=== PATIENT | male | born 1950 | race Asian ===

== ENCOUNTER 2018-02-28 02:19 | Inpatient (IN) | payer MEDICARE, MEDICAID ==
[2018-02-28] MEDS ORDERED: Haloperidol Lactate 5 mg/mL 1mL Vial IM STA (02:34)
[2018-02-28] MEDS ORDERED: Haloperidol Lactate 5 mg/mL 1mL Vial ONE (02:39)
[2018-02-28] MEDS ORDERED: Pantoprazole 80 MG in Sodium Chloride 0.9% 100 ML IV ONE (03:36)
[2018-02-28 03:50] LABS: % BASOPHILS 0.9 % (0.0-2.0); % EOSINOPHILS 0.4 % (0.0-5.0); % LYMPHOCYTES 11.9 % (20.0-50.0); % MONOCYTES 8.5 % (2.0-10.0); % NEUTROPHILS 78.3 % (40.0-80.0); BASOPHILE ABSOLUTE 0.1 Th/cumm (0-0.2); HEMATOCRIT 44.8 % (41.0-60); HEMOGLOBIN 15.2 gm/dL (12-16); LYMPHOCYTE ABSOLUTE 1.3 Th/cmm (1.5-3.0); MEAN CELL VOLUME 92.7 fl (80-99); MEAN CORPUSCULAR HEMOGLOBIN 31.3 pg (27.0-31.0); MEAN CORPUSCULAR HGB CONC 33.8 pg (28.0-36.0); MONOCYTE ABSOLUTE 0.9 Th/cmm (0.3-1.0); NEUTROPHILE ABSOLUTE 8.7 Th/cmm (1.8-8.0); PLATELET COUNT 315 Th/cmm (150-400); RED BLOOD COUNT 4.84 Mil/cmm (3.80-5.80); RED CELL DISTRIBUTION WIDTH 14.9 % (11.5-20.0)
[2018-02-28] MEDS ORDERED: Pantoprazole 80 MG in Sodium Chloride 0.9% 100 ML IV SCH ×2 (04:00→13:00)
[2018-02-28 04:01] LABS: ALB/GLOB RATIO 1.3 (1.0-1.8); ALKALINE PHOSPHATASE 109 U/L (34-104); AMYLASE SERUM 63 U/L (29-103); ANION GAP 15.3 (7.0-16.0); BILIRUBIN,TOTAL 0.5 mg/dL (0.3-1.0); BUN - UREA NITROGEN 19 mg/dL (7-25); CALCIUM SERUM 10.8 mg/dL (8.6-10.3); CARBON DIOXIDE 31.2 mEq/L (21.0-31.0); CHLORIDE 92 mEq/L (98-107); CREATININE - SERUM 0.9 mg/dL (0.7-1.3); GFR AFRICAN-AMERICAN > 60.0 ml/min (>90); GFR NON AFRICAN-AMERICAN > 60.0 ml/min; GLUCOSE 119 mg/dL (70-105); LIPASE 42 U/L (11-82); MAGNESIUM 2.4 mg/dL (1.9-2.7); PHOSPHOROUS 3.8 mg/dL (2.5-5.0); POTASSIUM SERUM 3.5 mEq/L (3.5-5.1); SGOT 27 U/L (13-39); SGPT/ALT 20 U/L (7-52); SODIUM SERUM 135 mEq/L (136-145); TOTAL PROTEIN,SERUM 8.8 gm/dL (6.0-8.3)
--- NOTE | 2018-02-28 04:55 | ED Physician Chart ---
ED Chief Complaint/HPI - Patient Information Date Seen:: 02/28/18 Time Seen:: 02:20 Chief Complaint:: coffee ground emesis History of Present Illness:: coffee ground emesis Allergies:: Allergies Allergy/AdvReac Type Severity Reaction Status Date / Time No Known Allergies Allergy Verified 02/28/18 02:32 Vitals:: Vital Signs - 8 hr 02/28/18 02:20 Temp 98.4 F HR 88 RR 20 BP 140/76 O2 Sat % 95 Family Medical History - Family Member Mother History Unknown: Yes ED Physical Exam - Physical Examination General/Constitutional: Awake Other Gen/Cons comments:: agitated, fighting and swearing. Head: Atraumatic Eyes: Lids, conjuctiva normal, PERRL, EOMI Skin: Nl inspection, No rash, No skin lesions, No ecchymosis, Well hydrated, No lymphadenopathy ENMT: External ears, nose nl, Nasal exam nl, Lips, teeth, gums nl Neck: Nontender, Full ROM w/o pain, No JVD, No nuchal rigidity, No bruit, No mass, No stridor Respiratory: Nl effort/Exclusion, Clear to Auscultation, No Wheeze/Rhonchi/Rales Cardio Vascular: No murmur, gallop, rubs, NL S1 S2 Other Cardio Vascular comments:: tachycardic GI: No tenderness/rebounding/guarding, No organomegaly, No hernia, Normal BS's, Nondistended, No mass/bruits, No McBurney tenderness Other GI comments:: midline laparotomy scar. : No CVA tenderness Extremities: No tenderness or effusion, Full ROM, normal strength in all extremities, No edema, Normal digits & nails Other Extremities comments:: right hip scar Neuro/Psych: Normal motor strength Other Neuro/Psych comments:: agitated, swearing and fighting. Misc: Normal back, No paraspinal tenderness ED Labs/Radiology/EKG Results - Lab Results Results: Laboratory Tests 02/28/18 02/28/18 02/28/18 03:30 03:30 03:30 WBC 11.0 H RBC 4.84 Hgb 15.2 Hct 44.8 MCV 92.7 MCH 31.3 H MCHC Differential 33.8 RDW 14.9 Plt Count 315 MPV 7.0 Neutrophils % 78.3 Lymphocytes % 11.9 L Monocytes % 8.5 Eosinophils % 0.4 Basophils % 0.9 Sodium 135 L Potassium 3.5 Chloride 92 L Carbon Dioxide 31.2 H Anion Gap 15.3 BUN 19 Creatinine 0.9 Est GFR ( Amer) > 60.0 Est GFR (Non-Af Amer) > 60.0 BUN/Creatinine Ratio 21.1 Glucose 119 H Calcium 10.8 H Phosphorus 3.8 Magnesium 2.4 Total Bilirubin 0.5 AST 27 ALT 20 Alkaline Phosphatase 109 H Troponin I Total Protein 8.8 H Albumin 5.0 Globulin 3.8 Albumin/Globulin Ratio 1.3 Amylase 63 Lipase 42 Blood Type O POSITIVE Antibody Screen NEGATIVE 02/28/18 03:30 WBC RBC Hgb Hct MCV MCH MCHC Differential RDW Plt Count MPV Neutrophils % Lymphocytes % Monocytes % Eosinophils % Basophils % Sodium Potassium Chloride Carbon Dioxide Anion Gap BUN Creatinine Est GFR ( Amer) Est GFR (Non-Af Amer) BUN/Creatinine Ratio Glucose Calcium Phosphorus Magnesium Total Bilirubin AST ALT Alkaline Phosphatase Troponin I < 0.01 L Total Protein Albumin Globulin Albumin/Globulin Ratio Amylase Lipase Blood Type Antibody Screen ED Assessment - Assessment General Assessment: patient had to be given a shot of benadryl, haldol and ativan just to calm him down enough so that he would not hit personnel. He also was placed in soft restraints which he broke off of his right wrist and then a leather restraint had to be placed on that side instead. Assessment/Comments:: spoke to Dr. Willis about her patient at 11:45 p.m. who ordered the following for admit: telemetry bed, hematocrit check every 6 hours, NPO, Protonix bolus and drip and GI consult. EKG from 4:03:12 a.m. reveals normal sinus rhythm with a rate of 89, flipped t wave in III and nonspecific ST T wave changes. ED Septic Shock - . Is Septic Shock (SBP<90, OR Lactate>4 mmol\L) present?: No - <6hrs of presentation: Vital Signs: Vital Signs - 8 hr 02/28/18 02:20 Temp 98.4 F HR 88 RR 20 BP 140/76 O2 Sat % 95 ED Reassessment (Disposition) - Reassessment Reassessment Condition:: Improved - Diagnosis Diagnosis:: Upper GI bleed Schizophrenia H/o atrial fibrillation
[2018-02-28] MEDS ORDERED: Sodium Chloride 0.45% 1,000 ML IV SCH (07:00)
[2018-02-28] MEDS ORDERED: Non-Formulary Item 1 EA (Docusate Sodium [Docusate Sodium] 100 MG) PO PRN (08:07)
[2018-02-28] MEDS ORDERED: Potassium Chloride 10 MEQ in D5-0.9%NS 1,000 ML IV SCH (08:15)
[2018-02-28] MEDS ORDERED: DILTIAZEM HCL 60 MG PO SCH (09:00)
--- NOTE | 2018-02-28 09:15 | Diagnostic Imaging Report ---
Exam: Portable chest x-ray HISTORY: Pneumonia. Findings: Portable upright examination of the chest at 0815 hours reviewed, no prior studies available comparison. The study demonstrates mild bilateral interstitial infiltrates. The costophrenic angles are clear bony thorax is intact. Mediastinal structures midline the aortic arch calcified. IMPRESSION: Mild bilateral interstitial infiltrates. Follow-up examination recommended.
[2018-02-28] MEDS: Potassium Chloride 10 MEQ in D5-0.9%NS 1,000 ML IV SCH ×2 (09:50→23:33)
[2018-02-28] MEDS: Diltiazem 30 mg Tab PO SCH ×2 (09:51→10:55)
[2018-02-28] MEDS: Multivitamin Tab PO SCH ×2 (09:52→10:56)
[2018-02-28] MEDS: Ferrous Sulfate 325 MG TAB PO SCH ×2 (09:52→10:56)
--- NOTE | 2018-02-28 10:11 | Consultation ---
DATE OF CONSULTATION: 02/28/2018 INPATIENT GASTROINTESTINAL CONSULTATION CONSULTING PHYSICIAN: Dr. Willis. REASON FOR CONSULTATION: Reported coffee-ground emesis. HISTORY OF PRESENT ILLNESS: The patient is a 68-year-old male with past medical history significant for schizophrenia, atrial fibrillation, who was brought into the hospital from his nursing facility after he was seen to have coffee-ground emesis. Of note, the patient is a poor historian and is unwilling to participate in the interview other than saying that he feels fine and he denies any vomiting. Most of the history is obtained from the chart and the nursing staff. Apparently, the patient was seen to have coffee-ground emesis at his other facility, although nothing has been observed here. He was admitted to the ER, given this history and was started on a Protonix drip and q.6 CBCs. The patient has been stable after admission and has not had any further emesis. He denies feeling sick and suddenly reports that he does not want to have any procedures done on him. PAST MEDICAL HISTORY: Schizophrenia, atrial fibrillation. PAST SURGICAL HISTORY: Unknown. FAMILY HISTORY: Noncontributory. SOCIAL HISTORY: Unknown. ALLERGIES: No known drug allergies. REVIEW OF SYSTEMS: Not possible given the patient does not participate in the interview process. CURRENT MEDICATIONS: Include amiodarone, cyanocobalamin, Cardizem, Depakote, Colace, iron, gabapentin, Remeron, multivitamin, olanzapine, oxybutynin, Protonix, tamsulosin. PHYSICAL EXAMINATION: VITAL SIGNS: Blood pressure is 131/71, pulse 74 beats per minute, temperature 97.8, oxygenation 97%. GENERAL: The patient is lying on his side in bed, alert and oriented x 2. He is grumpy. HEAD, EARS, EYES, NOSE AND THROAT: Normocephalic, atraumatic appearing head. Pupils are equal and reactive. Moist mucous membranes. NECK: Supple. No obvious JVD or thyromegaly. CHEST: Clear to auscultation bilaterally. CARDIOVASCULAR: S1, S2 present. Regular rate and rhythm. ABDOMEN: Soft, nontender to palpation. No obvious guarding, rebound or fluid distention. EXTREMITIES: No pitting edema. Pulses are not present. SKIN: There is no obvious jaundice. LABORATORIES: White blood cell count is 11.0, hemoglobin 15.2, platelet count is 315. Sodium 135, BUN is 19, creatinine 0.9, AST 27, ALT 20, total bilirubin 0.5. Troponin is negative. Lipase 42. No abdominal imaging has been performed. IMPRESSION: This is a 68-year-old male with schizophrenia, who resides at the nursing facility with atrial fibrillation, who comes into the hospital after reported coffee-ground emesis. 1. Coffee-ground emesis. 2. Schizophrenia. 3. Atrial fibrillation. DISCUSSION: Unclear if the patient actually had coffee-ground emesis, however, this is reported. He has not had any further episodes here. His hemoglobin is stable. I doubt he is having an active GI bleed. Nevertheless, we can investigate the coffee ground emesis episode with upper endoscopy, although we would have to obtain consent from this patient's conservator or family member that is making decisions for him. This would be on Friday if we consent. This is not an emergency procedure. Thus, we do not need to proceed urgently. RECOMMENDATIONS: 1. Start clear liquid diet and this can be advanced as tolerated. 2. If we are able to obtain consent for EGD, we can plan for this Friday morning, although this is not urgent. 3. We will reduce the CBCs to every 12 hours. 4. Change the Protonix drip to twice daily dosing Protonix as this is unlikely to be a significant GI bleed. We will continue to follow the patient. Thank you for allowing us to participate in his care. Please call if any further questions. [facility]# [phone] [id number]
[2018-02-28] MEDS ORDERED: Albuterol/Ipratropium Neb 3 ML AERS HHN PRN (14:10)
--- NOTE | 2018-02-28 22:11 | History & Physical ---
ADMIT DATE: 02/28/2018 CHIEF COMPLAINT: Coffee-ground emesis by nursing staff. HISTORY OF PRESENT ILLNESS: The patient is a confused, noncompliant 68-year-old male admitted from Emergency Room to telemetry floor of [facility] due to acute upper GI bleeding with ____ by nursing staff during [facility] with coffee-ground emesis. The patient was also noted to have atrial fibrillation, rate is controlled. The patient is more confused than his baseline status, he is kind of noncompliant but education provided. Vital signs are basically stable. Labs revealed WBC 11,000. Sodium 135, BUN 19, creatinine 0.9. Troponin less than 0.01. BNP was not done. Chest x-ray ordered earlier revealed bilateral interstitial infiltrates. PAST MEDICAL HISTORY: COPD, pneumonia, atrial fibrillation, coronary heart disease, status post TX, urinary tract infection, BPH, difficulty walking due to chronic pain syndrome. PAST SURGICAL HISTORY: Denies significant past surgical history. MEDICATIONS: See medication reconciliation list. ALLERGIES: No known drug allergies. FAMILY HISTORY: Noncontributory. SOCIAL HISTORY: The patient smoked before, quit years ago. No history of alcohol or IV drug use. REVIEW OF SYSTEMS: As per HPI. PHYSICAL EXAMINATION: GENERAL: Well-developed, thin/cachectic male in no acute distress. SKIN: Warm and dry. VITAL SIGNS: Basically stable. HEENT: Normocephalic, atraumatic. Pupils equal, round, react to light and accommodation. CHEST: Symmetrical. LUNGS: Few rhonchi appreciated, bilaterally mild wheezing. CARDIAC: Atrial fibrillation, on off. ABDOMEN: Benign, soft, nontender. EXTREMITIES: No clubbing, cyanosis, edema bilaterally, 2+. CRANIOLOGICAL: Unremarkable. LABORATORY TESTING: Reviewed as seen from the computer as mentioned above. ASSESSMENT AND PLAN: 1. Acute upper gastrointestinal bleeding: N.p.o. GI consultation grossly appreciated. We will follow recommendation. 2. Altered level of consciousness due to metabolic encephalopathy and dementia. We will observe closely. The patient is on telemetry floor. 3. Atrial fibrillation on and off, ____ rate controlled. 4. Psychosis: Continue medication, adjust accordingly. 5. Mild early bilateral pneumonia: Blood culture, sputum culture ordered, empiric antibiotics started, which will be adjusted accordingly. 6. Noncompliance: Education provided. 7. ____ urinary tract infection and BPH: Urine culture ordered. Blood culture also ordered. I will order PSA as well. 8. Difficulty walking: Multifactorial probably partially due to prior cerebrovascular accident. 9. DVT prophylaxis. JOB# [id number]
[2018-03-01 04:04] LABS: URINE MICROSCOPIC INDICATED? YES; URINE SOURCE CLEAN C
[2018-03-01 04:06] LABS: URINE BILIRUBIN NEGATIVE (NEGATIVE); URINE BLOOD NEGATIVE (NEGATIVE); URINE GLUCOSE (UA) NEGATIVE (NEGATIVE); URINE KETONE TRACE mg/dL (NEGATIVE); URINE LEUKOCYTE ESTERASE NEGATIVE (NEGATIVE); URINE NITRATE NEGATIVE (NEGATIVE); URINE PH 5.5 (4.6 - 8.0); URINE PROTEIN TRACE mg/dL (NEGATIVE); URINE UROBILINOGEN 0.2 E.U./dL (0.2 - 1.0)
[2018-03-01 04:07] LABS: URINE CLARITY CLEAR (CLEAR); URINE COLOR BROWN
[2018-03-01 04:08] LABS: URINE BACTERIA NONE SEEN /hpf (NONE SEEN); URINE EPITHELIAL CELLS NONE SEEN /lpf (FEW); URINE RBC NONE SEEN /hpf (0-5); URINE WBC NONE SEEN /hpf (0-5)
[2018-03-01] MEDS ORDERED: Pantoprazole 40 mg EC Tab PO SCH (07:30)
--- NOTE | 2018-03-01 08:53 | GI Progress Note ---
Subjective - Review of Systems Service Date: 03/01/18 Subjective: RN reports one episode of dark green emesis today Objective - Results Result Diagrams: 02/28/18 03:30 02/28/18 03:30 Recent Labs: Laboratory Last Values WBC 11.0 Th/cmm (4.8-10.8) H 02/28/18 03:30 RBC 4.84 Mil/cmm (3.80-5.80) 02/28/18 03:30 Hgb 15.2 gm/dL (12-16) 02/28/18 03:30 Hct 44.8 % (41.0-60) 02/28/18 03:30 MCV 92.7 fl (80-99) 02/28/18 03:30 MCH 31.3 pg (27.0-31.0) H 02/28/18 03:30 MCHC Differential 33.8 pg (28.0-36.0) 02/28/18 03:30 RDW 14.9 % (11.5-20.0) 02/28/18 03:30 Plt Count 315 Th/cmm (150-400) 02/28/18 03:30 MPV 7.0 fl 02/28/18 03:30 Neutrophils % 78.3 % (40.0-80.0) 02/28/18 03:30 Lymphocytes % 11.9 % (20.0-50.0) L 02/28/18 03:30 Monocytes % 8.5 % (2.0-10.0) 02/28/18 03:30 Eosinophils % 0.4 % (0.0-5.0) 02/28/18 03:30 Basophils % 0.9 % (0.0-2.0) 02/28/18 03:30 Sodium 135 mEq/L (136-145) L 02/28/18 03:30 Potassium 3.5 mEq/L (3.5-5.1) 02/28/18 03:30 Chloride 92 mEq/L (98-107) L 02/28/18 03:30 Carbon Dioxide 31.2 mEq/L (21.0-31.0) H 02/28/18 03:30 Anion Gap 15.3 (7.0-16.0) 02/28/18 03:30 BUN 19 mg/dL (7-25) 02/28/18 03:30 Creatinine 0.9 mg/dL (0.7-1.3) 02/28/18 03:30 Est GFR ( Amer) > 60.0 ml/min (>90) 02/28/18 03:30 Est GFR (Non-Af Amer) > 60.0 ml/min 02/28/18 03:30 BUN/Creatinine Ratio 21.1 02/28/18 03:30 Glucose 119 mg/dL (70-105) H 02/28/18 03:30 Calcium 10.8 mg/dL (8.6-10.3) H 02/28/18 03:30 Phosphorus 3.8 mg/dL (2.5-5.0) 02/28/18 03:30 Magnesium 2.4 mg/dL (1.9-2.7) 02/28/18 03:30 Total Bilirubin 0.5 mg/dL (0.3-1.0) 02/28/18 03:30 AST 27 U/L (13-39) 02/28/18 03:30 ALT 20 U/L (7-52) 02/28/18 03:30 Alkaline Phosphatase 109 U/L (34-104) H 02/28/18 03:30 Ammonia 53 umol/L (16-53) 03/01/18 05:06 Troponin I < 0.01 ng/mL (0.01-0.05) L 02/28/18 03:30 B-Natriuretic Peptide 87.0 pg/mL (5.0-100.0) 03/01/18 05:06 Total Protein 8.8 gm/dL (6.0-8.3) H 02/28/18 03:30 Albumin 5.0 gm/dL (4.2-5.5) 02/28/18 03:30 Globulin 3.8 gm/dL 02/28/18 03:30 Albumin/Globulin Ratio 1.3 (1.0-1.8) 02/28/18 03:30 Amylase 63 U/L (29-103) 02/28/18 03:30 Lipase 42 U/L (11-82) 02/28/18 03:30 Urine Source CLEAN C 03/01/18 03:44 Urine Color BROWN 03/01/18 03:44 Urine Clarity CLEAR (CLEAR) 03/01/18 03:44 Urine pH 5.5 (4.6 - 8.0) 03/01/18 03:44 Ur Specific [place] 1.025 (1.005-1.030) 03/01/18 03:44 Urine Protein TRACE mg/dL (NEGATIVE) 03/01/18 03:44 Urine Glucose (UA) NEGATIVE mg/dL (NEGATIVE) 03/01/18 03:44 Urine Ketones TRACE mg/dL (NEGATIVE) 03/01/18 03:44 Urine Blood NEGATIVE (NEGATIVE) 03/01/18 03:44 Urine Nitrate NEGATIVE (NEGATIVE) 03/01/18 03:44 Urine Bilirubin NEGATIVE (NEGATIVE) 03/01/18 03:44 Urine Urobilinogen 0.2 E.U./dL (0.2 - 1.0) 03/01/18 03:44 Ur Leukocyte Esterase NEGATIVE (NEGATIVE) 03/01/18 03:44 Urine RBC NONE SEEN /hpf (0-5) 03/01/18 03:44 Urine WBC NONE SEEN /hpf (0-5) 03/01/18 03:44 Ur Epithelial Cells NONE SEEN /lpf (FEW) 03/01/18 03:44 Urine Bacteria NONE SEEN /hpf (NONE SEEN) 03/01/18 03:44 Blood Type O POSITIVE 02/28/18 03:30 Antibody Screen NEGATIVE 02/28/18 03:30 - Physical Exam Vitals and I&O: Vital Signs Temp 97.7 F 02/28/18 16:00 Pulse 85 03/01/18 07:51 Resp 14 03/01/18 07:51 BP 115/67 02/28/18 16:00 Pulse Ox 93 03/01/18 07:51 Intake & Output 02/28/18 03/01/18 03/01/18 18:59 06:59 18:59 Intake Total 252.368 9524 Balance 412.576 1756 Weight (lbs) 67.585 kg Intake: Intake, IV Amount 558.386 8312 Pantoprazole 80 mg In 69.333 Sodium Chloride 0.9% 100 ml @ 10 mls/hr IV Q10H [facility] Rx#:[id number] Piperacillin Sodium/ 50 50 Tazobact 3.375 gm In Sodium Chloride 0.9% 50 ml @ 100 mls/hr IV Q8H [facility] Rx#:[id number] Potassium Chloride 10 meq 1005 In D5-0.9%Ns 1,000 ml @ 75 mls/hr IV .[id number] PENDING SALE TO [facility] Rx#:[id number] Oral 200 Other: # Voids 1 Weight Source Bedscale Active Medications: Current Medications Albuterol/Ipratropium (Duoneb Neb) 3 ml HHN Q2H PRN PRN Reason: Wheezing Stop: 04/29/18 14:09 Amiodarone HCl (Cordarone) 200 mg PO DAILY PENDING SALE TO [facility] Stop: 04/29/18 08:59 Last Admin: 02/28/18 10:55 Dose: Not Given Cyanocobalamin (Vitamin B12) 1,000 mcg PO DAILY PENDING SALE TO [facility] Stop: 04/29/18 08:59 Last Admin: 02/28/18 10:55 Dose: Not Given Diltiazem HCl (Cardizem) 60 mg PO DAILY PENDING SALE TO [facility] Stop: 04/29/18 08:59 Last Admin: 02/28/18 10:55 Dose: Not Given Divalproex Sodium (Depakote Dr) 500 mg PO BID PENDING SALE TO [facility]; Protocol Stop: 04/29/18 08:59 Last Admin: 02/28/18 17:21 Dose: Not Given Docusate Sodium (Colace) 100 mg PO BID PRN PRN Reason: CONSTIPATION Stop: 04/29/18 08:47 Ferrous Sulfate (Iron) 325 mg PO DAILY PENDING SALE TO [facility] Stop: 04/29/18 08:59 Last Admin: 02/28/18 10:56 Dose: Not Given Gabapentin (Neurontin) 300 mg PO TID PENDING SALE TO [facility] Stop: 04/29/18 08:59 Last Admin: 02/28/18 21:34 Dose: Not Given Potassium Chloride 10 meq/ (Dextrose/Sodium Chloride) 1,005 mls @ 75 mls/hr IV .[id number] PENDING SALE TO [facility] Stop: 04/29/18 08:44 Last Admin: 02/28/18 23:33 Dose: 75 mls/hr Piperacillin Sod/Tazobactam (Sod 3.375 gm/ Sodium Chloride) 50 mls @ 100 mls/ hr IV Q8H PENDING SALE TO [facility] Stop: 04/29/18 13:14 Last Admin: 03/01/18 05:01 Dose: 100 mls/hr Lorazepam (Ativan) 1 mg IVP Q6HR PRN; Protocol PRN Reason: Agitation Stop: 09/19/18 12:32 Mirtazapine (Remeron) 15 mg PO HS PENDING SALE TO [facility]; Protocol Stop: 04/29/18 20:59 Last Admin: 02/28/18 21:34 Dose: Not Given Multivitamins/Vitamin C (Theragran) 1 tab PO DAILY [facility] Stop: 04/29/18 08:59 Last Admin: 02/28/18 10:56 Dose: Not Given Olanzapine (Zyprexa) 10 mg PO HS [facility] Stop: 04/29/18 20:59 Last Admin: 02/28/18 21:34 Dose: Not Given Oxybutynin Chloride (Ditropan) 5 mg PO HS [facility] Stop: 04/29/18 20:59 Last Admin: 02/28/18 21:35 Dose: Not Given Pantoprazole Sodium (Protonix) 40 mg IVP BID PENDING SALE TO [facility] Stop: 04/29/18 16:59 Last Admin: 02/28/18 17:14 Dose: 40 mg Sodium Chloride (Nacl Tab) 1 gm PO BID PENDING SALE TO [facility] Stop: 04/29/18 08:59 Last Admin: 02/28/18 17:22 Dose: Not Given Tamsulosin HCl (Flomax) 0.4 mg PO DAILY PENDING SALE TO [facility] Stop: 04/29/18 08:59 Last Admin: 02/28/18 10:56 Dose: Not Given General: Alert HEENT: Atraumatic Neck: Supple Cardiovascular: Regular rate Abdomen: Bowel sounds, Soft, no Tender, no Hepatomegaly, no Splenomegaly, no Distended, no Rebound, no Mass, no Guarding Assessment/Plan - Problem List Patient Problems: All Active Problems Coffee ground emesis (Acute) K92.0 - Assessment Assessment: # Coffee ground emesis # Schizophrenia Pt have have gastroenteritis, gastroparesis, esophagitis, or peptic ulcer disease as the cause of his vomiting. EGD indicated given the coffee ground color, but we will need to obtain consent from conservator. Plan: - EGD tomorrow if consent can be obtained\ - PPI q12 - diet as tolerated - anti emetics
[2018-03-01] MEDS: Multivitamin Tab PO SCH (08:57)
[2018-03-01] MEDS: Diltiazem 30 mg Tab PO SCH (08:57)
[2018-03-01] MEDS: Ferrous Sulfate 325 MG TAB PO SCH (08:58)
--- NOTE | 2018-03-01 09:16 | Diagnostic Imaging Report ---
Exam: KUB the abdomen. HISTORY: Constipation. Findings: Portable supine examination of the abdomen 0906 hours reviewed. The study demonstrates significant distention of the right colon with air. There is evidence for distention of small bowel loops left lower quadrant. There is no evidence of significant fecal impaction. Total right hip prosthesis is noted. No abnormal masses calcifications noted. IMPRESSION significant distention of right colon with air consistent with ileus. No evidence for fecal impaction.
[2018-03-01] MEDS: Potassium Chloride 10 MEQ in D5-0.9%NS 1,000 ML IV SCH (13:05)
--- NOTE | 2018-03-01 23:50 | Internal Medicine Prog Note ---
Internal Medicine Subjective - Subjective Service Date: 03/01/18 Patient seen and examined:: without staff Patient is:: awake, verbal, interactive, in bed, confused Patient Complaints of:: congestion Per staff patient has:: no adverse event Internal Medicine Objective - Results Result Diagrams: 02/28/18 03:30 02/28/18 03:30 Recent Labs: Laboratory Last Values WBC 11.0 Th/cmm (4.8-10.8) H 02/28/18 03:30 RBC 4.84 Mil/cmm (3.80-5.80) 02/28/18 03:30 Hgb 15.2 gm/dL (12-16) 02/28/18 03:30 Hct 44.8 % (41.0-60) 02/28/18 03:30 MCV 92.7 fl (80-99) 02/28/18 03:30 MCH 31.3 pg (27.0-31.0) H 02/28/18 03:30 MCHC Differential 33.8 pg (28.0-36.0) 02/28/18 03:30 RDW 14.9 % (11.5-20.0) 02/28/18 03:30 Plt Count 315 Th/cmm (150-400) 02/28/18 03:30 MPV 7.0 fl 02/28/18 03:30 Neutrophils % 78.3 % (40.0-80.0) 02/28/18 03:30 Lymphocytes % 11.9 % (20.0-50.0) L 02/28/18 03:30 Monocytes % 8.5 % (2.0-10.0) 02/28/18 03:30 Eosinophils % 0.4 % (0.0-5.0) 02/28/18 03:30 Basophils % 0.9 % (0.0-2.0) 02/28/18 03:30 Sodium 135 mEq/L (136-145) L 02/28/18 03:30 Potassium 3.5 mEq/L (3.5-5.1) 02/28/18 03:30 Chloride 92 mEq/L (98-107) L 02/28/18 03:30 Carbon Dioxide 31.2 mEq/L (21.0-31.0) H 02/28/18 03:30 Anion Gap 15.3 (7.0-16.0) 02/28/18 03:30 BUN 19 mg/dL (7-25) 02/28/18 03:30 Creatinine 0.9 mg/dL (0.7-1.3) 02/28/18 03:30 Est GFR ( Amer) > 60.0 ml/min (>90) 02/28/18 03:30 Est GFR (Non-Af Amer) > 60.0 ml/min 02/28/18 03:30 BUN/Creatinine Ratio 21.1 02/28/18 03:30 Glucose 119 mg/dL (70-105) H 02/28/18 03:30 Calcium 10.8 mg/dL (8.6-10.3) H 02/28/18 03:30 Phosphorus 3.8 mg/dL (2.5-5.0) 02/28/18 03:30 Magnesium 2.4 mg/dL (1.9-2.7) 02/28/18 03:30 Total Bilirubin 0.5 mg/dL (0.3-1.0) 02/28/18 03:30 AST 27 U/L (13-39) 02/28/18 03:30 ALT 20 U/L (7-52) 02/28/18 03:30 Alkaline Phosphatase 109 U/L (34-104) H 02/28/18 03:30 Ammonia 53 umol/L (16-53) 03/01/18 05:06 Troponin I < 0.01 ng/mL (0.01-0.05) L 02/28/18 03:30 B-Natriuretic Peptide 87.0 pg/mL (5.0-100.0) 03/01/18 05:06 Total Protein 8.8 gm/dL (6.0-8.3) H 02/28/18 03:30 Albumin 5.0 gm/dL (4.2-5.5) 02/28/18 03:30 Globulin 3.8 gm/dL 02/28/18 03:30 Albumin/Globulin Ratio 1.3 (1.0-1.8) 02/28/18 03:30 Amylase 63 U/L (29-103) 02/28/18 03:30 Lipase 42 U/L (11-82) 02/28/18 03:30 Urine Source CLEAN C 03/01/18 03:44 Urine Color BROWN 03/01/18 03:44 Urine Clarity CLEAR (CLEAR) 03/01/18 03:44 Urine pH 5.5 (4.6 - 8.0) 03/01/18 03:44 Ur Specific [place] 1.025 (1.005-1.030) 03/01/18 03:44 Urine Protein TRACE mg/dL (NEGATIVE) 03/01/18 03:44 Urine Glucose (UA) NEGATIVE mg/dL (NEGATIVE) 03/01/18 03:44 Urine Ketones TRACE mg/dL (NEGATIVE) 03/01/18 03:44 Urine Blood NEGATIVE (NEGATIVE) 03/01/18 03:44 Urine Nitrate NEGATIVE (NEGATIVE) 03/01/18 03:44 Urine Bilirubin NEGATIVE (NEGATIVE) 03/01/18 03:44 Urine Urobilinogen 0.2 E.U./dL (0.2 - 1.0) 03/01/18 03:44 Ur Leukocyte Esterase NEGATIVE (NEGATIVE) 03/01/18 03:44 Urine RBC NONE SEEN /hpf (0-5) 03/01/18 03:44 Urine WBC NONE SEEN /hpf (0-5) 03/01/18 03:44 Ur Epithelial Cells NONE SEEN /lpf (FEW) 03/01/18 03:44 Urine Bacteria NONE SEEN /hpf (NONE SEEN) 03/01/18 03:44 Blood Type O POSITIVE 02/28/18 03:30 Antibody Screen NEGATIVE 02/28/18 03:30 - Physical Exam Vitals and I&O: Vital Signs Temp 96.4 F 03/01/18 16:00 Pulse 67 03/01/18 16:00 Resp 21 03/01/18 19:00 BP 103/57 03/01/18 16:00 Pulse Ox 98 03/01/18 16:00 Intake & Output 03/01/18 03/01/18 03/02/18 06:59 18:59 06:59 Intake Total 1055 1805 50 Output Total 1 Balance 1055 1804 50 Weight (lbs) 67.585 kg Intake: Intake, IV Amount 1055 1105 50 Piperacillin Sodium/ 50 100 50 Tazobact 3.375 gm In Sodium Chloride 0.9% 50 ml @ 100 mls/hr IV Q8H [facility] Rx#:[id number] Potassium Chloride 10 meq 1005 1005 In D5-0.9%Ns 1,000 ml @ 75 mls/hr IV .[id number] [facility] Rx#:[id number] Oral 700 Output: Emesis 1 Other: # Voids 3 Weight Source Bedscale Active Medications: Current Medications Albuterol/Ipratropium (Duoneb Neb) 3 ml HHN Q2H PRN PRN Reason: Wheezing Stop: 04/29/18 14:09 Amiodarone HCl (Cordarone) 200 mg PO DAILY [facility] Stop: 04/29/18 08:59 Last Admin: 03/01/18 08:57 Dose: 200 mg Cyanocobalamin (Vitamin B12) 1,000 mcg PO DAILY [facility] Stop: 04/29/18 08:59 Last Admin: 03/01/18 08:57 Dose: 1,000 mcg Diltiazem HCl (Cardizem) 60 mg PO DAILY [facility] Stop: 04/29/18 08:59 Last Admin: 03/01/18 08:57 Dose: 60 mg Divalproex Sodium (Depakote Dr) 500 mg PO BID [facility]; Protocol Stop: 04/29/18 08:59 Last Admin: 03/01/18 16:56 Dose: 500 mg Docusate Sodium (Colace) 100 mg PO BID PRN PRN Reason: CONSTIPATION Stop: 04/29/18 08:47 Ferrous Sulfate (Iron) 325 mg PO DAILY [facility] Stop: 04/29/18 08:59 Last Admin: 03/01/18 08:58 Dose: 325 mg Gabapentin (Neurontin) 300 mg PO TID [facility] Stop: 04/29/18 08:59 Last Admin: 03/01/18 20:35 Dose: 300 mg Potassium Chloride 10 meq/ (Dextrose/Sodium Chloride) 1,005 mls @ 75 mls/hr IV .[id number] [facility] Stop: 04/29/18 08:44 Last Admin: 03/01/18 13:05 Dose: 75 mls/hr Piperacillin Sod/Tazobactam (Sod 3.375 gm/ Sodium Chloride) 50 mls @ 100 mls/ hr IV Q8H [facility] Stop: 04/29/18 13:14 Last Infusion: 03/01/18 21:10 Dose: Infused Lorazepam (Ativan) 1 mg IVP Q6HR PRN; Protocol PRN Reason: Agitation Stop: 04/29/18 12:32 Mirtazapine (Remeron) 15 mg PO HS [facility]; Protocol Stop: 04/29/18 20:59 Last Admin: 03/01/18 20:35 Dose: 15 mg Multivitamins/Vitamin C (Theragran) 1 tab PO DAILY [facility] Stop: 04/29/18 08:59 Last Admin: 03/01/18 08:57 Dose: 1 tab Olanzapine (Zyprexa) 10 mg PO HS [facility] Stop: 04/29/18 20:59 Last Admin: 03/01/18 20:35 Dose: 10 mg Ondansetron HCl (Zofran) 4 mg IV Q6H PRN PRN Reason: Nausea / Vomiting Stop: 04/30/18 19:24 Oxybutynin Chloride (Ditropan) 5 mg PO HS [facility] Stop: 04/29/18 20:59 Last Admin: 03/01/18 20:35 Dose: 5 mg Pantoprazole Sodium (Protonix) 40 mg IVP BID [facility] Stop: 04/29/18 16:59 Last Admin: 03/01/18 16:56 Dose: 40 mg Sodium Chloride (Nacl Tab) 1 gm PO BID [facility] Stop: 04/29/18 08:59 Last Admin: 03/01/18 16:56 Dose: 1 gm Tamsulosin HCl (Flomax) 0.4 mg PO DAILY [facility] Stop: 04/29/18 08:59 Last Admin: 03/01/18 08:57 Dose: 0.4 mg General: weak, lethargic, congested HEENT: NC/AT, PERRLA, EOMI, anicteric sclerae, throat clear Neck: Supple, No JVD, No thyromegaly Lungs: wheezing, ronchi Cardiovascular: RRR, Normal S1 Abdomen: soft, non-tender, non-distended, positive bowel sound Extremities: clear Neurological: no change Internal Medicine Assmt/Plan - Assessment Assessment: Acute UGIB in SNF: observe; GI consultation. ALOC: multifactorial. BL early PNA: IVPB ABX. h/o A. Fib: rate controlled. Noncompliance: education provided. Psychosis: continue meds. DVT prophylaxis.
[2018-03-02] MEDS: Potassium Chloride 10 MEQ in D5-0.9%NS 1,000 ML IV SCH ×2 (03:34→16:58)
--- NOTE | 2018-03-02 07:46 | GI Progress Note ---
Subjective - Review of Systems Service Date: 03/02/18 Subjective: No further vomiting, pt remains combative Objective - Results Result Diagrams: 02/28/18 03:30 02/28/18 03:30 Recent Labs: Laboratory Last Values WBC 11.0 Th/cmm (4.8-10.8) H 02/28/18 03:30 RBC 4.84 Mil/cmm (3.80-5.80) 02/28/18 03:30 Hgb 15.2 gm/dL (12-16) 02/28/18 03:30 Hct 44.8 % (41.0-60) 02/28/18 03:30 MCV 92.7 fl (80-99) 02/28/18 03:30 MCH 31.3 pg (27.0-31.0) H 02/28/18 03:30 MCHC Differential 33.8 pg (28.0-36.0) 02/28/18 03:30 RDW 14.9 % (11.5-20.0) 02/28/18 03:30 Plt Count 315 Th/cmm (150-400) 02/28/18 03:30 MPV 7.0 fl 02/28/18 03:30 Neutrophils % 78.3 % (40.0-80.0) 02/28/18 03:30 Lymphocytes % 11.9 % (20.0-50.0) L 02/28/18 03:30 Monocytes % 8.5 % (2.0-10.0) 02/28/18 03:30 Eosinophils % 0.4 % (0.0-5.0) 02/28/18 03:30 Basophils % 0.9 % (0.0-2.0) 02/28/18 03:30 Sodium 135 mEq/L (136-145) L 02/28/18 03:30 Potassium 3.5 mEq/L (3.5-5.1) 02/28/18 03:30 Chloride 92 mEq/L (98-107) L 02/28/18 03:30 Carbon Dioxide 31.2 mEq/L (21.0-31.0) H 02/28/18 03:30 Anion Gap 15.3 (7.0-16.0) 02/28/18 03:30 BUN 19 mg/dL (7-25) 02/28/18 03:30 Creatinine 0.9 mg/dL (0.7-1.3) 02/28/18 03:30 Est GFR ( Amer) > 60.0 ml/min (>90) 02/28/18 03:30 Est GFR (Non-Af Amer) > 60.0 ml/min 02/28/18 03:30 BUN/Creatinine Ratio 21.1 02/28/18 03:30 Glucose 119 mg/dL (70-105) H 02/28/18 03:30 Calcium 10.8 mg/dL (8.6-10.3) H 02/28/18 03:30 Phosphorus 3.8 mg/dL (2.5-5.0) 02/28/18 03:30 Magnesium 2.4 mg/dL (1.9-2.7) 02/28/18 03:30 Total Bilirubin 0.5 mg/dL (0.3-1.0) 02/28/18 03:30 AST 27 U/L (13-39) 02/28/18 03:30 ALT 20 U/L (7-52) 02/28/18 03:30 Alkaline Phosphatase 109 U/L (34-104) H 02/28/18 03:30 Ammonia 53 umol/L (16-53) 03/01/18 05:06 Troponin I < 0.01 ng/mL (0.01-0.05) L 02/28/18 03:30 B-Natriuretic Peptide 87.0 pg/mL (5.0-100.0) 03/01/18 05:06 Total Protein 8.8 gm/dL (6.0-8.3) H 02/28/18 03:30 Albumin 5.0 gm/dL (4.2-5.5) 02/28/18 03:30 Globulin 3.8 gm/dL 02/28/18 03:30 Albumin/Globulin Ratio 1.3 (1.0-1.8) 02/28/18 03:30 Amylase 63 U/L (29-103) 02/28/18 03:30 Lipase 42 U/L (11-82) 02/28/18 03:30 Urine Source CLEAN C 03/01/18 03:44 Urine Color BROWN 03/01/18 03:44 Urine Clarity CLEAR (CLEAR) 03/01/18 03:44 Urine pH 5.5 (4.6 - 8.0) 03/01/18 03:44 Ur Specific [place] 1.025 (1.005-1.030) 03/01/18 03:44 Urine Protein TRACE mg/dL (NEGATIVE) 03/01/18 03:44 Urine Glucose (UA) NEGATIVE mg/dL (NEGATIVE) 03/01/18 03:44 Urine Ketones TRACE mg/dL (NEGATIVE) 03/01/18 03:44 Urine Blood NEGATIVE (NEGATIVE) 03/01/18 03:44 Urine Nitrate NEGATIVE (NEGATIVE) 03/01/18 03:44 Urine Bilirubin NEGATIVE (NEGATIVE) 03/01/18 03:44 Urine Urobilinogen 0.2 E.U./dL (0.2 - 1.0) 03/01/18 03:44 Ur Leukocyte Esterase NEGATIVE (NEGATIVE) 03/01/18 03:44 Urine RBC NONE SEEN /hpf (0-5) 03/01/18 03:44 Urine WBC NONE SEEN /hpf (0-5) 03/01/18 03:44 Ur Epithelial Cells NONE SEEN /lpf (FEW) 03/01/18 03:44 Urine Bacteria NONE SEEN /hpf (NONE SEEN) 03/01/18 03:44 Blood Type O POSITIVE 02/28/18 03:30 Antibody Screen NEGATIVE 02/28/18 03:30 - Physical Exam Vitals and I&O: Vital Signs Temp 98.6 F 03/02/18 04:00 Pulse 67 03/02/18 04:00 Resp 21 03/02/18 06:43 BP 115/52 03/02/18 04:00 Pulse Ox 98 03/02/18 04:00 Intake & Output 03/01/18 03/02/18 03/02/18 18:59 06:59 18:59 Intake Total 1805 1205 Output Total 1 Balance 1804 1205 Weight (lbs) 67.585 kg 67.585 kg Intake: Intake, IV Amount 1105 1055 Piperacillin Sodium/ 100 50 Tazobact 3.375 gm In Sodium Chloride 0.9% 50 ml @ 100 mls/hr IV Q8H [facility] Rx#:[id number] Potassium Chloride 10 meq 1005 1005 In D5-0.9%Ns 1,000 ml @ 75 mls/hr IV .[id number] [facility] Rx#:[id number] Oral 700 150 Output: Emesis 1 Other: # Voids 3 3 # Bowel Movements 1 Stool Characteristics Soft Weight Source Bedscale Bedscale Active Medications: Current Medications Albuterol/Ipratropium (Duoneb Neb) 3 ml HHN Q2H PRN PRN Reason: Wheezing Stop: 04/29/18 14:09 Amiodarone HCl (Cordarone) 200 mg PO DAILY [facility] Stop: 04/29/18 08:59 Last Admin: 03/01/18 08:57 Dose: 200 mg Cyanocobalamin (Vitamin B12) 1,000 mcg PO DAILY [facility] Stop: 04/29/18 08:59 Last Admin: 03/01/18 08:57 Dose: 1,000 mcg Diltiazem HCl (Cardizem) 60 mg PO DAILY [facility] Stop: 04/29/18 08:59 Last Admin: 03/01/18 08:57 Dose: 60 mg Divalproex Sodium (Depakote Dr) 500 mg PO BID [facility]; Protocol Stop: 04/29/18 08:59 Last Admin: 03/01/18 16:56 Dose: 500 mg Docusate Sodium (Colace) 100 mg PO BID PRN PRN Reason: CONSTIPATION Stop: 04/29/18 08:47 Ferrous Sulfate (Iron) 325 mg PO DAILY [facility] Stop: 04/29/18 08:59 Last Admin: 03/01/18 08:58 Dose: 325 mg Gabapentin (Neurontin) 300 mg PO TID [facility] Stop: 04/29/18 08:59 Last Admin: 03/01/18 20:35 Dose: 300 mg Potassium Chloride 10 meq/ (Dextrose/Sodium Chloride) 1,005 mls @ 75 mls/hr IV .[id number] [facility] Stop: 04/29/18 08:44 Last Admin: 03/02/18 03:34 Dose: 75 mls/hr Piperacillin Sod/Tazobactam (Sod 3.375 gm/ Sodium Chloride) 50 mls @ 100 mls/ hr IV Q8H [facility] Stop: 04/29/18 13:14 Last Admin: 03/02/18 04:27 Dose: 100 mls/hr Lorazepam (Ativan) 1 mg IVP Q6HR PRN; Protocol PRN Reason: Agitation Stop: 04/29/18 12:32 Last Admin: 03/02/18 02:23 Dose: 1 mg Mirtazapine (Remeron) 15 mg PO HS [facility]; Protocol Stop: 04/29/18 20:59 Last Admin: 03/01/18 20:35 Dose: 15 mg Multivitamins/Vitamin C (Theragran) 1 tab PO DAILY [facility] Stop: 04/29/18 08:59 Last Admin: 03/01/18 08:57 Dose: 1 tab Olanzapine (Zyprexa) 10 mg PO HS [facility] Stop: 04/29/18 20:59 Last Admin: 03/01/18 20:35 Dose: 10 mg Ondansetron HCl (Zofran) 4 mg IV Q6H PRN PRN Reason: Nausea / Vomiting Stop: 04/30/18 19:24 Oxybutynin Chloride (Ditropan) 5 mg PO HS [facility] Stop: 04/29/18 20:59 Last Admin: 03/01/18 20:35 Dose: 5 mg Pantoprazole Sodium (Protonix) 40 mg IVP BID [facility] Stop: 04/29/18 16:59 Last Admin: 03/01/18 16:56 Dose: 40 mg Sodium Chloride (Nacl Tab) 1 gm PO BID [facility] Stop: 04/29/18 08:59 Last Admin: 03/01/18 16:56 Dose: 1 gm Tamsulosin HCl (Flomax) 0.4 mg PO DAILY [facility] Stop: 04/29/18 08:59 Last Admin: 03/01/18 08:57 Dose: 0.4 mg General: Alert HEENT: Atraumatic Neck: Supple Cardiovascular: Regular rate Abdomen: Bowel sounds, Soft, no Tender, no Hepatomegaly, no Splenomegaly, no Distended, no Rebound, no Mass, no Guarding Assessment/Plan - Problem List Patient Problems: All Active Problems Coffee ground emesis (Acute) K92.0 - Assessment Assessment: # Coffee ground emesis # Schizophrenia Pt have have gastroenteritis, gastroparesis, esophagitis, or peptic ulcer disease as the cause of his vomiting. EGD indicated given the coffee ground color, but we will need to obtain consent from conservator. Pt no longer having any evidence of GI bleed, and he is not vomiting. There is no urgency to EGD, although should likely still be performed non urgently to investigate the coffee grounds that the pt was reported to have at his facility. Still would need consent from conservator for this. Plan: - non urgent EGD if consent can be obtained - psychiatric optimization - PPI q12 - diet as tolerated - anti emetics
[2018-03-02] MEDS: Diltiazem 30 mg Tab PO SCH (09:19)
[2018-03-02] MEDS: Multivitamin Tab PO SCH (09:20)
[2018-03-02] MEDS: Ferrous Sulfate 325 MG TAB PO SCH (09:20)
--- NOTE | 2018-03-02 21:37 | Internal Medicine Prog Note ---
Internal Medicine Subjective - Subjective Service Date: 03/02/18 Patient seen and examined:: without staff Patient is:: awake, verbal, interactive, in bed, confused Patient Complaints of:: congestion Per staff patient has:: no adverse event Internal Medicine Objective - Results Result Diagrams: 02/28/18 03:30 02/28/18 03:30 Recent Labs: Laboratory Last Values WBC 11.0 Th/cmm (4.8-10.8) H 02/28/18 03:30 RBC 4.84 Mil/cmm (3.80-5.80) 02/28/18 03:30 Hgb 15.2 gm/dL (12-16) 02/28/18 03:30 Hct 44.8 % (41.0-60) 02/28/18 03:30 MCV 92.7 fl (80-99) 02/28/18 03:30 MCH 31.3 pg (27.0-31.0) H 02/28/18 03:30 MCHC Differential 33.8 pg (28.0-36.0) 02/28/18 03:30 RDW 14.9 % (11.5-20.0) 02/28/18 03:30 Plt Count 315 Th/cmm (150-400) 02/28/18 03:30 MPV 7.0 fl 02/28/18 03:30 Neutrophils % 78.3 % (40.0-80.0) 02/28/18 03:30 Lymphocytes % 11.9 % (20.0-50.0) L 02/28/18 03:30 Monocytes % 8.5 % (2.0-10.0) 02/28/18 03:30 Eosinophils % 0.4 % (0.0-5.0) 02/28/18 03:30 Basophils % 0.9 % (0.0-2.0) 02/28/18 03:30 Sodium 135 mEq/L (136-145) L 02/28/18 03:30 Potassium 3.5 mEq/L (3.5-5.1) 02/28/18 03:30 Chloride 92 mEq/L (98-107) L 02/28/18 03:30 Carbon Dioxide 31.2 mEq/L (21.0-31.0) H 02/28/18 03:30 Anion Gap 15.3 (7.0-16.0) 02/28/18 03:30 BUN 19 mg/dL (7-25) 02/28/18 03:30 Creatinine 0.9 mg/dL (0.7-1.3) 02/28/18 03:30 Est GFR ( Amer) > 60.0 ml/min (>90) 02/28/18 03:30 Est GFR (Non-Af Amer) > 60.0 ml/min 02/28/18 03:30 BUN/Creatinine Ratio 21.1 02/28/18 03:30 Glucose 119 mg/dL (70-105) H 02/28/18 03:30 Calcium 10.8 mg/dL (8.6-10.3) H 02/28/18 03:30 Phosphorus 3.8 mg/dL (2.5-5.0) 02/28/18 03:30 Magnesium 2.4 mg/dL (1.9-2.7) 02/28/18 03:30 Total Bilirubin 0.5 mg/dL (0.3-1.0) 02/28/18 03:30 AST 27 U/L (13-39) 02/28/18 03:30 ALT 20 U/L (7-52) 02/28/18 03:30 Alkaline Phosphatase 109 U/L (34-104) H 02/28/18 03:30 Ammonia 53 umol/L (16-53) 03/01/18 05:06 Troponin I < 0.01 ng/mL (0.01-0.05) L 02/28/18 03:30 B-Natriuretic Peptide 87.0 pg/mL (5.0-100.0) 03/01/18 05:06 Total Protein 8.8 gm/dL (6.0-8.3) H 02/28/18 03:30 Albumin 5.0 gm/dL (4.2-5.5) 02/28/18 03:30 Globulin 3.8 gm/dL 02/28/18 03:30 Albumin/Globulin Ratio 1.3 (1.0-1.8) 02/28/18 03:30 Amylase 63 U/L (29-103) 02/28/18 03:30 Lipase 42 U/L (11-82) 02/28/18 03:30 Urine Source CLEAN C 03/01/18 03:44 Urine Color BROWN 03/01/18 03:44 Urine Clarity CLEAR (CLEAR) 03/01/18 03:44 Urine pH 5.5 (4.6 - 8.0) 03/01/18 03:44 Ur Specific [place] 1.025 (1.005-1.030) 03/01/18 03:44 Urine Protein TRACE mg/dL (NEGATIVE) 03/01/18 03:44 Urine Glucose (UA) NEGATIVE mg/dL (NEGATIVE) 03/01/18 03:44 Urine Ketones TRACE mg/dL (NEGATIVE) 03/01/18 03:44 Urine Blood NEGATIVE (NEGATIVE) 03/01/18 03:44 Urine Nitrate NEGATIVE (NEGATIVE) 03/01/18 03:44 Urine Bilirubin NEGATIVE (NEGATIVE) 03/01/18 03:44 Urine Urobilinogen 0.2 E.U./dL (0.2 - 1.0) 03/01/18 03:44 Ur Leukocyte Esterase NEGATIVE (NEGATIVE) 03/01/18 03:44 Urine RBC NONE SEEN /hpf (0-5) 03/01/18 03:44 Urine WBC NONE SEEN /hpf (0-5) 03/01/18 03:44 Ur Epithelial Cells NONE SEEN /lpf (FEW) 03/01/18 03:44 Urine Bacteria NONE SEEN /hpf (NONE SEEN) 03/01/18 03:44 Blood Type O POSITIVE 02/28/18 03:30 Antibody Screen NEGATIVE 02/28/18 03:30 - Physical Exam Vitals and I&O: Vital Signs Temp 97.4 F 03/02/18 20:00 Pulse 57 03/02/18 20:00 Resp 18 03/02/18 20:00 BP 107/63 03/02/18 20:00 Pulse Ox 97 03/02/18 20:00 Intake & Output 03/02/18 03/02/18 03/03/18 06:59 18:59 06:59 Intake Total 1255 3355 Balance 1255 3355 Weight (lbs) 67.585 kg 66.678 kg Intake: Intake, IV Amount 1105 1055 Piperacillin Sodium/ 100 50 Tazobact 3.375 gm In Sodium Chloride 0.9% 50 ml @ 100 mls/hr IV Q8H [facility] Rx#:[id number] Potassium Chloride 10 meq 1005 1005 In D5-0.9%Ns 1,000 ml @ 75 mls/hr IV .[id number] [facility] Rx#:[id number] Oral 150 2300 Other: # Voids 3 5 # Bowel Movements 1 2 Stool Characteristics Soft Liquid Weight Source Bedscale Bedscale Active Medications: Current Medications Albuterol/Ipratropium (Duoneb Neb) 3 ml HHN Q2H PRN PRN Reason: Wheezing Stop: 04/29/18 14:09 Amiodarone HCl (Cordarone) 200 mg PO DAILY [facility] Stop: 04/29/18 08:59 Last Admin: 03/02/18 09:20 Dose: 200 mg Cyanocobalamin (Vitamin B12) 1,000 mcg PO DAILY [facility] Stop: 04/29/18 08:59 Last Admin: 03/02/18 09:19 Dose: 1,000 mcg Diltiazem HCl (Cardizem) 60 mg PO DAILY [facility] Stop: 04/29/18 08:59 Last Admin: 03/02/18 09:19 Dose: 60 mg Divalproex Sodium (Depakote Dr) 500 mg PO BID [facility]; Protocol Stop: 04/29/18 08:59 Last Admin: 03/02/18 17:07 Dose: 500 mg Docusate Sodium (Colace) 100 mg PO BID PRN PRN Reason: CONSTIPATION Stop: 04/29/18 08:47 Ferrous Sulfate (Iron) 325 mg PO DAILY [facility] Stop: 04/29/18 08:59 Last Admin: 03/02/18 09:20 Dose: 325 mg Gabapentin (Neurontin) 300 mg PO TID [facility] Stop: 04/29/18 08:59 Last Admin: 03/02/18 21:27 Dose: 300 mg Potassium Chloride 10 meq/ (Dextrose/Sodium Chloride) 1,005 mls @ 75 mls/hr IV .[id number] [facility] Stop: 04/29/18 08:44 Last Admin: 03/02/18 16:58 Dose: 75 mls/hr Piperacillin Sod/Tazobactam (Sod 3.375 gm/ Sodium Chloride) 50 mls @ 100 mls/ hr IV Q8H [facility] Stop: 04/29/18 13:14 Last Admin: 03/02/18 21:27 Dose: 100 mls/hr Lorazepam (Ativan) 1 mg IVP Q6HR PRN; Protocol PRN Reason: Agitation Stop: 04/29/18 12:32 Last Admin: 03/02/18 09:31 Dose: 1 mg Mirtazapine (Remeron) 15 mg PO HS [facility]; Protocol Stop: 04/29/18 20:59 Last Admin: 03/02/18 21:27 Dose: 15 mg Multivitamins/Vitamin C (Theragran) 1 tab PO DAILY [facility] Stop: 04/29/18 08:59 Last Admin: 03/02/18 09:20 Dose: 1 tab Olanzapine (Zyprexa) 10 mg PO HS [facility] Stop: 04/29/18 20:59 Last Admin: 03/02/18 21:27 Dose: 10 mg Ondansetron HCl (Zofran) 4 mg IV Q6H PRN PRN Reason: Nausea / Vomiting Stop: 04/30/18 19:24 Oxybutynin Chloride (Ditropan) 5 mg PO HS [facility] Stop: 04/29/18 20:59 Last Admin: 03/02/18 21:27 Dose: 5 mg Pantoprazole Sodium (Protonix) 40 mg IVP BID [facility] Stop: 04/29/18 16:59 Last Admin: 03/02/18 17:17 Dose: 40 mg Sodium Chloride (Nacl Tab) 1 gm PO BID [facility] Stop: 04/29/18 08:59 Last Admin: 03/02/18 17:07 Dose: 1 gm Tamsulosin HCl (Flomax) 0.4 mg PO DAILY [facility] Stop: 04/29/18 08:59 Last Admin: 03/02/18 09:20 Dose: 0.4 mg General: weak, lethargic, congested HEENT: NC/AT, PERRLA, EOMI, anicteric sclerae, throat clear Neck: Supple, No JVD, No thyromegaly Lungs: wheezing, ronchi Cardiovascular: RRR, Normal S1 Abdomen: soft, non-tender, non-distended, positive bowel sound Extremities: clear Neurological: no change Internal Medicine Assmt/Plan - Assessment Assessment: BL early PNA: IVPB ABX. Acute UGIB in SNF: observe; GI consultation. ALOC: multifactorial. h/o A. Fib: rate controlled. Noncompliance: education provided. Psychosis: continue meds. DVT prophylaxis.
[2018-03-03 06:44] LABS: % BASOPHILS 0.5 % (0.0-2.0); % EOSINOPHILS 2.7 % (0.0-5.0); % LYMPHOCYTES 21.5 % (20.0-50.0); % MONOCYTES 12.5 % (2.0-10.0); % NEUTROPHILS 62.8 % (40.0-80.0); EOSINOPHILE ABSOLUTE 0.2 Th/cmm (0.1-0.4); HEMATOCRIT 33.6 % (41.0-60); HEMOGLOBIN 11.5 gm/dL (12-16); LYMPHOCYTE ABSOLUTE 1.3 Th/cmm (1.5-3.0); MEAN CELL VOLUME 93.6 fl (80-99); MEAN CORPUSCULAR HEMOGLOBIN 32.2 pg (27.0-31.0); MEAN CORPUSCULAR HGB CONC 34.4 pg (28.0-36.0); MEAN PLATELET VOLUME 7.3 fl; MONOCYTE ABSOLUTE 0.8 Th/cmm (0.3-1.0); NEUTROPHILE ABSOLUTE 3.8 Th/cmm (1.8-8.0); PLATELET COUNT 219 Th/cmm (150-400); RED BLOOD COUNT 3.59 Mil/cmm (3.80-5.80); RED CELL DISTRIBUTION WIDTH 14.8 % (11.5-20.0); WHITE BLOOD COUNT 6.1 Th/cmm (4.8-10.8)
[2018-03-03 06:52] LABS: ALB/GLOB RATIO 1.5 (1.0-1.8); ALBUMIN 3.9 gm/dL (4.2-5.5); ALKALINE PHOSPHATASE 90 U/L (34-104); ANION GAP 9.7 (7.0-16.0); BILIRUBIN,TOTAL 0.2 mg/dL (0.3-1.0); BUN - UREA NITROGEN 9 mg/dL (7-25); CALCIUM SERUM 9.1 mg/dL (8.6-10.3); CARBON DIOXIDE 27.1 mEq/L (21.0-31.0); CHLORIDE 103 mEq/L (98-107); CREATININE - SERUM 0.7 mg/dL (0.7-1.3); GFR AFRICAN-AMERICAN > 60.0 ml/min (>90); GFR NON AFRICAN-AMERICAN > 60.0 ml/min; GLUCOSE 77 mg/dL (70-105); POTASSIUM SERUM 3.8 mEq/L (3.5-5.1); SGOT 21 U/L (13-39); SGPT/ALT 18 U/L (7-52); SODIUM SERUM 136 mEq/L (136-145); TOTAL PROTEIN,SERUM 6.5 gm/dL (6.0-8.3)
--- NOTE | 2018-03-03 08:28 | GI Progress Note ---
Subjective - Review of Systems Service Date: 03/03/18 Subjective: No events Objective - Results Result Diagrams: 03/03/18 06:00 03/03/18 06:00 Recent Labs: Laboratory Last Values WBC 6.1 Th/cmm (4.8-10.8) 03/03/18 06:00 RBC 3.59 Mil/cmm (3.80-5.80) L 03/03/18 06:00 Hgb 11.5 gm/dL (12-16) L 03/03/18 06:00 Hct 33.6 % (41.0-60) L 03/03/18 06:00 MCV 93.6 fl (80-99) 03/03/18 06:00 MCH 32.2 pg (27.0-31.0) H 03/03/18 06:00 MCHC Differential 34.4 pg (28.0-36.0) 03/03/18 06:00 RDW 14.8 % (11.5-20.0) 03/03/18 06:00 Plt Count 219 Th/cmm (150-400) 03/03/18 06:00 MPV 7.3 fl 03/03/18 06:00 Neutrophils % 62.8 % (40.0-80.0) 03/03/18 06:00 Lymphocytes % 21.5 % (20.0-50.0) 03/03/18 06:00 Monocytes % 12.5 % (2.0-10.0) H 03/03/18 06:00 Eosinophils % 2.7 % (0.0-5.0) 03/03/18 06:00 Basophils % 0.5 % (0.0-2.0) 03/03/18 06:00 Sodium 136 mEq/L (136-145) 03/03/18 06:00 Potassium 3.8 mEq/L (3.5-5.1) 03/03/18 06:00 Chloride 103 mEq/L (98-107) 03/03/18 06:00 Carbon Dioxide 27.1 mEq/L (21.0-31.0) 03/03/18 06:00 Anion Gap 9.7 (7.0-16.0) 03/03/18 06:00 BUN 9 mg/dL (7-25) 03/03/18 06:00 Creatinine 0.7 mg/dL (0.7-1.3) 03/03/18 06:00 Est GFR ( Amer) > 60.0 ml/min (>90) 03/03/18 06:00 Est GFR (Non-Af Amer) > 60.0 ml/min 03/03/18 06:00 BUN/Creatinine Ratio 12.9 03/03/18 06:00 Glucose 77 mg/dL (70-105) 03/03/18 06:00 Calcium 9.1 mg/dL (8.6-10.3) 03/03/18 06:00 Phosphorus 3.8 mg/dL (2.5-5.0) 02/28/18 03:30 Magnesium 2.4 mg/dL (1.9-2.7) 02/28/18 03:30 Total Bilirubin 0.2 mg/dL (0.3-1.0) L 03/03/18 06:00 AST 21 U/L (13-39) 03/03/18 06:00 ALT 18 U/L (7-52) 03/03/18 06:00 Alkaline Phosphatase 90 U/L (34-104) 03/03/18 06:00 Ammonia 53 umol/L (16-53) 03/01/18 05:06 Troponin I < 0.01 ng/mL (0.01-0.05) L 02/28/18 03:30 B-Natriuretic Peptide 87.0 pg/mL (5.0-100.0) 03/01/18 05:06 Total Protein 6.5 gm/dL (6.0-8.3) 03/03/18 06:00 Albumin 3.9 gm/dL (4.2-5.5) L 03/03/18 06:00 Globulin 2.6 gm/dL 03/03/18 06:00 Albumin/Globulin Ratio 1.5 (1.0-1.8) 03/03/18 06:00 Amylase 63 U/L (29-103) 02/28/18 03:30 Lipase 42 U/L (11-82) 02/28/18 03:30 Urine Source CLEAN C 03/01/18 03:44 Urine Color BROWN 03/01/18 03:44 Urine Clarity CLEAR (CLEAR) 03/01/18 03:44 Urine pH 5.5 (4.6 - 8.0) 03/01/18 03:44 Ur Specific [employer] 1.025 (1.005-1.030) 03/01/18 03:44 Urine Protein TRACE mg/dL (NEGATIVE) 03/01/18 03:44 Urine Glucose (UA) NEGATIVE mg/dL (NEGATIVE) 03/01/18 03:44 Urine Ketones TRACE mg/dL (NEGATIVE) 03/01/18 03:44 Urine Blood NEGATIVE (NEGATIVE) 03/01/18 03:44 Urine Nitrate NEGATIVE (NEGATIVE) 03/01/18 03:44 Urine Bilirubin NEGATIVE (NEGATIVE) 03/01/18 03:44 Urine Urobilinogen 0.2 E.U./dL (0.2 - 1.0) 03/01/18 03:44 Ur Leukocyte Esterase NEGATIVE (NEGATIVE) 03/01/18 03:44 Urine RBC NONE SEEN /hpf (0-5) 03/01/18 03:44 Urine WBC NONE SEEN /hpf (0-5) 03/01/18 03:44 Ur Epithelial Cells NONE SEEN /lpf (FEW) 03/01/18 03:44 Urine Bacteria NONE SEEN /hpf (NONE SEEN) 03/01/18 03:44 Blood Type O POSITIVE 02/28/18 03:30 Antibody Screen NEGATIVE 02/28/18 03:30 - Physical Exam Vitals and I&O: Vital Signs Temp 98.0 F 03/03/18 04:00 Pulse 64 03/03/18 04:00 Resp 20 03/03/18 04:00 BP 98/73 03/03/18 04:00 Pulse Ox 98 03/03/18 04:00 Intake & Output 03/02/18 03/03/18 03/03/18 18:59 06:59 18:59 Intake Total 3355 907.5 Balance 3355 907.5 Weight (lbs) 66.678 kg Intake: Intake, IV Amount 1055 907.5 Piperacillin Sodium/ 50 50 Tazobact 3.375 gm In Sodium Chloride 0.9% 50 ml @ 100 mls/hr IV Q8H [facility] Rx#:[id number] Potassium Chloride 10 meq 1005 857.5 In D5-0.9%Ns 1,000 ml @ 75 mls/hr IV .[id number] [facility] Rx#:[id number] Oral 2300 Other: # Voids 5 # Bowel Movements 2 Stool Characteristics Liquid Weight Source Bedscale Active Medications: Current Medications Albuterol/Ipratropium (Duoneb Neb) 3 ml HHN Q2H PRN PRN Reason: Wheezing Stop: 04/29/18 14:09 Amiodarone HCl (Cordarone) 200 mg PO DAILY [facility] Stop: 04/29/18 08:59 Last Admin: 03/02/18 09:20 Dose: 200 mg Cyanocobalamin (Vitamin B12) 1,000 mcg PO DAILY [facility] Stop: 04/29/18 08:59 Last Admin: 03/02/18 09:19 Dose: 1,000 mcg Diltiazem HCl (Cardizem) 60 mg PO DAILY [facility] Stop: 04/29/18 08:59 Last Admin: 03/02/18 09:19 Dose: 60 mg Divalproex Sodium (Depakote Dr) 500 mg PO BID [facility]; Protocol Stop: 04/29/18 08:59 Last Admin: 03/02/18 17:07 Dose: 500 mg Docusate Sodium (Colace) 100 mg PO BID PRN PRN Reason: CONSTIPATION Stop: 04/29/18 08:47 Ferrous Sulfate (Iron) 325 mg PO DAILY [facility] Stop: 04/29/18 08:59 Last Admin: 03/02/18 09:20 Dose: 325 mg Gabapentin (Neurontin) 300 mg PO TID [facility] Stop: 04/29/18 08:59 Last Admin: 03/02/18 21:27 Dose: 300 mg Potassium Chloride 10 meq/ (Dextrose/Sodium Chloride) 1,005 mls @ 75 mls/hr IV .[id number] [facility] Stop: 04/29/18 08:44 Last Infusion: 03/03/18 04:24 Dose: 0 mls/hr Piperacillin Sod/Tazobactam (Sod 3.375 gm/ Sodium Chloride) 50 mls @ 100 mls/ hr IV Q8H [facility] Stop: 04/29/18 13:14 Last Admin: 03/03/18 06:39 Dose: Not Given Lorazepam (Ativan) 1 mg IVP Q6HR PRN; Protocol PRN Reason: Agitation Stop: 04/29/18 12:32 Last Admin: 03/02/18 09:31 Dose: 1 mg Mirtazapine (Remeron) 15 mg PO HS [facility]; Protocol Stop: 04/29/18 20:59 Last Admin: 03/02/18 21:27 Dose: 15 mg Multivitamins/Vitamin C (Theragran) 1 tab PO DAILY [facility] Stop: 04/29/18 08:59 Last Admin: 03/02/18 09:20 Dose: 1 tab Olanzapine (Zyprexa) 10 mg PO HS [facility] Stop: 04/29/18 20:59 Last Admin: 03/02/18 21:27 Dose: 10 mg Ondansetron HCl (Zofran) 4 mg IV Q6H PRN PRN Reason: Nausea / Vomiting Stop: 04/30/18 19:24 Oxybutynin Chloride (Ditropan) 5 mg PO HS [facility] Stop: 04/29/18 20:59 Last Admin: 03/02/18 21:27 Dose: 5 mg Pantoprazole Sodium (Protonix) 40 mg IVP BID [facility] Stop: 04/29/18 16:59 Last Admin: 03/02/18 17:17 Dose: 40 mg Sodium Chloride (Nacl Tab) 1 gm PO BID [facility] Stop: 04/29/18 08:59 Last Admin: 03/02/18 17:07 Dose: 1 gm Tamsulosin HCl (Flomax) 0.4 mg PO DAILY [facility] Stop: 04/29/18 08:59 Last Admin: 03/02/18 09:20 Dose: 0.4 mg General: Alert HEENT: Atraumatic Neck: Supple Cardiovascular: Regular rate Abdomen: Bowel sounds, Soft, no Tender, no Hepatomegaly, no Splenomegaly, no Distended, no Rebound, no Mass, no Guarding Assessment/Plan - Problem List Patient Problems: All Active Problems Coffee ground emesis (Acute) K92.0 - Assessment Assessment: # Coffee ground emesis # Schizophrenia Pt have have gastroenteritis, gastroparesis, esophagitis, or peptic ulcer disease as the cause of his vomiting. EGD indicated given the coffee ground color, but we will need to obtain consent from conservator. Pt no longer having any evidence of GI bleed, and he is not vomiting. There is no urgency to EGD, although should likely still be performed non urgently to investigate the coffee grounds that the pt was reported to have at his facility. Still would need consent from conservator for this. Plan: - non urgent EGD if consent can be obtained - psychiatric optimization - PPI q12 - diet as tolerated - anti emetics
[2018-03-03] MEDS: Diltiazem 30 mg Tab PO SCH (09:09)
[2018-03-03] MEDS: Multivitamin Tab PO SCH (09:09)
[2018-03-03] MEDS: Ferrous Sulfate 325 MG TAB PO SCH (09:10)
--- NOTE | 2018-03-03 22:56 | Internal Medicine Prog Note ---
Internal Medicine Subjective - Subjective Service Date: 03/03/18 Patient seen and examined:: with staff Patient is:: awake, verbal, interactive, in bed, confused Patient Complaints of:: congestion Per staff patient has:: no adverse event Internal Medicine Objective - Results Result Diagrams: 03/03/18 06:00 03/03/18 06:00 Recent Labs: Laboratory Last Values WBC 6.1 Th/cmm (4.8-10.8) 03/03/18 06:00 RBC 3.59 Mil/cmm (3.80-5.80) L 03/03/18 06:00 Hgb 11.5 gm/dL (12-16) L 03/03/18 06:00 Hct 33.6 % (41.0-60) L 03/03/18 06:00 MCV 93.6 fl (80-99) 03/03/18 06:00 MCH 32.2 pg (27.0-31.0) H 03/03/18 06:00 MCHC Differential 34.4 pg (28.0-36.0) 03/03/18 06:00 RDW 14.8 % (11.5-20.0) 03/03/18 06:00 Plt Count 219 Th/cmm (150-400) 03/03/18 06:00 MPV 7.3 fl 03/03/18 06:00 Neutrophils % 62.8 % (40.0-80.0) 03/03/18 06:00 Lymphocytes % 21.5 % (20.0-50.0) 03/03/18 06:00 Monocytes % 12.5 % (2.0-10.0) H 03/03/18 06:00 Eosinophils % 2.7 % (0.0-5.0) 03/03/18 06:00 Basophils % 0.5 % (0.0-2.0) 03/03/18 06:00 Sodium 136 mEq/L (136-145) 03/03/18 06:00 Potassium 3.8 mEq/L (3.5-5.1) 03/03/18 06:00 Chloride 103 mEq/L (98-107) 03/03/18 06:00 Carbon Dioxide 27.1 mEq/L (21.0-31.0) 03/03/18 06:00 Anion Gap 9.7 (7.0-16.0) 03/03/18 06:00 BUN 9 mg/dL (7-25) 03/03/18 06:00 Creatinine 0.7 mg/dL (0.7-1.3) 03/03/18 06:00 Est GFR ( Amer) > 60.0 ml/min (>90) 03/03/18 06:00 Est GFR (Non-Af Amer) > 60.0 ml/min 03/03/18 06:00 BUN/Creatinine Ratio 12.9 03/03/18 06:00 Glucose 77 mg/dL (70-105) 03/03/18 06:00 Calcium 9.1 mg/dL (8.6-10.3) 03/03/18 06:00 Phosphorus 3.8 mg/dL (2.5-5.0) 02/28/18 03:30 Magnesium 2.4 mg/dL (1.9-2.7) 02/28/18 03:30 Total Bilirubin 0.2 mg/dL (0.3-1.0) L 03/03/18 06:00 AST 21 U/L (13-39) 03/03/18 06:00 ALT 18 U/L (7-52) 03/03/18 06:00 Alkaline Phosphatase 90 U/L (34-104) 03/03/18 06:00 Ammonia 53 umol/L (16-53) 03/01/18 05:06 Troponin I < 0.01 ng/mL (0.01-0.05) L 02/28/18 03:30 B-Natriuretic Peptide 87.0 pg/mL (5.0-100.0) 03/01/18 05:06 Total Protein 6.5 gm/dL (6.0-8.3) 03/03/18 06:00 Albumin 3.9 gm/dL (4.2-5.5) L 03/03/18 06:00 Globulin 2.6 gm/dL 03/03/18 06:00 Albumin/Globulin Ratio 1.5 (1.0-1.8) 03/03/18 06:00 Amylase 63 U/L (29-103) 02/28/18 03:30 Lipase 42 U/L (11-82) 02/28/18 03:30 Carcinoembryonic Ag 3.2 ng/mL (0.0-4.7) 03/01/18 05:06 Urine Source CLEAN C 03/01/18 03:44 Urine Color BROWN 03/01/18 03:44 Urine Clarity CLEAR (CLEAR) 03/01/18 03:44 Urine pH 5.5 (4.6 - 8.0) 03/01/18 03:44 Ur Specific [place] 1.025 (1.005-1.030) 03/01/18 03:44 Urine Protein TRACE mg/dL (NEGATIVE) 03/01/18 03:44 Urine Glucose (UA) NEGATIVE mg/dL (NEGATIVE) 03/01/18 03:44 Urine Ketones TRACE mg/dL (NEGATIVE) 03/01/18 03:44 Urine Blood NEGATIVE (NEGATIVE) 03/01/18 03:44 Urine Nitrate NEGATIVE (NEGATIVE) 03/01/18 03:44 Urine Bilirubin NEGATIVE (NEGATIVE) 03/01/18 03:44 Urine Urobilinogen 0.2 E.U./dL (0.2 - 1.0) 03/01/18 03:44 Ur Leukocyte Esterase NEGATIVE (NEGATIVE) 03/01/18 03:44 Urine RBC NONE SEEN /hpf (0-5) 03/01/18 03:44 Urine WBC NONE SEEN /hpf (0-5) 03/01/18 03:44 Ur Epithelial Cells NONE SEEN /lpf (FEW) 03/01/18 03:44 Urine Bacteria NONE SEEN /hpf (NONE SEEN) 03/01/18 03:44 Blood Type O POSITIVE 02/28/18 03:30 Antibody Screen NEGATIVE 02/28/18 03:30 - Physical Exam Vitals and I&O: Vital Signs Temp 98.8 F 03/03/18 20:00 Pulse 72 03/03/18 20:00 Resp 18 03/03/18 20:00 BP 133/68 03/03/18 20:00 Pulse Ox 98 03/03/18 20:00 Intake & Output 03/03/18 03/03/18 03/04/18 06:59 18:59 06:59 Intake Total 907.5 852 Balance 907.5 852 Weight (lbs) 66.678 kg Intake: Intake, IV Amount 907.5 Piperacillin Sodium/ 50 Tazobact 3.375 gm In Sodium Chloride 0.9% 50 ml @ 100 mls/hr IV Q8H [facility] Rx#:[id number] Potassium Chloride 10 meq 857.5 In D5-0.9%Ns 1,000 ml @ 75 mls/hr IV .[id number] [facility] Rx#:[id number] Oral 852 Other: Stool Characteristics Soft Formed Liquid Weight Source Bedscale Active Medications: Current Medications Albuterol/Ipratropium (Duoneb Neb) 3 ml HHN Q2H PRN PRN Reason: Wheezing Stop: 04/29/18 14:09 Amiodarone HCl (Cordarone) 200 mg PO DAILY [facility] Stop: 04/29/18 08:59 Last Admin: 03/03/18 09:09 Dose: 200 mg Cyanocobalamin (Vitamin B12) 1,000 mcg PO DAILY [facility] Stop: 04/29/18 08:59 Last Admin: 03/03/18 09:09 Dose: 1,000 mcg Diltiazem HCl (Cardizem) 60 mg PO DAILY [facility] Stop: 04/29/18 08:59 Last Admin: 03/03/18 09:09 Dose: 60 mg Divalproex Sodium (Depakote Dr) 500 mg PO BID [facility]; Protocol Stop: 04/29/18 08:59 Last Admin: 03/03/18 16:26 Dose: 500 mg Docusate Sodium (Colace) 100 mg PO BID PRN PRN Reason: CONSTIPATION Stop: 04/29/18 08:47 Ferrous Sulfate (Iron) 325 mg PO DAILY [facility] Stop: 04/29/18 08:59 Last Admin: 03/03/18 09:10 Dose: 325 mg Gabapentin (Neurontin) 300 mg PO TID [facility] Stop: 04/29/18 08:59 Last Admin: 03/03/18 21:23 Dose: 300 mg Potassium Chloride 10 meq/ (Dextrose/Sodium Chloride) 1,005 mls @ 75 mls/hr IV .[id number] [facility] Stop: 04/29/18 08:44 Last Infusion: 03/03/18 04:24 Dose: 0 mls/hr Piperacillin Sod/Tazobactam (Sod 3.375 gm/ Sodium Chloride) 50 mls @ 100 mls/ hr IV Q8H [facility] Stop: 04/29/18 13:14 Last Admin: 03/03/18 22:12 Dose: Not Given Lorazepam (Ativan) 1 mg IVP Q6HR PRN; Protocol PRN Reason: Agitation Stop: 04/29/18 12:32 Last Admin: 03/02/18 09:31 Dose: 1 mg Mirtazapine (Remeron) 15 mg PO HS [facility]; Protocol Stop: 04/29/18 20:59 Last Admin: 03/03/18 21:22 Dose: 15 mg Multivitamins/Vitamin C (Theragran) 1 tab PO DAILY [facility] Stop: 04/29/18 08:59 Last Admin: 03/03/18 09:09 Dose: 1 tab Olanzapine (Zyprexa) 10 mg PO HS [facility] Stop: 04/29/18 20:59 Last Admin: 03/03/18 21:22 Dose: 10 mg Ondansetron HCl (Zofran) 4 mg IV Q6H PRN PRN Reason: Nausea / Vomiting Stop: 04/30/18 19:24 Oxybutynin Chloride (Ditropan) 5 mg PO HS [facility] Stop: 04/29/18 20:59 Last Admin: 03/03/18 21:23 Dose: 5 mg Pantoprazole Sodium (Protonix) 40 mg IVP BID [facility] Stop: 04/29/18 16:59 Last Admin: 03/03/18 16:52 Dose: Not Given Sodium Chloride (Nacl Tab) 1 gm PO BID [facility] Stop: 04/29/18 08:59 Last Admin: 03/03/18 16:26 Dose: 1 gm Tamsulosin HCl (Flomax) 0.4 mg PO DAILY [facility] Stop: 04/29/18 08:59 Last Admin: 03/03/18 09:13 Dose: 0.4 mg General: weak, lethargic, congested HEENT: NC/AT, PERRLA, EOMI, anicteric sclerae, throat clear Neck: Supple, No JVD, No thyromegaly Lungs: wheezing, ronchi Cardiovascular: RRR, Normal S1 Abdomen: soft, non-tender, non-distended, positive bowel sound Extremities: clear Neurological: no change Internal Medicine Assmt/Plan - Assessment Assessment: ALOC: multifactorial. h/o A. Fib: rate controlled. BL early PNA: IVPB ABX. Acute UGIB in SNF: observe; GI consultation. Noncompliance: education provided. Psychosis: continue meds. DVT prophylaxis.
--- NOTE | 2018-03-04 08:44 | GI Progress Note ---
Subjective - Review of Systems Service Date: 03/04/18 Subjective: No events, walking the halls. No vomiting Objective - Results Result Diagrams: 03/03/18 06:00 03/03/18 06:00 Recent Labs: Laboratory Last Values WBC 6.1 Th/cmm (4.8-10.8) 03/03/18 06:00 RBC 3.59 Mil/cmm (3.80-5.80) L 03/03/18 06:00 Hgb 11.5 gm/dL (12-16) L 03/03/18 06:00 Hct 33.6 % (41.0-60) L 03/03/18 06:00 MCV 93.6 fl (80-99) 03/03/18 06:00 MCH 32.2 pg (27.0-31.0) H 03/03/18 06:00 MCHC Differential 34.4 pg (28.0-36.0) 03/03/18 06:00 RDW 14.8 % (11.5-20.0) 03/03/18 06:00 Plt Count 219 Th/cmm (150-400) 03/03/18 06:00 MPV 7.3 fl 03/03/18 06:00 Neutrophils % 62.8 % (40.0-80.0) 03/03/18 06:00 Lymphocytes % 21.5 % (20.0-50.0) 03/03/18 06:00 Monocytes % 12.5 % (2.0-10.0) H 03/03/18 06:00 Eosinophils % 2.7 % (0.0-5.0) 03/03/18 06:00 Basophils % 0.5 % (0.0-2.0) 03/03/18 06:00 Sodium 136 mEq/L (136-145) 03/03/18 06:00 Potassium 3.8 mEq/L (3.5-5.1) 03/03/18 06:00 Chloride 103 mEq/L (98-107) 03/03/18 06:00 Carbon Dioxide 27.1 mEq/L (21.0-31.0) 03/03/18 06:00 Anion Gap 9.7 (7.0-16.0) 03/03/18 06:00 BUN 9 mg/dL (7-25) 03/03/18 06:00 Creatinine 0.7 mg/dL (0.7-1.3) 03/03/18 06:00 Est GFR ( Amer) > 60.0 ml/min (>90) 03/03/18 06:00 Est GFR (Non-Af Amer) > 60.0 ml/min 03/03/18 06:00 BUN/Creatinine Ratio 12.9 03/03/18 06:00 Glucose 77 mg/dL (70-105) 03/03/18 06:00 Calcium 9.1 mg/dL (8.6-10.3) 03/03/18 06:00 Phosphorus 3.8 mg/dL (2.5-5.0) 02/28/18 03:30 Magnesium 2.4 mg/dL (1.9-2.7) 02/28/18 03:30 Total Bilirubin 0.2 mg/dL (0.3-1.0) L 03/03/18 06:00 AST 21 U/L (13-39) 03/03/18 06:00 ALT 18 U/L (7-52) 03/03/18 06:00 Alkaline Phosphatase 90 U/L (34-104) 03/03/18 06:00 Ammonia 53 umol/L (16-53) 03/01/18 05:06 Troponin I < 0.01 ng/mL (0.01-0.05) L 02/28/18 03:30 B-Natriuretic Peptide 87.0 pg/mL (5.0-100.0) 03/01/18 05:06 Total Protein 6.5 gm/dL (6.0-8.3) 03/03/18 06:00 Albumin 3.9 gm/dL (4.2-5.5) L 03/03/18 06:00 Globulin 2.6 gm/dL 03/03/18 06:00 Albumin/Globulin Ratio 1.5 (1.0-1.8) 03/03/18 06:00 Amylase 63 U/L (29-103) 02/28/18 03:30 Lipase 42 U/L (11-82) 02/28/18 03:30 Carcinoembryonic Ag 3.2 ng/mL (0.0-4.7) 03/01/18 05:06 Urine Source CLEAN C 03/01/18 03:44 Urine Color BROWN 03/01/18 03:44 Urine Clarity CLEAR (CLEAR) 03/01/18 03:44 Urine pH 5.5 (4.6 - 8.0) 03/01/18 03:44 Ur Specific [place] 1.025 (1.005-1.030) 03/01/18 03:44 Urine Protein TRACE mg/dL (NEGATIVE) 03/01/18 03:44 Urine Glucose (UA) NEGATIVE mg/dL (NEGATIVE) 03/01/18 03:44 Urine Ketones TRACE mg/dL (NEGATIVE) 03/01/18 03:44 Urine Blood NEGATIVE (NEGATIVE) 03/01/18 03:44 Urine Nitrate NEGATIVE (NEGATIVE) 03/01/18 03:44 Urine Bilirubin NEGATIVE (NEGATIVE) 03/01/18 03:44 Urine Urobilinogen 0.2 E.U./dL (0.2 - 1.0) 03/01/18 03:44 Ur Leukocyte Esterase NEGATIVE (NEGATIVE) 03/01/18 03:44 Urine RBC NONE SEEN /hpf (0-5) 03/01/18 03:44 Urine WBC NONE SEEN /hpf (0-5) 03/01/18 03:44 Ur Epithelial Cells NONE SEEN /lpf (FEW) 03/01/18 03:44 Urine Bacteria NONE SEEN /hpf (NONE SEEN) 03/01/18 03:44 Blood Type O POSITIVE 02/28/18 03:30 Antibody Screen NEGATIVE 02/28/18 03:30 - Physical Exam Vitals and I&O: Vital Signs Temp 97.4 F 03/04/18 07:44 Pulse 80 03/04/18 07:44 Resp 18 03/04/18 07:44 BP 117/70 03/04/18 07:44 Pulse Ox 96 03/04/18 07:44 Intake & Output 03/03/18 03/04/18 03/04/18 18:59 06:59 18:59 Intake Total 852 500 Balance 852 500 Weight (lbs) 66.678 kg 65.317 kg Intake: Oral 852 500 Other: # Voids 4 # Bowel Movements 0 Stool Characteristics Soft Formed Liquid Weight Source Bedscale Bedscale Active Medications: Current Medications Albuterol/Ipratropium (Duoneb Neb) 3 ml HHN Q2H PRN PRN Reason: Wheezing Stop: 04/29/18 14:09 Amiodarone HCl (Cordarone) 200 mg PO DAILY [facility] Stop: 04/29/18 08:59 Last Admin: 03/03/18 09:09 Dose: 200 mg Cyanocobalamin (Vitamin B12) 1,000 mcg PO DAILY [facility] Stop: 04/29/18 08:59 Last Admin: 03/03/18 09:09 Dose: 1,000 mcg Diltiazem HCl (Cardizem) 60 mg PO DAILY [facility] Stop: 04/29/18 08:59 Last Admin: 03/03/18 09:09 Dose: 60 mg Divalproex Sodium (Depakote Dr) 500 mg PO BID [facility]; Protocol Stop: 04/29/18 08:59 Last Admin: 03/03/18 16:26 Dose: 500 mg Docusate Sodium (Colace) 100 mg PO BID PRN PRN Reason: CONSTIPATION Stop: 04/29/18 08:47 Ferrous Sulfate (Iron) 325 mg PO DAILY [facility] Stop: 04/29/18 08:59 Last Admin: 03/03/18 09:10 Dose: 325 mg Gabapentin (Neurontin) 300 mg PO TID [facility] Stop: 04/29/18 08:59 Last Admin: 03/03/18 21:23 Dose: 300 mg Potassium Chloride 10 meq/ (Dextrose/Sodium Chloride) 1,005 mls @ 75 mls/hr IV .[id number] [facility] Stop: 04/29/18 08:44 Last Infusion: 03/03/18 04:24 Dose: 0 mls/hr Piperacillin Sod/Tazobactam (Sod 3.375 gm/ Sodium Chloride) 50 mls @ 100 mls/ hr IV Q8H [facility] Stop: 04/29/18 13:14 Last Admin: 03/04/18 05:49 Dose: Not Given Lorazepam (Ativan) 1 mg IVP Q6HR PRN; Protocol PRN Reason: Agitation Stop: 04/29/18 12:32 Last Admin: 03/02/18 09:31 Dose: 1 mg Mirtazapine (Remeron) 15 mg PO HS [facility]; Protocol Stop: 04/29/18 20:59 Last Admin: 03/03/18 21:22 Dose: 15 mg Multivitamins/Vitamin C (Theragran) 1 tab PO DAILY [facility] Stop: 04/29/18 08:59 Last Admin: 03/03/18 09:09 Dose: 1 tab Olanzapine (Zyprexa) 10 mg PO HS [facility] Stop: 04/29/18 20:59 Last Admin: 03/03/18 21:22 Dose: 10 mg Ondansetron HCl (Zofran) 4 mg IV Q6H PRN PRN Reason: Nausea / Vomiting Stop: 04/30/18 19:24 Oxybutynin Chloride (Ditropan) 5 mg PO HS [facility] Stop: 04/29/18 20:59 Last Admin: 03/03/18 21:23 Dose: 5 mg Pantoprazole Sodium (Protonix) 40 mg IVP BID [facility] Stop: 04/29/18 16:59 Last Admin: 03/03/18 16:52 Dose: Not Given Sodium Chloride (Nacl Tab) 1 gm PO BID [facility] Stop: 04/29/18 08:59 Last Admin: 03/03/18 16:26 Dose: 1 gm Tamsulosin HCl (Flomax) 0.4 mg PO DAILY [facility] Stop: 04/29/18 08:59 Last Admin: 03/03/18 09:13 Dose: 0.4 mg General: Alert HEENT: Atraumatic Neck: Supple Cardiovascular: Regular rate Abdomen: Bowel sounds, Soft, no Tender, no Hepatomegaly, no Splenomegaly, no Distended, no Rebound, no Mass, no Guarding Assessment/Plan - Problem List Patient Problems: All Active Problems Coffee ground emesis (Acute) K92.0 - Assessment Assessment: # Coffee ground emesis # Schizophrenia Pt have have gastroenteritis, gastroparesis, esophagitis, or peptic ulcer disease as the cause of his vomiting. EGD indicated given the coffee ground color, but we will need to obtain consent from conservator. Pt no longer having any evidence of GI bleed, and he is not vomiting. There is no urgency to EGD, although should likely still be performed non urgently to investigate the coffee grounds that the pt was reported to have at his facility. Still would need consent from conservator for this. Plan: - non urgent EGD if consent can be obtained - psychiatric optimization - PPI q12 - diet as tolerated - anti emetics GI is available to see this patient as needed, or if consent is obtained for EGD. Please call with any questions
[2018-03-04] MEDS: Ferrous Sulfate 325 MG TAB PO SCH (10:08)
[2018-03-04] MEDS: Multivitamin Tab PO SCH (10:09)
[2018-03-04] MEDS: Diltiazem 30 mg Tab PO SCH (10:10)
[2018-03-05] MEDS: Ferrous Sulfate 325 MG TAB PO SCH (09:55)
[2018-03-05] MEDS: Diltiazem 30 mg Tab PO SCH (09:55)
[2018-03-05] MEDS: Multivitamin Tab PO SCH (09:56)
[2018-03-05] MEDS ORDERED: Haloperidol Lactate 5 mg/mL 1mL Vial IM ONE (20:59)
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
[2018-03-06] MEDS: Ferrous Sulfate 325 MG TAB PO SCH (08:46)
[2018-03-06] MEDS: Multivitamin Tab PO SCH (08:46)
--- NOTE | 2018-03-06 09:19 | Internal Medicine Prog Note ---
Internal Medicine Subjective - Subjective Service Date: 03/05/18 Patient seen and examined:: without staff Patient is:: awake, verbal, interactive, in bed, confused Patient Complaints of:: congestion Per staff patient has:: no adverse event Internal Medicine Objective - Results Result Diagrams: 03/03/18 06:00 03/03/18 06:00 Recent Labs: Laboratory Last Values WBC 6.1 Th/cmm (4.8-10.8) 03/03/18 06:00 RBC 3.59 Mil/cmm (3.80-5.80) L 03/03/18 06:00 Hgb 11.5 gm/dL (12-16) L 03/03/18 06:00 Hct 33.6 % (41.0-60) L 03/03/18 06:00 MCV 93.6 fl (80-99) 03/03/18 06:00 MCH 32.2 pg (27.0-31.0) H 03/03/18 06:00 MCHC Differential 34.4 pg (28.0-36.0) 03/03/18 06:00 RDW 14.8 % (11.5-20.0) 03/03/18 06:00 Plt Count 219 Th/cmm (150-400) 03/03/18 06:00 MPV 7.3 fl 03/03/18 06:00 Neutrophils % 62.8 % (40.0-80.0) 03/03/18 06:00 Lymphocytes % 21.5 % (20.0-50.0) 03/03/18 06:00 Monocytes % 12.5 % (2.0-10.0) H 03/03/18 06:00 Eosinophils % 2.7 % (0.0-5.0) 03/03/18 06:00 Basophils % 0.5 % (0.0-2.0) 03/03/18 06:00 Sodium 136 mEq/L (136-145) 03/03/18 06:00 Potassium 3.8 mEq/L (3.5-5.1) 03/03/18 06:00 Chloride 103 mEq/L (98-107) 03/03/18 06:00 Carbon Dioxide 27.1 mEq/L (21.0-31.0) 03/03/18 06:00 Anion Gap 9.7 (7.0-16.0) 03/03/18 06:00 BUN 9 mg/dL (7-25) 03/03/18 06:00 Creatinine 0.7 mg/dL (0.7-1.3) 03/03/18 06:00 Est GFR ( Amer) > 60.0 ml/min (>90) 03/03/18 06:00 Est GFR (Non-Af Amer) > 60.0 ml/min 03/03/18 06:00 BUN/Creatinine Ratio 12.9 03/03/18 06:00 Glucose 77 mg/dL (70-105) 03/03/18 06:00 Calcium 9.1 mg/dL (8.6-10.3) 03/03/18 06:00 Phosphorus 3.8 mg/dL (2.5-5.0) 02/28/18 03:30 Magnesium 2.4 mg/dL (1.9-2.7) 02/28/18 03:30 Total Bilirubin 0.2 mg/dL (0.3-1.0) L 03/03/18 06:00 AST 21 U/L (13-39) 03/03/18 06:00 ALT 18 U/L (7-52) 03/03/18 06:00 Alkaline Phosphatase 90 U/L (34-104) 03/03/18 06:00 Ammonia 53 umol/L (16-53) 03/01/18 05:06 Troponin I < 0.01 ng/mL (0.01-0.05) L 02/28/18 03:30 B-Natriuretic Peptide 87.0 pg/mL (5.0-100.0) 03/01/18 05:06 Total Protein 6.5 gm/dL (6.0-8.3) 03/03/18 06:00 Albumin 3.9 gm/dL (4.2-5.5) L 03/03/18 06:00 Globulin 2.6 gm/dL 03/03/18 06:00 Albumin/Globulin Ratio 1.5 (1.0-1.8) 03/03/18 06:00 Amylase 63 U/L (29-103) 02/28/18 03:30 Lipase 42 U/L (11-82) 02/28/18 03:30 Carcinoembryonic Ag 3.2 ng/mL (0.0-4.7) 03/01/18 05:06 Urine Source CLEAN C 03/01/18 03:44 Urine Color BROWN 03/01/18 03:44 Urine Clarity CLEAR (CLEAR) 03/01/18 03:44 Urine pH 5.5 (4.6 - 8.0) 03/01/18 03:44 Ur Specific [place] 1.025 (1.005-1.030) 03/01/18 03:44 Urine Protein TRACE mg/dL (NEGATIVE) 03/01/18 03:44 Urine Glucose (UA) NEGATIVE mg/dL (NEGATIVE) 03/01/18 03:44 Urine Ketones TRACE mg/dL (NEGATIVE) 03/01/18 03:44 Urine Blood NEGATIVE (NEGATIVE) 03/01/18 03:44 Urine Nitrate NEGATIVE (NEGATIVE) 03/01/18 03:44 Urine Bilirubin NEGATIVE (NEGATIVE) 03/01/18 03:44 Urine Urobilinogen 0.2 E.U./dL (0.2 - 1.0) 03/01/18 03:44 Ur Leukocyte Esterase NEGATIVE (NEGATIVE) 03/01/18 03:44 Urine RBC NONE SEEN /hpf (0-5) 03/01/18 03:44 Urine WBC NONE SEEN /hpf (0-5) 03/01/18 03:44 Ur Epithelial Cells NONE SEEN /lpf (FEW) 03/01/18 03:44 Urine Bacteria NONE SEEN /hpf (NONE SEEN) 03/01/18 03:44 Blood Type O POSITIVE 02/28/18 03:30 Antibody Screen NEGATIVE 02/28/18 03:30 - Physical Exam Vitals and I&O: Vital Signs Temp 98.3 F 03/06/18 03:00 Pulse 78 03/06/18 08:46 Resp 18 03/06/18 03:00 BP 118/76 03/06/18 03:00 Pulse Ox 96 03/06/18 03:00 Intake & Output 03/05/18 03/06/18 03/06/18 18:59 06:59 18:59 Intake Total 1500 400 Output Total 2 Balance 1500 398 Weight (lbs) 61.235 kg 61.235 kg Intake: Oral 1500 400 Output: Urine 2 Other: # Voids 4 3 # Bowel Movements 1 Weight Source Estimated Bedscale Active Medications: Current Medications Albuterol/Ipratropium (Duoneb Neb) 3 ml HHN Q2H PRN PRN Reason: Wheezing Stop: 04/29/18 14:09 Amiodarone HCl (Cordarone) 200 mg PO DAILY [facility] Stop: 04/29/18 08:59 Last Admin: 03/06/18 08:46 Dose: 200 mg Cyanocobalamin (Vitamin B12) 1,000 mcg PO DAILY [facility] Stop: 04/29/18 08:59 Last Admin: 03/06/18 08:45 Dose: 1,000 mcg Diltiazem HCl (Cardizem) 60 mg PO DAILY [facility] Stop: 04/29/18 08:59 Last Admin: 03/05/18 09:55 Dose: 60 mg Divalproex Sodium (Depakote Dr) 500 mg PO BID [facility]; Protocol Stop: 04/29/18 08:59 Last Admin: 03/06/18 08:46 Dose: 500 mg Docusate Sodium (Colace) 100 mg PO BID PRN PRN Reason: CONSTIPATION Stop: 04/29/18 08:47 Ferrous Sulfate (Iron) 325 mg PO DAILY [facility] Stop: 04/29/18 08:59 Last Admin: 03/06/18 08:46 Dose: 325 mg Gabapentin (Neurontin) 300 mg PO TID [facility] Stop: 04/29/18 08:59 Last Admin: 03/06/18 08:46 Dose: 300 mg Lorazepam (Ativan) 1 mg PO Q4HR PRN; Protocol PRN Reason: Agitation Stop: 05/04/18 18:34 Last Admin: 03/06/18 08:55 Dose: 1 mg Lorazepam (Ativan) 2 mg IVP Q6HR PRN; Protocol PRN Reason: Agitation Stop: 04/29/18 12:32 Mirtazapine (Remeron) 15 mg PO HS [facility]; Protocol Stop: 04/29/18 20:59 Last Admin: 03/05/18 22:53 Dose: Not Given Multivitamins/Vitamin C (Theragran) 1 tab PO DAILY [facility] Stop: 04/29/18 08:59 Last Admin: 03/06/18 08:46 Dose: 1 tab Olanzapine (Zyprexa) 10 mg PO HS [facility] Stop: 04/29/18 20:59 Last Admin: 03/05/18 22:53 Dose: Not Given Olanzapine (Zyprexa) 5 mg PO DAILY [facility]; Protocol Stop: 05/05/18 08:59 Last Admin: 03/06/18 08:46 Dose: 5 mg Ondansetron HCl (Zofran) 4 mg IV Q6H PRN PRN Reason: Nausea / Vomiting Stop: 04/30/18 19:24 Oxybutynin Chloride (Ditropan) 5 mg PO HS [facility] Stop: 04/29/18 20:59 Last Admin: 03/05/18 22:53 Dose: Not Given Pantoprazole Sodium (Protonix) 40 mg PO BID [facility] Stop: 05/05/18 08:59 Sodium Chloride (Nacl Tab) 1 gm PO BID [facility] Stop: 04/29/18 08:59 Last Admin: 03/06/18 08:47 Dose: 1 gm Tamsulosin HCl (Flomax) 0.4 mg PO DAILY [facility] Stop: 04/29/18 08:59 Last Admin: 03/06/18 08:46 Dose: 0.4 mg General: weak, lethargic, congested HEENT: NC/AT, PERRLA, EOMI, anicteric sclerae, throat clear Neck: Supple, No JVD, No thyromegaly Lungs: wheezing, ronchi Cardiovascular: RRR, Normal S1 Abdomen: soft, non-tender, non-distended, positive bowel sound Extremities: clear Neurological: no change Internal Medicine Assmt/Plan - Assessment Assessment: BL early PNA: IVPB ABX. ALOC: multifactorial. h/o A. Fib: rate controlled. Acute UGIB in SNF: observe; GI consultation. Noncompliance: education provided. Psychosis: continue meds. DVT prophylaxis.
[2018-03-06] MEDS: Diltiazem 30 mg Tab PO SCH (09:37)
[2018-03-06] MEDS: Pantoprazole 40 mg EC Tab PO SCH ×2 (09:37→17:53)
[2018-03-06] MEDS ORDERED: Haloperidol Lactate 5 mg/mL 1mL Vial IM ONE (14:57)
--- NOTE | 2018-03-06 23:41 | Internal Medicine Prog Note ---
Internal Medicine Subjective - Subjective Service Date: 03/06/18 Patient seen and examined:: with staff Patient is:: awake, verbal, interactive, in bed, confused Patient Complaints of:: congestion Per staff patient has:: no adverse event Internal Medicine Objective - Results Result Diagrams: 03/03/18 06:00 03/03/18 06:00 Recent Labs: Laboratory Last Values WBC 6.1 Th/cmm (4.8-10.8) 03/03/18 06:00 RBC 3.59 Mil/cmm (3.80-5.80) L 03/03/18 06:00 Hgb 11.5 gm/dL (12-16) L 03/03/18 06:00 Hct 33.6 % (41.0-60) L 03/03/18 06:00 MCV 93.6 fl (80-99) 03/03/18 06:00 MCH 32.2 pg (27.0-31.0) H 03/03/18 06:00 MCHC Differential 34.4 pg (28.0-36.0) 03/03/18 06:00 RDW 14.8 % (11.5-20.0) 03/03/18 06:00 Plt Count 219 Th/cmm (150-400) 03/03/18 06:00 MPV 7.3 fl 03/03/18 06:00 Neutrophils % 62.8 % (40.0-80.0) 03/03/18 06:00 Lymphocytes % 21.5 % (20.0-50.0) 03/03/18 06:00 Monocytes % 12.5 % (2.0-10.0) H 03/03/18 06:00 Eosinophils % 2.7 % (0.0-5.0) 03/03/18 06:00 Basophils % 0.5 % (0.0-2.0) 03/03/18 06:00 Sodium 136 mEq/L (136-145) 03/03/18 06:00 Potassium 3.8 mEq/L (3.5-5.1) 03/03/18 06:00 Chloride 103 mEq/L (98-107) 03/03/18 06:00 Carbon Dioxide 27.1 mEq/L (21.0-31.0) 03/03/18 06:00 Anion Gap 9.7 (7.0-16.0) 03/03/18 06:00 BUN 9 mg/dL (7-25) 03/03/18 06:00 Creatinine 0.7 mg/dL (0.7-1.3) 03/03/18 06:00 Est GFR ( Amer) > 60.0 ml/min (>90) 03/03/18 06:00 Est GFR (Non-Af Amer) > 60.0 ml/min 03/03/18 06:00 BUN/Creatinine Ratio 12.9 03/03/18 06:00 Glucose 77 mg/dL (70-105) 03/03/18 06:00 Calcium 9.1 mg/dL (8.6-10.3) 03/03/18 06:00 Phosphorus 3.8 mg/dL (2.5-5.0) 02/28/18 03:30 Magnesium 2.4 mg/dL (1.9-2.7) 02/28/18 03:30 Total Bilirubin 0.2 mg/dL (0.3-1.0) L 03/03/18 06:00 AST 21 U/L (13-39) 03/03/18 06:00 ALT 18 U/L (7-52) 03/03/18 06:00 Alkaline Phosphatase 90 U/L (34-104) 03/03/18 06:00 Ammonia 53 umol/L (16-53) 03/01/18 05:06 Troponin I < 0.01 ng/mL (0.01-0.05) L 02/28/18 03:30 B-Natriuretic Peptide 87.0 pg/mL (5.0-100.0) 03/01/18 05:06 Total Protein 6.5 gm/dL (6.0-8.3) 03/03/18 06:00 Albumin 3.9 gm/dL (4.2-5.5) L 03/03/18 06:00 Globulin 2.6 gm/dL 03/03/18 06:00 Albumin/Globulin Ratio 1.5 (1.0-1.8) 03/03/18 06:00 Amylase 63 U/L (29-103) 02/28/18 03:30 Lipase 42 U/L (11-82) 02/28/18 03:30 Carcinoembryonic Ag 3.2 ng/mL (0.0-4.7) 03/01/18 05:06 Urine Source CLEAN C 03/01/18 03:44 Urine Color BROWN 03/01/18 03:44 Urine Clarity CLEAR (CLEAR) 03/01/18 03:44 Urine pH 5.5 (4.6 - 8.0) 03/01/18 03:44 Ur Specific [place] 1.025 (1.005-1.030) 03/01/18 03:44 Urine Protein TRACE mg/dL (NEGATIVE) 03/01/18 03:44 Urine Glucose (UA) NEGATIVE mg/dL (NEGATIVE) 03/01/18 03:44 Urine Ketones TRACE mg/dL (NEGATIVE) 03/01/18 03:44 Urine Blood NEGATIVE (NEGATIVE) 03/01/18 03:44 Urine Nitrate NEGATIVE (NEGATIVE) 03/01/18 03:44 Urine Bilirubin NEGATIVE (NEGATIVE) 03/01/18 03:44 Urine Urobilinogen 0.2 E.U./dL (0.2 - 1.0) 03/01/18 03:44 Ur Leukocyte Esterase NEGATIVE (NEGATIVE) 03/01/18 03:44 Urine RBC NONE SEEN /hpf (0-5) 03/01/18 03:44 Urine WBC NONE SEEN /hpf (0-5) 03/01/18 03:44 Ur Epithelial Cells NONE SEEN /lpf (FEW) 03/01/18 03:44 Urine Bacteria NONE SEEN /hpf (NONE SEEN) 03/01/18 03:44 Valproic Acid 25.5 ug/mL (50.0-100.0) L 03/06/18 05:42 Blood Type O POSITIVE 02/28/18 03:30 Antibody Screen NEGATIVE 02/28/18 03:30 - Physical Exam Vitals and I&O: Vital Signs Temp 98.9 F 03/06/18 20:00 Pulse 102 03/06/18 20:00 Resp 18 03/06/18 20:00 BP 115/57 03/06/18 20:00 Pulse Ox 93 03/06/18 20:00 Intake & Output 03/06/18 03/06/18 03/07/18 06:59 18:59 06:59 Intake Total 400 1000 Output Total 2 Balance 398 1000 Weight (lbs) 61.235 kg 61.235 kg Intake: Oral 400 1000 Output: Urine 2 Other: # Voids 3 2 # Bowel Movements 1 Weight Source Bedscale Bedscale Active Medications: Current Medications Albuterol/Ipratropium (Duoneb Neb) 3 ml HHN Q2H PRN PRN Reason: Wheezing Stop: 04/29/18 14:09 Amiodarone HCl (Cordarone) 200 mg PO DAILY [facility] Stop: 04/29/18 08:59 Last Admin: 03/06/18 08:46 Dose: 200 mg Cyanocobalamin (Vitamin B12) 1,000 mcg PO DAILY [facility] Stop: 04/29/18 08:59 Last Admin: 03/06/18 08:45 Dose: 1,000 mcg Diltiazem HCl (Cardizem) 60 mg PO DAILY [facility] Stop: 04/29/18 08:59 Last Admin: 03/06/18 09:37 Dose: 60 mg Divalproex Sodium (Depakote Dr) 500 mg PO BID [facility]; Protocol Stop: 04/29/18 08:59 Last Admin: 03/06/18 17:53 Dose: 500 mg Docusate Sodium (Colace) 100 mg PO BID PRN PRN Reason: CONSTIPATION Stop: 04/29/18 08:47 Ferrous Sulfate (Iron) 325 mg PO DAILY [facility] Stop: 04/29/18 08:59 Last Admin: 03/06/18 08:46 Dose: 325 mg Gabapentin (Neurontin) 300 mg PO TID [facility] Stop: 04/29/18 08:59 Last Admin: 03/06/18 22:15 Dose: Not Given Lorazepam (Ativan) 1 mg PO Q4HR PRN; Protocol PRN Reason: Agitation Stop: 05/04/18 18:34 Last Admin: 03/06/18 13:40 Dose: 1 mg Lorazepam (Ativan) 2 mg IVP Q6HR PRN; Protocol PRN Reason: Agitation Stop: 04/29/18 12:32 Mirtazapine (Remeron) 15 mg PO HS [facility]; Protocol Stop: 04/29/18 20:59 Last Admin: 03/06/18 22:15 Dose: Not Given Multivitamins/Vitamin C (Theragran) 1 tab PO DAILY [facility] Stop: 04/29/18 08:59 Last Admin: 03/06/18 08:46 Dose: 1 tab Olanzapine (Zyprexa) 10 mg PO HS [facility] Stop: 04/29/18 20:59 Last Admin: 03/06/18 22:15 Dose: Not Given Olanzapine (Zyprexa) 5 mg PO DAILY [facility]; Protocol Stop: 05/05/18 08:59 Last Admin: 03/06/18 08:46 Dose: 5 mg Ondansetron HCl (Zofran) 4 mg IV Q6H PRN PRN Reason: Nausea / Vomiting Stop: 04/30/18 19:24 Oxybutynin Chloride (Ditropan) 5 mg PO HS [facility] Stop: 04/29/18 20:59 Last Admin: 03/06/18 22:15 Dose: Not Given Pantoprazole Sodium (Protonix) 40 mg PO BID [facility] Stop: 05/05/18 08:59 Last Admin: 03/06/18 17:53 Dose: 40 mg Sodium Chloride (Nacl Tab) 1 gm PO BID [facility] Stop: 04/29/18 08:59 Last Admin: 03/06/18 17:53 Dose: 1 gm Tamsulosin HCl (Flomax) 0.4 mg PO DAILY [facility] Stop: 04/29/18 08:59 Last Admin: 03/06/18 08:46 Dose: 0.4 mg General: weak, lethargic, congested HEENT: NC/AT, PERRLA, EOMI, anicteric sclerae, throat clear Neck: Supple, No JVD, No thyromegaly Lungs: wheezing, ronchi Cardiovascular: RRR, Normal S1 Abdomen: soft, non-tender, non-distended, positive bowel sound Extremities: clear Neurological: no change Internal Medicine Assmt/Plan - Assessment Assessment: ALOC: multifactorial. Agitation: sitter 1x1 BL early PNA: IVPB ABX. h/o A. Fib: rate controlled. Acute UGIB in SNF: observe; GI consultation. Noncompliance: education provided. Psychosis: continue meds. DVT prophylaxis.
[2018-03-07 08:00] LABS: HEMATOCRIT 38.3 % (41.0-60); HEMOGLOBIN 12.9 gm/dL (12-16); MEAN CELL VOLUME 93.1 fl (80-99); MEAN CORPUSCULAR HEMOGLOBIN 31.3 pg (27.0-31.0); MEAN CORPUSCULAR HGB CONC 33.6 pg (28.0-36.0); MEAN PLATELET VOLUME 7.3 fl; PLATELET COUNT 309 Th/cmm (150-400); RED BLOOD COUNT 4.11 Mil/cmm (3.80-5.80)
[2018-03-07 08:12] LABS: WHITE BLOOD COUNT 18.7 Th/cmm (4.8-10.8)
[2018-03-07 08:18] LABS: ANION GAP 14.6 (7.0-16.0); BUN - UREA NITROGEN 11 mg/dL (7-25); CALCIUM SERUM 9.2 mg/dL (8.6-10.3); CARBON DIOXIDE 19.5 mEq/L (21.0-31.0); CHLORIDE 102 mEq/L (98-107); CREATININE - SERUM 0.7 mg/dL (0.7-1.3); GFR AFRICAN-AMERICAN > 60.0 ml/min (>90); GFR NON AFRICAN-AMERICAN > 60.0 ml/min; GLUCOSE 112 mg/dL (70-105); POTASSIUM SERUM 4.1 mEq/L (3.5-5.1); SODIUM SERUM 132 mEq/L (136-145)
[2018-03-07 08:31] LABS: BAND NEUTROPHILE 2 % (0-10); BASOPHIL 0 % (0-3); EOSINOPHIL 0 % (0-5); LYMPHOCYTE 15 % (20-50); MONOCYTE 8 % (2-10); NEUTROPHILS 75 % (40-80)
[2018-03-07] MEDS: Ferrous Sulfate 325 MG TAB PO SCH (08:49)
[2018-03-07] MEDS: Multivitamin Tab PO SCH (08:49)
[2018-03-07] MEDS: Diltiazem 30 mg Tab PO SCH (08:50)
[2018-03-07] MEDS: Pantoprazole 40 mg EC Tab PO SCH ×2 (08:50→17:08)
--- NOTE | 2018-03-07 09:28 | Diagnostic Imaging Report ---
Portable chest x-ray HISTORY: Shortness of breath, leukocytosis There is a poor inspiration. The heart appears enlarged with left ventricular prominence. Atherosclerotic calcination seen in the aorta. There is generalized accentuation of the interstitial lung markings. However, no focal processes are seen. IMPRESSION: 1. Poor inspiration with accentuation of the interstitial lung markings. However, no definite focal processes are seen. 2. Cardiomegaly
[2018-03-07 10:22] LABS: URINE SOURCE MIDSTREAM
[2018-03-07 10:28] LABS: URINE BILIRUBIN NEGATIVE (NEGATIVE); URINE BLOOD NEGATIVE (NEGATIVE); URINE GLUCOSE (UA) NEGATIVE (NEGATIVE); URINE KETONE NEGATIVE (NEGATIVE); URINE LEUKOCYTE ESTERASE NEGATIVE (NEGATIVE); URINE NITRATE NEGATIVE (NEGATIVE); URINE PROTEIN NEGATIVE (NEGATIVE); URINE UROBILINOGEN 0.2 E.U./dL (0.2 - 1.0)
[2018-03-07 10:58] LABS: URINE CLARITY CLEAR (CLEAR); URINE COLOR YELLOW; URINE MICROSCOPIC INDICATED? NO
[2018-03-07 11:02] LABS: AMPHETAMINE URINE NEGATIVE (NEGATIVE); BARBITURATES URINE NEGATIVE (NEGATIVE); BENZODIAZEPINES QUAL URINE POSITIVE (NEGATIVE); CANNABINOID THC NEGATIVE (NEGATIVE); COCAINE METABOLITE QUAL URINE NEGATIVE (NEGATIVE); METHADONE URINE NEGATIVE (NEGATIVE); METHAMPHETAMINES QUAL URINE NEGATIVE (NEGATIVE); OPIATES (MORPHINE) QUAL. URINE NEGATIVE (NEGATIVE); PHENCYCLIDINE (PCP) URINE NEGATIVE (NEGATIVE); TRICYCLICS (TCA) QUAL. URINE NEGATIVE (NEGATIVE)
[2018-03-07] MEDS ORDERED: Amoxicillin/Clavulanat 875/125 Tab PO SCH (18:00)
--- NOTE | 2018-03-07 23:33 | Internal Medicine Prog Note ---
Internal Medicine Subjective - Subjective Service Date: 03/07/18 Patient seen and examined:: with staff Patient is:: awake, verbal, interactive, in bed, confused Patient Complaints of:: congestion Per staff patient has:: no adverse event Internal Medicine Objective - Results Result Diagrams: 03/07/18 07:15 03/07/18 07:15 Recent Labs: Laboratory Last Values WBC 18.7 Th/cmm (4.8-10.8) H 03/07/18 07:15 RBC 4.11 Mil/cmm (3.80-5.80) 03/07/18 07:15 Hgb 12.9 gm/dL (12-16) 03/07/18 07:15 Hct 38.3 % (41.0-60) L 03/07/18 07:15 MCV 93.1 fl (80-99) 03/07/18 07:15 MCH 31.3 pg (27.0-31.0) H 03/07/18 07:15 MCHC Differential 33.6 pg (28.0-36.0) 03/07/18 07:15 RDW 15.0 % (11.5-20.0) 03/07/18 07:15 Plt Count 309 Th/cmm (150-400) 03/07/18 07:15 MPV 7.3 fl 03/07/18 07:15 Add Manual Diff YES 03/07/18 07:15 Neutrophils % 62.8 % (40.0-80.0) 03/03/18 06:00 Band Neutrophils % 2 % (0-10) 03/07/18 07:15 Lymphocytes % 21.5 % (20.0-50.0) 03/03/18 06:00 Monocytes % 12.5 % (2.0-10.0) H 03/03/18 06:00 Eosinophils % 2.7 % (0.0-5.0) 03/03/18 06:00 Basophils % 0.5 % (0.0-2.0) 03/03/18 06:00 Neutrophils (Manual) 75 % (40-80) 03/07/18 07:15 Lymphocytes 15 % (20-50) L 03/07/18 07:15 Monocytes 8 % (2-10) 03/07/18 07:15 Eosinophils 0 % (0-5) 03/07/18 07:15 Basophils 0 % (0-3) 03/07/18 07:15 Sodium 132 mEq/L (136-145) L 03/07/18 07:15 Potassium 4.1 mEq/L (3.5-5.1) 03/07/18 07:15 Chloride 102 mEq/L (98-107) 03/07/18 07:15 Carbon Dioxide 19.5 mEq/L (21.0-31.0) L 03/07/18 07:15 Anion Gap 14.6 (7.0-16.0) 03/07/18 07:15 BUN 11 mg/dL (7-25) 03/07/18 07:15 Creatinine 0.7 mg/dL (0.7-1.3) 03/07/18 07:15 Est GFR ( Amer) > 60.0 ml/min (>90) 03/07/18 07:15 Est GFR (Non-Af Amer) > 60.0 ml/min 03/07/18 07:15 BUN/Creatinine Ratio 15.7 03/07/18 07:15 Glucose 112 mg/dL (70-105) H 03/07/18 07:15 Calcium 9.2 mg/dL (8.6-10.3) 03/07/18 07:15 Phosphorus 3.8 mg/dL (2.5-5.0) 02/28/18 03:30 Magnesium 2.4 mg/dL (1.9-2.7) 02/28/18 03:30 Total Bilirubin 0.2 mg/dL (0.3-1.0) L 03/03/18 06:00 AST 21 U/L (13-39) 03/03/18 06:00 ALT 18 U/L (7-52) 03/03/18 06:00 Alkaline Phosphatase 90 U/L (34-104) 03/03/18 06:00 Ammonia 53 umol/L (16-53) 03/01/18 05:06 Troponin I < 0.01 ng/mL (0.01-0.05) L 02/28/18 03:30 B-Natriuretic Peptide 87.0 pg/mL (5.0-100.0) 03/01/18 05:06 Total Protein 6.5 gm/dL (6.0-8.3) 03/03/18 06:00 Albumin 3.9 gm/dL (4.2-5.5) L 03/03/18 06:00 Globulin 2.6 gm/dL 03/03/18 06:00 Albumin/Globulin Ratio 1.5 (1.0-1.8) 03/03/18 06:00 Amylase 63 U/L (29-103) 02/28/18 03:30 Lipase 42 U/L (11-82) 02/28/18 03:30 Carcinoembryonic Ag 3.2 ng/mL (0.0-4.7) 03/01/18 05:06 Urine Source MIDSTREAM 03/07/18 10:00 Urine Color YELLOW 03/07/18 10:00 Urine Clarity CLEAR (CLEAR) 03/07/18 10:00 Urine pH 7.0 (4.6 - 8.0) 03/07/18 10:00 Ur Specific [place] 1.015 (1.005-1.030) 03/07/18 10:00 Urine Protein NEGATIVE mg/dL (NEGATIVE) 03/07/18 10:00 Urine Glucose (UA) NEGATIVE mg/dL (NEGATIVE) 03/07/18 10:00 Urine Ketones NEGATIVE mg/dL (NEGATIVE) 03/07/18 10:00 Urine Blood NEGATIVE (NEGATIVE) 03/07/18 10:00 Urine Nitrate NEGATIVE (NEGATIVE) 03/07/18 10:00 Urine Bilirubin NEGATIVE (NEGATIVE) 03/07/18 10:00 Urine Urobilinogen 0.2 E.U./dL (0.2 - 1.0) 03/07/18 10:00 Ur Leukocyte Esterase NEGATIVE (NEGATIVE) 03/07/18 10:00 Urine RBC NONE SEEN /hpf (0-5) 03/01/18 03:44 Urine WBC NONE SEEN /hpf (0-5) 03/01/18 03:44 Ur Epithelial Cells NONE SEEN /lpf (FEW) 03/01/18 03:44 Urine Bacteria NONE SEEN /hpf (NONE SEEN) 03/01/18 03:44 Urine Opiates Screen NEGATIVE (NEGATIVE) 03/07/18 10:00 Urine Methadone Screen NEGATIVE (NEGATIVE) 03/07/18 10:00 Ur Barbiturates Screen NEGATIVE (NEGATIVE) 03/07/18 10:00 Valproic Acid 25.5 ug/mL (50.0-100.0) L 03/06/18 05:42 Ur Tricyclics Screen NEGATIVE (NEGATIVE) 03/07/18 10:00 Ur Phencyclidine Scrn NEGATIVE (NEGATIVE) 03/07/18 10:00 Amphetamines Screen NEGATIVE (NEGATIVE) 03/07/18 10:00 U Methamphetamines Scrn NEGATIVE (NEGATIVE) 03/07/18 10:00 U Benzodiazepines Scrn POSITIVE (NEGATIVE) H 03/07/18 10:00 U Cocaine Metab Screen NEGATIVE (NEGATIVE) 03/07/18 10:00 U Cannabinoids Screen NEGATIVE (NEGATIVE) 03/07/18 10:00 Blood Type O POSITIVE 02/28/18 03:30 Antibody Screen NEGATIVE 02/28/18 03:30 - Physical Exam Vitals and I&O: Vital Signs Temp 98.0 F 03/07/18 20:00 Pulse 77 03/07/18 20:00 Resp 20 03/07/18 20:00 BP 103/57 03/07/18 20:00 Pulse Ox 97 03/07/18 20:00 Intake & Output 03/07/18 03/07/18 03/08/18 06:59 18:59 06:59 Intake Total 300 800 Balance 300 800 Weight (lbs) 61.235 kg 61.235 kg Intake: Oral 300 800 Other: # Voids 3 4 # Bowel Movements 1 1 Weight Source Bedscale Bedscale Active Medications: Current Medications Albuterol/Ipratropium (Duoneb Neb) 3 ml HHN Q2H PRN PRN Reason: Wheezing Stop: 04/29/18 14:09 Amiodarone HCl (Cordarone) 200 mg PO DAILY [facility] Stop: 04/29/18 08:59 Last Admin: 03/07/18 08:50 Dose: 200 mg Amoxicillin/Clavulanate Potassium (Augmentin 875-125mg) 1 tab PO BIDBRS [facility] Stop: 05/06/18 17:59 Last Admin: 03/07/18 17:08 Dose: 1 tab Cyanocobalamin (Vitamin B12) 1,000 mcg PO DAILY [facility] Stop: 04/29/18 08:59 Last Admin: 03/07/18 08:50 Dose: 1,000 mcg Diltiazem HCl (Cardizem) 60 mg PO DAILY [facility] Stop: 04/29/18 08:59 Last Admin: 03/07/18 08:50 Dose: 60 mg Divalproex Sodium (Depakote Dr) 500 mg PO BID [facility]; Protocol Stop: 04/29/18 08:59 Last Admin: 03/07/18 17:08 Dose: 500 mg Docusate Sodium (Colace) 100 mg PO BID PRN PRN Reason: CONSTIPATION Stop: 04/29/18 08:47 Ferrous Sulfate (Iron) 325 mg PO DAILY [facility] Stop: 04/29/18 08:59 Last Admin: 03/07/18 08:49 Dose: 325 mg Gabapentin (Neurontin) 300 mg PO TID [facility] Stop: 04/29/18 08:59 Last Admin: 03/07/18 20:39 Dose: 300 mg Lorazepam (Ativan) 1 mg PO Q4HR PRN; Protocol PRN Reason: Agitation Stop: 05/04/18 18:34 Last Admin: 03/07/18 20:39 Dose: 1 mg Lorazepam (Ativan) 2 mg IVP Q6HR PRN; Protocol PRN Reason: Agitation Stop: 04/29/18 12:32 Mirtazapine (Remeron) 15 mg PO HS [facility]; Protocol Stop: 04/29/18 20:59 Last Admin: 03/07/18 20:39 Dose: 15 mg Multivitamins/Vitamin C (Theragran) 1 tab PO DAILY [facility] Stop: 04/29/18 08:59 Last Admin: 03/07/18 08:49 Dose: 1 tab Olanzapine (Zyprexa) 10 mg PO HS [facility] Stop: 04/29/18 20:59 Last Admin: 03/07/18 20:39 Dose: 10 mg Olanzapine (Zyprexa) 5 mg PO DAILY [facility]; Protocol Stop: 05/05/18 08:59 Last Admin: 03/07/18 08:50 Dose: 5 mg Ondansetron HCl (Zofran) 4 mg IV Q6H PRN PRN Reason: Nausea / Vomiting Stop: 04/30/18 19:24 Oxybutynin Chloride (Ditropan) 5 mg PO HS [facility] Stop: 04/29/18 20:59 Last Admin: 03/07/18 20:39 Dose: 5 mg Pantoprazole Sodium (Protonix) 40 mg PO BID [facility] Stop: 05/05/18 08:59 Last Admin: 03/07/18 17:08 Dose: 40 mg Sodium Chloride (Nacl Tab) 1 gm PO BID [facility] Stop: 04/29/18 08:59 Last Admin: 03/07/18 17:08 Dose: 1 gm Tamsulosin HCl (Flomax) 0.4 mg PO DAILY [facility] Stop: 04/29/18 08:59 Last Admin: 03/07/18 08:49 Dose: 0.4 mg General: weak, lethargic, congested HEENT: NC/AT, PERRLA, EOMI, anicteric sclerae, throat clear Neck: Supple, No JVD, No thyromegaly Lungs: wheezing, ronchi Cardiovascular: RRR, Normal S1 Abdomen: soft, non-tender, non-distended, positive bowel sound Extremities: clear Neurological: no change Internal Medicine Assmt/Plan - Assessment Assessment: Acute leukocytosis: work up in progress. ALOC: multifactorial. Agitation: sitter 1x1 BL early PNA: IVPB ABX. h/o A. Fib: rate controlled. Acute UGIB in SNF: observe; GI consultation. Noncompliance: education provided. Psychosis: continue meds. DVT prophylaxis. Nutritional Asmnt/Malnutr-PDOC - Dietary Evaluation Malnutrition Findings (Please click <Entered> for more info): Nutritional Asmnt/Malnutrition Start: 03/07/18 11: 51 Text: Status: Complete Freq: Protocol: Document 03/07/18 11:51 MIRIAM (Rec: 03/07/18 11:56 MIRIAM MASON- [email or web address]) Nutritional Asmnt/Malnutrition Patient General Information Diagnosis Upper GI bleed Pertinent Medical Hx/Surgical Hx COPD, PNA, A-Fib, CAD, [place], UTI , BPH, difficulty walking 2/2 chronic pain syndrome Subjective Information Pt asleep at time of visit Current Diet Order/ Nutrition Support soft/bland diet Pertinent Medications vit B12, colace, Fe, theragran , zofran, NaCl tab Pertinent Labs 03/07: Na 132, K 4.1, Cl 102, CO2 19.5, BUN 11, Cr 0.7, Ca 9 .2, glucose 112 Nutritional Hx/Data Height 1.75 m Height (Calculated Centimeters) 175.3 Current Weight (lbs) 61.235 kg Weight (Calculated Kilograms) 61.2 Weight (Calculated Grams) 60566.0 Body Mass Index (BMI) 19.9 Weight Status Approriate GI Symptoms Last BM 03/07 Cultural/Ethnic/Restorationist Belief unknown Usual diet at home regular Skin Integrity/Comment: julianna score 18 Estimated Nutritional Goals BEE in Kcals: Using Current wt Calories/Kcals/Kg 28-33kcals/kg Kcals Calculated 1708-2013kcals/day Protein: Using Current wt Protein g/k-1.3g/day Protein Calculated 61-79g/day Fluid: ml 1708-2013ml/day (1ml/kcal) Nutritional Problem 1. Problem Problem No nutrition diagnosis at this time Intervention/Recommendation Comments Recommend continuing soft/ bland diet Expected Outcomes/Goals Expected Outcomes/Goals PO intake>75%
--- NOTE | 2018-03-08 | Progress Notes ---
DATE: 03/07/[address] Mares. SUBJECTIVE: Case was discussed with staff of the patient, reviewed records. This is a 68-year-old male, who was Dr. Mares's consult because of agitation, paranoia with long history of what seems to be schizoaffective disorder. The patient has been confused, has GI bleed. The patient has been extremely agitated and irritable. He has been aggressive. Dr. Mares had to give Haldol, Ativan, and Benadryl because of his agitation, it did calm him down, sometimes aggressive with the staff. He is on Zyprexa in the morning. He continues to be unpredictable and impulsive. He has a history of schizoaffective disorder and Dr. Mares has increased Zyprexa to 5 mg in the morning and 10 mg at bedtime, which seems to have helped the patient a little bit. He has no side effects with the medication, no sedation, no nausea, and no extrapyramidal symptoms. Thank you very much for allowing me to participate in the care of this most interesting gentleman. JOB# [id number]
--- NOTE | 2018-03-08 23:21 | Discharge Summary ---
DATE OF DISCHARGE: 03/07/2018 FINAL DIAGNOSES: 1. Acute gastrointestinal bleeding stopped and stabilized. 2. Altered level of consciousness on and off. 3. Acute psychosis. 4. Acute leukocytosis, multifactorial. 5. Noncompliance. HOSPITAL COURSE: The patient is a 68-year-old male admitted due to acute upper GI bleeding and probable pneumonia and altered level of consciousness, etc. The patient received proper management with significant improvement. He was scheduled to be discharged once he developed acute psychosis and ambulance refused to take him. Psychiatrist consultation requested subsequently as a result. The patient's white count elevated significantly and he refused IVPB antibiotics. I think the antibiotic p.o. Augmentin 875 mg b.i.d. The patient is accepted to Geropsych Unit. DISCHARGE CONDITION: Stable. DISPOSITION: Geropsych Unit. DISCHARGE MEDICATIONS: Continue medication from here. DIET: Cardiac, soft diet. ACTIVITY: Bed rest with physical therapy. Follow up: Same day in Geropsych Unit. [facility]# [id number]
== END 2018-03-08 00:40 | DRG 377 ==
LOC: ER 02:19 → TELE 04:30 → MSI 03-05 08:56
PROVIDERS: ADMIT Internal Medicine; ATTEND Internal Medicine
DX: K92.2 Gastrointestinal hemorrhage, unspecified (principal); G93.41 Metabolic encephalopathy; J18.9 Pneumonia, unspecified organism; F23 Brief psychotic disorder; N39.0 Urinary tract infection, site not specified; J44.0 Chronic obstructive pulmonary disease with (acute) lower respiratory infection; I48.91 Unspecified atrial fibrillation; N40.0 Benign prostatic hyperplasia without lower urinary tract symptoms; I25.10 Atherosclerotic heart disease of native coronary artery without angina pectoris; I25.2 Old myocardial infarction; G89.4 Chronic pain syndrome; F03.90 Unspecified dementia, unspecified severity, without behavioral disturbance, psychotic disturbance, mood disturbance, and anxiety; Z91.14 Patient's other noncompliance with medication regimen; F25.0 Schizoaffective disorder, bipolar type; Z87.891 Personal history of nicotine dependence; Z86.73 Personal history of transient ischemic attack (TIA), and cerebral infarction without residual deficits
CPT/HCPCS: 36415-UA; 71045-TC; 74000-TC; 80048-TC; 80053-TC; 80164-TC; 80307; 81001-TC; 81003-TC; 82140-TC; 82150-TC; 82378-90; 83690-TC; 83735-TC; 83880-TC; 84100-TC; 84484-TC; 85007-TC; 85025-TC; 86850-TC; 86900-TC; 86901-TC; 87086-90; 93005; 94760; 96375; C9113; J1200; J1630; J2060; J2543; J3480; J7030; J7042; J7051; Q0162; Z7610

== ENCOUNTER 2018-03-08 00:40 | Inpatient (IN) | payer MEDICARE, MEDICAID ==
[2018-03-08 01:47] VITALS: BP 124/67
[2018-03-08] MEDS ORDERED: Magnesium Hydroxide (MOM) 30 mL UDC PO PRN (01:47)
[2018-03-08] MEDS ORDERED: Albuterol/Ipratropium Neb 3 ML AERS HHN PRN (08:01)
[2018-03-08] MEDS ORDERED: Non-Formulary Item 1 EA (Docusate Sodium [Docusate Sodium] 100 MG) PO PRN (08:10)
[2018-03-08] MEDS: Multivitamin Tab PO SCH (09:08)
[2018-03-08] MEDS: Diltiazem 30 mg Tab PO SCH (09:09)
[2018-03-08] MEDS: Pantoprazole 40 mg EC Tab PO SCH ×2 (09:09→16:33)
[2018-03-08] MEDS: Ferrous Sulfate 325 MG TAB PO SCH (09:09)
--- NOTE | 2018-03-08 12:33 | History & Physical ---
ADMIT DATE: 03/08/2018 IDENTIFYING INFORMATION: The patient is 68-year-old male with a chief complaint that the patient is agitated. HISTORY OF PRESENT ILLNESS: He is transferred from the medical floor. He was seen by Dr. Mares on 03/06/2018. He has been confused. He was admitted because of GI bleed. He has been extremely agitated, irritable, was very aggressive. Had to be ordered medication. The patient is a poor historian with a history of ____ schizoaffective disorder. He tried to steal some stuff from housekeeping, almost was aggressive and attacking them. PAST PSYCHIATRIC HISTORY: Schizoaffective disorder. The patient is unable to give information. ALLERGIES: He has no known drug allergies. Please refer to the medical doctor. The patient has a GI bleed. MEDICATIONS: He is on antibiotic and vitamin B12, so may have low vitamin B12. He is on have high blood pressure. He is on Depakote 500 mg twice a day and Neurontin 300 mg 3 times a day and Remeron 50 mg at bedtime and olanzapine 5 mg daily that was initiated by Dr. Mares on 03/06/2018. The patient is also on Flomax 0.4 mg daily for benign prostatic hypertrophy. FAMILY AND SOCIAL HISTORY: The patient came from a detention. Denies substance abuse; however, he is not a reliable historian, unable to give further information. MENTAL STATUS EXAMINATION: The patient is appropriately dressed, not well groomed. He believes that he was 58 of age though he is 68. He was alert, unable to tell me the date. Answers no to most questions. Unable to try. He seems to be confused. He denies any current intent to harm himself or anybody. No auditory or visual hallucination. 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 Recent memory is poor. Cannot remember the events that led to him coming here. His insight and judgment is impaired. IMPRESSION: AXIS I: Schizoaffective disorder, bipolar type with psychosis. MEDICAL DIAGNOSES: As per medical doctor. INITIAL TREATMENT PLAN: The patient will be continued with his medication. We will do group therapy, milieu therapy, and individual therapy. ESTIMATED LENGTH OF STAY: 3-7 days. The patient is conserved. DISCHARGE CRITERIA: Decreasing psychosis, agitation. After discharge, outpatient treatment. [facility]# [id number]
[2018-03-08] MEDS: Amoxicillin/Clavulanat 875/125 Tab PO SCH (17:02)
--- NOTE | 2018-03-09 00:10 | History & Physical ---
ADMIT DATE: 03/08/2018 CHIEF COMPLAINT: Dizziness and confusion. HISTORY OF PRESENT ILLNESS: The patient is a 68-year-old male admitted to Geropsych Unit of [facility] due to acute psychosis which developed just few days ago prior to a planned discharge back to longterm. The patient was recently admitted to telemetry floor of [facility] due to upper GI bleeding, also loss of consciousness, atrial fibrillation, and/or pneumonia, etc. The patient's symptoms improved and he was planned to be discharged back to longterm once he developed acute psychosis. Psychiatrist consultation requested at request of the patient, and the patient was accepted to Geropsych unit. The patient is more confused than his baseline status and has apparent psychosis. She required sitter. PAST MEDICAL HISTORY: Coronary artery disease status post [place], atrial fibrillation, anemia, BPH, COPD, pneumonia, ____, psychosis, anxiety, depression. PAST SURGICAL HISTORY: Denies significant past surgical history. MEDICATIONS: See medication reconciliation sheet. ALLERGIES: No known drug allergy. FAMILY HISTORY: Noncontributory. SOCIAL HISTORY: The patient smoked fever. No history of alcohol or IV drug abuse. REVIEW OF SYSTEMS: As per HPI. PHYSICAL EXAMINATION: GENERAL: A well-developed, thin male in no acute distress. SKIN: Warm and dry. VITAL SIGNS: Basically stable. HEENT: Normocephalic and atraumatic. Pupils equal, round, react to light and accommodation. CHEST: Symmetrical. LUNGS: Few rhonchi appreciated. CARDIAC: Normal sinus rhythm. S1, S2. ABDOMEN: Benign, soft, and nontender. EXTREMITIES: No clubbing, cyanosis, or edema. ____ bilaterally appreciated 2+. NEUROLOGICAL: Unremarkable. LABORATORY DATA: ordered. ASSESSMENT AND PLAN: 1. Acute altered level of consciousness, multifactorial, we will observe closely. 2. Acute psychosis on chronic psychotic disorder. Psychiatry consultation appreciated. 3. Leukocytosis. The patient refused IVPB antibiotics and I had changed to Augmentin 875 mg p.o. b.i.d. 4. Pneumonia, improving. 5. Status post recent upper gastrointestinal bleeding, stabilized. 6. Atrial fibrillation with rate control. 7. History of coronary artery disease, status post myocardial infarction. 8. Difficulty walking: Fall precaution and physical therapy. 4. Deep venous thrombosis prophylaxis. JOB# [id number]
[2018-03-09 08:07] LABS: % BASOPHILS 0.8 % (0.0-2.0); % EOSINOPHILS 1.7 % (0.0-5.0); % LYMPHOCYTES 31.6 % (20.0-50.0); % MONOCYTES 10.9 % (2.0-10.0); BASOPHILE ABSOLUTE 0.1 Th/cumm (0-0.2); EOSINOPHILE ABSOLUTE 0.1 Th/cmm (0.1-0.4); HEMATOCRIT 38.5 % (41.0-60); LYMPHOCYTE ABSOLUTE 2.7 Th/cmm (1.5-3.0); MEAN CELL VOLUME 94.5 fl (80-99); MEAN CORPUSCULAR HEMOGLOBIN 31.8 pg (27.0-31.0); MEAN CORPUSCULAR HGB CONC 33.6 pg (28.0-36.0); MEAN PLATELET VOLUME 7.1 fl; MONOCYTE ABSOLUTE 0.9 Th/cmm (0.3-1.0); NEUTROPHILE ABSOLUTE 4.6 Th/cmm (1.8-8.0); PLATELET COUNT 303 Th/cmm (150-400); RED BLOOD COUNT 4.08 Mil/cmm (3.80-5.80); RED CELL DISTRIBUTION WIDTH 14.9 % (11.5-20.0); WHITE BLOOD COUNT 8.4 Th/cmm (4.8-10.8)
[2018-03-09] MEDS: Ferrous Sulfate 325 MG TAB PO SCH (08:23)
[2018-03-09] MEDS: Multivitamin Tab PO SCH (08:23)
[2018-03-09] MEDS: Amoxicillin/Clavulanat 875/125 Tab PO SCH ×2 (08:23→17:26)
[2018-03-09] MEDS: Pantoprazole 40 mg EC Tab PO SCH ×2 (08:24→17:26)
[2018-03-09 08:25] LABS: ANION GAP 10.8 (7.0-16.0); BUN - UREA NITROGEN 14 mg/dL (7-25); CALCIUM SERUM 9.4 mg/dL (8.6-10.3); CARBON DIOXIDE 26.4 mEq/L (21.0-31.0); CHLORIDE 105 mEq/L (98-107); CREATININE - SERUM 0.8 mg/dL (0.7-1.3); GFR AFRICAN-AMERICAN > 60.0 ml/min (>90); GFR NON AFRICAN-AMERICAN > 60.0 ml/min; GLUCOSE 87 mg/dL (70-105); POTASSIUM SERUM 4.2 mEq/L (3.5-5.1); SODIUM SERUM 138 mEq/L (136-145)
[2018-03-09] MEDS: Diltiazem 30 mg Tab PO SCH (08:25)
--- NOTE | 2018-03-09 20:20 | Internal Medicine Prog Note ---
Internal Medicine Subjective - Subjective Service Date: 03/09/18 Patient seen and examined:: without staff Patient is:: awake, non-interactive, in bed, agitated Patient Complaints of:: unable to sleep Per staff patient has:: no adverse event Internal Medicine Objective - Results Result Diagrams: 03/09/18 07:55 03/09/18 07:55 Recent Labs: Laboratory Last Values WBC 8.4 Th/cmm (4.8-10.8) 03/09/18 07:55 RBC 4.08 Mil/cmm (3.80-5.80) 03/09/18 07:55 Hgb 13.0 gm/dL (12-16) 03/09/18 07:55 Hct 38.5 % (41.0-60) L 03/09/18 07:55 MCV 94.5 fl (80-99) 03/09/18 07:55 MCH 31.8 pg (27.0-31.0) H 03/09/18 07:55 MCHC Differential 33.6 pg (28.0-36.0) 03/09/18 07:55 RDW 14.9 % (11.5-20.0) 03/09/18 07:55 Plt Count 303 Th/cmm (150-400) 03/09/18 07:55 MPV 7.1 fl 03/09/18 07:55 Neutrophils % 55.0 % (40.0-80.0) 03/09/18 07:55 Lymphocytes % 31.6 % (20.0-50.0) 03/09/18 07:55 Monocytes % 10.9 % (2.0-10.0) H 03/09/18 07:55 Eosinophils % 1.7 % (0.0-5.0) 03/09/18 07:55 Basophils % 0.8 % (0.0-2.0) 03/09/18 07:55 Sodium 138 mEq/L (136-145) 03/09/18 07:55 Potassium 4.2 mEq/L (3.5-5.1) 03/09/18 07:55 Chloride 105 mEq/L (98-107) 03/09/18 07:55 Carbon Dioxide 26.4 mEq/L (21.0-31.0) 03/09/18 07:55 Anion Gap 10.8 (7.0-16.0) 03/09/18 07:55 BUN 14 mg/dL (7-25) 03/09/18 07:55 Creatinine 0.8 mg/dL (0.7-1.3) 03/09/18 07:55 Est GFR ( Amer) > 60.0 ml/min (>90) 03/09/18 07:55 Est GFR (Non-Af Amer) > 60.0 ml/min 03/09/18 07:55 BUN/Creatinine Ratio 17.5 03/09/18 07:55 Glucose 87 mg/dL (70-105) 03/09/18 07:55 Calcium 9.4 mg/dL (8.6-10.3) 03/09/18 07:55 - Physical Exam Vitals and I&O: Vital Signs Temp 97.4 F 03/09/18 16:21 Pulse 72 03/09/18 19:30 Resp 16 03/09/18 19:30 BP 105/66 03/09/18 16:21 Pulse Ox 96 03/09/18 19:30 Intake & Output 03/09/18 03/09/18 03/10/18 06:59 18:59 06:59 Intake Total 120 1200 Balance 120 1200 Intake: Oral 120 1200 Other: # Voids 3 4 # Bowel Movements 0 2 Active Medications: Current Medications Acetaminophen (Tylenol) 650 mg PO Q4HR PRN PRN Reason: Mild Pain / Temp above 100 Stop: 05/07/18 01:46 Al Hydrox/Mg Hydrox/Simethicone (Maalox) 30 ml PO Q4HR PRN PRN Reason: GI DISTRESS Stop: 05/07/18 01:46 Albuterol/Ipratropium (Duoneb Neb) 3 ml HHN Q2HRT PRN PRN Reason: Wheezing Stop: 05/07/18 08:00 Amiodarone HCl (Cordarone) 200 mg PO DAILY [facility] Stop: 05/07/18 08:59 Last Admin: 03/09/18 08:26 Dose: 200 mg Amoxicillin/Clavulanate Potassium (Augmentin 875-125mg) 1 tab PO BIDBRS [facility] Stop: 05/07/18 17:59 Last Admin: 03/09/18 17:26 Dose: 1 tab Cyanocobalamin (Vitamin B12) 1,000 mcg PO DAILY [facility] Stop: 05/07/18 08:59 Last Admin: 03/09/18 08:25 Dose: 1,000 mcg Diltiazem HCl (Cardizem) 60 mg PO DAILY [facility] Stop: 05/07/18 08:59 Last Admin: 03/09/18 08:25 Dose: 60 mg Divalproex Sodium (Depakote Dr) 500 mg PO BID [facility]; Protocol Stop: 05/07/18 08:59 Last Admin: 03/09/18 17:26 Dose: 500 mg Docusate Sodium (Colace) 100 mg PO BID PRN PRN Reason: CONSTIPATION Stop: 05/07/18 08:00 Ferrous Sulfate (Iron) 325 mg PO DAILY [facility] Stop: 05/07/18 08:59 Last Admin: 03/09/18 08:23 Dose: 325 mg Gabapentin (Neurontin) 300 mg PO TID [facility] Stop: 05/07/18 08:59 Last Admin: 03/09/18 14:14 Dose: 300 mg Lorazepam (Ativan) 0.5 mg PO Q4HR PRN; Protocol PRN Reason: Agitation Stop: 04/07/18 01:59 Last Admin: 03/09/18 14:14 Dose: 0.5 mg Magnesium Hydroxide (Milk Of Magnesia) 30 ml PO HS PRN PRN Reason: Constipation Mirtazapine (Remeron) 15 mg PO HS [facility]; Protocol Stop: 05/07/18 20:59 Last Admin: 03/08/18 20:40 Dose: 15 mg Multivitamins/Vitamin C (Theragran) 1 tab PO DAILY [facility] Stop: 05/07/18 08:59 Last Admin: 03/09/18 08:23 Dose: 1 tab Olanzapine (Zyprexa) 5 mg PO HS [facility]; Protocol Stop: 05/08/18 20:59 Oxybutynin Chloride (Ditropan) 5 mg PO HS [facility] Stop: 05/07/18 20:59 Last Admin: 03/08/18 20:40 Dose: 5 mg Pantoprazole Sodium (Protonix) 40 mg PO BID [facility] Stop: 05/07/18 08:59 Last Admin: 03/09/18 17:26 Dose: 40 mg Quetiapine Fumarate (Seroquel) 100 mg PO BID [facility]; Protocol Stop: 05/08/18 08:59 Last Admin: 03/09/18 17:26 Dose: 100 mg Sodium Chloride (Nacl Tab) 1 gm PO BID [facility] Stop: 05/07/18 08:59 Last Admin: 03/09/18 17:27 Dose: 1 gm Tamsulosin HCl (Flomax) 0.4 mg PO DAILY [facility] Stop: 05/07/18 08:59 Last Admin: 03/09/18 08:23 Dose: 0.4 mg Zolpidem Tartrate (Ambien) 5 mg PO HS PRN PRN Reason: Insomnia Stop: 05/07/18 01:46 Last Admin: 03/08/18 20:40 Dose: 5 mg General: weak, lethargic, congested, demented HEENT: NC/AT, PERRLA, EOMI, anicteric sclerae, throat clear, thinning hair Neck: Supple, No JVD, No LAD Lungs: wheezing, ronchi Cardiovascular: RRR, Normal S1 Abdomen: soft, non-tender, non-distended Extremities: clear Neurological: no change Internal Medicine Assmt/Plan - Assessment Assessment: ALOC: on and off; observe closely. PNA: improving? Acute Psychosis: follow recommendation by Psychiatrist. Insomnia: on and off. Agitation: sitter PRN H/O A. Fib: rate controlled. Leukocytosis: resolving? s/p recent UGIB.
[2018-03-10] MEDS: Ferrous Sulfate 325 MG TAB PO SCH (08:34)
[2018-03-10] MEDS: Pantoprazole 40 mg EC Tab PO SCH ×2 (08:34→16:37)
[2018-03-10] MEDS: Amoxicillin/Clavulanat 875/125 Tab PO SCH ×2 (08:34→17:31)
[2018-03-10] MEDS: Diltiazem 30 mg Tab PO SCH (08:35)
[2018-03-10] MEDS: Multivitamin Tab PO SCH (08:35)
--- NOTE | 2018-03-10 12:51 | Internal Medicine Prog Note ---
Internal Medicine Subjective - Subjective Service Date: 03/10/18 Patient seen and examined:: without staff Patient is:: awake, non-interactive, in bed, agitated Patient Complaints of:: unable to sleep Per staff patient has:: no adverse event Internal Medicine Objective - Results Result Diagrams: 03/09/18 07:55 03/09/18 07:55 Recent Labs: Laboratory Last Values WBC 8.4 Th/cmm (4.8-10.8) 03/09/18 07:55 RBC 4.08 Mil/cmm (3.80-5.80) 03/09/18 07:55 Hgb 13.0 gm/dL (12-16) 03/09/18 07:55 Hct 38.5 % (41.0-60) L 03/09/18 07:55 MCV 94.5 fl (80-99) 03/09/18 07:55 MCH 31.8 pg (27.0-31.0) H 03/09/18 07:55 MCHC Differential 33.6 pg (28.0-36.0) 03/09/18 07:55 RDW 14.9 % (11.5-20.0) 03/09/18 07:55 Plt Count 303 Th/cmm (150-400) 03/09/18 07:55 MPV 7.1 fl 03/09/18 07:55 Neutrophils % 55.0 % (40.0-80.0) 03/09/18 07:55 Lymphocytes % 31.6 % (20.0-50.0) 03/09/18 07:55 Monocytes % 10.9 % (2.0-10.0) H 03/09/18 07:55 Eosinophils % 1.7 % (0.0-5.0) 03/09/18 07:55 Basophils % 0.8 % (0.0-2.0) 03/09/18 07:55 Sodium 138 mEq/L (136-145) 03/09/18 07:55 Potassium 4.2 mEq/L (3.5-5.1) 03/09/18 07:55 Chloride 105 mEq/L (98-107) 03/09/18 07:55 Carbon Dioxide 26.4 mEq/L (21.0-31.0) 03/09/18 07:55 Anion Gap 10.8 (7.0-16.0) 03/09/18 07:55 BUN 14 mg/dL (7-25) 03/09/18 07:55 Creatinine 0.8 mg/dL (0.7-1.3) 03/09/18 07:55 Est GFR ( Amer) > 60.0 ml/min (>90) 03/09/18 07:55 Est GFR (Non-Af Amer) > 60.0 ml/min 03/09/18 07:55 BUN/Creatinine Ratio 17.5 03/09/18 07:55 Glucose 87 mg/dL (70-105) 03/09/18 07:55 Calcium 9.4 mg/dL (8.6-10.3) 03/09/18 07:55 - Physical Exam Vitals and I&O: Vital Signs Temp 98.2 F 03/10/18 06:38 Pulse 74 03/10/18 08:35 Resp 19 03/10/18 11:30 BP 138/71 03/10/18 06:38 Pulse Ox 96 03/10/18 07:37 Intake & Output 03/09/18 03/10/18 03/10/18 18:59 06:59 18:59 Intake Total 1200 360 Balance 1200 360 Intake: Oral 1200 360 Other: # Voids 4 2 # Bowel Movements 2 0 Active Medications: Current Medications Acetaminophen (Tylenol) 650 mg PO Q4HR PRN PRN Reason: Mild Pain / Temp above 100 Stop: 05/07/18 01:46 Al Hydrox/Mg Hydrox/Simethicone (Maalox) 30 ml PO Q4HR PRN PRN Reason: GI DISTRESS Stop: 05/07/18 01:46 Albuterol/Ipratropium (Duoneb Neb) 3 ml HHN Q2HRT PRN PRN Reason: Wheezing Stop: 05/07/18 08:00 Amiodarone HCl (Cordarone) 200 mg PO DAILY [facility] Stop: 05/07/18 08:59 Last Admin: 03/10/18 08:35 Dose: 200 mg Amoxicillin/Clavulanate Potassium (Augmentin 875-125mg) 1 tab PO BIDBRS [facility] Stop: 05/07/18 17:59 Last Admin: 03/10/18 08:34 Dose: 1 tab Cyanocobalamin (Vitamin B12) 1,000 mcg PO DAILY [facility] Stop: 05/07/18 08:59 Last Admin: 03/10/18 08:35 Dose: 1,000 mcg Diltiazem HCl (Cardizem) 60 mg PO DAILY [facility] Stop: 05/07/18 08:59 Last Admin: 03/10/18 08:35 Dose: 60 mg Divalproex Sodium (Depakote Dr) 500 mg PO BID [facility]; Protocol Stop: 05/07/18 08:59 Last Admin: 03/10/18 08:35 Dose: 500 mg Docusate Sodium (Colace) 100 mg PO BID PRN PRN Reason: CONSTIPATION Stop: 05/07/18 08:00 Ferrous Sulfate (Iron) 325 mg PO DAILY [facility] Stop: 05/07/18 08:59 Last Admin: 03/10/18 08:34 Dose: 325 mg Gabapentin (Neurontin) 300 mg PO TID [facility] Stop: 05/07/18 08:59 Last Admin: 03/10/18 08:34 Dose: 300 mg Lorazepam (Ativan) 0.5 mg PO Q4HR PRN; Protocol PRN Reason: Agitation Stop: 04/07/18 01:59 Last Admin: 03/10/18 08:35 Dose: 0.5 mg Magnesium Hydroxide (Milk Of Magnesia) 30 ml PO HS PRN PRN Reason: Constipation Mirtazapine (Remeron) 15 mg PO HS [facility]; Protocol Stop: 05/07/18 20:59 Last Admin: 03/09/18 21:25 Dose: 15 mg Multivitamins/Vitamin C (Theragran) 1 tab PO DAILY [facility] Stop: 05/07/18 08:59 Last Admin: 03/10/18 08:35 Dose: 1 tab Olanzapine (Zyprexa) 5 mg PO HS [facility]; Protocol Stop: 05/08/18 20:59 Last Admin: 03/09/18 21:25 Dose: 5 mg Oxybutynin Chloride (Ditropan) 5 mg PO HS [facility] Stop: 05/07/18 20:59 Last Admin: 03/09/18 21:25 Dose: 5 mg Pantoprazole Sodium (Protonix) 40 mg PO BID [facility] Stop: 05/07/18 08:59 Last Admin: 03/10/18 08:34 Dose: 40 mg Quetiapine Fumarate (Seroquel) 100 mg PO BID [facility]; Protocol Stop: 05/08/18 08:59 Last Admin: 03/10/18 08:34 Dose: 100 mg Sodium Chloride (Nacl Tab) 1 gm PO BID [facility] Stop: 05/07/18 08:59 Last Admin: 03/10/18 08:36 Dose: 1 gm Tamsulosin HCl (Flomax) 0.4 mg PO DAILY [facility] Stop: 05/07/18 08:59 Last Admin: 03/10/18 08:36 Dose: 0.4 mg Zolpidem Tartrate (Ambien) 5 mg PO HS PRN PRN Reason: Insomnia Stop: 05/07/18 01:46 Last Admin: 03/09/18 21:25 Dose: 5 mg General: weak, lethargic, congested, demented HEENT: NC/AT, PERRLA, EOMI, anicteric sclerae, throat clear, thinning hair Neck: Supple, No JVD, No LAD Lungs: wheezing, ronchi Cardiovascular: RRR, Normal S1 Abdomen: soft, non-tender, non-distended Extremities: clear Neurological: no change Internal Medicine Assmt/Plan - Assessment Assessment: H/O A. Fib: rate controlled. ALOC: on and off; observe closely. PNA: improving? Acute Psychosis: follow recommendation by Psychiatrist. Insomnia: on and off. Agitation: sitter PRN Leukocytosis: resolving? s/p recent UGIB.
--- NOTE | 2018-03-10 23:42 | Progress Notes ---
DATE: 03/10/2018 SUBJECTIVE: Chart reviewed and the patient interviewed. Also, discussed the patient's condition with the staff and reviewed records and labs. The patient is confused and he is still forgetful. The patient also is still in a depressed mood. The patient also is ____ and he is impulsive. Also, is still preoccupied with "I want to smoke." Otherwise, the patient is compliant with taking his medications with no side effects of medications. ASSESSMENT: The patient is still anxious and in irritable mood and needs close monitoring. TREATMENT PLAN: We will continue Depakote, Seroquel, Remeron and Zyprexa. Also, we will monitor Depakote blood level and we will continue to follow up closely. JOB# [id number]
[2018-03-11] MEDS: Pantoprazole 40 mg EC Tab PO SCH ×2 (06:36→16:59)
[2018-03-11] MEDS: Amoxicillin/Clavulanat 875/125 Tab PO SCH ×2 (09:00→17:00)
[2018-03-11] MEDS: Ferrous Sulfate 325 MG TAB PO SCH (09:25)
[2018-03-11] MEDS: Multivitamin Tab PO SCH (09:25)
[2018-03-11] MEDS: Diltiazem 30 mg Tab PO SCH (09:26)
--- NOTE | 2018-03-11 22:49 | Internal Medicine Prog Note ---
Internal Medicine Subjective - Subjective Service Date: 03/11/18 Patient seen and examined:: without staff Patient is:: awake, non-interactive, in bed, agitated Patient Complaints of:: unable to sleep Per staff patient has:: no adverse event Internal Medicine Objective - Results Result Diagrams: 03/09/18 07:55 03/09/18 07:55 Recent Labs: Laboratory Last Values WBC 8.4 Th/cmm (4.8-10.8) 03/09/18 07:55 RBC 4.08 Mil/cmm (3.80-5.80) 03/09/18 07:55 Hgb 13.0 gm/dL (12-16) 03/09/18 07:55 Hct 38.5 % (41.0-60) L 03/09/18 07:55 MCV 94.5 fl (80-99) 03/09/18 07:55 MCH 31.8 pg (27.0-31.0) H 03/09/18 07:55 MCHC Differential 33.6 pg (28.0-36.0) 03/09/18 07:55 RDW 14.9 % (11.5-20.0) 03/09/18 07:55 Plt Count 303 Th/cmm (150-400) 03/09/18 07:55 MPV 7.1 fl 03/09/18 07:55 Neutrophils % 55.0 % (40.0-80.0) 03/09/18 07:55 Lymphocytes % 31.6 % (20.0-50.0) 03/09/18 07:55 Monocytes % 10.9 % (2.0-10.0) H 03/09/18 07:55 Eosinophils % 1.7 % (0.0-5.0) 03/09/18 07:55 Basophils % 0.8 % (0.0-2.0) 03/09/18 07:55 Sodium 138 mEq/L (136-145) 03/09/18 07:55 Potassium 4.2 mEq/L (3.5-5.1) 03/09/18 07:55 Chloride 105 mEq/L (98-107) 03/09/18 07:55 Carbon Dioxide 26.4 mEq/L (21.0-31.0) 03/09/18 07:55 Anion Gap 10.8 (7.0-16.0) 03/09/18 07:55 BUN 14 mg/dL (7-25) 03/09/18 07:55 Creatinine 0.8 mg/dL (0.7-1.3) 03/09/18 07:55 Est GFR ( Amer) > 60.0 ml/min (>90) 03/09/18 07:55 Est GFR (Non-Af Amer) > 60.0 ml/min 03/09/18 07:55 BUN/Creatinine Ratio 17.5 03/09/18 07:55 Glucose 87 mg/dL (70-105) 03/09/18 07:55 Calcium 9.4 mg/dL (8.6-10.3) 03/09/18 07:55 - Physical Exam Vitals and I&O: Vital Signs Temp 99.1 F 03/11/18 20:00 Pulse 101 03/11/18 20:00 Resp 18 03/11/18 20:00 BP 119/77 03/11/18 20:00 Pulse Ox 96 03/11/18 20:00 Intake & Output 03/11/18 03/11/18 03/12/18 06:59 18:59 06:59 Intake Total 120 1200 Balance 120 1200 Intake: Oral 120 1200 Other: # Voids 3 # Bowel Movements 1 1 Active Medications: Current Medications Acetaminophen (Tylenol) 650 mg PO Q4HR PRN PRN Reason: Mild Pain / Temp above 100 Stop: 05/07/18 01:46 Al Hydrox/Mg Hydrox/Simethicone (Maalox) 30 ml PO Q4HR PRN PRN Reason: GI DISTRESS Stop: 05/07/18 01:46 Albuterol/Ipratropium (Duoneb Neb) 3 ml HHN Q2HRT PRN PRN Reason: Wheezing Stop: 05/07/18 08:00 Amiodarone HCl (Cordarone) 200 mg PO DAILY [facility] Stop: 05/07/18 08:59 Last Admin: 03/11/18 09:24 Dose: 200 mg Amoxicillin/Clavulanate Potassium (Augmentin 875-125mg) 1 tab PO BIDBRS [facility] Stop: 05/07/18 17:59 Last Admin: 03/11/18 17:00 Dose: 1 tab Cyanocobalamin (Vitamin B12) 1,000 mcg PO DAILY [facility] Stop: 05/07/18 08:59 Last Admin: 03/11/18 09:24 Dose: 1,000 mcg Diltiazem HCl (Cardizem) 60 mg PO DAILY [facility] Stop: 05/07/18 08:59 Last Admin: 03/11/18 09:26 Dose: 60 mg Divalproex Sodium (Depakote Dr) 500 mg PO BID [facility]; Protocol Stop: 05/07/18 08:59 Last Admin: 03/11/18 16:59 Dose: 500 mg Docusate Sodium (Colace) 100 mg PO BID PRN PRN Reason: CONSTIPATION Stop: 05/07/18 08:00 Ferrous Sulfate (Iron) 325 mg PO DAILY [facility] Stop: 05/07/18 08:59 Last Admin: 03/11/18 09:25 Dose: 325 mg Gabapentin (Neurontin) 300 mg PO TID [facility] Stop: 05/07/18 08:59 Last Admin: 03/11/18 20:15 Dose: Not Given Lorazepam (Ativan) 0.5 mg PO Q4HR PRN; Protocol PRN Reason: Agitation Stop: 04/07/18 01:59 Last Admin: 03/11/18 20:11 Dose: 0.5 mg Magnesium Hydroxide (Milk Of Magnesia) 30 ml PO HS PRN PRN Reason: Constipation Mirtazapine (Remeron) 15 mg PO HS [facility]; Protocol Stop: 05/07/18 20:59 Last Admin: 03/11/18 20:12 Dose: 15 mg Multivitamins/Vitamin C (Theragran) 1 tab PO DAILY [facility] Stop: 05/07/18 08:59 Last Admin: 03/11/18 09:25 Dose: 1 tab Olanzapine (Zyprexa) 5 mg PO HS [facility]; Protocol Stop: 05/08/18 20:59 Last Admin: 03/11/18 20:11 Dose: 5 mg Ondansetron HCl (Zofran Odt) 4 mg PO Q6H PRN PRN Reason: Nausea / Vomiting Stop: 05/10/18 05:59 Last Admin: 03/11/18 06:36 Dose: 4 mg Oxybutynin Chloride (Ditropan) 5 mg PO HS [facility] Stop: 05/07/18 20:59 Last Admin: 03/11/18 20:11 Dose: 5 mg Pantoprazole Sodium (Protonix) 40 mg PO BID [facility] Stop: 05/10/18 06:59 Last Admin: 03/11/18 16:59 Dose: 40 mg Quetiapine Fumarate (Seroquel) 100 mg PO BID [facility]; Protocol Stop: 05/08/18 08:59 Last Admin: 03/11/18 16:59 Dose: 100 mg Sodium Chloride (Nacl Tab) 1 gm PO BID [facility] Stop: 05/07/18 08:59 Last Admin: 03/11/18 17:00 Dose: 1 gm Tamsulosin HCl (Flomax) 0.4 mg PO DAILY [facility] Stop: 05/07/18 08:59 Last Admin: 03/11/18 09:24 Dose: 0.4 mg Zolpidem Tartrate (Ambien) 5 mg PO HS PRN PRN Reason: Insomnia Stop: 05/07/18 01:46 Last Admin: 03/11/18 20:11 Dose: 5 mg General: weak, lethargic, congested, demented HEENT: NC/AT, PERRLA, EOMI, anicteric sclerae, throat clear, thinning hair Neck: Supple, No JVD, No LAD Lungs: wheezing, ronchi Cardiovascular: RRR, Normal S1 Abdomen: soft, non-tender, non-distended Extremities: clear Neurological: no change Internal Medicine Assmt/Plan - Assessment Assessment: Noncompliance: education. PNA: improving? pt refuses IVPB ABX. H/O A. Fib: rate controlled. ALOC: on and off; observe closely. Acute Psychosis: follow recommendation by Psychiatrist. Insomnia: on and off. Agitation: sitter PRN Leukocytosis: resolving? s/p recent UGIB. Nutritional Asmnt/Malnutr-PDOC - Dietary Evaluation Malnutrition Findings (Please click <Entered> for more info): Nutritional Asmnt/Malnutrition Start: 03/11/18 13: 17 Text: Status: Complete Freq: Protocol: Document 03/11/18 13:17 [email or web address] (Rec: 03/11/18 13:22 [email or web address]) Nutritional Asmnt/Malnutrition Patient General Information Nutritional Screening Moderate Risk Diagnosis psychosis Pertinent Medical Hx/Surgical Hx CAD, s/p [place], afib, anemia, BPH , COPD, PNA, psychosis, anxiety, depression Subjective Information Pt seen sleeping in bed at time of visit. Per EMR, PO intake 100% of meals. Per nurse note, pt had episode of vomiting x 1 last night. Current Diet Order/ Nutrition Support [facility] soft chopped bland Pertinent Medications vit B12, colace, iron, remeron , theragran, protonix, nacl tab, seroquel Pertinent Labs 03/09 nutritin labs WNL Nutritional Hx/Data Height 1.75 m Height (Calculated Centimeters) 175.3 Current Weight (lbs) 61.235 kg Weight (Calculated Kilograms) 61.2 Weight (Calculated Grams) 57988.0 [place] Body Weight 160 Body Mass Index (BMI) 19.9 Weight Status Approriate GI Symptoms GI Symptoms None Last BM 03/11 Difficult in: None Skin Integrity/Comment: intact Current %PO Good (75-100%) Estimated Nutritional Goals BEE in Kcals: Using Current wt Calories/Kcals/Kg 25-30 Kcals Calculated 7107-0172 Protein: Using Current wt Protein g/k Protein Calculated 61 Fluid: ml 1525-1830ml (1ml/kcal) Nutritional Problem No current Nutrition Prob Problem N/A Malnutrition Alert Is there a minimum of two criteria No selected? Query Text:Check all the applicable criteria. A minimum of two criteria are recommended for diagnosis of either severe or non-severe malnutrition. Malnutrition Related to Morbid Obesity Malnutrition related to morbid obesity No Intervention/Recommendation Comments 1. Continue with [facility] soft chopped bland diet as ordered. 2. Monitor PO intake, wt, labs and skin integrity 3. F/U as low risk in 7 days, 03/18 Expected Outcomes/Goals Expected Outcomes/Goals 1. PO intake to meet at least 75% of nutritional needs. 2. Wt stability, skin to remain intact, labs WNL.
[2018-03-12] MEDS: Diltiazem 30 mg Tab PO SCH (08:39)
[2018-03-12] MEDS: Multivitamin Tab PO SCH (08:40)
[2018-03-12] MEDS: Pantoprazole 40 mg EC Tab PO SCH ×2 (08:41→17:13)
[2018-03-12] MEDS: Amoxicillin/Clavulanat 875/125 Tab PO SCH ×2 (08:41→17:13)
[2018-03-12] MEDS: Ferrous Sulfate 325 MG TAB PO SCH (08:41)
--- NOTE | 2018-03-12 23:55 | Internal Medicine Prog Note ---
Internal Medicine Subjective - Subjective Service Date: 03/12/18 Patient seen and examined:: without staff Patient is:: awake, non-interactive, in bed, agitated Patient Complaints of:: unable to sleep Per staff patient has:: no adverse event Internal Medicine Objective - Results Result Diagrams: 03/09/18 07:55 03/09/18 07:55 Recent Labs: Laboratory Last Values WBC 8.4 Th/cmm (4.8-10.8) 03/09/18 07:55 RBC 4.08 Mil/cmm (3.80-5.80) 03/09/18 07:55 Hgb 13.0 gm/dL (12-16) 03/09/18 07:55 Hct 38.5 % (41.0-60) L 03/09/18 07:55 MCV 94.5 fl (80-99) 03/09/18 07:55 MCH 31.8 pg (27.0-31.0) H 03/09/18 07:55 MCHC Differential 33.6 pg (28.0-36.0) 03/09/18 07:55 RDW 14.9 % (11.5-20.0) 03/09/18 07:55 Plt Count 303 Th/cmm (150-400) 03/09/18 07:55 MPV 7.1 fl 03/09/18 07:55 Neutrophils % 55.0 % (40.0-80.0) 03/09/18 07:55 Lymphocytes % 31.6 % (20.0-50.0) 03/09/18 07:55 Monocytes % 10.9 % (2.0-10.0) H 03/09/18 07:55 Eosinophils % 1.7 % (0.0-5.0) 03/09/18 07:55 Basophils % 0.8 % (0.0-2.0) 03/09/18 07:55 Sodium 138 mEq/L (136-145) 03/09/18 07:55 Potassium 4.2 mEq/L (3.5-5.1) 03/09/18 07:55 Chloride 105 mEq/L (98-107) 03/09/18 07:55 Carbon Dioxide 26.4 mEq/L (21.0-31.0) 03/09/18 07:55 Anion Gap 10.8 (7.0-16.0) 03/09/18 07:55 BUN 14 mg/dL (7-25) 03/09/18 07:55 Creatinine 0.8 mg/dL (0.7-1.3) 03/09/18 07:55 Est GFR ( Amer) > 60.0 ml/min (>90) 03/09/18 07:55 Est GFR (Non-Af Amer) > 60.0 ml/min 03/09/18 07:55 BUN/Creatinine Ratio 17.5 03/09/18 07:55 Glucose 87 mg/dL (70-105) 03/09/18 07:55 Calcium 9.4 mg/dL (8.6-10.3) 03/09/18 07:55 - Physical Exam Vitals and I&O: Vital Signs Temp 98.2 F 03/12/18 20:00 Pulse 78 03/12/18 20:32 Resp 20 03/12/18 20:32 BP 127/70 03/12/18 20:00 Pulse Ox 94 03/12/18 20:32 Intake & Output 03/12/18 03/12/18 03/13/18 06:59 18:59 06:59 Intake Total 120 Balance 120 Intake: Oral 120 Other: # Voids 3 Active Medications: Current Medications Acetaminophen (Tylenol) 650 mg PO Q4HR PRN PRN Reason: Mild Pain / Temp above 100 Stop: 05/07/18 01:46 Al Hydrox/Mg Hydrox/Simethicone (Maalox) 30 ml PO Q4HR PRN PRN Reason: GI DISTRESS Stop: 05/07/18 01:46 Albuterol/Ipratropium (Duoneb Neb) 3 ml HHN Q2HRT PRN PRN Reason: Wheezing Stop: 05/07/18 08:00 Amiodarone HCl (Cordarone) 200 mg PO DAILY [facility] Stop: 05/07/18 08:59 Last Admin: 03/12/18 08:42 Dose: 200 mg Amoxicillin/Clavulanate Potassium (Augmentin 875-125mg) 1 tab PO BIDBRS [facility] Stop: 05/07/18 17:59 Last Admin: 03/12/18 17:13 Dose: 1 tab Cyanocobalamin (Vitamin B12) 1,000 mcg PO DAILY [facility] Stop: 05/07/18 08:59 Last Admin: 03/12/18 08:41 Dose: 1,000 mcg Diltiazem HCl (Cardizem) 60 mg PO DAILY [facility] Stop: 05/07/18 08:59 Last Admin: 03/12/18 08:39 Dose: 60 mg Divalproex Sodium (Depakote Dr) 500 mg PO BID [facility]; Protocol Stop: 05/07/18 08:59 Last Admin: 03/12/18 17:12 Dose: 500 mg Docusate Sodium (Colace) 100 mg PO BID PRN PRN Reason: CONSTIPATION Stop: 05/07/18 08:00 Ferrous Sulfate (Iron) 325 mg PO DAILY [facility] Stop: 05/07/18 08:59 Last Admin: 03/12/18 08:41 Dose: 325 mg Gabapentin (Neurontin) 300 mg PO TID [facility] Stop: 05/07/18 08:59 Last Admin: 03/12/18 20:42 Dose: 300 mg Lorazepam (Ativan) 0.5 mg PO Q4HR PRN; Protocol PRN Reason: Agitation Stop: 04/07/18 01:59 Last Admin: 03/11/18 20:11 Dose: 0.5 mg Magnesium Hydroxide (Milk Of Magnesia) 30 ml PO HS PRN PRN Reason: Constipation Mirtazapine (Remeron) 15 mg PO HS [facility]; Protocol Stop: 05/07/18 20:59 Last Admin: 03/12/18 20:42 Dose: 15 mg Multivitamins/Vitamin C (Theragran) 1 tab PO DAILY [facility] Stop: 05/07/18 08:59 Last Admin: 03/12/18 08:40 Dose: 1 tab Ondansetron HCl (Zofran Odt) 4 mg PO Q6H PRN PRN Reason: Nausea / Vomiting Stop: 05/10/18 05:59 Last Admin: 03/11/18 06:36 Dose: 4 mg Oxybutynin Chloride (Ditropan) 5 mg PO HS [facility] Stop: 05/07/18 20:59 Last Admin: 03/12/18 20:42 Dose: 5 mg Pantoprazole Sodium (Protonix) 40 mg PO BID [facility] Stop: 05/10/18 06:59 Last Admin: 03/12/18 17:13 Dose: 40 mg Quetiapine Fumarate (Seroquel) 150 mg PO BID [facility]; Protocol Stop: 05/11/18 08:59 Last Admin: 03/12/18 17:13 Dose: 150 mg Quetiapine Fumarate (Seroquel) 150 mg PO HS [facility]; Protocol Stop: 05/11/18 20:59 Last Admin: 03/12/18 20:42 Dose: 150 mg Sodium Chloride (Nacl Tab) 1 gm PO BID [facility] Stop: 05/07/18 08:59 Last Admin: 03/12/18 17:14 Dose: 1 gm Tamsulosin HCl (Flomax) 0.4 mg PO DAILY [facility] Stop: 05/07/18 08:59 Last Admin: 03/12/18 08:41 Dose: 0.4 mg Zolpidem Tartrate (Ambien) 5 mg PO HS PRN PRN Reason: Insomnia Stop: 05/07/18 01:46 Last Admin: 03/12/18 20:42 Dose: 5 mg General: weak, lethargic, congested, demented HEENT: NC/AT, PERRLA, EOMI, anicteric sclerae, throat clear, thinning hair Neck: Supple, No JVD, No LAD Lungs: wheezing, ronchi Cardiovascular: RRR, Normal S1 Abdomen: soft, non-tender, non-distended Extremities: clear Neurological: no change Internal Medicine Assmt/Plan - Assessment Assessment: ALOC: on and off; observe closely. Noncompliance: education. PNA: improving? pt refuses IVPB ABX. H/O A. Fib: rate controlled. Acute Psychosis: follow recommendation by Psychiatrist. Insomnia: on and off. Agitation: sitter PRN Leukocytosis: resolving? s/p recent UGIB. Nutritional Asmnt/Malnutr-PDOC - Dietary Evaluation Malnutrition Findings (Please click <Entered> for more info): Nutritional Asmnt/Malnutrition Start: 03/11/18 13: 17 Text: Status: Complete Freq: Protocol: Document 03/11/18 13:17 [email or web address] (Rec: 03/11/18 13:22 [email or web address]) Nutritional Asmnt/Malnutrition Patient General Information Nutritional Screening Moderate Risk Diagnosis psychosis Pertinent Medical Hx/Surgical Hx CAD, s/p [place], afib, anemia, BPH , COPD, PNA, psychosis, anxiety, depression Subjective Information Pt seen sleeping in bed at time of visit. Per EMR, PO intake 100% of meals. Per nurse note, pt had episode of vomiting x 1 last night. Current Diet Order/ Nutrition Support [facility] soft chopped bland Pertinent Medications vit B12, colace, iron, remeron , theragran, protonix, nacl tab, seroquel Pertinent Labs 03/09 nutritin labs WNL Nutritional Hx/Data Height 1.75 m Height (Calculated Centimeters) 175.3 Current Weight (lbs) 61.235 kg Weight (Calculated Kilograms) 61.2 Weight (Calculated Grams) 91984.0 [place] Body Weight 160 Body Mass Index (BMI) 19.9 Weight Status Approriate GI Symptoms GI Symptoms None Last BM 03/11 Difficult in: None Skin Integrity/Comment: intact Current %PO Good (75-100%) Estimated Nutritional Goals BEE in Kcals: Using Current wt Calories/Kcals/Kg 25-30 Kcals Calculated 5738-6065 Protein: Using Current wt Protein g/k Protein Calculated 61 Fluid: ml 1525-1830ml (1ml/kcal) Nutritional Problem No current Nutrition Prob Problem N/A Malnutrition Alert Is there a minimum of two criteria No selected? Query Text:Check all the applicable criteria. A minimum of two criteria are recommended for diagnosis of either severe or non-severe malnutrition. Malnutrition Related to Morbid Obesity Malnutrition related to morbid obesity No Intervention/Recommendation Comments 1. Continue with [facility] soft chopped bland diet as ordered. 2. Monitor PO intake, wt, labs and skin integrity 3. F/U as low risk in 7 days, 03/18 Expected Outcomes/Goals Expected Outcomes/Goals 1. PO intake to meet at least 75% of nutritional needs. 2. Wt stability, skin to remain intact, labs WNL.
[2018-03-13] MEDS: Amoxicillin/Clavulanat 875/125 Tab PO SCH ×2 (08:13→17:05)
[2018-03-13] MEDS: Pantoprazole 40 mg EC Tab PO SCH ×2 (08:15→17:06)
[2018-03-13] MEDS: Ferrous Sulfate 325 MG TAB PO SCH (08:16)
[2018-03-13] MEDS: Multivitamin Tab PO SCH (08:16)
[2018-03-13] MEDS: Diltiazem 30 mg Tab PO SCH (08:19)
[2018-03-13] MEDS ORDERED: Haloperidol Lactate 5 mg/mL 1mL Vial ONE (11:32)
[2018-03-13] MEDS ORDERED: Haloperidol Lactate 5 mg/mL 1mL Vial IM ONE (11:34)
--- NOTE | 2018-03-13 23:43 | Internal Medicine Prog Note ---
Internal Medicine Subjective - Subjective Service Date: 03/13/18 Patient seen and examined:: without staff Patient is:: awake, non-interactive, in bed, agitated Patient Complaints of:: unable to sleep Per staff patient has:: no adverse event Internal Medicine Objective - Results Result Diagrams: 03/09/18 07:55 03/09/18 07:55 Recent Labs: Laboratory Last Values WBC 8.4 Th/cmm (4.8-10.8) 03/09/18 07:55 RBC 4.08 Mil/cmm (3.80-5.80) 03/09/18 07:55 Hgb 13.0 gm/dL (12-16) 03/09/18 07:55 Hct 38.5 % (41.0-60) L 03/09/18 07:55 MCV 94.5 fl (80-99) 03/09/18 07:55 MCH 31.8 pg (27.0-31.0) H 03/09/18 07:55 MCHC Differential 33.6 pg (28.0-36.0) 03/09/18 07:55 RDW 14.9 % (11.5-20.0) 03/09/18 07:55 Plt Count 303 Th/cmm (150-400) 03/09/18 07:55 MPV 7.1 fl 03/09/18 07:55 Neutrophils % 55.0 % (40.0-80.0) 03/09/18 07:55 Lymphocytes % 31.6 % (20.0-50.0) 03/09/18 07:55 Monocytes % 10.9 % (2.0-10.0) H 03/09/18 07:55 Eosinophils % 1.7 % (0.0-5.0) 03/09/18 07:55 Basophils % 0.8 % (0.0-2.0) 03/09/18 07:55 Sodium 138 mEq/L (136-145) 03/09/18 07:55 Potassium 4.2 mEq/L (3.5-5.1) 03/09/18 07:55 Chloride 105 mEq/L (98-107) 03/09/18 07:55 Carbon Dioxide 26.4 mEq/L (21.0-31.0) 03/09/18 07:55 Anion Gap 10.8 (7.0-16.0) 03/09/18 07:55 BUN 14 mg/dL (7-25) 03/09/18 07:55 Creatinine 0.8 mg/dL (0.7-1.3) 03/09/18 07:55 Est GFR ( Amer) > 60.0 ml/min (>90) 03/09/18 07:55 Est GFR (Non-Af Amer) > 60.0 ml/min 03/09/18 07:55 BUN/Creatinine Ratio 17.5 03/09/18 07:55 Glucose 87 mg/dL (70-105) 03/09/18 07:55 Calcium 9.4 mg/dL (8.6-10.3) 03/09/18 07:55 Valproic Acid 33.5 ug/mL (50.0-100.0) L 03/13/18 10:05 - Physical Exam Vitals and I&O: Vital Signs Temp 98.2 F 03/13/18 22:23 Pulse 76 03/13/18 22:23 Resp 19 03/13/18 22:23 BP 130/76 03/13/18 22:23 Pulse Ox 97 03/13/18 22:23 Intake & Output 03/13/18 03/13/18 03/14/18 06:59 18:59 06:59 Intake Total 120 1200 120 Balance 120 1200 120 Intake: Oral 120 1200 120 Other: # Voids 2 3 # Bowel Movements 1 1 Active Medications: Current Medications Acetaminophen (Tylenol) 650 mg PO Q4HR PRN PRN Reason: Mild Pain / Temp above 100 Stop: 05/07/18 01:46 Al Hydrox/Mg Hydrox/Simethicone (Maalox) 30 ml PO Q4HR PRN PRN Reason: GI DISTRESS Stop: 05/07/18 01:46 Albuterol/Ipratropium (Duoneb Neb) 3 ml HHN Q2HRT PRN PRN Reason: Wheezing Stop: 05/07/18 08:00 Amiodarone HCl (Cordarone) 200 mg PO DAILY [facility] Stop: 05/07/18 08:59 Last Admin: 03/13/18 08:18 Dose: 200 mg Amoxicillin/Clavulanate Potassium (Augmentin 875-125mg) 1 tab PO BIDBRS [facility] Stop: 05/07/18 17:59 Last Admin: 03/13/18 17:05 Dose: 1 tab Cyanocobalamin (Vitamin B12) 1,000 mcg PO DAILY [facility] Stop: 05/07/18 08:59 Last Admin: 03/13/18 08:15 Dose: 1,000 mcg Diltiazem HCl (Cardizem) 60 mg PO DAILY [facility] Stop: 05/07/18 08:59 Last Admin: 03/13/18 08:19 Dose: 60 mg Divalproex Sodium (Depakote Dr) 500 mg PO BID [facility]; Protocol Stop: 05/07/18 08:59 Last Admin: 03/13/18 17:08 Dose: 500 mg Docusate Sodium (Colace) 100 mg PO BID PRN PRN Reason: CONSTIPATION Stop: 05/07/18 08:00 Ferrous Sulfate (Iron) 325 mg PO DAILY [facility] Stop: 05/07/18 08:59 Last Admin: 03/13/18 08:16 Dose: 325 mg Gabapentin (Neurontin) 300 mg PO TID [facility] Stop: 05/07/18 08:59 Last Admin: 03/13/18 20:54 Dose: 300 mg Lorazepam (Ativan) 0.5 mg PO Q4HR PRN; Protocol PRN Reason: Agitation Stop: 04/07/18 01:59 Last Admin: 03/13/18 08:15 Dose: 0.5 mg Magnesium Hydroxide (Milk Of Magnesia) 30 ml PO HS PRN PRN Reason: Constipation Mirtazapine (Remeron) 15 mg PO HS [facility]; Protocol Stop: 05/07/18 20:59 Last Admin: 03/13/18 20:54 Dose: 15 mg Multivitamins/Vitamin C (Theragran) 1 tab PO DAILY [facility] Stop: 05/07/18 08:59 Last Admin: 03/13/18 08:16 Dose: 1 tab Ondansetron HCl (Zofran Odt) 4 mg PO Q6H PRN PRN Reason: Nausea / Vomiting Stop: 05/10/18 05:59 Last Admin: 03/11/18 06:36 Dose: 4 mg Oxybutynin Chloride (Ditropan) 5 mg PO HS [facility] Stop: 05/07/18 20:59 Last Admin: 03/13/18 20:54 Dose: 5 mg Pantoprazole Sodium (Protonix) 40 mg PO BID [facility] Stop: 05/10/18 06:59 Last Admin: 03/13/18 17:06 Dose: 40 mg Quetiapine Fumarate (Seroquel) 150 mg PO BID [facility]; Protocol Stop: 05/11/18 08:59 Last Admin: 03/13/18 17:06 Dose: 150 mg Quetiapine Fumarate (Seroquel) 150 mg PO HS [facility]; Protocol Stop: 05/11/18 20:59 Last Admin: 03/13/18 20:54 Dose: 150 mg Sodium Chloride (Nacl Tab) 1 gm PO BID [facility] Stop: 05/07/18 08:59 Last Admin: 03/13/18 17:05 Dose: 1 gm Tamsulosin HCl (Flomax) 0.4 mg PO DAILY [facility] Stop: 05/07/18 08:59 Last Admin: 03/13/18 08:15 Dose: 0.4 mg Zolpidem Tartrate (Ambien) 5 mg PO HS PRN PRN Reason: Insomnia Stop: 05/07/18 01:46 Last Admin: 03/13/18 20:54 Dose: 5 mg General: weak, lethargic, congested, demented HEENT: NC/AT, PERRLA, EOMI, anicteric sclerae, throat clear, thinning hair Neck: Supple, No JVD, No LAD Lungs: wheezing, ronchi Cardiovascular: RRR, Normal S1 Abdomen: soft, non-tender, non-distended Extremities: clear Neurological: no change Internal Medicine Assmt/Plan - Assessment Assessment: PNA: improving? pt refuses IVPB ABX. ALOC: on and off; observe closely. Noncompliance: education. H/O A. Fib: rate controlled. Acute Psychosis: follow recommendation by Psychiatrist. Insomnia: on and off. Agitation: sitter PRN Leukocytosis: resolving? s/p recent UGIB. Nutritional Asmnt/Malnutr-PDOC - Dietary Evaluation Malnutrition Findings (Please click <Entered> for more info): Nutritional Asmnt/Malnutrition Start: 03/11/18 13: 17 Text: Status: Complete Freq: Protocol: Document 03/11/18 13:17 ROULAG (Rec: 03/11/18 13:22 EMILIA [email or web address]) Nutritional Asmnt/Malnutrition Patient General Information Nutritional Screening Moderate Risk Diagnosis psychosis Pertinent Medical Hx/Surgical Hx CAD, s/p [place], afib, anemia, BPH , COPD, PNA, psychosis, anxiety, depression Subjective Information Pt seen sleeping in bed at time of visit. Per EMR, PO intake 100% of meals. Per nurse note, pt had episode of vomiting x 1 last night. Current Diet Order/ Nutrition Support [facility] soft chopped bland Pertinent Medications vit B12, colace, iron, remeron , theragran, protonix, nacl tab, seroquel Pertinent Labs 03/09 nutritin labs WNL Nutritional Hx/Data Height 1.75 m Height (Calculated Centimeters) 175.3 Current Weight (lbs) 61.235 kg Weight (Calculated Kilograms) 61.2 Weight (Calculated Grams) 86742.0 [place] Body Weight 160 Body Mass Index (BMI) 19.9 Weight Status Approriate GI Symptoms GI Symptoms None Last BM 03/11 Difficult in: None Skin Integrity/Comment: intact Current %PO Good (75-100%) Estimated Nutritional Goals BEE in Kcals: Using Current wt Calories/Kcals/Kg 25-30 Kcals Calculated 4321-7949 Protein: Using Current wt Protein g/k Protein Calculated 61 Fluid: ml 1525-1830ml (1ml/kcal) Nutritional Problem No current Nutrition Prob Problem N/A Malnutrition Alert Is there a minimum of two criteria No selected? Query Text:Check all the applicable criteria. A minimum of two criteria are recommended for diagnosis of either severe or non-severe malnutrition. Malnutrition Related to Morbid Obesity Malnutrition related to morbid obesity No Intervention/Recommendation Comments 1. Continue with [facility] soft chopped bland diet as ordered. 2. Monitor PO intake, wt, labs and skin integrity 3. F/U as low risk in 7 days, 03/18 Expected Outcomes/Goals Expected Outcomes/Goals 1. PO intake to meet at least 75% of nutritional needs. 2. Wt stability, skin to remain intact, labs WNL.
[2018-03-14] MEDS: Multivitamin Tab PO SCH (08:42)
[2018-03-14] MEDS: Diltiazem 30 mg Tab PO SCH (08:42)
[2018-03-14] MEDS: Pantoprazole 40 mg EC Tab PO SCH ×2 (08:42→16:18)
[2018-03-14] MEDS: Ferrous Sulfate 325 MG TAB PO SCH (08:42)
--- NOTE | 2018-03-14 09:51 | Progress Notes ---
DATE: 03/11/2018 DATE: 03/11/2018 SUBJECTIVE: Chart reviewed and the patient interviewed. Also discussed the patient's condition with the staff and reviewed records and labs. The patient is still confused. Also, is still forgetful and he is still easily agitated and aggressive, also is impulsive and he is having severe mood swings. Also still needs lots of redirections. Otherwise, the patient is compliant with taking his medications with no side effects of Depakote, Seroquel, Remeron or Zyprexa. ASSESSMENT: The patient is still psychotic and easily agitated. TREATMENT PLAN: Continue to monitor his behavior and his condition closely. Also, continue to work on his poor impulse control and his impulsivity and continue to follow up closely. JOB# [id number]
--- NOTE | 2018-03-14 19:41 | Progress Notes ---
DATE: 03/13/2018 DATE: 03/13/2018 SUBJECTIVE: Chart reviewed and the patient interviewed. Also discussed the patient's condition with the staff and reviewed records and labs. The patient is still restless and is still depressed. The patient also is still withdrawn and is still easily agitated. Also, is impulsive and demanding. The patient also is responding to stimuli. Also, during my interview, the patient has been mumbling and talking to himself. Otherwise, no side effects of medications and he is compliant with taking his medications regularly. ASSESSMENT: The patient is still agitated and depressed. TREATMENT PLAN: Continue to monitor behavior and condition closely. Also, we will get Depakote blood level. Also, I increased the Seroquel yesterday and stopped the Zyprexa and continue adjusting psychotropic medications. JOB# [id number]
--- NOTE | 2018-03-14 20:50 | Progress Notes ---
DATE: 03/12/2018 SUBJECTIVE: Chart reviewed and the patient interviewed. Also discussed the patient's condition with the staff and reviewed records and labs. The patient is still agitated. The patient also is suspicious and paranoid and selectively mute. He also is demanding. The patient also has severe mood swings. Otherwise, the patient is compliant with taking his medications with no side effects of medications. ASSESSMENT: The patient is still irritable and is still agitated. TREATMENT PLAN: Continue to monitor his behavior and his condition closely. Also, continue to work on his irritability and his anger. Also, we will increase Seroquel to 150 mg twice a day and 150 mg at bedtime and we will discontinue Zyprexa. Also, continue Depakote and Remeron same dose. JOB# [id number]
--- NOTE | 2018-03-14 22:23 | Internal Medicine Prog Note ---
Internal Medicine Subjective - Subjective Service Date: 03/14/18 Patient seen and examined:: with staff Patient is:: awake, non-interactive, in bed, agitated Patient Complaints of:: unable to sleep Per staff patient has:: no adverse event Internal Medicine Objective - Results Result Diagrams: 03/09/18 07:55 03/09/18 07:55 Recent Labs: Laboratory Last Values WBC 8.4 Th/cmm (4.8-10.8) 03/09/18 07:55 RBC 4.08 Mil/cmm (3.80-5.80) 03/09/18 07:55 Hgb 13.0 gm/dL (12-16) 03/09/18 07:55 Hct 38.5 % (41.0-60) L 03/09/18 07:55 MCV 94.5 fl (80-99) 03/09/18 07:55 MCH 31.8 pg (27.0-31.0) H 03/09/18 07:55 MCHC Differential 33.6 pg (28.0-36.0) 03/09/18 07:55 RDW 14.9 % (11.5-20.0) 03/09/18 07:55 Plt Count 303 Th/cmm (150-400) 03/09/18 07:55 MPV 7.1 fl 03/09/18 07:55 Neutrophils % 55.0 % (40.0-80.0) 03/09/18 07:55 Lymphocytes % 31.6 % (20.0-50.0) 03/09/18 07:55 Monocytes % 10.9 % (2.0-10.0) H 03/09/18 07:55 Eosinophils % 1.7 % (0.0-5.0) 03/09/18 07:55 Basophils % 0.8 % (0.0-2.0) 03/09/18 07:55 Sodium 138 mEq/L (136-145) 03/09/18 07:55 Potassium 4.2 mEq/L (3.5-5.1) 03/09/18 07:55 Chloride 105 mEq/L (98-107) 03/09/18 07:55 Carbon Dioxide 26.4 mEq/L (21.0-31.0) 03/09/18 07:55 Anion Gap 10.8 (7.0-16.0) 03/09/18 07:55 BUN 14 mg/dL (7-25) 03/09/18 07:55 Creatinine 0.8 mg/dL (0.7-1.3) 03/09/18 07:55 Est GFR ( Amer) > 60.0 ml/min (>90) 03/09/18 07:55 Est GFR (Non-Af Amer) > 60.0 ml/min 03/09/18 07:55 BUN/Creatinine Ratio 17.5 03/09/18 07:55 Glucose 87 mg/dL (70-105) 03/09/18 07:55 Calcium 9.4 mg/dL (8.6-10.3) 03/09/18 07:55 Valproic Acid 33.5 ug/mL (50.0-100.0) L 03/13/18 10:05 - Physical Exam Vitals and I&O: Vital Signs Temp 98 F 03/14/18 20:36 Pulse 92 03/14/18 20:36 Resp 18 03/14/18 20:36 BP 126/80 03/14/18 20:36 Pulse Ox 94 03/14/18 20:36 Intake & Output 03/14/18 03/14/18 03/15/18 06:59 18:59 06:59 Intake Total 120 1000 240 Balance 120 1000 240 Intake: Oral 120 1000 240 Other: # Voids 3 4 1 # Bowel Movements 0 1 Active Medications: Current Medications Acetaminophen (Tylenol) 650 mg PO Q4HR PRN PRN Reason: Mild Pain / Temp above 100 Stop: 05/07/18 01:46 Al Hydrox/Mg Hydrox/Simethicone (Maalox) 30 ml PO Q4HR PRN PRN Reason: GI DISTRESS Stop: 05/07/18 01:46 Albuterol/Ipratropium (Duoneb Neb) 3 ml HHN Q2HRT PRN PRN Reason: Wheezing Stop: 05/07/18 08:00 Amiodarone HCl (Cordarone) 200 mg PO DAILY [facility] Stop: 05/07/18 08:59 Last Admin: 03/14/18 08:41 Dose: Not Given Cyanocobalamin (Vitamin B12) 1,000 mcg PO DAILY [facility] Stop: 05/07/18 08:59 Last Admin: 03/14/18 08:41 Dose: 1,000 mcg Diltiazem HCl (Cardizem) 60 mg PO DAILY [facility] Stop: 05/07/18 08:59 Last Admin: 03/14/18 08:42 Dose: Not Given Divalproex Sodium (Depakote Dr) 500 mg PO BID [facility]; Protocol Stop: 05/07/18 08:59 Last Admin: 03/14/18 16:18 Dose: 500 mg Docusate Sodium (Colace) 100 mg PO BID PRN PRN Reason: CONSTIPATION Stop: 05/07/18 08:00 Ferrous Sulfate (Iron) 325 mg PO DAILY [facility] Stop: 05/07/18 08:59 Last Admin: 03/14/18 08:42 Dose: 325 mg Gabapentin (Neurontin) 300 mg PO TID [facility] Stop: 05/07/18 08:59 Last Admin: 03/14/18 21:07 Dose: 300 mg Lorazepam (Ativan) 0.5 mg PO Q4HR PRN; Protocol PRN Reason: Agitation Stop: 04/07/18 01:59 Last Admin: 03/13/18 08:15 Dose: 0.5 mg Magnesium Hydroxide (Milk Of Magnesia) 30 ml PO HS PRN PRN Reason: Constipation Mirtazapine (Remeron) 15 mg PO HS [facility]; Protocol Stop: 05/07/18 20:59 Last Admin: 03/14/18 21:07 Dose: 15 mg Multivitamins/Vitamin C (Theragran) 1 tab PO DAILY [facility] Stop: 05/07/18 08:59 Last Admin: 03/14/18 08:42 Dose: 1 tab Ondansetron HCl (Zofran Odt) 4 mg PO Q6H PRN PRN Reason: Nausea / Vomiting Stop: 05/10/18 05:59 Last Admin: 03/11/18 06:36 Dose: 4 mg Oxybutynin Chloride (Ditropan) 5 mg PO HS [facility] Stop: 05/07/18 20:59 Last Admin: 03/14/18 21:07 Dose: 5 mg Pantoprazole Sodium (Protonix) 40 mg PO BID [facility] Stop: 05/10/18 06:59 Last Admin: 03/14/18 16:18 Dose: 40 mg Quetiapine Fumarate (Seroquel) 200 mg PO BID [facility]; Protocol Stop: 05/13/18 08:59 Last Admin: 03/14/18 16:18 Dose: 200 mg Quetiapine Fumarate (Seroquel) 200 mg PO HS [facility]; Protocol Stop: 05/13/18 20:59 Last Admin: 03/14/18 21:07 Dose: 200 mg Sodium Chloride (Nacl Tab) 1 gm PO BID [facility] Stop: 05/07/18 08:59 Last Admin: 03/14/18 16:18 Dose: 1 gm Tamsulosin HCl (Flomax) 0.4 mg PO DAILY [facility] Stop: 05/07/18 08:59 Last Admin: 03/14/18 08:42 Dose: 0.4 mg Zolpidem Tartrate (Ambien) 5 mg PO HS PRN PRN Reason: Insomnia Stop: 05/07/18 01:46 Last Admin: 03/14/18 21:08 Dose: 5 mg General: weak, lethargic, congested, demented HEENT: NC/AT, PERRLA, EOMI, anicteric sclerae, throat clear, thinning hair Neck: Supple, No JVD, No LAD Lungs: wheezing, ronchi Cardiovascular: RRR, Normal S1 Abdomen: soft, non-tender, non-distended Extremities: clear Neurological: no change Internal Medicine Assmt/Plan - Assessment Assessment: Noncompliance: education provided. PNA: improving? pt refuses IVPB ABX. ALOC: on and off; observe closely. H/O A. Fib: rate controlled. Acute Psychosis: follow recommendation by Psychiatrist. Insomnia: on and off. Agitation: sitter PRN Leukocytosis: resolving? s/p recent UGIB. Nutritional Asmnt/Malnutr-PDOC - Dietary Evaluation Malnutrition Findings (Please click <Entered> for more info): Nutritional Asmnt/Malnutrition Start: 03/11/18 13: 17 Text: Status: Complete Freq: Protocol: Document 03/11/18 13:17 LAUREN (Rec: 03/11/18 13:22 LAUREN [email or web address]) Nutritional Asmnt/Malnutrition Patient General Information Nutritional Screening Moderate Risk Diagnosis psychosis Pertinent Medical Hx/Surgical Hx CAD, s/p PA, afib, anemia, BPH , COPD, PNA, psychosis, anxiety, depression Subjective Information Pt seen sleeping in bed at time of visit. Per EMR, PO intake 100% of meals. Per nurse note, pt had episode of vomiting x 1 last night. Current Diet Order/ Nutrition Support [facility] soft chopped bland Pertinent Medications vit B12, colace, iron, remeron , theragran, protonix, nacl tab, seroquel Pertinent Labs 03/09 nutritin labs WNL Nutritional Hx/Data Height 1.75 m Height (Calculated Centimeters) 175.3 Current Weight (lbs) 61.235 kg Weight (Calculated Kilograms) 61.2 Weight (Calculated Grams) 36962.0 [place] Body Weight 160 Body Mass Index (BMI) 19.9 Weight Status Approriate GI Symptoms GI Symptoms None Last BM 03/11 Difficult in: None Skin Integrity/Comment: intact Current %PO Good (75-100%) Estimated Nutritional Goals BEE in Kcals: Using Current wt Calories/Kcals/Kg 25-30 Kcals Calculated 7722-3037 Protein: Using Current wt Protein g/k Protein Calculated 61 Fluid: ml 1525-1830ml (1ml/kcal) Nutritional Problem No current Nutrition Prob Problem N/A Malnutrition Alert Is there a minimum of two criteria No selected? Query Text:Check all the applicable criteria. A minimum of two criteria are recommended for diagnosis of either severe or non-severe malnutrition. Malnutrition Related to Morbid Obesity Malnutrition related to morbid obesity No Intervention/Recommendation Comments 1. Continue with [facility] soft chopped bland diet as ordered. 2. Monitor PO intake, wt, labs and skin integrity 3. F/U as low risk in 7 days, 03/18 Expected Outcomes/Goals Expected Outcomes/Goals 1. PO intake to meet at least 75% of nutritional needs. 2. Wt stability, skin to remain intact, labs WNL.
[2018-03-15] MEDS: Multivitamin Tab PO SCH (08:36)
[2018-03-15] MEDS: Ferrous Sulfate 325 MG TAB PO SCH (08:36)
[2018-03-15] MEDS: Pantoprazole 40 mg EC Tab PO SCH ×2 (08:36→16:29)
[2018-03-15] MEDS: Diltiazem 30 mg Tab PO SCH (08:39)
[2018-03-15] MEDS ORDERED: Haloperidol Lactate 5 mg/mL 1mL Vial IM STA (13:00)
[2018-03-15] MEDS ORDERED: Haloperidol Lactate 5 mg/mL 1mL Vial ONE (13:01)
[2018-03-16] MEDS: Multivitamin Tab PO SCH (08:32)
[2018-03-16] MEDS: Ferrous Sulfate 325 MG TAB PO SCH (08:33)
[2018-03-16] MEDS: Pantoprazole 40 mg EC Tab PO SCH ×2 (08:33→16:43)
[2018-03-16] MEDS: Diltiazem 30 mg Tab PO SCH (08:34)
--- NOTE | 2018-03-16 11:15 | Internal Medicine Prog Note ---
Internal Medicine Subjective - Subjective Service Date: 03/15/18 (late entry due to internet problem at home) Patient is:: awake, non-interactive, in bed, agitated Patient Complaints of:: unable to sleep Per staff patient has:: no adverse event Internal Medicine Objective - Results Result Diagrams: 03/09/18 07:55 03/09/18 07:55 Recent Labs: Laboratory Last Values WBC 8.4 Th/cmm (4.8-10.8) 03/09/18 07:55 RBC 4.08 Mil/cmm (3.80-5.80) 03/09/18 07:55 Hgb 13.0 gm/dL (12-16) 03/09/18 07:55 Hct 38.5 % (41.0-60) L 03/09/18 07:55 MCV 94.5 fl (80-99) 03/09/18 07:55 MCH 31.8 pg (27.0-31.0) H 03/09/18 07:55 MCHC Differential 33.6 pg (28.0-36.0) 03/09/18 07:55 RDW 14.9 % (11.5-20.0) 03/09/18 07:55 Plt Count 303 Th/cmm (150-400) 03/09/18 07:55 MPV 7.1 fl 03/09/18 07:55 Neutrophils % 55.0 % (40.0-80.0) 03/09/18 07:55 Lymphocytes % 31.6 % (20.0-50.0) 03/09/18 07:55 Monocytes % 10.9 % (2.0-10.0) H 03/09/18 07:55 Eosinophils % 1.7 % (0.0-5.0) 03/09/18 07:55 Basophils % 0.8 % (0.0-2.0) 03/09/18 07:55 Sodium 138 mEq/L (136-145) 03/09/18 07:55 Potassium 4.2 mEq/L (3.5-5.1) 03/09/18 07:55 Chloride 105 mEq/L (98-107) 03/09/18 07:55 Carbon Dioxide 26.4 mEq/L (21.0-31.0) 03/09/18 07:55 Anion Gap 10.8 (7.0-16.0) 03/09/18 07:55 BUN 14 mg/dL (7-25) 03/09/18 07:55 Creatinine 0.8 mg/dL (0.7-1.3) 03/09/18 07:55 Est GFR ( Amer) > 60.0 ml/min (>90) 03/09/18 07:55 Est GFR (Non-Af Amer) > 60.0 ml/min 03/09/18 07:55 BUN/Creatinine Ratio 17.5 03/09/18 07:55 Glucose 87 mg/dL (70-105) 03/09/18 07:55 Calcium 9.4 mg/dL (8.6-10.3) 03/09/18 07:55 Valproic Acid 33.5 ug/mL (50.0-100.0) L 03/13/18 10:05 - Physical Exam Vitals and I&O: Vital Signs Temp 98.2 F 03/16/18 06:30 Pulse 77 03/16/18 08:34 Resp 14 03/16/18 07:31 BP 115/72 03/16/18 06:30 Pulse Ox 91 03/16/18 07:31 Intake & Output 03/15/18 03/16/18 03/16/18 18:59 06:59 18:59 Intake Total 900 600 Balance 900 600 Intake: Oral 900 600 Other: # Voids 4 2 # Bowel Movements 1 0 Active Medications: Current Medications Acetaminophen (Tylenol) 650 mg PO Q4HR PRN PRN Reason: Mild Pain / Temp above 100 Stop: 05/07/18 01:46 Al Hydrox/Mg Hydrox/Simethicone (Maalox) 30 ml PO Q4HR PRN PRN Reason: GI DISTRESS Stop: 05/07/18 01:46 Albuterol/Ipratropium (Duoneb Neb) 3 ml HHN Q2HRT PRN PRN Reason: Wheezing Stop: 05/07/18 08:00 Amiodarone HCl (Cordarone) 200 mg PO DAILY [facility] Stop: 05/07/18 08:59 Last Admin: 03/16/18 08:33 Dose: Not Given Cyanocobalamin (Vitamin B12) 1,000 mcg PO DAILY [facility] Stop: 05/07/18 08:59 Last Admin: 03/16/18 08:32 Dose: 1,000 mcg Diltiazem HCl (Cardizem) 60 mg PO DAILY [facility] Stop: 05/07/18 08:59 Last Admin: 03/16/18 08:34 Dose: Not Given Divalproex Sodium (Depakote Dr) 500 mg PO BID [facility]; Protocol Stop: 05/07/18 08:59 Last Admin: 03/16/18 08:33 Dose: 500 mg Docusate Sodium (Colace) 100 mg PO BID PRN PRN Reason: CONSTIPATION Stop: 05/07/18 08:00 Ferrous Sulfate (Iron) 325 mg PO DAILY [facility] Stop: 05/07/18 08:59 Last Admin: 03/16/18 08:33 Dose: 325 mg Gabapentin (Neurontin) 300 mg PO TID [facility] Stop: 05/07/18 08:59 Last Admin: 03/16/18 08:32 Dose: 300 mg Magnesium Hydroxide (Milk Of Magnesia) 30 ml PO HS PRN PRN Reason: Constipation Mirtazapine (Remeron) 15 mg PO HS [facility]; Protocol Stop: 05/07/18 20:59 Last Admin: 03/15/18 21:25 Dose: 15 mg Multivitamins/Vitamin C (Theragran) 1 tab PO DAILY [facility] Stop: 05/07/18 08:59 Last Admin: 03/16/18 08:32 Dose: 1 tab Ondansetron HCl (Zofran Odt) 4 mg PO Q6H PRN PRN Reason: Nausea / Vomiting Stop: 05/10/18 05:59 Last Admin: 03/11/18 06:36 Dose: 4 mg Oxybutynin Chloride (Ditropan) 5 mg PO [facility] Stop: 05/07/18 20:59 Last Admin: 03/15/18 21:25 Dose: 5 mg Pantoprazole Sodium (Protonix) 40 mg PO BID [facility] Stop: 05/10/18 06:59 Last Admin: 03/16/18 08:33 Dose: 40 mg Quetiapine Fumarate (Seroquel) 200 mg PO BID [facility]; Protocol Stop: 05/13/18 08:59 Last Admin: 03/16/18 08:32 Dose: 200 mg Quetiapine Fumarate (Seroquel) 200 mg PO HS [facility]; Protocol Stop: 05/13/18 20:59 Last Admin: 03/15/18 21:24 Dose: 200 mg Sodium Chloride (Nacl Tab) 1 gm PO BID [facility] Stop: 05/07/18 08:59 Last Admin: 03/16/18 08:32 Dose: 1 gm Tamsulosin HCl (Flomax) 0.4 mg PO DAILY [facility] Stop: 05/07/18 08:59 Last Admin: 03/16/18 08:33 Dose: 0.4 mg General: weak, lethargic, congested, demented HEENT: NC/AT, PERRLA, EOMI, anicteric sclerae, throat clear, thinning hair Neck: Supple, No JVD, No LAD Lungs: wheezing, ronchi Cardiovascular: RRR, Normal S1 Abdomen: soft, non-tender, non-distended Extremities: clear Neurological: no change Internal Medicine Assmt/Plan - Assessment Assessment: Insomnia: on and off. Ambien PRN. Noncompliance: education provided. PNA: improving? pt refuses IVPB ABX. ALOC: on and off; observe closely. H/O A. Fib: rate controlled. Acute Psychosis: follow recommendation by Psychiatrist. Agitation: sitter PRN Leukocytosis: resolving? s/p recent UGIB. Nutritional Asmnt/Malnutr-PDOC - Dietary Evaluation Malnutrition Findings (Please click <Entered> for more info): Nutritional Asmnt/Malnutrition Start: 03/11/18 13: 17 Text: Status: Complete Freq: Protocol: Document 03/11/18 13:17 LCHENG (Rec: 03/11/18 13:22 LCHENG [email or web address]) Nutritional Asmnt/Malnutrition Patient General Information Nutritional Screening Moderate Risk Diagnosis psychosis Pertinent Medical Hx/Surgical Hx CAD, s/p GA, afib, anemia, BPH , COPD, PNA, psychosis, anxiety, depression Subjective Information Pt seen sleeping in bed at time of visit. Per EMR, PO intake 100% of meals. Per nurse note, pt had episode of vomiting x 1 last night. Current Diet Order/ Nutrition Support [facility] soft chopped bland Pertinent Medications vit B12, colace, iron, remeron , theragran, protonix, nacl tab, seroquel Pertinent Labs 03/09 nutritin labs WNL Nutritional Hx/Data Height 1.75 m Height (Calculated Centimeters) 175.3 Current Weight (lbs) 61.235 kg Weight (Calculated Kilograms) 61.2 Weight (Calculated Grams) 13640.0 [place] Body Weight 160 Body Mass Index (BMI) 19.9 Weight Status Approriate GI Symptoms GI Symptoms None Last BM 03/11 Difficult in: None Skin Integrity/Comment: intact Current %PO Good (75-100%) Estimated Nutritional Goals BEE in Kcals: Using Current wt Calories/Kcals/Kg 25-30 Kcals Calculated 6004-6703 Protein: Using Current wt Protein g/k Protein Calculated 61 Fluid: ml 1525-1830ml (1ml/kcal) Nutritional Problem No current Nutrition Prob Problem N/A Malnutrition Alert Is there a minimum of two criteria No selected? Query Text:Check all the applicable criteria. A minimum of two criteria are recommended for diagnosis of either severe or non-severe malnutrition. Malnutrition Related to Morbid Obesity Malnutrition related to morbid obesity No Intervention/Recommendation Comments 1. Continue with [facility] soft chopped bland diet as ordered. 2. Monitor PO intake, wt, labs and skin integrity 3. F/U as low risk in 7 days, 03/18 Expected Outcomes/Goals Expected Outcomes/Goals 1. PO intake to meet at least 75% of nutritional needs. 2. Wt stability, skin to remain intact, labs WNL.
--- NOTE | 2018-03-16 12:33 | Progress Notes ---
DATE: 03/14/2018 DATE: 03/14/2018 PSYCHIATRIC PROGRESS NOTE SUBJECTIVE: Chart reviewed and the patient interviewed. Also discussed the patient's condition with the staff and reviewed records and labs. The patient continued to be extremely agitated and is still verbally abusive to staff and other patients. He also is still demanding and anxious. The patient also continued slamming doors and difficulty following any of staff directions. The patient had to be given Haldol and Ativan on an emergency basis to calm him down. On the other hand, the patient continued to comply with taking his medications with no side effect of medications. ASSESSMENT: The patient is still agitated and psychotic and he can be dangerous to others. TREATMENT PLAN: We will increase Seroquel to 200 mg twice a day and 200 mg at bedtime. Also, Depakote blood level that was done on 03/13/2018, to come back to be 33.7, which is below therapeutic level. We will repeat Depakote blood level and we will continue to follow his condition and medications closely. [facility]# [id number]
--- NOTE | 2018-03-16 23:43 | Internal Medicine Prog Note ---
Internal Medicine Subjective - Subjective Service Date: 03/16/18 Patient seen and examined:: without staff Patient is:: awake, non-interactive, in bed, agitated Patient Complaints of:: unable to sleep Per staff patient has:: no adverse event Internal Medicine Objective - Results Result Diagrams: 03/09/18 07:55 03/09/18 07:55 Recent Labs: Laboratory Last Values WBC 8.4 Th/cmm (4.8-10.8) 03/09/18 07:55 RBC 4.08 Mil/cmm (3.80-5.80) 03/09/18 07:55 Hgb 13.0 gm/dL (12-16) 03/09/18 07:55 Hct 38.5 % (41.0-60) L 03/09/18 07:55 MCV 94.5 fl (80-99) 03/09/18 07:55 MCH 31.8 pg (27.0-31.0) H 03/09/18 07:55 MCHC Differential 33.6 pg (28.0-36.0) 03/09/18 07:55 RDW 14.9 % (11.5-20.0) 03/09/18 07:55 Plt Count 303 Th/cmm (150-400) 03/09/18 07:55 MPV 7.1 fl 03/09/18 07:55 Neutrophils % 55.0 % (40.0-80.0) 03/09/18 07:55 Lymphocytes % 31.6 % (20.0-50.0) 03/09/18 07:55 Monocytes % 10.9 % (2.0-10.0) H 03/09/18 07:55 Eosinophils % 1.7 % (0.0-5.0) 03/09/18 07:55 Basophils % 0.8 % (0.0-2.0) 03/09/18 07:55 Sodium 138 mEq/L (136-145) 03/09/18 07:55 Potassium 4.2 mEq/L (3.5-5.1) 03/09/18 07:55 Chloride 105 mEq/L (98-107) 03/09/18 07:55 Carbon Dioxide 26.4 mEq/L (21.0-31.0) 03/09/18 07:55 Anion Gap 10.8 (7.0-16.0) 03/09/18 07:55 BUN 14 mg/dL (7-25) 03/09/18 07:55 Creatinine 0.8 mg/dL (0.7-1.3) 03/09/18 07:55 Est GFR ( Amer) > 60.0 ml/min (>90) 03/09/18 07:55 Est GFR (Non-Af Amer) > 60.0 ml/min 03/09/18 07:55 BUN/Creatinine Ratio 17.5 03/09/18 07:55 Glucose 87 mg/dL (70-105) 03/09/18 07:55 Calcium 9.4 mg/dL (8.6-10.3) 03/09/18 07:55 Valproic Acid 33.5 ug/mL (50.0-100.0) L 03/13/18 10:05 - Physical Exam Vitals and I&O: Vital Signs Temp 97.8 F 03/16/18 20:15 Pulse 99 03/16/18 20:15 Resp 20 03/16/18 20:15 BP 98/70 03/16/18 20:15 Pulse Ox 97 03/16/18 20:15 Intake & Output 03/16/18 03/16/18 03/17/18 06:59 18:59 06:59 Intake Total 600 240 Balance 600 240 Intake: Oral 600 240 Other: # Voids 2 3 1 # Bowel Movements 0 1 Active Medications: Current Medications Acetaminophen (Tylenol) 650 mg PO Q4HR PRN PRN Reason: Mild Pain / Temp above 100 Stop: 05/07/18 01:46 Al Hydrox/Mg Hydrox/Simethicone (Maalox) 30 ml PO Q4HR PRN PRN Reason: GI DISTRESS Stop: 05/07/18 01:46 Albuterol/Ipratropium (Duoneb Neb) 3 ml HHN Q2HRT PRN PRN Reason: Wheezing Stop: 05/07/18 08:00 Amiodarone HCl (Cordarone) 200 mg PO DAILY [facility] Stop: 05/07/18 08:59 Last Admin: 03/16/18 08:33 Dose: Not Given Cyanocobalamin (Vitamin B12) 1,000 mcg PO DAILY [facility] Stop: 05/07/18 08:59 Last Admin: 03/16/18 08:32 Dose: 1,000 mcg Diltiazem HCl (Cardizem) 60 mg PO DAILY [facility] Stop: 05/07/18 08:59 Last Admin: 03/16/18 08:34 Dose: Not Given Divalproex Sodium (Depakote Dr) 500 mg PO BID [facility]; Protocol Stop: 05/07/18 08:59 Last Admin: 03/16/18 16:43 Dose: 500 mg Docusate Sodium (Colace) 100 mg PO BID PRN PRN Reason: CONSTIPATION Stop: 05/07/18 08:00 Ferrous Sulfate (Iron) 325 mg PO DAILY [facility] Stop: 05/07/18 08:59 Last Admin: 03/16/18 08:33 Dose: 325 mg Gabapentin (Neurontin) 300 mg PO TID [facility] Stop: 05/07/18 08:59 Last Admin: 03/16/18 22:00 Dose: Not Given Magnesium Hydroxide (Milk Of Magnesia) 30 ml PO HS PRN PRN Reason: Constipation Mirtazapine (Remeron) 15 mg PO [facility]; Protocol Stop: 05/07/18 20:59 Last Admin: 03/16/18 22:00 Dose: Not Given Multivitamins/Vitamin C (Theragran) 1 tab PO DAILY [facility] Stop: 05/07/18 08:59 Last Admin: 03/16/18 08:32 Dose: 1 tab Ondansetron HCl (Zofran Odt) 4 mg PO Q6H PRN PRN Reason: Nausea / Vomiting Stop: 05/10/18 05:59 Last Admin: 03/11/18 06:36 Dose: 4 mg Oxybutynin Chloride (Ditropan) 5 mg PO [facility] Stop: 05/07/18 20:59 Last Admin: 03/16/18 22:00 Dose: Not Given Pantoprazole Sodium (Protonix) 40 mg PO BID [facility] Stop: 05/10/18 06:59 Last Admin: 03/16/18 16:43 Dose: 40 mg Quetiapine Fumarate (Seroquel) 200 mg PO HS [facility]; Protocol Stop: 05/13/18 20:59 Last Admin: 03/16/18 22:00 Dose: Not Given Quetiapine Fumarate (Seroquel) 200 mg PO BID [facility]; Protocol Stop: 05/13/18 16:59 Last Admin: 03/16/18 16:43 Dose: 200 mg Sodium Chloride (Nacl Tab) 1 gm PO BID [facility] Stop: 05/07/18 08:59 Last Admin: 03/16/18 16:43 Dose: 1 gm Tamsulosin HCl (Flomax) 0.4 mg PO DAILY [facility] Stop: 05/07/18 08:59 Last Admin: 03/16/18 08:33 Dose: 0.4 mg General: weak, lethargic, congested, demented HEENT: NC/AT, PERRLA, EOMI, anicteric sclerae, throat clear, thinning hair Neck: Supple, No JVD, No LAD Lungs: wheezing, ronchi Cardiovascular: RRR, Normal S1 Abdomen: soft, non-tender, non-distended Extremities: clear Neurological: no change Internal Medicine Assmt/Plan - Assessment Assessment: ALOC: on and off; observe closely. Insomnia: on and off. Ambien PRN. Noncompliance: education provided. PNA: improving? pt refuses IVPB ABX. H/O A. Fib: rate controlled. Acute Psychosis: follow recommendation by Psychiatrist. Agitation: sitter PRN Leukocytosis: resolving? s/p recent UGIB. Nutritional Asmnt/Malnutr-PDOC - Dietary Evaluation Malnutrition Findings (Please click <Entered> for more info): Nutritional Asmnt/Malnutrition Start: 03/11/18 13: 17 Text: Status: Complete Freq: Protocol: Document 03/11/18 13:17 LCHENG (Rec: 03/11/18 13:22 LCHENG [email or web address]) Nutritional Asmnt/Malnutrition Patient General Information Nutritional Screening Moderate Risk Diagnosis psychosis Pertinent Medical Hx/Surgical Hx CAD, s/p [place], afib, anemia, BPH , COPD, PNA, psychosis, anxiety, depression Subjective Information Pt seen sleeping in bed at time of visit. Per EMR, PO intake 100% of meals. Per nurse note, pt had episode of vomiting x 1 last night. Current Diet Order/ Nutrition Support [facility] soft chopped bland Pertinent Medications vit B12, colace, iron, remeron , theragran, protonix, nacl tab, seroquel Pertinent Labs 03/09 nutritin labs WNL Nutritional Hx/Data Height 1.75 m Height (Calculated Centimeters) 175.3 Current Weight (lbs) 61.235 kg Weight (Calculated Kilograms) 61.2 Weight (Calculated Grams) 89892.0 [place] Body Weight 160 Body Mass Index (BMI) 19.9 Weight Status Approriate GI Symptoms GI Symptoms None Last BM 03/11 Difficult in: None Skin Integrity/Comment: intact Current %PO Good (75-100%) Estimated Nutritional Goals BEE in Kcals: Using Current wt Calories/Kcals/Kg 25-30 Kcals Calculated 8883-4206 Protein: Using Current wt Protein g/k Protein Calculated 61 Fluid: ml 1525-1830ml (1ml/kcal) Nutritional Problem No current Nutrition Prob Problem N/A Malnutrition Alert Is there a minimum of two criteria No selected? Query Text:Check all the applicable criteria. A minimum of two criteria are recommended for diagnosis of either severe or non-severe malnutrition. Malnutrition Related to Morbid Obesity Malnutrition related to morbid obesity No Intervention/Recommendation Comments 1. Continue with [facility] soft chopped bland diet as ordered. 2. Monitor PO intake, wt, labs and skin integrity 3. F/U as low risk in 7 days, 03/18 Expected Outcomes/Goals Expected Outcomes/Goals 1. PO intake to meet at least 75% of nutritional needs. 2. Wt stability, skin to remain intact, labs WNL.
[2018-03-17 06:37] LABS: % BASOPHILS 0.3 % (0.0-2.0); % EOSINOPHILS 0.4 % (0.0-5.0); % LYMPHOCYTES 14.5 % (20.0-50.0); % MONOCYTES 12.3 % (2.0-10.0); % NEUTROPHILS 72.5 % (40.0-80.0); HEMATOCRIT 36.1 % (41.0-60); HEMOGLOBIN 12.3 gm/dL (12-16); LYMPHOCYTE ABSOLUTE 1.1 Th/cmm (1.5-3.0); MEAN CELL VOLUME 93.7 fl (80-99); MEAN CORPUSCULAR HEMOGLOBIN 31.8 pg (27.0-31.0); MEAN PLATELET VOLUME 7.7 fl; MONOCYTE ABSOLUTE 0.9 Th/cmm (0.3-1.0); NEUTROPHILE ABSOLUTE 5.5 Th/cmm (1.8-8.0); PLATELET COUNT 235 Th/cmm (150-400); RED BLOOD COUNT 3.86 Mil/cmm (3.80-5.80); RED CELL DISTRIBUTION WIDTH 14.9 % (11.5-20.0); WHITE BLOOD COUNT 7.5 Th/cmm (4.8-10.8)
[2018-03-17 06:48] LABS: ANION GAP 15.5 (7.0-16.0); BUN - UREA NITROGEN 23 mg/dL (7-25); CALCIUM SERUM 9.2 mg/dL (8.6-10.3); CARBON DIOXIDE 23.4 mEq/L (21.0-31.0); CHLORIDE 104 mEq/L (98-107); GFR AFRICAN-AMERICAN > 60.0 ml/min (>90); GFR NON AFRICAN-AMERICAN > 60.0 ml/min; GLUCOSE 78 mg/dL (70-105); POTASSIUM SERUM 3.9 mEq/L (3.5-5.1); SODIUM SERUM 139 mEq/L (136-145)
[2018-03-17] MEDS: Pantoprazole 40 mg EC Tab PO SCH ×2 (10:36→16:15)
[2018-03-17] MEDS: Multivitamin Tab PO SCH (10:36)
[2018-03-17] MEDS: Ferrous Sulfate 325 MG TAB PO SCH (10:36)
[2018-03-17] MEDS: Diltiazem 30 mg Tab PO SCH (11:29)
--- NOTE | 2018-03-17 23:50 | Internal Medicine Prog Note ---
Internal Medicine Subjective - Subjective Service Date: 03/17/18 Patient seen and examined:: with staff Patient is:: awake, non-interactive, in bed, agitated Patient Complaints of:: unable to sleep Per staff patient has:: no adverse event Internal Medicine Objective - Results Result Diagrams: 03/17/18 05:45 03/17/18 05:45 Recent Labs: Laboratory Last Values WBC 7.5 Th/cmm (4.8-10.8) 03/17/18 05:45 RBC 3.86 Mil/cmm (3.80-5.80) 03/17/18 05:45 Hgb 12.3 gm/dL (12-16) 03/17/18 05:45 Hct 36.1 % (41.0-60) L 03/17/18 05:45 MCV 93.7 fl (80-99) 03/17/18 05:45 MCH 31.8 pg (27.0-31.0) H 03/17/18 05:45 MCHC Differential 34.0 pg (28.0-36.0) 03/17/18 05:45 RDW 14.9 % (11.5-20.0) 03/17/18 05:45 Plt Count 235 Th/cmm (150-400) 03/17/18 05:45 MPV 7.7 fl 03/17/18 05:45 Neutrophils % 72.5 % (40.0-80.0) 03/17/18 05:45 Lymphocytes % 14.5 % (20.0-50.0) L 03/17/18 05:45 Monocytes % 12.3 % (2.0-10.0) H 03/17/18 05:45 Eosinophils % 0.4 % (0.0-5.0) 03/17/18 05:45 Basophils % 0.3 % (0.0-2.0) 03/17/18 05:45 Sodium 139 mEq/L (136-145) 03/17/18 05:45 Potassium 3.9 mEq/L (3.5-5.1) 03/17/18 05:45 Chloride 104 mEq/L (98-107) 03/17/18 05:45 Carbon Dioxide 23.4 mEq/L (21.0-31.0) 03/17/18 05:45 Anion Gap 15.5 (7.0-16.0) 03/17/18 05:45 BUN 23 mg/dL (7-25) 03/17/18 05:45 Creatinine 1.0 mg/dL (0.7-1.3) 03/17/18 05:45 Est GFR ( Amer) > 60.0 ml/min (>90) 03/17/18 05:45 Est GFR (Non-Af Amer) > 60.0 ml/min 03/17/18 05:45 BUN/Creatinine Ratio 23.0 03/17/18 05:45 Glucose 78 mg/dL (70-105) 03/17/18 05:45 Calcium 9.2 mg/dL (8.6-10.3) 03/17/18 05:45 Valproic Acid 33.5 ug/mL (50.0-100.0) L 03/13/18 10:05 - Physical Exam Vitals and I&O: Vital Signs Temp 98.5 F 03/17/18 20:42 Pulse 75 03/17/18 20:42 Resp 19 03/17/18 20:42 BP 124/77 03/17/18 20:42 Pulse Ox 96 03/17/18 20:42 Intake & Output 03/17/18 03/17/18 03/18/18 06:59 18:59 06:59 Intake Total 240 120 Balance 240 120 Intake: Oral 240 120 Other: # Voids 3 3 3 # Bowel Movements 0 1 0 Active Medications: Current Medications Acetaminophen (Tylenol) 650 mg PO Q4HR PRN PRN Reason: Mild Pain / Temp above 100 Stop: 05/07/18 01:46 Al Hydrox/Mg Hydrox/Simethicone (Maalox) 30 ml PO Q4HR PRN PRN Reason: GI DISTRESS Stop: 05/07/18 01:46 Albuterol/Ipratropium (Duoneb Neb) 3 ml HHN Q2HRT PRN PRN Reason: Wheezing Stop: 05/07/18 08:00 Amiodarone HCl (Cordarone) 200 mg PO DAILY [facility] Stop: 05/07/18 08:59 Last Admin: 03/17/18 11:29 Dose: 200 mg Cyanocobalamin (Vitamin B12) 1,000 mcg PO DAILY [facility] Stop: 05/07/18 08:59 Last Admin: 03/17/18 10:36 Dose: Not Given Diltiazem HCl (Cardizem) 60 mg PO DAILY [facility] Stop: 05/07/18 08:59 Last Admin: 03/17/18 11:29 Dose: 60 mg Divalproex Sodium (Depakote Dr) 500 mg PO BID [facility]; Protocol Stop: 05/07/18 08:59 Last Admin: 03/17/18 16:16 Dose: 500 mg Docusate Sodium (Colace) 100 mg PO BID PRN PRN Reason: CONSTIPATION Stop: 05/07/18 08:00 Ferrous Sulfate (Iron) 325 mg PO DAILY [facility] Stop: 05/07/18 08:59 Last Admin: 03/17/18 10:36 Dose: Not Given Gabapentin (Neurontin) 300 mg PO TID [facility] Stop: 05/07/18 08:59 Last Admin: 03/17/18 20:22 Dose: 300 mg Magnesium Hydroxide (Milk Of Magnesia) 30 ml PO HS PRN PRN Reason: Constipation Mirtazapine (Remeron) 15 mg PO HS [facility]; Protocol Stop: 05/07/18 20:59 Last Admin: 03/17/18 20:22 Dose: 15 mg Multivitamins/Vitamin C (Theragran) 1 tab PO DAILY [facility] Stop: 05/07/18 08:59 Last Admin: 03/17/18 10:36 Dose: Not Given Ondansetron HCl (Zofran Odt) 4 mg PO Q6H PRN PRN Reason: Nausea / Vomiting Stop: 05/10/18 05:59 Last Admin: 03/17/18 23:44 Dose: 4 mg Oxybutynin Chloride (Ditropan) 5 mg PO HS [facility] Stop: 05/07/18 20:59 Last Admin: 03/17/18 20:22 Dose: 5 mg Pantoprazole Sodium (Protonix) 40 mg PO BID [facility] Stop: 05/10/18 06:59 Last Admin: 03/17/18 16:15 Dose: 40 mg Quetiapine Fumarate (Seroquel) 200 mg PO HS [facility]; Protocol Stop: 05/13/18 20:59 Last Admin: 03/17/18 20:22 Dose: 200 mg Quetiapine Fumarate (Seroquel) 200 mg PO BID [facility]; Protocol Stop: 05/13/18 16:59 Last Admin: 03/17/18 16:16 Dose: 200 mg Sodium Chloride (Nacl Tab) 1 gm PO BID [facility] Stop: 05/07/18 08:59 Last Admin: 03/17/18 16:15 Dose: 1 gm Tamsulosin HCl (Flomax) 0.4 mg PO DAILY [facility] Stop: 05/07/18 08:59 Last Admin: 03/17/18 10:37 Dose: Not Given General: weak, lethargic, congested, demented HEENT: NC/AT, PERRLA, EOMI, anicteric sclerae, throat clear, thinning hair Neck: Supple, No JVD, No LAD Lungs: wheezing, ronchi Cardiovascular: RRR, Normal S1 Abdomen: soft, non-tender, non-distended Extremities: clear Neurological: no change Internal Medicine Assmt/Plan - Assessment Assessment: Noncompliance: education provided. ALOC: on and off; observe closely. Insomnia: on and off. Ambien PRN. PNA: improving? pt refuses IVPB ABX. H/O A. Fib: rate controlled. Acute Psychosis: follow recommendation by Psychiatrist. Agitation: sitter PRN Leukocytosis: resolving? s/p recent UGIB. Nutritional Asmnt/Malnutr-PDOC - Dietary Evaluation Malnutrition Findings (Please click <Entered> for more info): Nutritional Asmnt/Malnutrition Start: 03/11/18 13: 17 Text: Status: Complete Freq: Protocol: Document 03/11/18 13:17 LCHENG (Rec: 03/11/18 13:22 LCHENG [email or web address]) Nutritional Asmnt/Malnutrition Patient General Information Nutritional Screening Moderate Risk Diagnosis psychosis Pertinent Medical Hx/Surgical Hx CAD, s/p [place], afib, anemia, BPH , COPD, PNA, psychosis, anxiety, depression Subjective Information Pt seen sleeping in bed at time of visit. Per EMR, PO intake 100% of meals. Per nurse note, pt had episode of vomiting x 1 last night. Current Diet Order/ Nutrition Support [facility] soft chopped bland Pertinent Medications vit B12, colace, iron, remeron , theragran, protonix, nacl tab, seroquel Pertinent Labs 03/09 nutritin labs WNL Nutritional Hx/Data Height 1.75 m Height (Calculated Centimeters) 175.3 Current Weight (lbs) 61.235 kg Weight (Calculated Kilograms) 61.2 Weight (Calculated Grams) 52645.0 [place] Body Weight 160 Body Mass Index (BMI) 19.9 Weight Status Approriate GI Symptoms GI Symptoms None Last BM 03/11 Difficult in: None Skin Integrity/Comment: intact Current %PO Good (75-100%) Estimated Nutritional Goals BEE in Kcals: Using Current wt Calories/Kcals/Kg 25-30 Kcals Calculated 5990-6532 Protein: Using Current wt Protein g/k Protein Calculated 61 Fluid: ml 1525-1830ml (1ml/kcal) Nutritional Problem No current Nutrition Prob Problem N/A Malnutrition Alert Is there a minimum of two criteria No selected? Query Text:Check all the applicable criteria. A minimum of two criteria are recommended for diagnosis of either severe or non-severe malnutrition. Malnutrition Related to Morbid Obesity Malnutrition related to morbid obesity No Intervention/Recommendation Comments 1. Continue with [facility] soft chopped bland diet as ordered. 2. Monitor PO intake, wt, labs and skin integrity 3. F/U as low risk in 7 days, 03/18 Expected Outcomes/Goals Expected Outcomes/Goals 1. PO intake to meet at least 75% of nutritional needs. 2. Wt stability, skin to remain intact, labs WNL.
[2018-03-18] MEDS: Multivitamin Tab PO SCH (08:39)
[2018-03-18] MEDS: Ferrous Sulfate 325 MG TAB PO SCH (08:39)
[2018-03-18] MEDS: Pantoprazole 40 mg EC Tab PO SCH ×2 (08:40→16:51)
[2018-03-18] MEDS: Diltiazem 30 mg Tab PO SCH (08:44)
--- NOTE | 2018-03-18 23:14 | Internal Medicine Prog Note ---
Internal Medicine Subjective - Subjective Service Date: 03/18/18 Patient seen and examined:: without staff Patient is:: awake, non-interactive, in bed, agitated Patient Complaints of:: unable to sleep Per staff patient has:: no adverse event Internal Medicine Objective - Results Result Diagrams: 03/17/18 05:45 03/17/18 05:45 Recent Labs: Laboratory Last Values WBC 7.5 Th/cmm (4.8-10.8) 03/17/18 05:45 RBC 3.86 Mil/cmm (3.80-5.80) 03/17/18 05:45 Hgb 12.3 gm/dL (12-16) 03/17/18 05:45 Hct 36.1 % (41.0-60) L 03/17/18 05:45 MCV 93.7 fl (80-99) 03/17/18 05:45 MCH 31.8 pg (27.0-31.0) H 03/17/18 05:45 MCHC Differential 34.0 pg (28.0-36.0) 03/17/18 05:45 RDW 14.9 % (11.5-20.0) 03/17/18 05:45 Plt Count 235 Th/cmm (150-400) 03/17/18 05:45 MPV 7.7 fl 03/17/18 05:45 Neutrophils % 72.5 % (40.0-80.0) 03/17/18 05:45 Lymphocytes % 14.5 % (20.0-50.0) L 03/17/18 05:45 Monocytes % 12.3 % (2.0-10.0) H 03/17/18 05:45 Eosinophils % 0.4 % (0.0-5.0) 03/17/18 05:45 Basophils % 0.3 % (0.0-2.0) 03/17/18 05:45 Sodium 139 mEq/L (136-145) 03/17/18 05:45 Potassium 3.9 mEq/L (3.5-5.1) 03/17/18 05:45 Chloride 104 mEq/L (98-107) 03/17/18 05:45 Carbon Dioxide 23.4 mEq/L (21.0-31.0) 03/17/18 05:45 Anion Gap 15.5 (7.0-16.0) 03/17/18 05:45 BUN 23 mg/dL (7-25) 03/17/18 05:45 Creatinine 1.0 mg/dL (0.7-1.3) 03/17/18 05:45 Est GFR ( Amer) > 60.0 ml/min (>90) 03/17/18 05:45 Est GFR (Non-Af Amer) > 60.0 ml/min 03/17/18 05:45 BUN/Creatinine Ratio 23.0 03/17/18 05:45 Glucose 78 mg/dL (70-105) 03/17/18 05:45 Calcium 9.2 mg/dL (8.6-10.3) 03/17/18 05:45 Valproic Acid 60.7 ug/mL (50.0-100.0) 03/18/18 20:52 - Physical Exam Vitals and I&O: Vital Signs Temp 97.9 F 03/18/18 20:04 Pulse 80 03/18/18 20:04 Resp 20 03/18/18 20:04 BP 130/70 03/18/18 20:04 Pulse Ox 96 03/18/18 20:04 Intake & Output 03/18/18 03/18/18 03/19/18 06:59 18:59 06:59 Intake Total 240 1200 Balance 240 1200 Intake: Oral 240 1200 Other: # Voids 2 # Bowel Movements 0 1 Active Medications: Current Medications Acetaminophen (Tylenol) 650 mg PO Q4HR PRN PRN Reason: Mild Pain / Temp above 100 Stop: 05/07/18 01:46 Al Hydrox/Mg Hydrox/Simethicone (Maalox) 30 ml PO Q4HR PRN PRN Reason: GI DISTRESS Stop: 05/07/18 01:46 Albuterol/Ipratropium (Duoneb Neb) 3 ml HHN Q2HRT PRN PRN Reason: Wheezing Stop: 05/07/18 08:00 Amiodarone HCl (Cordarone) 200 mg PO DAILY [facility] Stop: 05/07/18 08:59 Last Admin: 03/18/18 08:40 Dose: 200 mg Cyanocobalamin (Vitamin B12) 1,000 mcg PO DAILY [facility] Stop: 05/07/18 08:59 Last Admin: 03/18/18 08:39 Dose: 1,000 mcg Diltiazem HCl (Cardizem) 60 mg PO DAILY [facility] Stop: 05/07/18 08:59 Last Admin: 03/18/18 08:44 Dose: 60 mg Divalproex Sodium (Depakote Dr) 500 mg PO BID [facility]; Protocol Stop: 05/07/18 08:59 Last Admin: 03/18/18 16:51 Dose: 500 mg Docusate Sodium (Colace) 100 mg PO BID PRN PRN Reason: CONSTIPATION Stop: 05/07/18 08:00 Last Admin: 03/18/18 21:10 Dose: 100 mg Ferrous Sulfate (Iron) 325 mg PO DAILY [facility] Stop: 05/07/18 08:59 Last Admin: 03/18/18 08:39 Dose: 325 mg Gabapentin (Neurontin) 300 mg PO TID [facility] Stop: 05/07/18 08:59 Last Admin: 03/18/18 21:10 Dose: 300 mg Magnesium Hydroxide (Milk Of Magnesia) 30 ml PO HS PRN PRN Reason: Constipation Mirtazapine (Remeron) 15 mg PO HS [facility]; Protocol Stop: 05/07/18 20:59 Last Admin: 03/18/18 21:10 Dose: 15 mg Multivitamins/Vitamin C (Theragran) 1 tab PO DAILY [facility] Stop: 05/07/18 08:59 Last Admin: 03/18/18 08:39 Dose: 1 tab Ondansetron HCl (Zofran Odt) 4 mg PO Q6H PRN PRN Reason: Nausea / Vomiting Stop: 05/10/18 05:59 Last Admin: 03/18/18 14:47 Dose: 4 mg Oxybutynin Chloride (Ditropan) 5 mg PO HS [facility] Stop: 05/07/18 20:59 Last Admin: 03/18/18 21:10 Dose: 5 mg Pantoprazole Sodium (Protonix) 40 mg PO BID [facility] Stop: 05/10/18 06:59 Last Admin: 03/18/18 16:51 Dose: 40 mg Quetiapine Fumarate (Seroquel) 200 mg PO HS [facility]; Protocol Stop: 05/13/18 20:59 Last Admin: 03/18/18 21:10 Dose: 200 mg Quetiapine Fumarate (Seroquel) 200 mg PO BID [facility]; Protocol Stop: 05/13/18 16:59 Last Admin: 03/18/18 16:51 Dose: 200 mg Sodium Chloride (Nacl Tab) 1 gm PO BID [facility] Stop: 05/07/18 08:59 Last Admin: 03/18/18 16:51 Dose: 1 gm Tamsulosin HCl (Flomax) 0.4 mg PO DAILY [facility] Stop: 05/07/18 08:59 Last Admin: 03/18/18 08:37 Dose: 0.4 mg General: weak, lethargic, congested, demented HEENT: NC/AT, PERRLA, EOMI, anicteric sclerae, throat clear, thinning hair Neck: Supple, No JVD, No LAD Lungs: wheezing, ronchi Cardiovascular: RRR, Normal S1 Abdomen: soft, non-tender, non-distended Extremities: clear Neurological: no change Internal Medicine Assmt/Plan - Assessment Assessment: ALOC: on and off; observe closely. Insomnia: on and off. Ambien PRN. Noncompliance: education provided. PNA: improving? pt refuses IVPB ABX. H/O A. Fib: rate controlled. Acute Psychosis: follow recommendation by Psychiatrist. Agitation: sitter PRN Leukocytosis: resolving? s/p recent UGIB. Nutritional Asmnt/Malnutr-PDOC - Dietary Evaluation Malnutrition Findings (Please click <Entered> for more info): Nutritional Asmnt/Malnutrition Start: 03/11/18 13: 17 Text: Status: Complete Freq: Protocol: Document 03/11/18 13:17 LCHENG (Rec: 03/11/18 13:22 LCHENG [email or web address]) Nutritional Asmnt/Malnutrition Patient General Information Nutritional Screening Moderate Risk Diagnosis psychosis Pertinent Medical Hx/Surgical Hx CAD, s/p [place], afib, anemia, BPH , COPD, PNA, psychosis, anxiety, depression Subjective Information Pt seen sleeping in bed at time of visit. Per EMR, PO intake 100% of meals. Per nurse note, pt had episode of vomiting x 1 last night. Current Diet Order/ Nutrition Support [facility] soft chopped bland Pertinent Medications vit B12, colace, iron, remeron , theragran, protonix, nacl tab, seroquel Pertinent Labs 03/09 nutritin labs WNL Nutritional Hx/Data Height 1.75 m Height (Calculated Centimeters) 175.3 Current Weight (lbs) 61.235 kg Weight (Calculated Kilograms) 61.2 Weight (Calculated Grams) 46038.0 [place] Body Weight 160 Body Mass Index (BMI) 19.9 Weight Status Approriate GI Symptoms GI Symptoms None Last BM 03/11 Difficult in: None Skin Integrity/Comment: intact Current %PO Good (75-100%) Estimated Nutritional Goals BEE in Kcals: Using Current wt Calories/Kcals/Kg 25-30 Kcals Calculated 1060-4823 Protein: Using Current wt Protein g/k Protein Calculated 61 Fluid: ml 1525-1830ml (1ml/kcal) Nutritional Problem No current Nutrition Prob Problem N/A Malnutrition Alert Is there a minimum of two criteria No selected? Query Text:Check all the applicable criteria. A minimum of two criteria are recommended for diagnosis of either severe or non-severe malnutrition. Malnutrition Related to Morbid Obesity Malnutrition related to morbid obesity No Intervention/Recommendation Comments 1. Continue with [facility] soft chopped bland diet as ordered. 2. Monitor PO intake, wt, labs and skin integrity 3. F/U as low risk in 7 days, 03/18 Expected Outcomes/Goals Expected Outcomes/Goals 1. PO intake to meet at least 75% of nutritional needs. 2. Wt stability, skin to remain intact, labs WNL.
[2018-03-19] MEDS: Pantoprazole 40 mg EC Tab PO SCH ×2 (08:57→16:59)
[2018-03-19] MEDS: Ferrous Sulfate 325 MG TAB PO SCH (08:58)
[2018-03-19] MEDS: Multivitamin Tab PO SCH (08:58)
[2018-03-19] MEDS: Diltiazem 30 mg Tab PO SCH (08:59)
--- NOTE | 2018-03-19 21:53 | Internal Medicine Prog Note ---
Internal Medicine Subjective - Subjective Service Date: 03/19/18 Patient seen and examined:: without staff Patient is:: awake, non-interactive, in bed, agitated Patient Complaints of:: unable to sleep Per staff patient has:: no adverse event Internal Medicine Objective - Results Result Diagrams: 03/17/18 05:45 03/17/18 05:45 Recent Labs: Laboratory Last Values WBC 7.5 Th/cmm (4.8-10.8) 03/17/18 05:45 RBC 3.86 Mil/cmm (3.80-5.80) 03/17/18 05:45 Hgb 12.3 gm/dL (12-16) 03/17/18 05:45 Hct 36.1 % (41.0-60) L 03/17/18 05:45 MCV 93.7 fl (80-99) 03/17/18 05:45 MCH 31.8 pg (27.0-31.0) H 03/17/18 05:45 MCHC Differential 34.0 pg (28.0-36.0) 03/17/18 05:45 RDW 14.9 % (11.5-20.0) 03/17/18 05:45 Plt Count 235 Th/cmm (150-400) 03/17/18 05:45 MPV 7.7 fl 03/17/18 05:45 Neutrophils % 72.5 % (40.0-80.0) 03/17/18 05:45 Lymphocytes % 14.5 % (20.0-50.0) L 03/17/18 05:45 Monocytes % 12.3 % (2.0-10.0) H 03/17/18 05:45 Eosinophils % 0.4 % (0.0-5.0) 03/17/18 05:45 Basophils % 0.3 % (0.0-2.0) 03/17/18 05:45 Sodium 139 mEq/L (136-145) 03/17/18 05:45 Potassium 3.9 mEq/L (3.5-5.1) 03/17/18 05:45 Chloride 104 mEq/L (98-107) 03/17/18 05:45 Carbon Dioxide 23.4 mEq/L (21.0-31.0) 03/17/18 05:45 Anion Gap 15.5 (7.0-16.0) 03/17/18 05:45 BUN 23 mg/dL (7-25) 03/17/18 05:45 Creatinine 1.0 mg/dL (0.7-1.3) 03/17/18 05:45 Est GFR ( Amer) > 60.0 ml/min (>90) 03/17/18 05:45 Est GFR (Non-Af Amer) > 60.0 ml/min 03/17/18 05:45 BUN/Creatinine Ratio 23.0 03/17/18 05:45 Glucose 78 mg/dL (70-105) 03/17/18 05:45 Calcium 9.2 mg/dL (8.6-10.3) 03/17/18 05:45 Valproic Acid 60.7 ug/mL (50.0-100.0) 03/18/18 20:52 - Physical Exam Vitals and I&O: Vital Signs Temp 97.6 F 03/19/18 14:00 Pulse 86 03/19/18 14:00 Resp 20 03/19/18 14:00 BP 96/56 03/19/18 14:00 Pulse Ox 96 03/19/18 14:00 Intake & Output 03/19/18 03/19/18 03/20/18 06:59 18:59 06:59 Intake Total 240 960 Balance 240 960 Intake: Oral 240 960 Other: # Voids 3 3 # Bowel Movements 0 1 Active Medications: Current Medications Acetaminophen (Tylenol) 650 mg PO Q4HR PRN PRN Reason: Mild Pain / Temp above 100 Stop: 05/07/18 01:46 Last Admin: 03/19/18 16:59 Dose: 650 mg Al Hydrox/Mg Hydrox/Simethicone (Maalox) 30 ml PO Q4HR PRN PRN Reason: GI DISTRESS Stop: 05/07/18 01:46 Albuterol/Ipratropium (Duoneb Neb) 3 ml HHN Q2HRT PRN PRN Reason: Wheezing Stop: 05/07/18 08:00 Amiodarone HCl (Cordarone) 200 mg PO DAILY [facility] Stop: 05/07/18 08:59 Last Admin: 03/19/18 08:59 Dose: 200 mg Cyanocobalamin (Vitamin B12) 1,000 mcg PO DAILY [facility] Stop: 05/07/18 08:59 Last Admin: 03/19/18 08:58 Dose: 1,000 mcg Diltiazem HCl (Cardizem) 60 mg PO DAILY [facility] Stop: 05/07/18 08:59 Last Admin: 03/19/18 08:59 Dose: 60 mg Divalproex Sodium (Depakote Dr) 500 mg PO BID [facility]; Protocol Stop: 05/07/18 08:59 Last Admin: 03/19/18 17:00 Dose: 500 mg Docusate Sodium (Colace) 100 mg PO BID PRN PRN Reason: CONSTIPATION Stop: 05/07/18 08:00 Last Admin: 03/18/18 21:10 Dose: 100 mg Ferrous Sulfate (Iron) 325 mg PO DAILY [facility] Stop: 05/07/18 08:59 Last Admin: 03/19/18 08:58 Dose: 325 mg Gabapentin (Neurontin) 300 mg PO TID [facility] Stop: 05/07/18 08:59 Last Admin: 03/19/18 21:28 Dose: 300 mg Magnesium Hydroxide (Milk Of Magnesia) 30 ml PO HS PRN PRN Reason: Constipation Mirtazapine (Remeron) 15 mg PO HS [facility]; Protocol Stop: 05/07/18 20:59 Last Admin: 03/19/18 21:28 Dose: 15 mg Multivitamins/Vitamin C (Theragran) 1 tab PO DAILY [facility] Stop: 05/07/18 08:59 Last Admin: 03/19/18 08:58 Dose: 1 tab Ondansetron HCl (Zofran Odt) 4 mg PO Q6H PRN PRN Reason: Nausea / Vomiting Stop: 05/10/18 05:59 Last Admin: 03/19/18 14:44 Dose: 4 mg Oxybutynin Chloride (Ditropan) 5 mg PO HS [facility] Stop: 05/07/18 20:59 Last Admin: 03/19/18 21:28 Dose: 5 mg Pantoprazole Sodium (Protonix) 40 mg PO BID [facility] Stop: 05/10/18 06:59 Last Admin: 03/19/18 16:59 Dose: 40 mg Quetiapine Fumarate (Seroquel) 200 mg PO HS [facility]; Protocol Stop: 05/13/18 20:59 Last Admin: 03/19/18 21:28 Dose: 200 mg Quetiapine Fumarate (Seroquel) 200 mg PO BID [facility]; Protocol Stop: 05/13/18 16:59 Last Admin: 03/19/18 16:58 Dose: 200 mg Sodium Chloride (Nacl Tab) 1 gm PO BID [facility] Stop: 05/07/18 08:59 Last Admin: 03/19/18 16:59 Dose: 1 gm Tamsulosin HCl (Flomax) 0.4 mg PO DAILY [facility] Stop: 05/07/18 08:59 Last Admin: 03/19/18 08:58 Dose: 0.4 mg General: weak, lethargic, congested, demented HEENT: NC/AT, PERRLA, EOMI, anicteric sclerae, throat clear, thinning hair Neck: Supple, No JVD, No LAD Lungs: wheezing, ronchi Cardiovascular: RRR, Normal S1 Abdomen: soft, non-tender, non-distended Extremities: clear Neurological: no change Internal Medicine Assmt/Plan - Assessment Assessment: Self induced vomitting: close monitoring. ALOC: on and off; observe closely. Insomnia: on and off. Ambien PRN. Noncompliance: education provided. PNA: improving? pt refuses IVPB ABX. H/O A. Fib: rate controlled. Acute Psychosis: follow recommendation by Psychiatrist. Agitation: sitter PRN Leukocytosis: resolving? s/p recent UGIB. Nutritional Asmnt/Malnutr-PDOC - Dietary Evaluation Malnutrition Findings (Please click <Entered> for more info): Nutritional Asmnt/Malnutrition Start: 03/11/18 13: 17 Text: Status: Complete Freq: Protocol: Document 03/11/18 13:17 HEN (Rec: 03/11/18 13:22 [email or web address]) Nutritional Asmnt/Malnutrition Patient General Information Nutritional Screening Moderate Risk Diagnosis psychosis Pertinent Medical Hx/Surgical Hx CAD, s/p [place], afib, anemia, BPH , COPD, PNA, psychosis, anxiety, depression Subjective Information Pt seen sleeping in bed at time of visit. Per EMR, PO intake 100% of meals. Per nurse note, pt had episode of vomiting x 1 last night. Current Diet Order/ Nutrition Support [facility] soft chopped bland Pertinent Medications vit B12, colace, iron, remeron , theragran, protonix, nacl tab, seroquel Pertinent Labs 03/09 nutritin labs WNL Nutritional Hx/Data Height 1.75 m Height (Calculated Centimeters) 175.3 Current Weight (lbs) 61.235 kg Weight (Calculated Kilograms) 61.2 Weight (Calculated Grams) 50687.0 [place] Body Weight 160 Body Mass Index (BMI) 19.9 Weight Status Approriate GI Symptoms GI Symptoms None Last BM 03/11 Difficult in: None Skin Integrity/Comment: intact Current %PO Good (75-100%) Estimated Nutritional Goals BEE in Kcals: Using Current wt Calories/Kcals/Kg 25-30 Kcals Calculated 2957-5537 Protein: Using Current wt Protein g/k Protein Calculated 61 Fluid: ml 1525-1830ml (1ml/kcal) Nutritional Problem No current Nutrition Prob Problem N/A Malnutrition Alert Is there a minimum of two criteria No selected? Query Text:Check all the applicable criteria. A minimum of two criteria are recommended for diagnosis of either severe or non-severe malnutrition. Malnutrition Related to Morbid Obesity Malnutrition related to morbid obesity No Intervention/Recommendation Comments 1. Continue with [facility] soft chopped bland diet as ordered. 2. Monitor PO intake, wt, labs and skin integrity 3. F/U as low risk in 7 days, 03/18 Expected Outcomes/Goals Expected Outcomes/Goals 1. PO intake to meet at least 75% of nutritional needs. 2. Wt stability, skin to remain intact, labs WNL.
--- NOTE | 2018-03-19 22:00 | Internal Medicine Prog Note ---
Internal Medicine Subjective - Subjective Patient is:: awake, non-interactive, in bed, agitated Patient Complaints of:: unable to sleep Per staff patient has:: no adverse event Internal Medicine Objective - Results Result Diagrams: 03/17/18 05:45 03/17/18 05:45 Recent Labs: Laboratory Last Values WBC 7.5 Th/cmm (4.8-10.8) 03/17/18 05:45 RBC 3.86 Mil/cmm (3.80-5.80) 03/17/18 05:45 Hgb 12.3 gm/dL (12-16) 03/17/18 05:45 Hct 36.1 % (41.0-60) L 03/17/18 05:45 MCV 93.7 fl (80-99) 03/17/18 05:45 MCH 31.8 pg (27.0-31.0) H 03/17/18 05:45 MCHC Differential 34.0 pg (28.0-36.0) 03/17/18 05:45 RDW 14.9 % (11.5-20.0) 03/17/18 05:45 Plt Count 235 Th/cmm (150-400) 03/17/18 05:45 MPV 7.7 fl 03/17/18 05:45 Neutrophils % 72.5 % (40.0-80.0) 03/17/18 05:45 Lymphocytes % 14.5 % (20.0-50.0) L 03/17/18 05:45 Monocytes % 12.3 % (2.0-10.0) H 03/17/18 05:45 Eosinophils % 0.4 % (0.0-5.0) 03/17/18 05:45 Basophils % 0.3 % (0.0-2.0) 03/17/18 05:45 Sodium 139 mEq/L (136-145) 03/17/18 05:45 Potassium 3.9 mEq/L (3.5-5.1) 03/17/18 05:45 Chloride 104 mEq/L (98-107) 03/17/18 05:45 Carbon Dioxide 23.4 mEq/L (21.0-31.0) 03/17/18 05:45 Anion Gap 15.5 (7.0-16.0) 03/17/18 05:45 BUN 23 mg/dL (7-25) 03/17/18 05:45 Creatinine 1.0 mg/dL (0.7-1.3) 03/17/18 05:45 Est GFR ( Amer) > 60.0 ml/min (>90) 03/17/18 05:45 Est GFR (Non-Af Amer) > 60.0 ml/min 03/17/18 05:45 BUN/Creatinine Ratio 23.0 03/17/18 05:45 Glucose 78 mg/dL (70-105) 03/17/18 05:45 Calcium 9.2 mg/dL (8.6-10.3) 03/17/18 05:45 Valproic Acid 60.7 ug/mL (50.0-100.0) 03/18/18 20:52 - Physical Exam Vitals and I&O: Vital Signs Temp 97.6 F 03/19/18 14:00 Pulse 86 03/19/18 14:00 Resp 20 03/19/18 14:00 BP 96/56 03/19/18 14:00 Pulse Ox 96 03/19/18 14:00 Intake & Output 03/19/18 03/19/18 03/20/18 06:59 18:59 06:59 Intake Total 240 960 Balance 240 960 Intake: Oral 240 960 Other: # Voids 3 3 # Bowel Movements 0 1 Active Medications: Current Medications Acetaminophen (Tylenol) 650 mg PO Q4HR PRN PRN Reason: Mild Pain / Temp above 100 Stop: 05/07/18 01:46 Last Admin: 03/19/18 16:59 Dose: 650 mg Al Hydrox/Mg Hydrox/Simethicone (Maalox) 30 ml PO Q4HR PRN PRN Reason: GI DISTRESS Stop: 05/07/18 01:46 Albuterol/Ipratropium (Duoneb Neb) 3 ml HHN Q2HRT PRN PRN Reason: Wheezing Stop: 05/07/18 08:00 Amiodarone HCl (Cordarone) 200 mg PO DAILY [facility] Stop: 05/07/18 08:59 Last Admin: 03/19/18 08:59 Dose: 200 mg Cyanocobalamin (Vitamin B12) 1,000 mcg PO DAILY [facility] Stop: 05/07/18 08:59 Last Admin: 03/19/18 08:58 Dose: 1,000 mcg Diltiazem HCl (Cardizem) 60 mg PO DAILY [facility] Stop: 05/07/18 08:59 Last Admin: 03/19/18 08:59 Dose: 60 mg Divalproex Sodium (Depakote Dr) 500 mg PO BID [facility]; Protocol Stop: 05/07/18 08:59 Last Admin: 03/19/18 17:00 Dose: 500 mg Docusate Sodium (Colace) 100 mg PO BID PRN PRN Reason: CONSTIPATION Stop: 05/07/18 08:00 Last Admin: 03/18/18 21:10 Dose: 100 mg Ferrous Sulfate (Iron) 325 mg PO DAILY [facility] Stop: 05/07/18 08:59 Last Admin: 03/19/18 08:58 Dose: 325 mg Gabapentin (Neurontin) 300 mg PO TID [facility] Stop: 05/07/18 08:59 Last Admin: 03/19/18 21:28 Dose: 300 mg Magnesium Hydroxide (Milk Of Magnesia) 30 ml PO HS PRN PRN Reason: Constipation Mirtazapine (Remeron) 15 mg PO HS [facility]; Protocol Stop: 05/07/18 20:59 Last Admin: 03/19/18 21:28 Dose: 15 mg Multivitamins/Vitamin C (Theragran) 1 tab PO DAILY [facility] Stop: 05/07/18 08:59 Last Admin: 03/19/18 08:58 Dose: 1 tab Ondansetron HCl (Zofran Odt) 4 mg PO Q6H PRN PRN Reason: Nausea / Vomiting Stop: 05/10/18 05:59 Last Admin: 03/19/18 14:44 Dose: 4 mg Oxybutynin Chloride (Ditropan) 5 mg PO HS [facility] Stop: 05/07/18 20:59 Last Admin: 03/19/18 21:28 Dose: 5 mg Pantoprazole Sodium (Protonix) 40 mg PO BID [facility] Stop: 05/10/18 06:59 Last Admin: 03/19/18 16:59 Dose: 40 mg Quetiapine Fumarate (Seroquel) 200 mg PO HS [facility]; Protocol Stop: 05/13/18 20:59 Last Admin: 03/19/18 21:28 Dose: 200 mg Quetiapine Fumarate (Seroquel) 200 mg PO BID [facility]; Protocol Stop: 05/13/18 16:59 Last Admin: 03/19/18 16:58 Dose: 200 mg Sodium Chloride (Nacl Tab) 1 gm PO BID [facility] Stop: 05/07/18 08:59 Last Admin: 03/19/18 16:59 Dose: 1 gm Tamsulosin HCl (Flomax) 0.4 mg PO DAILY [facility] Stop: 05/07/18 08:59 Last Admin: 03/19/18 08:58 Dose: 0.4 mg General: weak, lethargic, congested, demented HEENT: NC/AT, PERRLA, EOMI, anicteric sclerae, throat clear, thinning hair Neck: Supple, No JVD, No LAD Lungs: wheezing, ronchi Cardiovascular: RRR, Normal S1 Abdomen: soft, non-tender, non-distended Extremities: clear Neurological: no change Internal Medicine Assmt/Plan - Assessment Assessment: ALOC: on and off; observe closely. Insomnia: on and off. Ambien PRN. Noncompliance: education provided. PNA: improving? pt refuses IVPB ABX. H/O A. Fib: rate controlled. Acute Psychosis: follow recommendation by Psychiatrist. Agitation: sitter PRN Leukocytosis: resolving? s/p recent UGIB. Nutritional Asmnt/Malnutr-PDOC - Dietary Evaluation Malnutrition Findings (Please click <Entered> for more info): Nutritional Asmnt/Malnutrition Start: 03/11/18 13: 17 Text: Status: Complete Freq: Protocol: Document 03/11/18 13:17 LCHENG (Rec: 03/11/18 13:22 [email or web address]) Nutritional Asmnt/Malnutrition Patient General Information Nutritional Screening Moderate Risk Diagnosis psychosis Pertinent Medical Hx/Surgical Hx CAD, s/p [place], afib, anemia, BPH , COPD, PNA, psychosis, anxiety, depression Subjective Information Pt seen sleeping in bed at time of visit. Per EMR, PO intake 100% of meals. Per nurse note, pt had episode of vomiting x 1 last night. Current Diet Order/ Nutrition Support [facility] soft chopped bland Pertinent Medications vit B12, colace, iron, remeron , theragran, protonix, nacl tab, seroquel Pertinent Labs 03/09 nutritin labs WNL Nutritional Hx/Data Height 1.75 m Height (Calculated Centimeters) 175.3 Current Weight (lbs) 61.235 kg Weight (Calculated Kilograms) 61.2 Weight (Calculated Grams) 05371.0 [place] Body Weight 160 Body Mass Index (BMI) 19.9 Weight Status Approriate GI Symptoms GI Symptoms None Last BM 03/11 Difficult in: None Skin Integrity/Comment: intact Current %PO Good (75-100%) Estimated Nutritional Goals BEE in Kcals: Using Current wt Calories/Kcals/Kg 25-30 Kcals Calculated 0050-6591 Protein: Using Current wt Protein g/k Protein Calculated 61 Fluid: ml 1525-1830ml (1ml/kcal) Nutritional Problem No current Nutrition Prob Problem N/A Malnutrition Alert Is there a minimum of two criteria No selected? Query Text:Check all the applicable criteria. A minimum of two criteria are recommended for diagnosis of either severe or non-severe malnutrition. Malnutrition Related to Morbid Obesity Malnutrition related to morbid obesity No Intervention/Recommendation Comments 1. [facility] soft chopped bland diet as ordered. 2. Monitor PO intake, wt, labs and skin integrity 3. F/U as low risk in 7 days, 03/18 Expected Outcomes/Goals Expected Outcomes/Goals 1. PO intake to meet at least 75% of nutritional needs. 2. Wt stability, skin to remain intact, labs WNL.
[2018-03-20] MEDS: Pantoprazole 40 mg EC Tab PO SCH ×2 (09:08→16:36)
[2018-03-20] MEDS: Multivitamin Tab PO SCH (09:09)
[2018-03-20] MEDS: Ferrous Sulfate 325 MG TAB PO SCH (09:09)
[2018-03-20] MEDS: Diltiazem 30 mg Tab PO SCH (09:12)
--- NOTE | 2018-03-20 18:17 | Progress Notes ---
DATE: 03/20/2018 Case was discussed with staff of the patient, reviewed records. This is a well-known case to me. 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 The patient continues to be irritable, continues to be demanding, anxious, continues to be slamming doors at the time and unable to follow direction. So these symptoms are not as prominent as it was in the past few days, tried to slow down a little bit. He is compliant with the medication, no side effects, no sedation, no nausea and no extrapyramidal symptoms. On Depakote 500 mg twice a day and Remeron 15 mg at bedtime and Seroquel 200 mg at bedtime and 200 mg twice a day. No side effects, no sedation noted. No extrapyramidal symptoms. We will accept the patient in group therapy, milieu therapy, and adjust medications as needed. JOB# [id number]
--- NOTE | 2018-03-20 22:35 | Internal Medicine Prog Note ---
Internal Medicine Subjective - Subjective Service Date: 03/20/18 Patient seen and examined:: without staff Patient is:: awake, non-interactive, in bed, agitated Patient Complaints of:: unable to sleep Per staff patient has:: no adverse event Internal Medicine Objective - Results Result Diagrams: 03/17/18 05:45 03/17/18 05:45 Recent Labs: Laboratory Last Values WBC 7.5 Th/cmm (4.8-10.8) 03/17/18 05:45 RBC 3.86 Mil/cmm (3.80-5.80) 03/17/18 05:45 Hgb 12.3 gm/dL (12-16) 03/17/18 05:45 Hct 36.1 % (41.0-60) L 03/17/18 05:45 MCV 93.7 fl (80-99) 03/17/18 05:45 MCH 31.8 pg (27.0-31.0) H 03/17/18 05:45 MCHC Differential 34.0 pg (28.0-36.0) 03/17/18 05:45 RDW 14.9 % (11.5-20.0) 03/17/18 05:45 Plt Count 235 Th/cmm (150-400) 03/17/18 05:45 MPV 7.7 fl 03/17/18 05:45 Neutrophils % 72.5 % (40.0-80.0) 03/17/18 05:45 Lymphocytes % 14.5 % (20.0-50.0) L 03/17/18 05:45 Monocytes % 12.3 % (2.0-10.0) H 03/17/18 05:45 Eosinophils % 0.4 % (0.0-5.0) 03/17/18 05:45 Basophils % 0.3 % (0.0-2.0) 03/17/18 05:45 Sodium 139 mEq/L (136-145) 03/17/18 05:45 Potassium 3.9 mEq/L (3.5-5.1) 03/17/18 05:45 Chloride 104 mEq/L (98-107) 03/17/18 05:45 Carbon Dioxide 23.4 mEq/L (21.0-31.0) 03/17/18 05:45 Anion Gap 15.5 (7.0-16.0) 03/17/18 05:45 BUN 23 mg/dL (7-25) 03/17/18 05:45 Creatinine 1.0 mg/dL (0.7-1.3) 03/17/18 05:45 Est GFR ( Amer) > 60.0 ml/min (>90) 03/17/18 05:45 Est GFR (Non-Af Amer) > 60.0 ml/min 03/17/18 05:45 BUN/Creatinine Ratio 23.0 03/17/18 05:45 Glucose 78 mg/dL (70-105) 03/17/18 05:45 Calcium 9.2 mg/dL (8.6-10.3) 03/17/18 05:45 Valproic Acid 60.7 ug/mL (50.0-100.0) 03/18/18 20:52 - Physical Exam Vitals and I&O: Vital Signs Temp 98 F 03/20/18 20:45 Pulse 90 03/20/18 20:45 Resp 19 03/20/18 20:45 BP 122/68 03/20/18 20:45 Pulse Ox 97 03/20/18 20:45 Intake & Output 03/20/18 03/20/18 03/21/18 06:59 18:59 06:59 Intake Total 1200 240 Balance 1200 240 Intake: Oral 1200 240 Other: # Voids 1 # Bowel Movements 1 Active Medications: Current Medications Acetaminophen (Tylenol) 650 mg PO Q4HR PRN PRN Reason: Mild Pain / Temp above 100 Stop: 05/07/18 01:46 Last Admin: 03/19/18 16:59 Dose: 650 mg Al Hydrox/Mg Hydrox/Simethicone (Maalox) 30 ml PO Q4HR PRN PRN Reason: GI DISTRESS Stop: 05/07/18 01:46 Albuterol/Ipratropium (Duoneb Neb) 3 ml HHN Q2HRT PRN PRN Reason: Wheezing Stop: 05/07/18 08:00 Amiodarone HCl (Cordarone) 200 mg PO DAILY [facility] Stop: 05/07/18 08:59 Last Admin: 03/20/18 09:09 Dose: 200 mg Cyanocobalamin (Vitamin B12) 1,000 mcg PO DAILY [facility] Stop: 05/07/18 08:59 Last Admin: 03/20/18 09:09 Dose: 1,000 mcg Diltiazem HCl (Cardizem) 60 mg PO DAILY [facility] Stop: 05/07/18 08:59 Last Admin: 03/20/18 09:12 Dose: 60 mg Divalproex Sodium (Depakote Dr) 500 mg PO BID [facility]; Protocol Stop: 05/07/18 08:59 Last Admin: 03/20/18 16:36 Dose: Not Given Docusate Sodium (Colace) 100 mg PO BID PRN PRN Reason: CONSTIPATION Stop: 05/07/18 08:00 Last Admin: 03/18/18 21:10 Dose: 100 mg Ferrous Sulfate (Iron) 325 mg PO DAILY [facility] Stop: 05/07/18 08:59 Last Admin: 03/20/18 09:09 Dose: 325 mg Gabapentin (Neurontin) 300 mg PO TID [facility] Stop: 05/07/18 08:59 Last Admin: 03/20/18 14:43 Dose: 300 mg Magnesium Hydroxide (Milk Of Magnesia) 30 ml PO HS PRN PRN Reason: Constipation Mirtazapine (Remeron) 15 mg PO HS [facility]; Protocol Stop: 05/07/18 20:59 Last Admin: 03/19/18 21:28 Dose: 15 mg Multivitamins/Vitamin C (Theragran) 1 tab PO DAILY [facility] Stop: 05/07/18 08:59 Last Admin: 03/20/18 09:09 Dose: 1 tab Ondansetron HCl (Zofran Odt) 4 mg PO Q6H PRN PRN Reason: Nausea / Vomiting Stop: 05/10/18 05:59 Last Admin: 03/19/18 14:44 Dose: 4 mg Oxybutynin Chloride (Ditropan) 5 mg PO HS [facility] Stop: 05/07/18 20:59 Last Admin: 03/19/18 21:28 Dose: 5 mg Pantoprazole Sodium (Protonix) 40 mg PO BID [facility] Stop: 05/10/18 06:59 Last Admin: 03/20/18 16:36 Dose: Not Given Quetiapine Fumarate (Seroquel) 200 mg PO HS [facility]; Protocol Stop: 05/13/18 20:59 Last Admin: 03/19/18 21:28 Dose: 200 mg Quetiapine Fumarate (Seroquel) 200 mg PO BID [facility]; Protocol Stop: 05/13/18 16:59 Last Admin: 03/20/18 16:36 Dose: Not Given Sodium Chloride (Nacl Tab) 1 gm PO BID [facility] Stop: 05/07/18 08:59 Last Admin: 03/20/18 16:36 Dose: Not Given Tamsulosin HCl (Flomax) 0.4 mg PO DAILY [facility] Stop: 05/07/18 08:59 Last Admin: 03/20/18 09:09 Dose: 0.4 mg General: weak, lethargic, congested, demented HEENT: NC/AT, PERRLA, EOMI, anicteric sclerae, throat clear, thinning hair Neck: Supple, No JVD, No LAD Lungs: wheezing, ronchi Cardiovascular: RRR, Normal S1 Abdomen: soft, non-tender, non-distended Extremities: clear Neurological: no change Internal Medicine Assmt/Plan - Assessment Assessment: Noncompliance: education provided. ALOC: on and off; observe closely. Insomnia: on and off. Ambien PRN. PNA: improving? pt refuses IVPB ABX. H/O A. Fib: rate controlled. Acute Psychosis: follow recommendation by Psychiatrist. Agitation: sitter PRN Leukocytosis: resolving? s/p recent UGIB. Nutritional Asmnt/Malnutr-PDOC - Dietary Evaluation Malnutrition Findings (Please click <Entered> for more info): Nutritional Asmnt/Malnutrition Start: 03/11/18 13: 17 Text: Status: Complete Freq: Protocol: Document 03/11/18 13:17 LCHENG (Rec: 03/11/18 13:22 [email or web address]) Nutritional Asmnt/Malnutrition Patient General Information Nutritional Screening Moderate Risk Diagnosis psychosis Pertinent Medical Hx/Surgical Hx CAD, s/p [place], afib, anemia, BPH , COPD, PNA, psychosis, anxiety, depression Subjective Information Pt seen sleeping in bed at time of visit. Per EMR, PO intake 100% of meals. Per nurse note, pt had episode of vomiting x 1 last night. Current Diet Order/ Nutrition Support [facility] soft chopped bland Pertinent Medications vit B12, colace, iron, remeron , theragran, protonix, nacl tab, seroquel Pertinent Labs 03/09 nutritin labs WNL Nutritional Hx/Data Height 1.75 m Height (Calculated Centimeters) 175.3 Current Weight (lbs) 61.235 kg Weight (Calculated Kilograms) 61.2 Weight (Calculated Grams) 44390.0 [place] Body Weight 160 Body Mass Index (BMI) 19.9 Weight Status Approriate GI Symptoms GI Symptoms None Last BM 03/11 Difficult in: None Skin Integrity/Comment: intact Current %PO Good (75-100%) Estimated Nutritional Goals BEE in Kcals: Using Current wt Calories/Kcals/Kg 25-30 Kcals Calculated 3974-2245 Protein: Using Current wt Protein g/k Protein Calculated 61 Fluid: ml 1525-1830ml (1ml/kcal) Nutritional Problem No current Nutrition Prob Problem N/A Malnutrition Alert Is there a minimum of two criteria No selected? Query Text:Check all the applicable criteria. A minimum of two criteria are recommended for diagnosis of either severe or non-severe malnutrition. Malnutrition Related to Morbid Obesity Malnutrition related to morbid obesity No Intervention/Recommendation Comments 1. Continue with [facility] soft chopped bland diet as ordered. 2. Monitor PO intake, wt, labs and skin integrity 3. F/U as low risk in 7 days, 03/18 Expected Outcomes/Goals Expected Outcomes/Goals 1. PO intake to meet at least 75% of nutritional needs. 2. Wt stability, skin to remain intact, labs WNL.
--- NOTE | 2018-03-20 22:45 | Progress Notes ---
DATE: 03/15/2018 SUBJECTIVE: Chart reviewed and the patient interviewed. Also, discussed the patient's condition with the staff and reviewed records and labs. The patient is still intrusive and impulsive. The patient also is still slamming the doors and he is still easily agitated and in irritable mood. The patient also still has difficulty following staff directions. He also is still in angry moods for no apparent reason. The patient also is still demanding. Otherwise, the patient is compliant with taking his medications and no side effects of medications. ASSESSMENT: The patient is still agitated and still needs close observation because of his aggressive behavior. TREATMENT PLAN: Continue to monitor his behavior and his condition closely. Also, continue Seroquel and Depakote and monitor Depakote blood level. Also, continue to work on his poor impulse control. JOB# [id number]
[2018-03-20] MEDS: Maalox 30 mL Cup PO PRN (23:17)
--- NOTE | 2018-03-21 07:54 | Progress Notes ---
DATE: 03/17/2018 DATE OF SERVICE: 03/17/2018 SUBJECTIVE: Chart reviewed and the patient interviewed. Also discussed the patient's condition with the staff and reviewed records and labs. The patient still has moments of anger and is still easily agitated. The patient also continued to have episodes of slamming the doors at times and he is also easily agitated and easily irritable. The patient also is still focused on smoking and still has poor impulse control. Otherwise, the patient is trying to follow directions somewhat, but is still confused and irritable. ASSESSMENT: The patient is still agitated and irritable. TREATMENT PLAN: We will continue to monitor his behavior and his condition and continue to work on his poor impulse control. Also, continue to work on his mood swings and adjusting psychotropic medications and continue to follow up. Also, monitoring . JOB# [id number]
[2018-03-21] MEDS: Multivitamin Tab PO SCH (09:00)
[2018-03-21] MEDS: Pantoprazole 40 mg EC Tab PO SCH ×2 (09:00→17:57)
[2018-03-21] MEDS: Diltiazem 30 mg Tab PO SCH (09:00)
[2018-03-21] MEDS: Ferrous Sulfate 325 MG TAB PO SCH (09:00)
--- NOTE | 2018-03-21 18:58 | Progress Notes ---
DATE: 03/16/2018 DATE OF SERVICE: 03/16/2018 SUBJECTIVE: Chart reviewed and the patient interviewed. Also discussed the patient's condition with the staff and reviewed records and labs. The patient is complaining of auditory hallucinations and he is still hearing voices, " ". He also is still extremely angry and agitated and slamming doors and demanding. Also, is still having difficulty following directions. The patient also is still acting bizarre sometimes and is trying to throw up. He also gets angry outburst. Otherwise, the patient continued to comply with taking Depakote, Seroquel, and Remeron with no side effect. ASSESSMENT: The patient is still agitated and is still psychotic. TREATMENT PLAN: Continue to monitor his behavior and his condition closely. Also, continue adjusting psychotropic medications and also working on behavioral modification. JOB# [id number]
--- NOTE | 2018-03-21 21:10 | Progress Notes ---
DATE: 03/19/2018 DATE: 03/19/2018 SUBJECTIVE: Chart reviewed and the patient interviewed. Also discussed the patient's condition with the staff and reviewed the records and labs. The patient is still having episodes of irritability and anger, withstanding goals but seems to be slightly less than before. The patient also is still suspicious and is still annoyed. The patient also still needs redirections. Otherwise, the patient is cooperative and compliant with taking his medications. ASSESSMENT: The patient is still agitated. TREATMENT PLAN: Continue monitoring his behavior and his condition and continue to work on his irritability and followup. JOB# [id number]
--- NOTE | 2018-03-21 21:42 | Progress Notes ---
DATE: 03/21/2018 SUBJECTIVE: The patient states he is not doing "too good", again "not doing too good", disoriented, does not know why he is here, does not know the year, does not know the month, noted to be confused, periods of agitation here due to agitation. Per documentation, history of schizoaffective noted by staff to be at times confused, suspicious, agitated, refusing medications at times refusing care at times, making statements that he does not want any medications, but ongoing behaviors, ongoing agitation, isolation, trying to go to bed at times. ASSESSMENT: The patient remains unruly, still symptomatic. Difficult to control behaviors, agitated behaviors, confused. PLAN: We will continue to monitor, encourage med compliance. JOB# [id number]
--- NOTE | 2018-03-21 22:40 | Internal Medicine Prog Note ---
Internal Medicine Subjective - Subjective Service Date: 03/21/18 Patient seen and examined:: without staff Patient is:: awake, non-interactive, in bed, agitated Patient Complaints of:: unable to sleep Per staff patient has:: no adverse event Internal Medicine Objective - Results Result Diagrams: 03/17/18 05:45 03/17/18 05:45 Recent Labs: Laboratory Last Values WBC 7.5 Th/cmm (4.8-10.8) 03/17/18 05:45 RBC 3.86 Mil/cmm (3.80-5.80) 03/17/18 05:45 Hgb 12.3 gm/dL (12-16) 03/17/18 05:45 Hct 36.1 % (41.0-60) L 03/17/18 05:45 MCV 93.7 fl (80-99) 03/17/18 05:45 MCH 31.8 pg (27.0-31.0) H 03/17/18 05:45 MCHC Differential 34.0 pg (28.0-36.0) 03/17/18 05:45 RDW 14.9 % (11.5-20.0) 03/17/18 05:45 Plt Count 235 Th/cmm (150-400) 03/17/18 05:45 MPV 7.7 fl 03/17/18 05:45 Neutrophils % 72.5 % (40.0-80.0) 03/17/18 05:45 Lymphocytes % 14.5 % (20.0-50.0) L 03/17/18 05:45 Monocytes % 12.3 % (2.0-10.0) H 03/17/18 05:45 Eosinophils % 0.4 % (0.0-5.0) 03/17/18 05:45 Basophils % 0.3 % (0.0-2.0) 03/17/18 05:45 Sodium 139 mEq/L (136-145) 03/17/18 05:45 Potassium 3.9 mEq/L (3.5-5.1) 03/17/18 05:45 Chloride 104 mEq/L (98-107) 03/17/18 05:45 Carbon Dioxide 23.4 mEq/L (21.0-31.0) 03/17/18 05:45 Anion Gap 15.5 (7.0-16.0) 03/17/18 05:45 BUN 23 mg/dL (7-25) 03/17/18 05:45 Creatinine 1.0 mg/dL (0.7-1.3) 03/17/18 05:45 Est GFR ( Amer) > 60.0 ml/min (>90) 03/17/18 05:45 Est GFR (Non-Af Amer) > 60.0 ml/min 03/17/18 05:45 BUN/Creatinine Ratio 23.0 03/17/18 05:45 Glucose 78 mg/dL (70-105) 03/17/18 05:45 Calcium 9.2 mg/dL (8.6-10.3) 03/17/18 05:45 Valproic Acid 60.7 ug/mL (50.0-100.0) 03/18/18 20:52 - Physical Exam Vitals and I&O: Vital Signs Temp 98 F 03/21/18 20:00 Pulse 103 03/21/18 20:00 Resp 20 03/21/18 20:00 BP 140/90 03/21/18 20:00 Pulse Ox 95 03/21/18 20:00 Intake & Output 03/21/18 03/21/18 03/22/18 06:59 18:59 06:59 Intake Total 240 800 Balance 240 800 Intake: Oral 240 800 Other: # Voids 1 3 # Bowel Movements 0 Active Medications: Current Medications Acetaminophen (Tylenol) 650 mg PO Q4HR PRN PRN Reason: Mild Pain / Temp above 100 Stop: 05/07/18 01:46 Last Admin: 03/19/18 16:59 Dose: 650 mg Al Hydrox/Mg Hydrox/Simethicone (Maalox) 30 ml PO Q4HR PRN PRN Reason: GI DISTRESS Stop: 05/07/18 01:46 Last Admin: 03/20/18 23:17 Dose: 30 ml Albuterol/Ipratropium (Duoneb Neb) 3 ml HHN Q2HRT PRN PRN Reason: Wheezing Stop: 05/07/18 08:00 Amiodarone HCl (Cordarone) 200 mg PO DAILY [facility] Stop: 05/07/18 08:59 Last Admin: 03/21/18 09:00 Dose: Not Given Cyanocobalamin (Vitamin B12) 1,000 mcg PO DAILY [facility] Stop: 05/07/18 08:59 Last Admin: 03/21/18 09:00 Dose: Not Given Diltiazem HCl (Cardizem) 60 mg PO DAILY [facility] Stop: 05/07/18 08:59 Last Admin: 03/21/18 09:00 Dose: Not Given Divalproex Sodium (Depakote Dr) 500 mg PO BID [facility]; Protocol Stop: 05/07/18 08:59 Last Admin: 03/21/18 17:56 Dose: Not Given Docusate Sodium (Colace) 100 mg PO BID PRN PRN Reason: CONSTIPATION Stop: 05/07/18 08:00 Last Admin: 03/20/18 23:17 Dose: 100 mg Ferrous Sulfate (Iron) 325 mg PO DAILY [facility] Stop: 05/07/18 08:59 Last Admin: 03/21/18 09:00 Dose: Not Given Gabapentin (Neurontin) 300 mg PO TID [facility] Stop: 05/07/18 08:59 Last Admin: 03/21/18 13:51 Dose: Not Given Magnesium Hydroxide (Milk Of Magnesia) 30 ml PO HS PRN PRN Reason: Constipation Mirtazapine (Remeron) 15 mg PO HS [facility]; Protocol Stop: 05/07/18 20:59 Last Admin: 03/20/18 23:17 Dose: 15 mg Multivitamins/Vitamin C (Theragran) 1 tab PO DAILY [facility] Stop: 05/07/18 08:59 Last Admin: 03/21/18 09:00 Dose: Not Given Ondansetron HCl (Zofran Odt) 4 mg PO Q6H PRN PRN Reason: Nausea / Vomiting Stop: 05/10/18 05:59 Last Admin: 03/20/18 23:18 Dose: 4 mg Oxybutynin Chloride (Ditropan) 5 mg PO HS [facility] Stop: 05/07/18 20:59 Last Admin: 03/20/18 23:17 Dose: 5 mg Pantoprazole Sodium (Protonix) 40 mg PO BID [facility] Stop: 05/10/18 06:59 Last Admin: 03/21/18 17:57 Dose: Not Given Quetiapine Fumarate (Seroquel) 200 mg PO HS [facility]; Protocol Stop: 05/13/18 20:59 Last Admin: 03/20/18 23:18 Dose: 200 mg Quetiapine Fumarate (Seroquel) 200 mg PO BID [facility]; Protocol Stop: 05/13/18 16:59 Last Admin: 03/21/18 17:57 Dose: Not Given Sodium Chloride (Nacl Tab) 1 gm PO BID [facility] Stop: 05/07/18 08:59 Last Admin: 03/21/18 17:57 Dose: Not Given Tamsulosin HCl (Flomax) 0.4 mg PO DAILY [facility] Stop: 05/07/18 08:59 Last Admin: 03/21/18 09:00 Dose: Not Given General: weak, lethargic, congested, demented HEENT: NC/AT, PERRLA, EOMI, anicteric sclerae, throat clear, thinning hair Neck: Supple, No JVD, No LAD Lungs: wheezing, ronchi Cardiovascular: RRR, Normal S1 Abdomen: soft, non-tender, non-distended Extremities: clear Neurological: no change Internal Medicine Assmt/Plan - Assessment Assessment: Self induced vomiting: education provided, close monitoring. Noncompliance: education provided. ALOC: on and off; observe closely. Insomnia: on and off. Ambien PRN. PNA: improving? pt refuses IVPB ABX. H/O A. Fib: rate controlled. Acute Psychosis: follow recommendation by Psychiatrist. Agitation: sitter PRN Leukocytosis: resolving? s/p recent UGIB. Nutritional Asmnt/Malnutr-PDOC - Dietary Evaluation Malnutrition Findings (Please click <Entered> for more info): Nutritional Asmnt/Malnutrition Start: 03/11/18 13: 17 Text: Status: Complete Freq: Protocol: Document 03/11/18 13:17 [facility] (Rec: 03/11/18 13:22 [email or web address]) Nutritional Asmnt/Malnutrition Patient General Information Nutritional Screening Moderate Risk Diagnosis psychosis Pertinent Medical Hx/Surgical Hx CAD, s/p AL, afib, anemia, BPH , COPD, PNA, psychosis, anxiety, depression Subjective Information Pt seen sleeping in bed at time of visit. Per EMR, PO intake 100% of meals. Per nurse note, pt had episode of vomiting x 1 last night. Current Diet Order/ Nutrition Support [facility] soft chopped bland Pertinent Medications vit B12, colace, iron, remeron , theragran, protonix, nacl tab, seroquel Pertinent Labs 03/09 nutritin labs WNL Nutritional Hx/Data Height 1.75 m Height (Calculated Centimeters) 175.3 Current Weight (lbs) 61.235 kg Weight (Calculated Kilograms) 61.2 Weight (Calculated Grams) 81830.0 [place] Body Weight 160 Body Mass Index (BMI) 19.9 Weight Status Approriate GI Symptoms GI Symptoms None Last BM 03/11 Difficult in: None Skin Integrity/Comment: intact Current %PO Good (75-100%) Estimated Nutritional Goals BEE in Kcals: Using Current wt Calories/Kcals/Kg 25-30 Kcals Calculated 4342-8930 Protein: Using Current wt Protein g/k Protein Calculated 61 Fluid: ml 1525-1830ml (1ml/kcal) Nutritional Problem No current Nutrition Prob Problem N/A Malnutrition Alert Is there a minimum of two criteria No selected? Query Text:Check all the applicable criteria. A minimum of two criteria are recommended for diagnosis of either severe or non-severe malnutrition. Malnutrition Related to Morbid Obesity Malnutrition related to morbid obesity No Intervention/Recommendation Comments 1. Continue with [facility] soft chopped bland diet as ordered. 2. Monitor PO intake, wt, labs and skin integrity 3. F/U as low risk in 7 days, 03/18 Expected Outcomes/Goals Expected Outcomes/Goals 1. PO intake to meet at least 75% of nutritional needs. 2. Wt stability, skin to remain intact, labs WNL.
--- NOTE | 2018-03-22 03:47 | Progress Notes ---
DATE: 03/18/2018 DATE OF SERVICE: 03/18/2018 SUBJECTIVE: Chart reviewed and the patient interviewed. Also discussed the patient's condition with the staff and reviewed records and labs. The patient still has episodes of agitation and responding to stimuli. Also, still has episodes of banging doors. The patient also still has mood swings and he still needs lots of redirections. He also is still ____ up and down and showing poor impulse control. The patient also is resisting care and resisting treatment. Otherwise, the patient is compliant with taking his medications with no side effects of medications. ASSESSMENT: The patient is still responding and agitated. TREATMENT PLAN: We will continue to monitor behavior and condition closely. Also, we will get Depakote blood level. Also continue to work on his irritability and his agitation and continue to follow up. Also, working with case fitter in regard to his ____. JOB# [id number]
--- NOTE | 2018-03-22 07:41 | Progress Notes ---
DATE: SUBJECTIVE: The patient seen, chart reviewed, discussed with staff. The patient is currently in the hospital, poor orientation, withdrawn, telling people he wants to be left alone, does not want to take medications, states he does not need medications, refusing, currently in the hospital highly impulsive, unpredictable, episodes of irritability, anger, suspicious at times, concerns for underlying psychosis. ASSESSMENT: The patient is agitated, mostly withdrawn, ongoing behaviors, refusing treatment and care, wanted to just be left alone in his room, needing a lot of prompting, redirection. PLAN: We will continue to monitor. Continue medications. I did continue to encourage med compliance. JOB# [id number]
[2018-03-22] MEDS: Diltiazem 30 mg Tab PO SCH (08:45)
[2018-03-22] MEDS: Pantoprazole 40 mg EC Tab PO SCH ×2 (08:45→17:40)
[2018-03-22] MEDS: Multivitamin Tab PO SCH (08:46)
[2018-03-22] MEDS: Ferrous Sulfate 325 MG TAB PO SCH (08:46)
[2018-03-22] MEDS ORDERED: Haloperidol Lactate 5 mg/mL 1mL Vial IM ONE (09:30)
[2018-03-22] MEDS ORDERED: Haloperidol Lactate 5 mg/mL 1mL Vial ONE (09:31)
--- NOTE | 2018-03-22 22:25 | Internal Medicine Prog Note ---
Internal Medicine Subjective - Subjective Service Date: 03/22/18 Patient seen and examined:: without staff Patient is:: awake, non-interactive, in bed, agitated Patient Complaints of:: unable to sleep Per staff patient has:: no adverse event Internal Medicine Objective - Results Result Diagrams: 03/17/18 05:45 03/17/18 05:45 Recent Labs: Laboratory Last Values WBC 7.5 Th/cmm (4.8-10.8) 03/17/18 05:45 RBC 3.86 Mil/cmm (3.80-5.80) 03/17/18 05:45 Hgb 12.3 gm/dL (12-16) 03/17/18 05:45 Hct 36.1 % (41.0-60) L 03/17/18 05:45 MCV 93.7 fl (80-99) 03/17/18 05:45 MCH 31.8 pg (27.0-31.0) H 03/17/18 05:45 MCHC Differential 34.0 pg (28.0-36.0) 03/17/18 05:45 RDW 14.9 % (11.5-20.0) 03/17/18 05:45 Plt Count 235 Th/cmm (150-400) 03/17/18 05:45 MPV 7.7 fl 03/17/18 05:45 Neutrophils % 72.5 % (40.0-80.0) 03/17/18 05:45 Lymphocytes % 14.5 % (20.0-50.0) L 03/17/18 05:45 Monocytes % 12.3 % (2.0-10.0) H 03/17/18 05:45 Eosinophils % 0.4 % (0.0-5.0) 03/17/18 05:45 Basophils % 0.3 % (0.0-2.0) 03/17/18 05:45 Sodium 139 mEq/L (136-145) 03/17/18 05:45 Potassium 3.9 mEq/L (3.5-5.1) 03/17/18 05:45 Chloride 104 mEq/L (98-107) 03/17/18 05:45 Carbon Dioxide 23.4 mEq/L (21.0-31.0) 03/17/18 05:45 Anion Gap 15.5 (7.0-16.0) 03/17/18 05:45 BUN 23 mg/dL (7-25) 03/17/18 05:45 Creatinine 1.0 mg/dL (0.7-1.3) 03/17/18 05:45 Est GFR ( Amer) > 60.0 ml/min (>90) 03/17/18 05:45 Est GFR (Non-Af Amer) > 60.0 ml/min 03/17/18 05:45 BUN/Creatinine Ratio 23.0 03/17/18 05:45 Glucose 78 mg/dL (70-105) 03/17/18 05:45 Calcium 9.2 mg/dL (8.6-10.3) 03/17/18 05:45 Valproic Acid 60.7 ug/mL (50.0-100.0) 03/18/18 20:52 - Physical Exam Vitals and I&O: Vital Signs Temp 98.2 F 03/22/18 20:00 Pulse 83 03/22/18 20:00 Resp 19 03/22/18 20:00 BP 125/69 03/22/18 20:00 Pulse Ox 97 03/22/18 20:00 Intake & Output 03/22/18 03/22/18 03/23/18 06:59 18:59 06:59 Intake Total 120 1600 Balance 120 1600 Intake: Oral 120 1600 Other: # Voids 3 4 # Bowel Movements 1 Active Medications: Current Medications Acetaminophen (Tylenol) 650 mg PO Q4HR PRN PRN Reason: Mild Pain / Temp above 100 Stop: 05/07/18 01:46 Last Admin: 03/19/18 16:59 Dose: 650 mg Al Hydrox/Mg Hydrox/Simethicone (Maalox) 30 ml PO Q4HR PRN PRN Reason: GI DISTRESS Stop: 05/07/18 01:46 Last Admin: 03/20/18 23:17 Dose: 30 ml Albuterol/Ipratropium (Duoneb Neb) 3 ml HHN Q2HRT PRN PRN Reason: Wheezing Stop: 05/07/18 08:00 Amiodarone HCl (Cordarone) 200 mg PO DAILY [facility] Stop: 05/07/18 08:59 Last Admin: 03/22/18 08:46 Dose: 200 mg Cyanocobalamin (Vitamin B12) 1,000 mcg PO DAILY [facility] Stop: 05/07/18 08:59 Last Admin: 03/22/18 08:46 Dose: 1,000 mcg Diltiazem HCl (Cardizem) 60 mg PO DAILY [facility] Stop: 05/07/18 08:59 Last Admin: 03/22/18 08:45 Dose: 60 mg Divalproex Sodium (Depakote Dr) 500 mg PO BID [facility]; Protocol Stop: 05/07/18 08:59 Last Admin: 03/22/18 17:40 Dose: Not Given Docusate Sodium (Colace) 100 mg PO BID PRN PRN Reason: CONSTIPATION Stop: 05/07/18 08:00 Last Admin: 03/20/18 23:17 Dose: 100 mg Ferrous Sulfate (Iron) 325 mg PO DAILY [facility] Stop: 05/07/18 08:59 Last Admin: 03/22/18 08:46 Dose: 325 mg Gabapentin (Neurontin) 300 mg PO TID [facility] Stop: 05/07/18 08:59 Last Admin: 03/22/18 21:03 Dose: Not Given Magnesium Hydroxide (Milk Of Magnesia) 30 ml PO HS PRN PRN Reason: Constipation Mirtazapine (Remeron) 15 mg PO [facility]; Protocol Stop: 05/07/18 20:59 Last Admin: 03/22/18 21:03 Dose: Not Given Multivitamins/Vitamin C (Theragran) 1 tab PO DAILY [facility] Stop: 05/07/18 08:59 Last Admin: 03/22/18 08:46 Dose: 1 tab Ondansetron HCl (Zofran Odt) 4 mg PO Q6H PRN PRN Reason: Nausea / Vomiting Stop: 05/10/18 05:59 Last Admin: 03/20/18 23:18 Dose: 4 mg Oxybutynin Chloride (Ditropan) 5 mg PO HS [facility] Stop: 05/07/18 20:59 Last Admin: 03/22/18 21:03 Dose: Not Given Pantoprazole Sodium (Protonix) 40 mg PO BID [facility] Stop: 05/10/18 06:59 Last Admin: 03/22/18 17:40 Dose: Not Given Quetiapine Fumarate (Seroquel) 200 mg PO HS [facility]; Protocol Stop: 05/13/18 20:59 Last Admin: 03/22/18 21:04 Dose: Not Given Quetiapine Fumarate (Seroquel) 200 mg PO BID [facility]; Protocol Stop: 05/13/18 16:59 Last Admin: 03/22/18 17:41 Dose: Not Given Sodium Chloride (Nacl Tab) 1 gm PO BID [facility] Stop: 05/07/18 08:59 Last Admin: 03/22/18 17:41 Dose: Not Given Tamsulosin HCl (Flomax) 0.4 mg PO DAILY [facility] Stop: 05/07/18 08:59 Last Admin: 03/22/18 08:46 Dose: 0.4 mg General: weak, lethargic, congested, demented HEENT: NC/AT, PERRLA, EOMI, anicteric sclerae, throat clear, thinning hair Neck: Supple, No JVD, No LAD Lungs: wheezing, ronchi Cardiovascular: RRR, Normal S1 Abdomen: soft, non-tender, non-distended Extremities: clear Neurological: no change Internal Medicine Assmt/Plan - Assessment Assessment: ALOC: on and off; observe closely. Insomnia: on and off. Ambien PRN. Self induced vomiting: education provided, close monitoring. Noncompliance: education provided. PNA: improving? pt refuses IVPB ABX. H/O A. Fib: rate controlled. Acute Psychosis: follow recommendation by Psychiatrist. Agitation: sitter PRN Leukocytosis: resolving? s/p recent UGIB. Nutritional Asmnt/Malnutr-PDOC - Dietary Evaluation Malnutrition Findings (Please click <Entered> for more info): Nutritional Asmnt/Malnutrition Start: 03/11/18 13: 17 Text: Status: Complete Freq: Protocol: Document 03/11/18 13:17 LCH[facility] (Rec: 03/11/18 13:22 [email or web address]) Nutritional Asmnt/Malnutrition Patient General Information Nutritional Screening Moderate Risk Diagnosis psychosis Pertinent Medical Hx/Surgical Hx CAD, s/p ID, afib, anemia, BPH , COPD, PNA, psychosis, anxiety, depression Subjective Information Pt seen sleeping in bed at time of visit. Per EMR, PO intake 100% of meals. Per nurse note, pt had episode of vomiting x 1 last night. Current Diet Order/ Nutrition Support [facility] soft chopped bland Pertinent Medications vit B12, colace, iron, remeron , theragran, protonix, nacl tab, seroquel Pertinent Labs 03/09 nutritin labs WNL Nutritional Hx/Data Height 1.75 m Height (Calculated Centimeters) 175.3 Current Weight (lbs) 61.235 kg Weight (Calculated Kilograms) 61.2 Weight (Calculated Grams) 73108.0 [place] Body Weight 160 Body Mass Index (BMI) 19.9 Weight Status Approriate GI Symptoms GI Symptoms None Last BM 03/11 Difficult in: None Skin Integrity/Comment: intact Current %PO Good (75-100%) Estimated Nutritional Goals BEE in Kcals: Using Current wt Calories/Kcals/Kg 25-30 Kcals Calculated 7273-3697 Protein: Using Current wt Protein g/k Protein Calculated 61 Fluid: ml 1525-1830ml (1ml/kcal) Nutritional Problem No current Nutrition Prob Problem N/A Malnutrition Alert Is there a minimum of two criteria No selected? Query Text:Check all the applicable criteria. A minimum of two criteria are recommended for diagnosis of either severe or non-severe malnutrition. Malnutrition Related to Morbid Obesity Malnutrition related to morbid obesity No Intervention/Recommendation Comments 1. Continue with [facility] soft chopped bland diet as ordered. 2. Monitor PO intake, wt, labs and skin integrity 3. F/U as low risk in 7 days, 03/18 Expected Outcomes/Goals Expected Outcomes/Goals 1. PO intake to meet at least 75% of nutritional needs. 2. Wt stability, skin to remain intact, labs WNL.
[2018-03-23] MEDS: Diltiazem 30 mg Tab PO SCH (09:00)
[2018-03-23] MEDS: Pantoprazole 40 mg EC Tab PO SCH ×2 (09:27→17:36)
[2018-03-23] MEDS: Maalox 30 mL Cup PO PRN (09:27)
[2018-03-23] MEDS: Ferrous Sulfate 325 MG TAB PO SCH (09:30)
[2018-03-23] MEDS: Multivitamin Tab PO SCH (09:31)
--- NOTE | 2018-03-24 09:32 | Discharge Summary ---
DATE OF DISCHARGE: 03/23/2018 FINAL DIAGNOSES: 1. Pneumonia, improved clinically. 2. Altered level of consciousness, improved. 3. Psychosis, stabilized. 4. Noncompliance with education provided. 5. Upper GI bleeding. Transfer to telemetry floor. HOSPITAL COURSE: The patient is a 68-year-old male admitted due to multiple complex medical conditions. The patient had acute psychosis with anxiety, agitation. He also had pneumonia, atrial fibrillation with rate control. The patient was noncompliant but education provided with some improvement. Due to acute multiple episodes of upper GI bleeding, the patient was transferred to telemetry floor. DISCHARGE CONDITION: Stable. DISPOSITION: Telemetry floor of [facility]. DISCHARGE MEDICATIONS: Continue medication from here. DIET: To keep n.p.o. ACTIVITY: Bed rest. FOLLOWUP: Same day in telemetry floor of [facility]. JOB# [id number]
== END 2018-03-23 20:43 | disposition short-term general hospital (02) | DRG 885 ==
LOC: GERO 00:40
PROVIDERS: ADMIT Psychiatry & Neurology Psychiatry; ATTEND Psychiatry & Neurology Psychiatry
DX: F25.0 Schizoaffective disorder, bipolar type (principal); J18.9 Pneumonia, unspecified organism; F23 Brief psychotic disorder; I48.91 Unspecified atrial fibrillation; I25.10 Atherosclerotic heart disease of native coronary artery without angina pectoris; N40.0 Benign prostatic hyperplasia without lower urinary tract symptoms; F41.9 Anxiety disorder, unspecified; F32.9 Major depressive disorder, single episode, unspecified; J44.9 Chronic obstructive pulmonary disease, unspecified; D72.829 Elevated white blood cell count, unspecified; R26.2 Difficulty in walking, not elsewhere classified; G47.00 Insomnia, unspecified; R45.1 Restlessness and agitation; I25.2 Old myocardial infarction; Z91.19 Patient's noncompliance with other medical treatment and regimen
CPT/HCPCS: 36415-UA; 80048-TC; 80164-TC; 85025-TC; 94760; J1200; J1630; J2060; J7051; Q0162; Z7610

== ENCOUNTER 2018-03-23 21:32 | Inpatient (IN) | payer MEDICARE, MEDICAID ==
[2018-03-23 21:50] VITALS: BP 95/57
[2018-03-24] MEDS: D5-0.9%NS 1,000 ML IV SCH (00:12)
--- NOTE | 2018-03-24 00:45 | Progress Notes ---
DATE: 03/23/2018 Case discussed with staff of the patient, reviewed records. The staff reported having coffee-ground vomiting and the medical doctor was called ____. The patient has been withdrawn, like to be left alone, and does not want to have medication. He believes he does not need medications, at times refusing medications. Continue irritable and restricted. The medical doctor will be taking care of his medical condition. He is already on iron, Neurontin, Remeron, Seroquel. No side effects, no sedation or nausea, no extrapyramidal symptoms. We will continue the patient in group therapy, milieu therapy, and adjust the medication as needed. JOB# [id number]
[2018-03-24 06:18] LABS: % BASOPHILS 0.3 % (0.0-2.0); % EOSINOPHILS 0.7 % (0.0-5.0); % LYMPHOCYTES 21.3 % (20.0-50.0); % MONOCYTES 14.7 % (2.0-10.0); EOSINOPHILE ABSOLUTE 0.1 Th/cmm (0.1-0.4); HEMATOCRIT 35.2 % (41.0-60); HEMOGLOBIN 12.1 gm/dL (12-16); LYMPHOCYTE ABSOLUTE 2.3 Th/cmm (1.5-3.0); MEAN CELL VOLUME 93.6 fl (80-99); MEAN CORPUSCULAR HEMOGLOBIN 32.1 pg (27.0-31.0); MEAN CORPUSCULAR HGB CONC 34.3 pg (28.0-36.0); MEAN PLATELET VOLUME 7.1 fl; MONOCYTE ABSOLUTE 1.6 Th/cmm (0.3-1.0); NEUTROPHILE ABSOLUTE 6.8 Th/cmm (1.8-8.0); PLATELET COUNT 289 Th/cmm (150-400); RED BLOOD COUNT 3.76 Mil/cmm (3.80-5.80); RED CELL DISTRIBUTION WIDTH 14.6 % (11.5-20.0); WHITE BLOOD COUNT 10.8 Th/cmm (4.8-10.8)
[2018-03-24 06:42] LABS: ALB/GLOB RATIO 1.1 (1.0-1.8); ALBUMIN 3.4 gm/dL (4.2-5.5); ALKALINE PHOSPHATASE 81 U/L (34-104); ANION GAP 8.8 (7.0-16.0); BILIRUBIN,TOTAL 0.3 mg/dL (0.3-1.0); BUN - UREA NITROGEN 18 mg/dL (7-25); CALCIUM SERUM 8.9 mg/dL (8.6-10.3); CARBON DIOXIDE 30.5 mEq/L (21.0-31.0); CHLORIDE 104 mEq/L (98-107); CREATININE - SERUM 0.8 mg/dL (0.7-1.3); GFR AFRICAN-AMERICAN > 60.0 ml/min (>90); GFR NON AFRICAN-AMERICAN > 60.0 ml/min; GLUCOSE 125 mg/dL (70-105); POTASSIUM SERUM 3.3 mEq/L (3.5-5.1); SGOT 21 U/L (13-39); SGPT/ALT 20 U/L (7-52); SODIUM SERUM 140 mEq/L (136-145); TOTAL PROTEIN,SERUM 6.4 gm/dL (6.0-8.3)
--- NOTE | 2018-03-24 08:48 | Diagnostic Imaging Report ---
CHEST X-RAY: AP view INDICATION: Pneumonia COMPARISON: 03/07/2018 FINDINGS: Suboptimal lung volumes are seen with increased interstitial lung markings. There appear to be areas of scarring along the right mid to upper lung zone. There is elevation of the right hemidiaphragm. No focal consolidation or effusions. Borderline prominent heart is noted with left ventricular configuration. Atherosclerosis is noted. Gas-filled loops of bowel and stool are seen along the upper abdomen IMPRESSION: Increased interstitial lung markings which may represent a mild degree of congestion. Note, focal infiltrates of the lung bases cannot be excluded. Borderline prominent heart with left ventricular configuration. Please correlate clinically for possible hypertension. Gaseous distended loops of bowel and stool along the upper abdomen.
[2018-03-24] MEDS ORDERED: Diltiazem 30 mg Tab PO SCH (09:00)
--- NOTE | 2018-03-24 09:27 | History & Physical ---
ADMIT DATE: 03/24/2018 CHIEF COMPLAINT: Coffee-ground emesis by the nursing staff. HISTORY OF PRESENT ILLNESS: The patient is a 68-year-old male admitted to a telemetry floor of [facility] after noticing 2 episodes of coffee-ground emesis. The patient had similar episodes like 3 weeks ago in the long-term. After coming to the hospital this stopped. However, for the past few days while in [facility] Unit the patient had coffee-ground emesis and this was the main reason he was admitted to a telemetry floor of [facility]. Due to vomiting his potassium was low ____ today. His H and H however, was stable. The patient is very confused and agitated from time to time. He also has additional history of pneumonia and I have ordered a chest x-ray to see if this has improved or worsened. If no improvement or worsens, I will start the patient on IVPB antibiotics. PAST MEDICAL HISTORY: Pneumonia, COPD, atrial fibrillation, coronary artery disease status post mild TN, BPH, urinary tract infection, sepsis, anxiety, depression, and mild psychosis. PAST SURGICAL HISTORY: Denies significant past surgical history. MEDICATIONS: See medication reconciliation list. ALLERGIES: No known drug allergy. FAMILY HISTORY: Noncontributory. SOCIAL HISTORY: Smoked before, quit years ago. No history of alcohol or IV drug use. REVIEW OF SYSTEMS: As per HPI. PHYSICAL EXAMINATION: GENERAL: A well-developed male in no acute distress. SKIN: There are some excoriations. VITAL SIGNS: Basically stable. HEENT: Normocephalic, atraumatic. Pupils equal, round, react to light and accommodation. CHEST: Symmetrical. LUNGS: Few wheezing appreciated with rhonchi as well. CARDIAC: Normal sinus rhythm, S1, S2. ABDOMEN: Benign, soft, nontender. EXTREMITIES: No clubbing, cyanosis or edema, bilaterally 2+ ____. NEUROLOGIC: Unremarkable. LABORATORY DATA: Reviewed, significant for hypokalemia. ASSESSMENT AND PLAN: 1. Acute upper gastrointestinal bleeding: The patient is kept n.p.o. and IV fluid ordered and Protonix is also ordered and GI consultation appreciated. The patient is, however, stable hemodynamically. 2. His recent pneumonia: A repeat chest x-ray. We will treat it with antibiotics. 3. Altered level of consciousness due to metabolic encephalopathy and dementia. 4. ____ we will observe closely. 5. History of mild psychosis with bipolar disorder: Adjust medication if necessary. 6. He has severe weakness: Fall precaution. 7. History of atrial fibrillation with rate controlled. 8. DVT prophylaxis. JOB# [id number]
[2018-03-24] MEDS: Multivitamin w/ Minerals Tab PO SCH (09:41)
[2018-03-24] MEDS: Pantoprazole 40 mg EC Tab PO SCH ×2 (09:42→16:01)
[2018-03-24] MEDS: Diltiazem 30 mg Tab PO SCH (09:42)
--- NOTE | 2018-03-24 11:39 | Consultation ---
DATE OF CONSULTATION: 03/24/2018 REQUESTING PHYSICIAN: Dr. Willis. REASON FOR CONSULTATION: Coffee-ground emesis. Thank you for asking me to see this patient in consultation. This is a 68-year-old male that was originally admitted to the Geropsych unit who had 2 episodes of coffee-ground emesis having had similar episodes like this 3 weeks ago at the [facility]. After coming to this side of the hospital the patient states that this had stopped. The patient was also complaining of some vague indigestion that he has been having as well. His hemoglobin has been stable. Nonetheless, the patient states that he feels nauseous and that he is concerned for the fact that he has been vomiting what looked like dark blood. PAST MEDICAL HISTORY: Pneumonia, COPD, atrial fibrillation, coronary artery disease. MEDICATIONS: Have been reviewed. PAST SURGICAL HISTORY: Denies any past surgical history, but he does have a midline laparotomy scar. ALLERGIES: None known. FAMILY HISTORY: Noncontributory for GI disease. SOCIAL HISTORY: He quit smoking years ago. No history of alcohol or IV drugs. REVIEW OF SYSTEMS: As in HPI. All other 12-point systems were negative. PHYSICAL EXAMINATION: VITAL SIGNS: Noted. GENERAL: Well-developed male in no acute distress. SKIN: Some excoriations. HEENT: Normocephalic, atraumatic. PERRL positive. LUNGS: Clear bilaterally. No wheezes, rales or rhonchi. ABDOMEN: Soft, nontender, bowel sounds are positive. There is a single midline incisional scar. EXTREMITIES: Show no lower extremity edema. Psychologically, he is alert. NEUROLOGIC: Grossly intact. LABORATORY DATA: White count of 10.8, hemoglobin 12.1, hematocrit 35.2, platelet count of 289,000. Sodium 140, potassium 3.3, chloride 104, CO2 30, BUN 18, creatinine 0.8. IMAGING: Chest x-ray, increased interstitial lung markings which may represent a mild degree of congestion. Overall, we have a 68-year-old male who presents from Geropsych Unit with complaints of increased coffee-ground emesis, abdominal pain. 1. Coffee-ground emesis. 2. Concern for upper GI bleed. 3. Abdominal discomfort. 4. Concern for possible esophagitis versus peptic ulcer disease. I would like to further assess with an upper endoscopy in this patient, especially with recurrent symptoms over the past month and decide if patient has any evidence that he needs to be on further treatment for and rule out any esophagitis, peptic ulcer disease, or even gastric malignancy. Currently, we are working to discuss this matter with the conservator and get appropriate consent and documentation prior to performing any procedures with anesthesia. Discussed risks and benefits with the patient; however, would like to ensure that we have proper consent prior to proceeding with the procedure. For now, the patient can be on clear liquid diet and PPI therapy. We will keep n.p.o. after midnight for potential EGD tomorrow. Thank you for this consultation. JOB# [id number]
[2018-03-24] MEDS ORDERED: Piperacillin Sodium/Tazobact 3.375 gm Vial IV ONE (21:36)
[2018-03-24] MEDS: Albuterol/Ipratropium Neb 3 ML AERS HHN PRN (22:20)
[2018-03-24 22:51] LABS: pH 7.38 (7.35-7.45)
[2018-03-24 22:52] LABS: ALLEN TEST Positive
[2018-03-25] MEDS ORDERED: Piperacillin Sodium/Tazobact 3.375 gm Vial IV ONE (04:38)
[2018-03-25] MEDS: D5-0.9%NS 1,000 ML IV SCH ×2 (04:44→20:51)
[2018-03-25] MEDS: Pantoprazole 40 mg EC Tab PO SCH ×2 (06:34→16:48)
[2018-03-25] MEDS: Diltiazem 30 mg Tab PO SCH (08:34)
[2018-03-25] MEDS: Multivitamin w/ Minerals Tab PO SCH (08:35)
--- NOTE | 2018-03-25 09:29 | Internal Medicine Prog Note ---
Internal Medicine Subjective - Subjective Service Date: 03/25/18 Patient seen and examined:: without staff Patient is:: awake, verbal, eyes closed, in bed, agitated, confused Per staff patient has:: no adverse event Internal Medicine Objective - Results Result Diagrams: 03/24/18 06:00 03/24/18 06:00 Recent Labs: Laboratory Last Values WBC 10.8 Th/cmm (4.8-10.8) 03/24/18 06:00 RBC 3.76 Mil/cmm (3.80-5.80) L 03/24/18 06:00 Hgb 12.1 gm/dL (12-16) 03/24/18 06:00 Hct 35.2 % (41.0-60) L 03/24/18 06:00 MCV 93.6 fl (80-99) 03/24/18 06:00 MCH 32.1 pg (27.0-31.0) H 03/24/18 06:00 MCHC Differential 34.3 pg (28.0-36.0) 03/24/18 06:00 RDW 14.6 % (11.5-20.0) 03/24/18 06:00 Plt Count 289 Th/cmm (150-400) 03/24/18 06:00 MPV 7.1 fl 03/24/18 06:00 Neutrophils % 63.0 % (40.0-80.0) 03/24/18 06:00 Lymphocytes % 21.3 % (20.0-50.0) 03/24/18 06:00 Monocytes % 14.7 % (2.0-10.0) H 03/24/18 06:00 Eosinophils % 0.7 % (0.0-5.0) 03/24/18 06:00 Basophils % 0.3 % (0.0-2.0) 03/24/18 06:00 Specimen Source ARTERIAL 03/24/18 22:28 Sample Site Right Radial 03/24/18 22:28 pH 7.38 (7.35-7.45) 03/24/18 22:28 pCO2 45.0 mmHg (35.0-45.0) 03/24/18 22:28 pO2 159.0 mmHg (80.0-100.0) H 03/24/18 22:28 HCO3 25.8 mEq/L (20.0-26.0) 03/24/18 22:28 Base Excess 1.1 mEq/L (-3.0-3.0) 03/24/18 22: O2 Saturation 99.0 % (92.0-100.0) 03/24/18 22: Hayder Test Positive 03/24/18 22:28 Vent Rate N/A 03/24/18 22:28 Inspired O2 100 03/24/18 22:28 Tidal Volume N/A 03/24/18: PEEP N/A 03/24/18 22: Pressure (ins/psv/peep) N/A 03/24/18 22: Critical Value MM,ASSURANCE ANALYST 03/24/18 22:28 Sodium 140 mEq/L (136-145) 03/24/18 06:00 Potassium 3.3 mEq/L (3.5-5.1) L 03/24/18 06:00 Chloride 104 mEq/L (98-107) 03/24/18 06:00 Carbon Dioxide 30.5 mEq/L (21.0-31.0) 03/24/18 06:00 Anion Gap 8.8 (7.0-16.0) 03/24/18 06:00 BUN 18 mg/dL (7-25) 03/24/18 06:00 Creatinine 0.8 mg/dL (0.7-1.3) 03/24/18 06:00 Est GFR ( Amer) > 60.0 ml/min (>90) 03/24/18 06:00 Est GFR (Non-Af Amer) > 60.0 ml/min 03/24/18 06:00 BUN/Creatinine Ratio 22.5 03/24/18 06:00 Glucose 125 mg/dL (70-105) H 03/24/18 06:00 POC Glucose 137 MG/DL (70 - 105) H 03/23/18 22:22 Calcium 8.9 mg/dL (8.6-10.3) 03/24/18 06:00 Total Bilirubin 0.3 mg/dL (0.3-1.0) 03/24/18 06:00 AST 21 U/L (13-39) 03/24/18 06:00 ALT 20 U/L (7-52) 03/24/18 06:00 Alkaline Phosphatase 81 U/L (34-104) 03/24/18 06:00 Total Protein 6.4 gm/dL (6.0-8.3) 03/24/18 06:00 Albumin 3.4 gm/dL (4.2-5.5) L 03/24/18 06:00 Globulin 3.0 gm/dL 03/24/18 06:00 Albumin/Globulin Ratio 1.1 (1.0-1.8) 03/24/18 06:00 - Physical Exam Vitals and I&O: Vital Signs Temp 98.4 F 03/25/18 04:00 Pulse 55 03/25/18 08:36 Resp 18 03/25/18 08:04 BP 111/77 03/25/18 04:00 Pulse Ox 94 03/25/18 04:00 Intake & Output 03/24/18 03/25/18 03/25/18 18:59 06:59 18:59 Intake Total 1450 100 Balance 1450 100 Weight (lbs) 60.736 kg Intake: Intake, IV Amount 1000 100 D5-0.9%Ns 1,000 ml @ 80 1000 mls/hr IV .[id number] [facility] Rx #:[id number] Piperacillin Sodium/ 100 Tazobact 3.375 gm In Sodium Chloride 0.9% 50 ml @ 100 mls/hr IV Q8HR [facility] Rx#:[id number] Oral 450 Other: # Voids 3 Weight Source Bedscale Active Medications: Current Medications Albuterol/Ipratropium (Duoneb Neb) 3 ml HHN Q2H PRN PRN Reason: Wheezing Stop: 05/23/18 08:18 Last Admin: 03/24/18 22:20 Dose: 3 ml Amiodarone HCl (Cordarone) 200 mg PO DAILY [facility] Stop: 05/23/18 08:59 Last Admin: 03/25/18 08:36 Dose: Not Given Cyanocobalamin (Vitamin B12) 1,000 mcg PO DAILY [facility] Stop: 05/23/18 08:59 Last Admin: 03/25/18 08:36 Dose: 1,000 mcg Diltiazem HCl (Cardizem) 60 mg PO DAILY [facility] Stop: 05/23/18 08:59 Last Admin: 03/25/18 08:34 Dose: Not Given Divalproex Sodium (Depakote Dr) 500 mg PO BID [facility]; Protocol Stop: 05/23/18 08:59 Last Admin: 03/25/18 08:35 Dose: 500 mg Docusate Sodium (Colace) 100 mg PO BID PRN PRN Reason: CONSTIPATION Stop: 05/23/18 08:18 Last Admin: 03/24/18 21:58 Dose: 100 mg Docusate Sodium (Colace) 100 mg PO BID PRN PRN Reason: Loose Stools Gabapentin (Neurontin) 300 mg PO TID [facility] Stop: 05/23/18 08:59 Last Admin: 03/25/18 08:35 Dose: 300 mg Dextrose/Sodium Chloride (D5-0.9%Ns) 1,000 mls @ 80 mls/hr IV .[id number] [facility] Stop: 05/24/18 00:29 Last Admin: 03/25/18 04:44 Dose: 80 mls/hr Piperacillin Sod/Tazobactam (Sod 3.375 gm/ Sodium Chloride) 50 mls @ 100 mls/ hr IV Q8HR [facility] Stop: 05/23/18 20:59 Last Infusion: 03/25/18 05:14 Dose: Infused Lorazepam (Ativan) 2 mg IVP Q6H PRN; Protocol PRN Reason: Agitation Stop: 05/23/18 08:20 Last Admin: 03/24/18 16:50 Dose: 2 mg Mirtazapine (Remeron) 15 mg PO HS [facility]; Protocol Stop: 05/23/18 20:59 Last Admin: 03/24/18 21:32 Dose: 15 mg Olanzapine (Zyprexa) 5 mg PO DAILY [facility]; Protocol Stop: 05/23/18 08:59 Last Admin: 03/25/18 08:35 Dose: 5 mg Olanzapine (Zyprexa) 10 mg PO HS [facility]; Protocol Stop: 05/23/18 20:59 Last Admin: 03/24/18 21:32 Dose: 10 mg Ondansetron HCl (Zofran) 4 mg IV Q4H PRN PRN Reason: Nausea / Vomiting Stop: 05/22/18 23:06 Last Admin: 03/25/18 00:34 Dose: 4 mg Oxybutynin Chloride (Ditropan) 5 mg PO HS [facility] Stop: 05/23/18 20:59 Last Admin: 03/24/18 21:32 Dose: 5 mg Pantoprazole Sodium (Protonix) 40 mg PO BIDAC [facility] Stop: 05/23/18 08:59 Last Admin: 03/25/18 06:34 Dose: 40 mg Sodium Chloride (Nacl Tab) 1 gm PO BID [facility] Stop: 05/23/18 08:59 Last Admin: 03/25/18 08:36 Dose: 1 gm Tamsulosin HCl (Flomax) 0.4 mg PO DAILY [facility] Stop: 05/23/18 08:59 Last Admin: 03/25/18 08:35 Dose: 0.4 mg General: weak, lethargic, congested, thin HEENT: NC/AT, PERRLA, EOMI, anicteric sclerae, throat clear Neck: Supple, No JVD, No thyromegaly, No LAD Lungs: congested, wheezing, ronchi Cardiovascular: RRR, Normal S1, Normal S2 Abdomen: soft Extremities: clear Neurological: no change Internal Medicine Assmt/Plan - Assessment Assessment: ALOC: multifactorial; observe closely. s/p UGIB? H/H stable. Psychosis: monitoring closely and adjust meds as needed. PNA: due to aspiration? IVPB ABX COPD: RT protocol. H/O A. Fib: rate controlled. Noncompliance: education provided. DVT prophylaxis.
[2018-03-25] MEDS ORDERED: Fleet Enema 135 mL RC PRN (09:35)
--- NOTE | 2018-03-25 09:55 | GI Progress Note ---
Subjective - Review of Systems Service Date: 03/25/18 Subjective: Pt not having any more episodes of vomiting blood. H+H stable Objective - Results Result Diagrams: 03/24/18 06:00 03/24/18 06:00 Recent Labs: Laboratory Last Values WBC 10.8 Th/cmm (4.8-10.8) 03/24/18 06:00 RBC 3.76 Mil/cmm (3.80-5.80) L 03/24/18 06:00 Hgb 12.1 gm/dL (12-16) 03/24/18 06:00 Hct 35.2 % (41.0-60) L 03/24/18 06:00 MCV 93.6 fl (80-99) 03/24/18 06:00 MCH 32.1 pg (27.0-31.0) H 03/24/18 06:00 MCHC Differential 34.3 pg (28.0-36.0) 03/24/18 06:00 RDW 14.6 % (11.5-20.0) 03/24/18 06:00 Plt Count 289 Th/cmm (150-400) 03/24/18 06:00 MPV 7.1 fl 03/24/18 06:00 Neutrophils % 63.0 % (40.0-80.0) 03/24/18 06:00 Lymphocytes % 21.3 % (20.0-50.0) 03/24/18 06:00 Monocytes % 14.7 % (2.0-10.0) H 03/24/18 06:00 Eosinophils % 0.7 % (0.0-5.0) 03/24/18 06:00 Basophils % 0.3 % (0.0-2.0) 03/24/18 06:00 Specimen Source ARTERIAL 03/24/18 22:28 Sample Site Right Radial 03/24/18 22:28 pH 7.38 (7.35-7.45) 03/24/18 22:28 pCO2 45.0 mmHg (35.0-45.0) 03/24/18 22:28 pO2 159.0 mmHg (80.0-100.0) H 03/24/18 22:28 HCO3 25.8 mEq/L (20.0-26.0) 03/24/18 22:28 Base Excess 1.1 mEq/L (-3.0-3.0) 03/24/18 22:28 O2 Saturation 99.0 % (92.0-100.0) 03/24/18 22:28 Hayder Test Positive 03/24/18 22:28 Vent Rate N/A 03/24/18 22:28 Inspired O2 100 03/24/18 22:28 Tidal Volume N/A 03/24/18 22:28 PEEP N/A 03/24/18 22:28 Pressure (ins/psv/peep) N/A 03/24/18 22:28 Critical Value MM,RETURNS PROCESSOR 03/24/18 22:28 Sodium 140 mEq/L (136-145) 03/24/18 06:00 Potassium 3.3 mEq/L (3.5-5.1) L 03/24/18 06:00 Chloride 104 mEq/L (98-107) 03/24/18 06:00 Carbon Dioxide 30.5 mEq/L (21.0-31.0) 03/24/18 06:00 Anion Gap 8.8 (7.0-16.0) 03/24/18 06:00 BUN 18 mg/dL (7-25) 03/24/18 06:00 Creatinine 0.8 mg/dL (0.7-1.3) 03/24/18 06:00 Est GFR ( Amer) > 60.0 ml/min (>90) 03/24/18 06:00 Est GFR (Non-Af Amer) > 60.0 ml/min 03/24/18 06:00 BUN/Creatinine Ratio 22.5 03/24/18 06:00 Glucose 125 mg/dL (70-105) H 03/24/18 06:00 POC Glucose 137 MG/DL (70 - 105) H 03/23/18 22:22 Calcium 8.9 mg/dL (8.6-10.3) 03/24/18 06:00 Total Bilirubin 0.3 mg/dL (0.3-1.0) 03/24/18 06:00 AST 21 U/L (13-39) 03/24/18 06:00 ALT 20 U/L (7-52) 03/24/18 06:00 Alkaline Phosphatase 81 U/L (34-104) 03/24/18 06:00 Total Protein 6.4 gm/dL (6.0-8.3) 03/24/18 06:00 Albumin 3.4 gm/dL (4.2-5.5) L 03/24/18 06:00 Globulin 3.0 gm/dL 03/24/18 06:00 Albumin/Globulin Ratio 1.1 (1.0-1.8) 03/24/18 06:00 - Physical Exam Vitals and I&O: Vital Signs Temp 98.4 F 03/25/18 04:00 Pulse 55 03/25/18 08:36 Resp 18 03/25/18 08:04 BP 111/77 03/25/18 04:00 Pulse Ox 94 03/25/18 04:00 Intake & Output 03/24/18 03/25/18 03/25/18 18:59 06:59 18:59 Intake Total 1450 100 Balance 1450 100 Weight (lbs) 60.736 kg Intake: Intake, IV Amount 1000 100 D5-0.9%Ns 1,000 ml @ 80 1000 mls/hr IV .[id number] [facility] Rx #:[id number] Piperacillin Sodium/ 100 Tazobact 3.375 gm In Sodium Chloride 0.9% 50 ml @ 100 mls/hr IV Q8HR [facility] Rx#:[id number] Oral 450 Other: # Voids 3 Weight Source Bedscale Active Medications: Current Medications Albuterol/Ipratropium (Duoneb Neb) 3 ml HHN Q2H PRN PRN Reason: Wheezing Stop: 05/23/18 08:18 Last Admin: 03/24/18 22:20 Dose: 3 ml Amiodarone HCl (Cordarone) 200 mg PO DAILY [facility] Stop: 05/23/18 08:59 Last Admin: 03/25/18 08:36 Dose: Not Given Cyanocobalamin (Vitamin B12) 1,000 mcg PO DAILY [facility] Stop: 05/23/18 08:59 Last Admin: 03/25/18 08:36 Dose: 1,000 mcg Diltiazem HCl (Cardizem) 60 mg PO DAILY [facility] Stop: 05/23/18 08:59 Last Admin: 03/25/18 08:34 Dose: Not Given Divalproex Sodium (Depakote Dr) 500 mg PO BID [facility]; Protocol Stop: 05/23/18 08:59 Last Admin: 03/25/18 08:35 Dose: 500 mg Docusate Sodium (Colace) 100 mg PO BID PRN PRN Reason: CONSTIPATION Stop: 05/23/18 08:18 Last Admin: 03/24/18 21:58 Dose: 100 mg Docusate Sodium (Colace) 100 mg PO BID PRN PRN Reason: Loose Stools Gabapentin (Neurontin) 300 mg PO TID [facility] Stop: 05/23/18 08:59 Last Admin: 03/25/18 08:35 Dose: 300 mg Dextrose/Sodium Chloride (D5-0.9%Ns) 1,000 mls @ 80 mls/hr IV .[id number] [facility] Stop: 05/24/18 00:29 Last Admin: 03/25/18 04:44 Dose: 80 mls/hr Piperacillin Sod/Tazobactam (Sod 3.375 gm/ Sodium Chloride) 50 mls @ 100 mls/ hr IV Q8HR [facility] Stop: 05/23/18 20:59 Last Infusion: 03/25/18 05:14 Dose: Infused Lorazepam (Ativan) 2 mg IVP Q6H PRN; Protocol PRN Reason: Agitation Stop: 05/23/18 08:20 Last Admin: 03/24/18 16:50 Dose: 2 mg Magnesium Hydroxide (Milk Of Magnesia) 30 ml PO PRN PRN PRN Reason: Constipation Stop: 05/24/18 09:32 Mirtazapine (Remeron) 15 mg PO HS [facility]; Protocol Stop: 05/23/18 20:59 Last Admin: 03/24/18 21:32 Dose: 15 mg Olanzapine (Zyprexa) 5 mg PO DAILY [facility]; Protocol Stop: 05/23/18 08:59 Last Admin: 03/25/18 08:35 Dose: 5 mg Olanzapine (Zyprexa) 10 mg PO HS [facility]; Protocol Stop: 05/23/18 20:59 Last Admin: 03/24/18 21:32 Dose: 10 mg Ondansetron HCl (Zofran) 4 mg IV Q4H PRN PRN Reason: Nausea / Vomiting Stop: 05/22/18 23:06 Last Admin: 03/25/18 00:34 Dose: 4 mg Oxybutynin Chloride (Ditropan) 5 mg PO HS [facility] Stop: 05/23/18 20:59 Last Admin: 08/14/18 21:32 Dose: 5 mg Pantoprazole Sodium (Protonix) 40 mg PO BIDAC [facility] Stop: 05/23/18 08:59 Last Admin: 03/25/18 06:34 Dose: 40 mg Sodium Chloride (Nacl Tab) 1 gm PO BID [facility] Stop: 05/23/18 08:59 Last Admin: 03/25/18 08:36 Dose: 1 gm Sodium Phosphate (Fleet Enema) 135 ml RC PRN PRN PRN Reason: Constipation Stop: 05/24/18 09:34 Tamsulosin HCl (Flomax) 0.4 mg PO DAILY [facility] Stop: 05/23/18 08:59 Last Admin: 03/25/18 08:35 Dose: 0.4 mg General: Alert, No acute distress HEENT: Atraumatic, PERRLA Neck: Supple Cardiovascular: Regular rate, Normal S1, Normal S2 Lungs: Clear to auscultation, Normal air movement Abdomen: Bowel sounds, Soft Assessment/Plan - Assessment Assessment: 1. Concern for coffee ground emesis 2. Dyspepsia 3. Psychosis -Start patient on PPI BID -Can hold off on EGD, not emergent -If recurrence of symptoms, would highly recommend -Gi will follow
[2018-03-25] MEDS: Magnesium Hydroxide (MOM) 30 mL UDC PO PRN (12:23)
[2018-03-25] MEDS: Albuterol/Ipratropium Neb 3 ML AERS HHN PRN (21:21)
[2018-03-26] MEDS: Albuterol/Ipratropium Neb 3 ML AERS HHN PRN (03:00)
[2018-03-26 05:18] LABS: % BASOPHILS 0.7 % (0.0-2.0); % EOSINOPHILS 1.9 % (0.0-5.0); % LYMPHOCYTES 10.5 % (20.0-50.0); % MONOCYTES 7.8 % (2.0-10.0); % NEUTROPHILS 79.1 % (40.0-80.0); BASOPHILE ABSOLUTE 0.1 Th/cumm (0-0.2); EOSINOPHILE ABSOLUTE 0.2 Th/cmm (0.1-0.4); HEMATOCRIT 35.4 % (41.0-60); HEMOGLOBIN 11.8 gm/dL (12-16); LYMPHOCYTE ABSOLUTE 0.9 Th/cmm (1.5-3.0); MEAN CELL VOLUME 93.8 fl (80-99); MEAN CORPUSCULAR HEMOGLOBIN 31.3 pg (27.0-31.0); MEAN CORPUSCULAR HGB CONC 33.4 pg (28.0-36.0); MEAN PLATELET VOLUME 7.2 fl; MONOCYTE ABSOLUTE 0.6 Th/cmm (0.3-1.0); NEUTROPHILE ABSOLUTE 6.4 Th/cmm (1.8-8.0); PLATELET COUNT 256 Th/cmm (150-400); RED BLOOD COUNT 3.78 Mil/cmm (3.80-5.80); RED CELL DISTRIBUTION WIDTH 14.8 % (11.5-20.0); WHITE BLOOD COUNT 8.2 Th/cmm (4.8-10.8)
[2018-03-26 05:41] LABS: ANION GAP 8.9 (7.0-16.0); BUN - UREA NITROGEN 10 mg/dL (7-25); CALCIUM SERUM 8.3 mg/dL (8.6-10.3); CARBON DIOXIDE 25.3 mEq/L (21.0-31.0); CHLORIDE 111 mEq/L (98-107); CREATININE - SERUM 0.7 mg/dL (0.7-1.3); GFR AFRICAN-AMERICAN > 60.0 ml/min (>90); GFR NON AFRICAN-AMERICAN > 60.0 ml/min; GLUCOSE 120 mg/dL (70-105); POTASSIUM SERUM 3.2 mEq/L (3.5-5.1); SODIUM SERUM 142 mEq/L (136-145)
--- NOTE | 2018-03-26 09:19 | GI Progress Note ---
Subjective - Review of Systems Service Date: 03/26/18 Subjective: REFUGIO ORAL DIET. NO N/V OR GI BLEEDING. HAD HARD STOOL - GIVEN ENEMA. Objective - Results Result Diagrams: 03/26/18 04:55 03/26/18 04:55 Recent Labs: Laboratory Last Values WBC 8.2 Th/cmm (4.8-10.8) 03/26/18 04:55 RBC 3.78 Mil/cmm (3.80-5.80) L 03/26/18 04:55 Hgb 11.8 gm/dL (12-16) L 03/26/18 04:55 Hct 35.4 % (41.0-60) L 03/26/18 04:55 MCV 93.8 fl (80-99) 03/26/18 04:55 MCH 31.3 pg (27.0-31.0) H 03/26/18 04:55 MCHC Differential 33.4 pg (28.0-36.0) 03/26/18 04:55 RDW 14.8 % (11.5-20.0) 03/26/18 04:55 Plt Count 256 Th/cmm (150-400) 03/26/18 04:55 MPV 7.2 fl 03/26/18 04:55 Neutrophils % 79.1 % (40.0-80.0) 03/26/18 04:55 Lymphocytes % 10.5 % (20.0-50.0) L 03/26/18 04:55 Monocytes % 7.8 % (2.0-10.0) 03/26/18 04:55 Eosinophils % 1.9 % (0.0-5.0) 03/26/18 04:55 Basophils % 0.7 % (0.0-2.0) 03/26/18 04:55 Specimen Source ARTERIAL 03/24/18 22:28 Sample Site Right Radial 03/24/18 22:28 pH 7.38 (7.35-7.45) 03/24/18 22:28 pCO2 45.0 mmHg (35.0-45.0) 03/24/18 22:28 pO2 159.0 mmHg (80.0-100.0) H 03/24/18 22:28 HCO3 25.8 mEq/L (20.0-26.0) 03/24/18 22:28 Base Excess 1.1 mEq/L (-3.0-3.0) 03/24/18 22:28 O2 Saturation 99.0 % (92.0-100.0) 03/24/18 22:28 Hayder Test Positive 03/24/18 22:28 Vent Rate N/A 03/24/18 22:28 Inspired O2 100 03/24/18 22:28 Tidal Volume N/A 03/24/18 22:28 PEEP N/A 03/24/18 22:28 Pressure (ins/psv/peep) N/A 03/24/18 22:28 Critical Value MM,TOOL LIAISON 03/24/18 22:28 Sodium 142 mEq/L (136-145) 03/26/18 04:55 Potassium 3.2 mEq/L (3.5-5.1) L 03/26/18 04:55 Chloride 111 mEq/L (98-107) H 03/26/18 04:55 Carbon Dioxide 25.3 mEq/L (21.0-31.0) 03/26/18 04:55 Anion Gap 8.9 (7.0-16.0) 03/26/18 04:55 BUN 10 mg/dL (7-25) 03/26/18 04:55 Creatinine 0.7 mg/dL (0.7-1.3) 03/26/18 04:55 Est GFR ( Amer) > 60.0 ml/min (>90) 03/26/18 04:55 Est GFR (Non-Af Amer) > 60.0 ml/min 03/26/18 04:55 BUN/Creatinine Ratio 14.3 03/26/18 04:55 Glucose 120 mg/dL (70-105) H 03/26/18 04:55 POC Glucose 137 MG/DL (70 - 105) H 03/23/18 22:22 Calcium 8.3 mg/dL (8.6-10.3) L 03/26/18 04:55 Total Bilirubin 0.3 mg/dL (0.3-1.0) 03/24/18 06:00 AST 21 U/L (13-39) 03/24/18 06:00 ALT 20 U/L (7-52) 03/24/18 06:00 Alkaline Phosphatase 81 U/L (34-104) 03/24/18 06:00 Total Protein 6.4 gm/dL (6.0-8.3) 03/24/18 06:00 Albumin 3.4 gm/dL (4.2-5.5) L 03/24/18 06:00 Globulin 3.0 gm/dL 03/24/18 06:00 Albumin/Globulin Ratio 1.1 (1.0-1.8) 03/24/18 06:00 - Physical Exam Vitals and I&O: Vital Signs Temp 99.7 F 03/26/18 08:46 Pulse 111 03/26/18 08:46 Resp 18 03/26/18 08:46 BP 131/72 03/26/18 08:46 Pulse Ox 91 03/26/18 08:46 Intake & Output 03/25/18 03/26/18 03/26/18 18:59 06:59 18:59 Intake Total 1400 410 Output Total 0 1 Balance 1400 409 Weight (lbs) 60.328 kg 61.689 kg Intake: Intake, IV Amount 1050 50 D5-0.9%Ns 1,000 ml @ 80 1000 mls/hr IV .[id number] [facility] Rx #:[id number] Piperacillin Sodium/ 50 50 Tazobact 3.375 gm In Sodium Chloride 0.9% 50 ml @ 100 mls/hr IV Q8HR [facility] Rx#:[id number] Oral 350 300 Other 60 Output: Stool 0 1 Other: # Voids 3 3 # Bowel Movements 1 Weight Source Bedscale Bedscale Active Medications: Current Medications Albuterol/Ipratropium (Duoneb Neb) 3 ml HHN Q2H PRN PRN Reason: Wheezing Stop: 05/23/18 08:18 Last Admin: 03/26/18 03:00 Dose: 3 ml Amiodarone HCl (Cordarone) 200 mg PO DAILY [facility] Stop: 05/23/18 08:59 Last Admin: 03/25/18 08:36 Dose: Not Given Cyanocobalamin (Vitamin B12) 1,000 mcg PO DAILY [facility] Stop: 05/23/18 08:59 Last Admin: 03/25/18 08:36 Dose: 1,000 mcg Diltiazem HCl (Cardizem) 60 mg PO DAILY [facility] Stop: 05/23/18 08:59 Last Admin: 03/25/18 08:34 Dose: Not Given Divalproex Sodium (Depakote Dr) 500 mg PO BID [facility]; Protocol Stop: 05/23/18 08:59 Last Admin: 03/25/18 16:48 Dose: 500 mg Docusate Sodium (Colace) 100 mg PO BID PRN PRN Reason: CONSTIPATION Stop: 05/23/18 08:18 Last Admin: 03/25/18 20:50 Dose: 100 mg Gabapentin (Neurontin) 300 mg PO TID [facility] Stop: 05/23/18 08:59 Last Admin: 03/25/18 20:50 Dose: 300 mg Dextrose/Sodium Chloride (D5-0.9%Ns) 1,000 mls @ 80 mls/hr IV .[id number] [facility] Stop: 05/24/18 00:29 Last Admin: 03/25/18 20:51 Dose: 80 mls/hr Piperacillin Sod/Tazobactam (Sod 3.375 gm/ Sodium Chloride) 50 mls @ 100 mls/ hr IV Q8HR [facility] Stop: 05/23/18 20:59 Last Admin: 03/26/18 04:47 Dose: 100 mls/hr Lorazepam (Ativan) 2 mg IVP Q6H PRN; Protocol PRN Reason: Agitation Stop: 05/23/18 08:20 Last Admin: 03/25/18 16:59 Dose: 2 mg Magnesium Hydroxide (Milk Of Magnesia) 30 ml PO DAILY PRN PRN Reason: IF COLACE INEFFECTIVE Stop: 05/24/18 09:32 Last Admin: 03/25/18 12:23 Dose: 30 ml Mirtazapine (Remeron) 15 mg PO HS [facility]; Protocol Stop: 05/23/18 20:59 Last Admin: 03/25/18 20:50 Dose: 15 mg Olanzapine (Zyprexa) 5 mg PO DAILY [facility]; Protocol Stop: 05/23/18 08:59 Last Admin: 03/25/18 08:35 Dose: 5 mg Olanzapine (Zyprexa) 10 mg PO HS [facility]; Protocol Stop: 05/23/18 20:59 Last Admin: 03/25/18 20:50 Dose: 10 mg Ondansetron HCl (Zofran) 4 mg IV Q4H PRN PRN Reason: Nausea / Vomiting Stop: 05/22/18 23:06 Last Admin: 03/25/18 00:34 Dose: 4 mg Oxybutynin Chloride (Ditropan) 5 mg PO HS [facility] Stop: 05/23/18 20:59 Last Admin: 03/25/18 21:00 Dose: 5 mg Pantoprazole Sodium (Protonix) 40 mg PO BIDAC [facility] Stop: 05/23/18 08:59 Last Admin: 03/25/18 16:48 Dose: 40 mg Sodium Chloride (Nacl Tab) 1 gm PO BID [facility] Stop: 05/23/18 08:59 Last Admin: 03/25/18 16:48 Dose: 1 gm Sodium Phosphate (Fleet Enema) 135 ml RC DAILY PRN PRN Reason: IF MOM INEFFECTIVE Stop: 05/24/18 09:34 Last Admin: 03/26/18 03:15 Dose: 135 ml Tamsulosin HCl (Flomax) 0.4 mg PO DAILY [facility] Stop: 05/23/18 08:59 Last Admin: 03/25/18 08:35 Dose: 0.4 mg General: Alert, No acute distress HEENT: Atraumatic Neck: Supple Cardiovascular: Regular rate Lungs: Clear to auscultation Abdomen: Bowel sounds, Soft, no Tender Assessment/Plan - Assessment Assessment: IMPRESSION: 1. Concern for coffee ground emesis - LIKELY UGIB, NOW RESOLVED. 2. Dyspepsia 3. Psychosis 4. CONSTIPATION. RECS: - PPI BID - Can hold off on EGD, not emergent; UNABLE TO GET CONSENT. - ORAL DIET REFUGIO. - MONITOR HGB. - STOOL SOFTENERS.
[2018-03-26] MEDS: Diltiazem 30 mg Tab PO SCH (09:30)
[2018-03-26] MEDS: Pantoprazole 40 mg EC Tab PO SCH ×2 (09:30→16:42)
[2018-03-26] MEDS: Multivitamin w/ Minerals Tab PO SCH (09:31)
[2018-03-26] MEDS: Magnesium Hydroxide (MOM) 30 mL UDC PO PRN (10:26)
[2018-03-26] MEDS ORDERED: Potassium Chloride 20 mEq ER Tab PO ONE (19:24)
--- NOTE | 2018-03-26 19:46 | Internal Medicine Prog Note ---
Internal Medicine Subjective - Subjective Service Date: 03/26/18 Patient seen and examined:: without staff Patient is:: awake, verbal, eyes closed, in bed, agitated, confused Per staff patient has:: no adverse event Internal Medicine Objective - Results Result Diagrams: 03/26/18 04:55 03/26/18 04:55 Recent Labs: Laboratory Last Values WBC 8.2 Th/cmm (4.8-10.8) 03/26/18 04:55 RBC 3.78 Mil/cmm (3.80-5.80) L 03/26/18 04:55 Hgb 11.8 gm/dL (12-16) L 03/26/18 04:55 Hct 35.4 % (41.0-60) L 03/26/18 04:55 MCV 93.8 fl (80-99) 03/26/18 04:55 MCH 31.3 pg (27.0-31.0) H 03/26/18 04:55 MCHC Differential 33.4 pg (28.0-36.0) 03/26/18 04:55 RDW 14.8 % (11.5-20.0) 03/26/18 04:55 Plt Count 256 Th/cmm (150-400) 03/26/18 04:55 MPV 7.2 fl 03/26/18 04:55 Neutrophils % 79.1 % (40.0-80.0) 03/26/18 04:55 Lymphocytes % 10.5 % (20.0-50.0) L 03/26/18 04:55 Monocytes % 7.8 % (2.0-10.0) 03/26/18 04:55 Eosinophils % 1.9 % (0.0-5.0) 03/26/18 04:55 Basophils % 0.7 % (0.0-2.0) 03/26/18 04:55 Specimen Source ARTERIAL 03/24/18 22:28 Sample Site Right Radial 03/24/18 22:28 pH 7.38 (7.35-7.45) 03/24/18 22:28 pCO2 45.0 mmHg (35.0-45.0) 03/24/18 22:28 pO2 159.0 mmHg (80.0-100.0) H 03/24/18 22:28 HCO3 25.8 mEq/L (20.0-26.0) 03/24/18 22:28 Base Excess 1.1 mEq/L (-3.0-3.0) 03/24/18 22:28 O2 Saturation 99.0 % (92.0-100.0) 03/24/18 22:28 Hayder Test Positive 03/24/18 22:28 Vent Rate N/A 03/24/18 22:28 Inspired O2 100 03/24/18 22:28 Tidal Volume N/A 03/24/18 22:28 PEEP N/A 03/24/18 22:28 Pressure (ins/psv/peep) N/A 03/24/18 22:28 Critical Value MM,PROBATION AGENT 03/24/18 22:28 Sodium 142 mEq/L (136-145) 03/26/18 04:55 Potassium 3.2 mEq/L (3.5-5.1) L 03/26/18 04:55 Chloride 111 mEq/L (98-107) H 03/26/18 04:55 Carbon Dioxide 25.3 mEq/L (21.0-31.0) 03/26/18 04:55 Anion Gap 8.9 (7.0-16.0) 03/26/18 04:55 BUN 10 mg/dL (7-25) 03/26/18 04:55 Creatinine 0.7 mg/dL (0.7-1.3) 03/26/18 04:55 Est GFR ( Amer) > 60.0 ml/min (>90) 03/26/18 04:55 Est GFR (Non-Af Amer) > 60.0 ml/min 03/26/18 04:55 BUN/Creatinine Ratio 14.3 03/26/18 04:55 Glucose 120 mg/dL (70-105) H 03/26/18 04:55 POC Glucose 137 MG/DL (70 - 105) H 03/23/18 22:22 Calcium 8.3 mg/dL (8.6-10.3) L 03/26/18 04:55 Total Bilirubin 0.3 mg/dL (0.3-1.0) 03/24/18 06:00 AST 21 U/L (13-39) 03/24/18 06:00 ALT 20 U/L (7-52) 03/24/18 06:00 Alkaline Phosphatase 81 U/L (34-104) 03/24/18 06:00 Total Protein 6.4 gm/dL (6.0-8.3) 03/24/18 06:00 Albumin 3.4 gm/dL (4.2-5.5) L 03/24/18 06:00 Globulin 3.0 gm/dL 03/24/18 06:00 Albumin/Globulin Ratio 1.1 (1.0-1.8) 03/24/18 06:00 - Physical Exam Vitals and I&O: Vital Signs Temp 99.1 F 03/26/18 15:13 Pulse 98 03/26/18 15:13 Resp 18 03/26/18 15:13 BP 114/70 03/26/18 15:13 Pulse Ox 93 03/26/18 15:13 Intake & Output 03/26/18 03/26/18 03/27/18 06:59 18:59 06:59 Intake Total 460 Output Total 1 Balance 459 Weight (lbs) 61.689 kg Intake: Intake, IV Amount 100 Piperacillin Sodium/ 100 Tazobact 3.375 gm In Sodium Chloride 0.9% 50 ml @ 100 mls/hr IV Q8HR [facility] Rx#:[id number] Oral 300 Other 60 Output: Stool 1 Other: # Voids 3 # Bowel Movements 1 Stool Characteristics Hard Weight Source Bedscale Active Medications: Current Medications Albuterol/Ipratropium (Duoneb Neb) 3 ml HHN Q2H PRN PRN Reason: Wheezing Stop: 05/23/18 08:18 Last Admin: 03/26/18 03:00 Dose: 3 ml Amiodarone HCl (Cordarone) 200 mg PO DAILY [facility] Stop: 05/23/18 08:59 Last Admin: 03/26/18 09:30 Dose: 200 mg Cyanocobalamin (Vitamin B12) 1,000 mcg PO DAILY [facility] Stop: 05/23/18 08:59 Last Admin: 03/26/18 09:31 Dose: Not Given Diltiazem HCl (Cardizem) 60 mg PO DAILY [facility] Stop: 05/23/18 08:59 Last Admin: 03/26/18 09:30 Dose: 60 mg Divalproex Sodium (Depakote Dr) 500 mg PO BID [facility]; Protocol Stop: 05/23/18 08:59 Last Admin: 03/26/18 16:43 Dose: 500 mg Docusate Sodium (Colace) 100 mg PO BID PRN PRN Reason: CONSTIPATION Stop: 05/23/18 08:18 Last Admin: 03/25/18 20:50 Dose: 100 mg Gabapentin (Neurontin) 300 mg PO TID [facility] Stop: 05/23/18 08:59 Last Admin: 03/26/18 14:37 Dose: Not Given Dextrose/Sodium Chloride (D5-0.9%Ns) 1,000 mls @ 80 mls/hr IV .[id number] [facility] Stop: 05/24/18 00:29 Last Admin: 03/25/18 20:51 Dose: 80 mls/hr Piperacillin Sod/Tazobactam (Sod 3.375 gm/ Sodium Chloride) 50 mls @ 100 mls/ hr IV Q8HR [facility] Stop: 05/23/18 20:59 Last Admin: 03/26/18 12:13 Dose: 100 mls/hr Lorazepam (Ativan) 2 mg IVP Q6H PRN; Protocol PRN Reason: Agitation Stop: 05/23/18 08:20 Last Admin: 03/25/18 16:59 Dose: 2 mg Magnesium Hydroxide (Milk Of Magnesia) 30 ml PO DAILY PRN PRN Reason: IF COLACE INEFFECTIVE Stop: 05/24/18 09:32 Last Admin: 03/26/18 10:26 Dose: 30 ml Mirtazapine (Remeron) 15 mg PO HS [facility]; Protocol Stop: 05/23/18 20:59 Last Admin: 03/25/18 20:50 Dose: 15 mg Olanzapine (Zyprexa) 5 mg PO DAILY [facility]; Protocol Stop: 05/23/18 08:59 Last Admin: 03/26/18 09:31 Dose: 5 mg Olanzapine (Zyprexa) 10 mg PO HS [facility]; Protocol Stop: 05/23/18 20:59 Last Admin: 03/25/18 20:50 Dose: 10 mg Ondansetron HCl (Zofran) 4 mg IV Q4H PRN PRN Reason: Nausea / Vomiting Stop: 05/22/18 23:06 Last Admin: 03/25/18 00:34 Dose: 4 mg Oxybutynin Chloride (Ditropan) 5 mg PO HS [facility] Stop: 05/23/18 20:59 Last Admin: 03/25/18 21:00 Dose: 5 mg Pantoprazole Sodium (Protonix) 40 mg PO BIDAC [facility] Stop: 05/23/18 08:59 Last Admin: 03/26/18 16:42 Dose: 40 mg Sodium Chloride (Nacl Tab) 1 gm PO BID [facility] Stop: 05/23/18 08:59 Last Admin: 03/26/18 16:43 Dose: 1 gm Sodium Phosphate (Fleet Enema) 135 ml RC DAILY PRN PRN Reason: IF MOM INEFFECTIVE Stop: 05/24/18 09:34 Last Admin: 03/26/18 03:15 Dose: 135 ml Tamsulosin HCl (Flomax) 0.4 mg PO DAILY [facility] Stop: 05/23/18 08:59 Last Admin: 03/26/18 09:31 Dose: 0.4 mg General: weak, lethargic, congested, thin HEENT: NC/AT, PERRLA, EOMI, anicteric sclerae, throat clear Neck: Supple, No JVD, No thyromegaly, No LAD Lungs: congested, wheezing, ronchi Cardiovascular: RRR, Normal S1, Normal S2 Abdomen: soft Extremities: clear Neurological: no change Internal Medicine Assmt/Plan - Assessment Assessment: Hypokalemia: supplemented today. ALOC: multifactorial; observe closely. s/p UGIB? H/H stable. Psychosis: monitoring closely and adjust meds as needed. PNA: due to aspiration? IVPB ABX COPD: RT protocol. H/O A. Fib: rate controlled. Noncompliance: education provided. DVT prophylaxis.
[2018-03-27] MEDS: D5-0.9%NS 1,000 ML IV SCH ×2 (05:05→16:07)
[2018-03-27] MEDS: Pantoprazole 40 mg EC Tab PO SCH ×2 (06:45→16:05)
[2018-03-27] MEDS ORDERED: Probiotic Screen MC PRN (08:30)
[2018-03-27] MEDS: Lactobacillus Rhamnosus GG 15 Billion CFU CAP.SPRINK PO SCH (09:13)
[2018-03-27] MEDS: Diltiazem 30 mg Tab PO SCH (09:13)
[2018-03-27] MEDS: Multivitamin w/ Minerals Tab PO SCH (09:13)
--- NOTE | 2018-03-27 11:30 | GI Progress Note ---
Subjective - Review of Systems Service Date: 03/27/18 Subjective: REFUGIO ORAL DIET. NO N/V OR GI BLEEDING. NO ABD PAIN. Objective - Results Result Diagrams: 03/26/18 04:55 03/26/18 04:55 Recent Labs: Laboratory Last Values WBC 8.2 Th/cmm (4.8-10.8) 03/26/18 04:55 RBC 3.78 Mil/cmm (3.80-5.80) L 03/26/18 04:55 Hgb 11.8 gm/dL (12-16) L 03/26/18 04:55 Hct 35.4 % (41.0-60) L 03/26/18 04:55 MCV 93.8 fl (80-99) 03/26/18 04:55 MCH 31.3 pg (27.0-31.0) H 03/26/18 04:55 MCHC Differential 33.4 pg (28.0-36.0) 03/26/18 04:55 RDW 14.8 % (11.5-20.0) 03/26/18 04:55 Plt Count 256 Th/cmm (150-400) 03/26/18 04:55 MPV 7.2 fl 03/26/18 04:55 Neutrophils % 79.1 % (40.0-80.0) 03/26/18 04:55 Lymphocytes % 10.5 % (20.0-50.0) L 03/26/18 04:55 Monocytes % 7.8 % (2.0-10.0) 03/26/18 04:55 Eosinophils % 1.9 % (0.0-5.0) 03/26/18 04:55 Basophils % 0.7 % (0.0-2.0) 03/26/18 04:55 Specimen Source ARTERIAL 03/24/18 22:28 Sample Site Right Radial 03/24/18 22:28 pH 7.38 (7.35-7.45) 03/24/18 22:28 pCO2 45.0 mmHg (35.0-45.0) 03/24/18 22:28 pO2 159.0 mmHg (80.0-100.0) H 03/24/18 22:28 HCO3 25.8 mEq/L (20.0-26.0) 03/24/18 22:28 Base Excess 1.1 mEq/L (-3.0-3.0) 03/24/18 22:28 O2 Saturation 99.0 % (92.0-100.0) 03/24/18 22:28 Hayder Test Positive 03/24/18 22:28 Vent Rate N/A 03/24/18 22:28 Inspired O2 100 03/24/18 22:28 Tidal Volume N/A 03/24/18 22:28 PEEP N/A 03/24/18 22:28 Pressure (ins/psv/peep) N/A 03/24/18 22:28 Critical Value MM,DIRECTOR OF RESTAURANT 03/24/18 22:28 Sodium 142 mEq/L (136-145) 03/26/18 04:55 Potassium 3.2 mEq/L (3.5-5.1) L 03/26/18 04:55 Chloride 111 mEq/L (98-107) H 03/26/18 04:55 Carbon Dioxide 25.3 mEq/L (21.0-31.0) 03/26/18 04:55 Anion Gap 8.9 (7.0-16.0) 03/26/18 04:55 BUN 10 mg/dL (7-25) 03/26/18 04:55 Creatinine 0.7 mg/dL (0.7-1.3) 03/26/18 04:55 Est GFR ( Amer) > 60.0 ml/min (>90) 03/26/18 04:55 Est GFR (Non-Af Amer) > 60.0 ml/min 03/26/18 04:55 BUN/Creatinine Ratio 14.3 03/26/18 04:55 Glucose 120 mg/dL (70-105) H 03/26/18 04:55 POC Glucose 137 MG/DL (70 - 105) H 03/23/18 22:22 Calcium 8.3 mg/dL (8.6-10.3) L 03/26/18 04:55 Total Bilirubin 0.3 mg/dL (0.3-1.0) 03/24/18 06:00 AST 21 U/L (13-39) 03/24/18 06:00 ALT 20 U/L (7-52) 03/24/18 06:00 Alkaline Phosphatase 81 U/L (34-104) 03/24/18 06:00 Total Protein 6.4 gm/dL (6.0-8.3) 03/24/18 06:00 Albumin 3.4 gm/dL (4.2-5.5) L 03/24/18 06:00 Globulin 3.0 gm/dL 03/24/18 06:00 Albumin/Globulin Ratio 1.1 (1.0-1.8) 03/24/18 06:00 - Physical Exam Vitals and I&O: Vital Signs Temp 97.9 F 03/27/18 08:00 Pulse 90 03/27/18 09:13 Resp 18 03/27/18 08:00 BP 123/69 03/27/18 08:00 Pulse Ox 97 03/27/18 08:00 Intake & Output 03/26/18 03/27/18 03/27/18 18:59 06:59 18:59 Intake Total 1650 1020 Output Total 2 Balance 1650 1018 Weight (lbs) 61.689 kg 61.689 kg Intake: Intake, IV Amount 1050 D5-0.9%Ns 1,000 ml @ 80 1000 mls/hr IV .[id number] [facility] Rx #:[id number] Piperacillin Sodium/ 50 Tazobact 3.375 gm In Sodium Chloride 0.9% 50 ml @ 100 mls/hr IV Q8HR [facility] Rx#:[id number] Oral 600 1000 Other 20 Output: Stool 2 Other: # Voids 4 4 # Bowel Movements 1 2 Stool Characteristics Hard Soft Soft Weight Source Bedscale Bedscale Active Medications: Current Medications Albuterol/Ipratropium (Duoneb Neb) 3 ml HHN Q2H PRN PRN Reason: Wheezing Stop: 05/23/18 08:18 Last Admin: 03/26/18 03:00 Dose: 3 ml Amiodarone HCl (Cordarone) 200 mg PO DAILY [facility] Stop: 05/23/18 08:59 Last Admin: 03/27/18 09:13 Dose: 200 mg Cyanocobalamin (Vitamin B12) 1,000 mcg PO DAILY [facility] Stop: 05/23/18 08:59 Last Admin: 03/27/18 09:13 Dose: 1,000 mcg Diltiazem HCl (Cardizem) 60 mg PO DAILY [facility] Stop: 05/23/18 08:59 Last Admin: 03/27/18 09:13 Dose: 60 mg Divalproex Sodium (Depakote Dr) 500 mg PO BID [facility]; Protocol Stop: 05/23/18 08:59 Last Admin: 03/27/18 09:13 Dose: 500 mg Docusate Sodium (Colace) 100 mg PO BID PRN PRN Reason: CONSTIPATION Stop: 05/23/18 08:18 Last Admin: 03/26/18 21:22 Dose: 100 mg Gabapentin (Neurontin) 300 mg PO TID [facility] Stop: 05/23/18 08:59 Last Admin: 03/27/18 09:13 Dose: 300 mg Dextrose/Sodium Chloride (D5-0.9%Ns) 1,000 mls @ 80 mls/hr IV .[id number] [facility] Stop: 05/24/18 00:29 Last Admin: 03/27/18 05:05 Dose: 80 mls/hr Piperacillin Sod/Tazobactam (Sod 3.375 gm/ Sodium Chloride) 50 mls @ 100 mls/ hr IV Q8HR [facility] Stop: 05/23/18 20:59 Last Admin: 03/27/18 04:56 Dose: 100 mls/hr Lactobacillus Rhamnosus (Culturelle 15b) 1 each PO DAILY [facility] Stop: 05/26/18 08:59 Last Admin: 03/27/18 09:13 Dose: 1 each Lorazepam (Ativan) 2 mg IVP Q6H PRN; Protocol PRN Reason: Agitation Stop: 05/23/18 08:20 Last Admin: 03/25/18 16:59 Dose: 2 mg Magnesium Hydroxide (Milk Of Magnesia) 30 ml PO DAILY PRN PRN Reason: IF COLACE INEFFECTIVE Stop: 05/24/18 09:32 Last Admin: 03/26/18 10:26 Dose: 30 ml Mirtazapine (Remeron) 15 mg PO HS [facility]; Protocol Stop: 05/23/18 20:59 Last Admin: 03/26/18 21:23 Dose: 15 mg Miscellaneous (Probiotic Screen) 1 ea MC PRN PRN PRN Reason: PROTOCOL Stop: 05/26/18 08:29 Olanzapine (Zyprexa) 5 mg PO DAILY [facility]; Protocol Stop: 05/23/18 08:59 Last Admin: 03/27/18 09:13 Dose: 5 mg Olanzapine (Zyprexa) 10 mg PO HS [facility]; Protocol Stop: 05/23/18 20:59 Last Admin: 03/26/18 21:22 Dose: 10 mg Ondansetron HCl (Zofran) 4 mg IV Q4H PRN PRN Reason: Nausea / Vomiting Stop: 05/22/18 23:06 Last Admin: 03/25/18 00:34 Dose: 4 mg Oxybutynin Chloride (Ditropan) 5 mg PO HS [facility] Stop: 05/23/18 20:59 Last Admin: 03/26/18 21:23 Dose: 5 mg Pantoprazole Sodium (Protonix) 40 mg PO BIDAC [facility] Stop: 05/23/18 08:59 Last Admin: 03/27/18 06:45 Dose: 40 mg Sodium Chloride (Nacl Tab) 1 gm PO BID [facility] Stop: 05/23/18 08:59 Last Admin: 03/27/18 09:12 Dose: 1 gm Sodium Phosphate (Fleet Enema) 135 ml RC DAILY PRN PRN Reason: IF MOM INEFFECTIVE Stop: 05/24/18 09:34 Last Admin: 03/26/18 03:15 Dose: 135 ml Tamsulosin HCl (Flomax) 0.4 mg PO DAILY [facility] Stop: 05/23/18 08:59 Last Admin: 03/27/18 09:13 Dose: 0.4 mg General: Alert, No acute distress HEENT: Atraumatic Neck: Supple Cardiovascular: Regular rate Lungs: Clear to auscultation Abdomen: Bowel sounds, Soft, no Tender Assessment/Plan - Assessment Assessment: IMPRESSION: 1. Concern for coffee ground emesis - LIKELY UGIB, NOW RESOLVED. 2. Dyspepsia 3. Psychosis 4. CONSTIPATION. RECS: - PPI BID - Can hold off on EGD, not emergent; UNABLE TO GET CONSENT. - ORAL DIET REFUGIO. - MONITOR HGB. - STOOL SOFTENERS.
--- NOTE | 2018-03-27 13:16 | Diagnostic Imaging Report ---
Chest x-ray single view History: Pneumonia Comparison: 03/24/2018 The heart is enlarged. No focal pulmonary parenchymal processes. No hilar or mediastinal abnormalities. Impression: No acute abnormalities.
[2018-03-28] MEDS: D5-0.9%NS 1,000 ML IV SCH ×2 (05:31→12:02)
[2018-03-28] MEDS: Lactobacillus Rhamnosus GG 15 Billion CFU CAP.SPRINK PO SCH (08:30)
[2018-03-28] MEDS: Pantoprazole 40 mg EC Tab PO SCH ×2 (08:31→16:01)
[2018-03-28] MEDS: Diltiazem 30 mg Tab PO SCH (08:31)
[2018-03-28] MEDS: Multivitamin w/ Minerals Tab PO SCH (08:31)
--- NOTE | 2018-03-28 08:47 | GI Progress Note ---
Subjective - Review of Systems Service Date: 03/28/18 Subjective: REFUGIO ORAL DIET. NO N/V OR GI BLEEDING. NO ABD PAIN. Objective - Results Result Diagrams: 03/26/18 04:55 03/26/18 04:55 Recent Labs: Laboratory Last Values WBC 8.2 Th/cmm (4.8-10.8) 03/26/18 04:55 RBC 3.78 Mil/cmm (3.80-5.80) L 03/26/18 04:55 Hgb 11.8 gm/dL (12-16) L 03/26/18 04:55 Hct 35.4 % (41.0-60) L 03/26/18 04:55 MCV 93.8 fl (80-99) 03/26/18 04:55 MCH 31.3 pg (27.0-31.0) H 03/26/18 04:55 MCHC Differential 33.4 pg (28.0-36.0) 03/26/18 04:55 RDW 14.8 % (11.5-20.0) 03/26/18 04:55 Plt Count 256 Th/cmm (150-400) 03/26/18 04:55 MPV 7.2 fl 03/26/18 04:55 Neutrophils % 79.1 % (40.0-80.0) 03/26/18 04:55 Lymphocytes % 10.5 % (20.0-50.0) L 03/26/18 04:55 Monocytes % 7.8 % (2.0-10.0) 03/26/18 04:55 Eosinophils % 1.9 % (0.0-5.0) 03/26/18 04:55 Basophils % 0.7 % (0.0-2.0) 03/26/18 04:55 Specimen Source ARTERIAL 03/24/18 22:28 Sample Site Right Radial 03/24/18 22:28 pH 7.38 (7.35-7.45) 03/24/18 22:28 pCO2 45.0 mmHg (35.0-45.0) 03/24/18 22:28 pO2 159.0 mmHg (80.0-100.0) H 03/24/18 22:28 HCO3 25.8 mEq/L (20.0-26.0) 03/24/18 22:28 Base Excess 1.1 mEq/L (-3.0-3.0) 03/24/18 22:28 O2 Saturation 99.0 % (92.0-100.0) 03/24/18 22:28 Hayder Test Positive 03/24/18 22:28 Vent Rate N/A 03/24/18 22:28 Inspired O2 100 03/24/18 22:28 Tidal Volume N/A 03/24/18 22:28 PEEP N/A 03/24/18 22:28 Pressure (ins/psv/peep) N/A 03/24/18 22:28 Critical Value MM,SCREENING NURSE 03/24/18 22:28 Sodium 142 mEq/L (136-145) 03/26/18 04:55 Potassium 3.2 mEq/L (3.5-5.1) L 03/26/18 04:55 Chloride 111 mEq/L (98-107) H 03/26/18 04:55 Carbon Dioxide 25.3 mEq/L (21.0-31.0) 03/26/18 04:55 Anion Gap 8.9 (7.0-16.0) 03/26/18 04:55 BUN 10 mg/dL (7-25) 03/26/18 04:55 Creatinine 0.7 mg/dL (0.7-1.3) 03/26/18 04:55 Est GFR ( Amer) > 60.0 ml/min (>90) 03/26/18 04:55 Est GFR (Non-Af Amer) > 60.0 ml/min 03/26/18 04:55 BUN/Creatinine Ratio 14.3 03/26/18 04:55 Glucose 120 mg/dL (70-105) H 03/26/18 04:55 POC Glucose 137 MG/DL (70 - 105) H 03/23/18 22:22 Calcium 8.3 mg/dL (8.6-10.3) L 03/26/18 04:55 Total Bilirubin 0.3 mg/dL (0.3-1.0) 03/24/18 06:00 AST 21 U/L (13-39) 03/24/18 06:00 ALT 20 U/L (7-52) 03/24/18 06:00 Alkaline Phosphatase 81 U/L (34-104) 03/24/18 06:00 Total Protein 6.4 gm/dL (6.0-8.3) 03/24/18 06:00 Albumin 3.4 gm/dL (4.2-5.5) L 03/24/18 06:00 Globulin 3.0 gm/dL 03/24/18 06:00 Albumin/Globulin Ratio 1.1 (1.0-1.8) 03/24/18 06:00 - Physical Exam Vitals and I&O: Vital Signs Temp 97.1 F 03/28/18 07:57 Pulse 88 03/28/18 08:31 Resp 18 03/28/18 07:57 BP 131/78 03/28/18 07:57 Pulse Ox 98 03/28/18 07:57 Intake & Output 03/27/18 03/28/18 03/28/18 18:59 06:59 18:59 Intake Total 1364.040 6069 100 Balance 2313.101 6775 100 Weight (lbs) 62.596 kg 61.779 kg Intake: Intake, IV Amount 228.518 8528 D5-0.9%Ns 1,000 ml @ 80 351.577 1275 mls/hr IV .[id number] [facility] Rx #:[id number] Piperacillin Sodium/ 50 50 Tazobact 3.375 gm In Sodium Chloride 0.9% 50 ml @ 100 mls/hr IV Q8HR [facility] Rx#:[id number] Oral 500 100 Other: # Voids 5 3 # Bowel Movements 2 Stool Characteristics Soft Soft Weight Source Bedscale Bedscale Active Medications: Current Medications Albuterol/Ipratropium (Duoneb Neb) 3 ml HHN Q2H PRN PRN Reason: Wheezing Stop: 05/23/18 08:18 Last Admin: 03/26/18 03:00 Dose: 3 ml Amiodarone HCl (Cordarone) 200 mg PO DAILY [facility] Stop: 05/23/18 08:59 Last Admin: 03/28/18 08:30 Dose: 200 mg Cyanocobalamin (Vitamin B12) 1,000 mcg PO DAILY [facility] Stop: 05/23/18 08:59 Last Admin: 03/28/18 08:31 Dose: 1,000 mcg Diltiazem HCl (Cardizem) 60 mg PO DAILY [facility] Stop: 05/23/18 08:59 Last Admin: 03/28/18 08:31 Dose: 60 mg Divalproex Sodium (Depakote Dr) 500 mg PO BID [facility]; Protocol Stop: 05/23/18 08:59 Last Admin: 03/28/18 08:31 Dose: 500 mg Docusate Sodium (Colace) 100 mg PO BID PRN PRN Reason: CONSTIPATION Stop: 05/23/18 08:18 Last Admin: 03/26/18 21:22 Dose: 100 mg Gabapentin (Neurontin) 300 mg PO TID [facility] Stop: 05/23/18 08:59 Last Admin: 03/28/18 08:31 Dose: 300 mg Dextrose/Sodium Chloride (D5-0.9%Ns) 1,000 mls @ 80 mls/hr IV .[id number] [facility] Stop: 05/24/18 00:29 Last Admin: 03/28/18 05:31 Dose: 80 mls/hr Piperacillin Sod/Tazobactam (Sod 3.375 gm/ Sodium Chloride) 50 mls @ 100 mls/ hr IV Q8HR [facility] Stop: 05/23/18 20:59 Last Admin: 03/28/18 05:28 Dose: 100 mls/hr Lactobacillus Rhamnosus (Culturelle 15b) 1 each PO DAILY [facility] Stop: 05/26/18 08:59 Last Admin: 03/28/18 08:30 Dose: 1 each Lorazepam (Ativan) 2 mg IVP Q6H PRN; Protocol PRN Reason: Agitation Stop: 05/23/18 08:20 Last Admin: 03/25/18 16:59 Dose: 2 mg Magnesium Hydroxide (Milk Of Magnesia) 30 ml PO DAILY PRN PRN Reason: IF COLACE INEFFECTIVE Stop: 05/24/18 09:32 Last Admin: 03/26/18 10:26 Dose: 30 ml Mirtazapine (Remeron) 15 mg PO HS [facility]; Protocol Stop: 05/23/18 20:59 Last Admin: 03/27/18 20:05 Dose: 15 mg Miscellaneous (Probiotic Screen) 1 ea MC PRN PRN PRN Reason: PROTOCOL Stop: 05/26/18 08:29 Olanzapine (Zyprexa) 5 mg PO DAILY [facility]; Protocol Stop: 05/23/18 08:59 Last Admin: 03/28/18 08:30 Dose: 5 mg Olanzapine (Zyprexa) 10 mg PO HS [facility]; Protocol Stop: 05/23/18 20:59 Last Admin: 03/27/18 20:05 Dose: 10 mg Ondansetron HCl (Zofran) 4 mg IV Q4H PRN PRN Reason: Nausea / Vomiting Stop: 05/22/18 23:06 Last Admin: 03/25/18 00:34 Dose: 4 mg Oxybutynin Chloride (Ditropan) 5 mg PO HS [facility] Stop: 05/23/18 20:59 Last Admin: 03/27/18 20:05 Dose: 5 mg Pantoprazole Sodium (Protonix) 40 mg PO BIDAC [facility] Stop: 05/23/18 08:59 Last Admin: 03/28/18 08:31 Dose: 40 mg Sodium Chloride (Nacl Tab) 1 gm PO BID [facility] Stop: 05/23/18 08:59 Last Admin: 03/28/18 08:30 Dose: 1 gm Sodium Phosphate (Fleet Enema) 135 ml RC DAILY PRN PRN Reason: IF MOM INEFFECTIVE Stop: 05/24/18 09:34 Last Admin: 03/26/18 03:15 Dose: 135 ml Tamsulosin HCl (Flomax) 0.4 mg PO DAILY [facility] Stop: 05/23/18 08:59 Last Admin: 03/28/18 08:31 Dose: 0.4 mg General: No acute distress HEENT: Atraumatic Neck: Supple Cardiovascular: Regular rate Lungs: Clear to auscultation Abdomen: Bowel sounds, Soft, no Tender Assessment/Plan - Assessment Assessment: IMPRESSION: 1. Concern for coffee ground emesis - LIKELY UGIB, NOW RESOLVED. 2. Dyspepsia 3. Psychosis 4. CONSTIPATION. RECS: - PPI BID - Can hold off on EGD, not emergent; UNABLE TO GET CONSENT. - ORAL DIET REFUGIO. - MONITOR HGB. - STOOL SOFTENERS. GI TATUM STABLE.
[2018-03-28 08:52] LABS: % EOSINOPHILS 1.5 % (0.0-5.0); % LYMPHOCYTES 13.8 % (20.0-50.0); % MONOCYTES 10.2 % (2.0-10.0); % NEUTROPHILS 74.5 % (40.0-80.0); EOSINOPHILE ABSOLUTE 0.2 Th/cmm (0.1-0.4); HEMATOCRIT 35.9 % (41.0-60); LYMPHOCYTE ABSOLUTE 1.4 Th/cmm (1.5-3.0); MEAN CELL VOLUME 94.2 fl (80-99); MEAN CORPUSCULAR HEMOGLOBIN 31.3 pg (27.0-31.0); MEAN CORPUSCULAR HGB CONC 33.3 pg (28.0-36.0); MEAN PLATELET VOLUME 7.8 fl; MONOCYTE ABSOLUTE 1.1 Th/cmm (0.3-1.0); NEUTROPHILE ABSOLUTE 7.6 Th/cmm (1.8-8.0); PLATELET COUNT 142 Th/cmm (150-400); RED BLOOD COUNT 3.82 Mil/cmm (3.80-5.80); WHITE BLOOD COUNT 10.3 Th/cmm (4.8-10.8)
[2018-03-28 09:17] LABS: ALB/GLOB RATIO 1.2 (1.0-1.8); ALBUMIN 3.3 gm/dL (4.2-5.5); ALKALINE PHOSPHATASE 66 U/L (34-104); ANION GAP 12.2 (7.0-16.0); BILIRUBIN,TOTAL 0.3 mg/dL (0.3-1.0); BUN - UREA NITROGEN 6 mg/dL (7-25); CALCIUM SERUM 8.4 mg/dL (8.6-10.3); CARBON DIOXIDE 21.3 mEq/L (21.0-31.0); CHLORIDE 108 mEq/L (98-107); CREATININE - SERUM 0.6 mg/dL (0.7-1.3); GFR AFRICAN-AMERICAN > 60.0 ml/min (>90); GFR NON AFRICAN-AMERICAN > 60.0 ml/min; GLUCOSE 161 mg/dL (70-105); POTASSIUM SERUM 3.5 mEq/L (3.5-5.1); SGOT 14 U/L (13-39); SGPT/ALT 17 U/L (7-52); SODIUM SERUM 138 mEq/L (136-145); TOTAL PROTEIN,SERUM 6.1 gm/dL (6.0-8.3)
--- NOTE | 2018-03-28 11:19 | Internal Medicine Prog Note ---
Internal Medicine Subjective - Subjective Service Date: 03/28/18 Patient seen and examined:: with staff Patient is:: awake, verbal, eyes closed, in bed, agitated, confused Per staff patient has:: no adverse event Internal Medicine Objective - Results Result Diagrams: 03/28/18 08:44 03/28/18 08:44 Recent Labs: Laboratory Last Values WBC 10.3 Th/cmm (4.8-10.8) 03/28/18 08:44 RBC 3.82 Mil/cmm (3.80-5.80) 03/28/18 08:44 Hgb 12.0 gm/dL (12-16) 03/28/18 08:44 Hct 35.9 % (41.0-60) L 03/28/18 08:44 MCV 94.2 fl (80-99) 03/28/18 08:44 MCH 31.3 pg (27.0-31.0) H 03/28/18 08:44 MCHC Differential 33.3 pg (28.0-36.0) 03/28/18 08:44 RDW 15.0 % (11.5-20.0) 03/28/18 08:44 Plt Count 142 Th/cmm (150-400) L 03/28/18 08:44 MPV 7.8 fl 03/28/18 08:44 Neutrophils % 74.5 % (40.0-80.0) 03/28/18 08:44 Lymphocytes % 13.8 % (20.0-50.0) L 03/28/18 08:44 Monocytes % 10.2 % (2.0-10.0) H 03/28/18 08:44 Eosinophils % 1.5 % (0.0-5.0) 03/28/18 08:44 Basophils % 0.0 % (0.0-2.0) 03/28/18 08:44 Specimen Source ARTERIAL 03/24/18 22:28 Sample Site Right Radial 03/24/18 22:28 pH 7.38 (7.35-7.45) 03/24/18 22:28 pCO2 45.0 mmHg (35.0-45.0) 03/24/18 22:28 pO2 159.0 mmHg (80.0-100.0) H 03/24/18 22:28 HCO3 25.8 mEq/L (20.0-26.0) 03/24/18 22:28 Base Excess 1.1 mEq/L (-3.0-3.0) 03/24/18 22:28 O2 Saturation 99.0 % (92.0-100.0) 03/24/18 22:28 Hayder Test Positive 03/24/18 22:28 Vent Rate N/A 03/24/18 22:28 Inspired O2 100 03/24/18 22:28 Tidal Volume N/A 03/24/18 22:28 PEEP N/A 03/24/18 22:28 Pressure (ins/psv/peep) N/A 03/24/18 22:28 Critical Value MM,TICKETER 03/24/18 22:28 Sodium 138 mEq/L (136-145) 03/28/18 08:44 Potassium 3.5 mEq/L (3.5-5.1) 03/28/18 08:44 Chloride 108 mEq/L (98-107) H 03/28/18 08:44 Carbon Dioxide 21.3 mEq/L (21.0-31.0) 03/28/18 08:44 Anion Gap 12.2 (7.0-16.0) 03/28/18 08:44 BUN 6 mg/dL (7-25) L 03/28/18 08:44 Creatinine 0.6 mg/dL (0.7-1.3) L 03/28/18 08:44 Est GFR ( Amer) > 60.0 ml/min (>90) 03/28/18 08:44 Est GFR (Non-Af Amer) > 60.0 ml/min 03/28/18 08:44 BUN/Creatinine Ratio 10.0 03/28/18 08:44 Glucose 161 mg/dL (70-105) H 03/28/18 08:44 POC Glucose 137 MG/DL (70 - 105) H 03/23/18 22:22 Calcium 8.4 mg/dL (8.6-10.3) L 03/28/18 08:44 Total Bilirubin 0.3 mg/dL (0.3-1.0) 03/28/18 08:44 AST 14 U/L (13-39) 03/28/18 08:44 ALT 17 U/L (7-52) 03/28/18 08:44 Alkaline Phosphatase 66 U/L (34-104) 03/28/18 08:44 Total Protein 6.1 gm/dL (6.0-8.3) 03/28/18 08:44 Albumin 3.3 gm/dL (4.2-5.5) L 03/28/18 08:44 Globulin 2.8 gm/dL 03/28/18 08:44 Albumin/Globulin Ratio 1.2 (1.0-1.8) 03/28/18 08:44 - Physical Exam Vitals and I&O: Vital Signs Temp 97.1 F 03/28/18 07:57 Pulse 88 03/28/18 08:31 Resp 18 03/28/18 08:00 BP 131/78 03/28/18 07:57 Pulse Ox 98 03/28/18 07:57 Intake & Output 03/27/18 03/28/18 03/28/18 18:59 06:59 18:59 Intake Total 2491.040 8851 100 Balance 1006.235 3289 100 Weight (lbs) 62.596 kg 61.779 kg Intake: Intake, IV Amount 781.014 1772 D5-0.9%Ns 1,000 ml @ 80 104.958 3562 mls/hr IV .[id number] [facility] Rx #:[id number] Piperacillin Sodium/ 50 50 Tazobact 3.375 gm In Sodium Chloride 0.9% 50 ml @ 100 mls/hr IV Q8HR [facility] Rx#:[id number] Oral 500 100 Other: # Voids 5 3 # Bowel Movements 2 Stool Characteristics Soft Soft Soft Weight Source Bedscale Bedscale Active Medications: Current Medications Albuterol/Ipratropium (Duoneb Neb) 3 ml HHN Q2H PRN PRN Reason: Wheezing Stop: 05/23/18 08:18 Last Admin: 03/26/18 03:00 Dose: 3 ml Amiodarone HCl (Cordarone) 200 mg PO DAILY [facility] Stop: 05/23/18 08:59 Last Admin: 03/28/18 08:30 Dose: 200 mg Cyanocobalamin (Vitamin B12) 1,000 mcg PO DAILY [facility] Stop: 05/23/18 08:59 Last Admin: 03/28/18 08:31 Dose: 1,000 mcg Diltiazem HCl (Cardizem) 60 mg PO DAILY [facility] Stop: 05/23/18 08:59 Last Admin: 03/28/18 08:31 Dose: 60 mg Divalproex Sodium (Depakote Dr) 500 mg PO BID [facility]; Protocol Stop: 05/23/18 08:59 Last Admin: 03/28/18 08:31 Dose: 500 mg Docusate Sodium (Colace) 100 mg PO BID PRN PRN Reason: CONSTIPATION Stop: 05/23/18 08:18 Last Admin: 03/26/18 21:22 Dose: 100 mg Gabapentin (Neurontin) 300 mg PO TID [facility] Stop: 05/23/18 08:59 Last Admin: 03/28/18 08:31 Dose: 300 mg Dextrose/Sodium Chloride (D5-0.9%Ns) 1,000 mls @ 80 mls/hr IV .[id number] [facility] Stop: 05/24/18 00:29 Last Admin: 03/28/18 05:31 Dose: 80 mls/hr Piperacillin Sod/Tazobactam (Sod 3.375 gm/ Sodium Chloride) 50 mls @ 100 mls/ hr IV Q8HR [facility] Stop: 05/23/18 20:59 Last Admin: 03/28/18 05:28 Dose: 100 mls/hr Lactobacillus Rhamnosus (Culturelle 15b) 1 each PO DAILY [facility] Stop: 05/26/18 08:59 Last Admin: 03/28/18 08:30 Dose: 1 each Lorazepam (Ativan) 2 mg IVP Q6H PRN; Protocol PRN Reason: Agitation Stop: 05/23/18 08:20 Last Admin: 03/25/18 16:59 Dose: 2 mg Magnesium Hydroxide (Milk Of Magnesia) 30 ml PO DAILY PRN PRN Reason: IF COLACE INEFFECTIVE Stop: 05/24/18 09:32 Last Admin: 03/26/18 10:26 Dose: 30 ml Mirtazapine (Remeron) 15 mg PO HS [facility]; Protocol Stop: 05/23/18 20:59 Last Admin: 03/27/18 20:05 Dose: 15 mg Miscellaneous (Probiotic Screen) 1 ea MC PRN PRN PRN Reason: PROTOCOL Stop: 05/26/18 08:29 Olanzapine (Zyprexa) 5 mg PO DAILY [facility]; Protocol Stop: 05/23/18 08:59 Last Admin: 03/28/18 08:30 Dose: 5 mg Olanzapine (Zyprexa) 10 mg PO HS [facility]; Protocol Stop: 05/23/18 20:59 Last Admin: 03/27/18 20:05 Dose: 10 mg Ondansetron HCl (Zofran) 4 mg IV Q4H PRN PRN Reason: Nausea / Vomiting Stop: 05/22/18 23:06 Last Admin: 03/25/18 00:34 Dose: 4 mg Oxybutynin Chloride (Ditropan) 5 mg PO HS [facility] Stop: 05/23/18 20:59 Last Admin: 03/27/18 20:05 Dose: 5 mg Pantoprazole Sodium (Protonix) 40 mg PO BIDAC [facility] Stop: 05/23/18 08:59 Last Admin: 03/28/18 08:31 Dose: 40 mg Sodium Chloride (Nacl Tab) 1 gm PO BID [facility] Stop: 05/23/18 08:59 Last Admin: 03/28/18 08:30 Dose: 1 gm Sodium Phosphate (Fleet Enema) 135 ml RC DAILY PRN PRN Reason: IF MOM INEFFECTIVE Stop: 05/24/18 09:34 Last Admin: 03/26/18 03:15 Dose: 135 ml Tamsulosin HCl (Flomax) 0.4 mg PO DAILY [facility] Stop: 05/23/18 08:59 Last Admin: 03/28/18 08:31 Dose: 0.4 mg General: weak, lethargic, congested, thin HEENT: NC/AT, PERRLA, EOMI, anicteric sclerae, throat clear Neck: Supple, No JVD, No thyromegaly, No LAD Lungs: congested, wheezing, ronchi Cardiovascular: RRR, Normal S1, Normal S2 Abdomen: soft Extremities: clear Neurological: no change Internal Medicine Assmt/Plan - Assessment Assessment: ALOC: multifactorial; observe closely. Hypokalemia: supplemented. s/p UGIB? H/H stable. Psychosis: monitoring closely and adjust meds as needed. PNA: due to aspiration? IVPB ABX COPD: RT protocol. H/O A. Fib: rate controlled. Noncompliance: education provided. DVT prophylaxis. Nutritional Asmnt/Malnutr-PDOC - Dietary Evaluation Malnutrition Findings (Please click <Entered> for more info): Nutritional Asmnt/Malnutrition Start: 03/27/18 10: 52 Text: Status: Complete Freq: Protocol: Document 03/27/18 10:52 LAUREN (Rec: 03/27/18 11:14 LAUREN [email or web address]) Nutritional Asmnt/Malnutrition Patient General Information Nutritional Screening Moderate Risk Diagnosis hematemesis Pertinent Medical Hx/Surgical Hx PNA, COPD, a fib, CAD, SC, BPH , UTI, sepsis, anxiety, depression, mild psychosis Subjective Information Pt seen sitting on bed having lunch, consumed almost 100%. Pt was not answering RD greeting. Per EMR, PO intake 100% Current Diet Order/ Nutrition Support mech soft chopped Pertinent Medications vit B12, D5-0.9%ns, colace, culturelle, remeron, protonix, piperacillin, nacl tab Pertinent Labs 03/26 K 3.2, Cl 111, glucose 120, Ca 8.3 Nutritional Hx/Data Height 1.75 m Height (Calculated Centimeters) 175.3 Current Weight (lbs) 61.689 kg Weight (Calculated Kilograms) 61.7 Weight (Calculated Grams) 65999.6 Blairs Body Weight 160 Body Mass Index (BMI) 20.0 GI Symptoms GI Symptoms None Last BM 03/27 x 2 Difficult in: None Skin Integrity/Comment: bruise reddened to right upper back Current %PO Good (75-100%) Estimated Nutritional Goals BEE in Kcals: Using Current wt Calories/Kcals/Kg 25-30 Kcals Calculated 2367-7635 Protein: Using Current wt Protein g/k Protein Calculated 62 Fluid: ml 1550-1860ml (1ml/kcal) Nutritional Problem 1. Problem Problem altered nutrition related labs Etiology electrolytes imbalance, endocrine dysfunction Signs/Symptoms: K 3.2, Cl 111, glucose 120, Ca 8.3 Malnutrition Alert Is there a minimum of two criteria No selected? Query Text:Check all the applicable criteria. A minimum of two criteria are recommended for diagnosis of either severe or non-severe malnutrition. Malnutrition Related to Morbid Obesity Malnutrition related to morbid obesity No Intervention/Recommendation Comments 1. Continue with mech soft chopped diet as ordered. 2. Monitor PO intake, wt, labs and skin integrity 3. F/U as low risk in 7 days, 04/03 Expected Outcomes/Goals Expected Outcomes/Goals 1. PO intake to meet at least 75% of nutritional needs. 2. Wt stability, skin to remain intact, labs to approach WNL.
[2018-03-29] MEDS: D5-0.9%NS 1,000 ML IV SCH ×2 (00:32→16:22)
[2018-03-29 05:19] LABS: % BASOPHILS 0.9 % (0.0-2.0); % LYMPHOCYTES 15.5 % (20.0-50.0); % MONOCYTES 13.1 % (2.0-10.0); % NEUTROPHILS 68.5 % (40.0-80.0); BASOPHILE ABSOLUTE 0.1 Th/cumm (0-0.2); EOSINOPHILE ABSOLUTE 0.2 Th/cmm (0.1-0.4); HEMATOCRIT 31.8 % (41.0-60); HEMOGLOBIN 10.8 gm/dL (12-16); LYMPHOCYTE ABSOLUTE 1.2 Th/cmm (1.5-3.0); MEAN CELL VOLUME 93.3 fl (80-99); MEAN CORPUSCULAR HEMOGLOBIN 31.7 pg (27.0-31.0); MEAN CORPUSCULAR HGB CONC 33.9 pg (28.0-36.0); MEAN PLATELET VOLUME 6.8 fl; NEUTROPHILE ABSOLUTE 5.1 Th/cmm (1.8-8.0); RED BLOOD COUNT 3.41 Mil/cmm (3.80-5.80); RED CELL DISTRIBUTION WIDTH 14.7 % (11.5-20.0); WHITE BLOOD COUNT 7.6 Th/cmm (4.8-10.8)
[2018-03-29 05:26] LABS: PLATELET COUNT 265 Th/cmm (150-400)
[2018-03-29 05:34] LABS: ANION GAP 8.7 (7.0-16.0); BUN - UREA NITROGEN 7 mg/dL (7-25); CALCIUM SERUM 8.6 mg/dL (8.6-10.3); CARBON DIOXIDE 26.9 mEq/L (21.0-31.0); CHLORIDE 108 mEq/L (98-107); CREATININE - SERUM 0.6 mg/dL (0.7-1.3); GFR AFRICAN-AMERICAN > 60.0 ml/min (>90); GFR NON AFRICAN-AMERICAN > 60.0 ml/min; GLUCOSE 87 mg/dL (70-105); POTASSIUM SERUM 3.6 mEq/L (3.5-5.1); SODIUM SERUM 140 mEq/L (136-145)
[2018-03-29] MEDS: Pantoprazole 40 mg EC Tab PO SCH ×2 (06:46→16:22)
--- NOTE | 2018-03-29 08:01 | GI Progress Note ---
Subjective - Review of Systems Service Date: 03/29/18 Subjective: REFUGIO ORAL DIET. NO N/V OR GI BLEEDING. NO ABD PAIN. Objective - Results Result Diagrams: 03/29/18 05:00 03/29/18 05:00 Recent Labs: Laboratory Last Values WBC 7.6 Th/cmm (4.8-10.8) 03/29/18 05:00 RBC 3.41 Mil/cmm (3.80-5.80) L 03/29/18 05:00 Hgb 10.8 gm/dL (12-16) L 03/29/18 05:00 Hct 31.8 % (41.0-60) L 03/29/18 05:00 MCV 93.3 fl (80-99) 03/29/18 05:00 MCH 31.7 pg (27.0-31.0) H 03/29/18 05:00 MCHC Differential 33.9 pg (28.0-36.0) 03/29/18 05:00 RDW 14.7 % (11.5-20.0) 03/29/18 05:00 Plt Count 265 Th/cmm (150-400) D 03/29/18 05:00 MPV 6.8 fl 03/29/18 05:00 Neutrophils % 68.5 % (40.0-80.0) 03/29/18 05:00 Lymphocytes % 15.5 % (20.0-50.0) L 03/29/18 05:00 Monocytes % 13.1 % (2.0-10.0) H 03/29/18 05:00 Eosinophils % 2.0 % (0.0-5.0) 03/29/18 05:00 Basophils % 0.9 % (0.0-2.0) 03/29/18 05:00 Specimen Source ARTERIAL 03/24/18 22:28 Sample Site Right Radial 03/24/18 22:28 pH 7.38 (7.35-7.45) 03/24/18 22:28 pCO2 45.0 mmHg (35.0-45.0) 03/24/18 22:28 pO2 159.0 mmHg (80.0-100.0) H 03/24/18 22:28 HCO3 25.8 mEq/L (20.0-26.0) 03/24/18 22:28 Base Excess 1.1 mEq/L (-3.0-3.0) 03/24/18 22:28 O2 Saturation 99.0 % (92.0-100.0) 03/24/18 22:28 Hayder Test Positive 03/24/18 22:28 Vent Rate N/A 03/24/18 22:28 Inspired O2 100 03/24/18 22:28 Tidal Volume N/A 03/24/18 22:28 PEEP N/A 03/24/18 22:28 Pressure (ins/psv/peep) N/A 03/24/18 22:28 Critical Value MM,OVEN HEATER 03/24/18 22:28 Sodium 140 mEq/L (136-145) 03/29/18 05:00 Potassium 3.6 mEq/L (3.5-5.1) 03/29/18 05:00 Chloride 108 mEq/L (98-107) H 03/29/18 05:00 Carbon Dioxide 26.9 mEq/L (21.0-31.0) 03/29/18 05:00 Anion Gap 8.7 (7.0-16.0) 03/29/18 05:00 BUN 7 mg/dL (7-25) 03/29/18 05:00 Creatinine 0.6 mg/dL (0.7-1.3) L 03/29/18 05:00 Est GFR ( Amer) > 60.0 ml/min (>90) 03/29/18 05:00 Est GFR (Non-Af Amer) > 60.0 ml/min 03/29/18 05:00 BUN/Creatinine Ratio 11.7 03/29/18 05:00 Glucose 87 mg/dL (70-105) 03/29/18 05:00 POC Glucose 137 MG/DL (70 - 105) H 03/23/18 22:22 Calcium 8.6 mg/dL (8.6-10.3) 03/29/18 05:00 Total Bilirubin 0.3 mg/dL (0.3-1.0) 03/28/18 08:44 AST 14 U/L (13-39) 03/28/18 08:44 ALT 17 U/L (7-52) 03/28/18 08:44 Alkaline Phosphatase 66 U/L (34-104) 03/28/18 08:44 Total Protein 6.1 gm/dL (6.0-8.3) 03/28/18 08:44 Albumin 3.3 gm/dL (4.2-5.5) L 03/28/18 08:44 Globulin 2.8 gm/dL 03/28/18 08:44 Albumin/Globulin Ratio 1.2 (1.0-1.8) 03/28/18 08:44 - Physical Exam Vitals and I&O: Vital Signs Temp 97.0 F 03/29/18 07:32 Pulse 78 03/29/18 07:32 Resp 18 03/29/18 07:32 BP 139/76 03/29/18 07:32 Pulse Ox 98 03/29/18 07:32 Intake & Output 03/28/18 03/29/18 03/29/18 18:59 06:59 18:59 Intake Total 3248.849 7761 Balance 5931.978 1384 Weight (lbs) 63.911 kg 63.616 kg Intake: Intake, IV Amount 149.888 9490 D5-0.9%Ns 1,000 ml @ 80 050.288 4100 mls/hr IV .[id number] [facility] Rx #:[id number] Piperacillin Sodium/ 50 100 Tazobact 3.375 gm In Sodium Chloride 0.9% 50 ml @ 100 mls/hr IV Q8HR [facility] Rx#:[id number] Oral 500 400 Other: # Voids 5 3 # Bowel Movements 2 2 Stool Characteristics Soft Soft Weight Source Bedscale Bedscale Active Medications: Current Medications Albuterol/Ipratropium (Duoneb Neb) 3 ml HHN Q2H PRN PRN Reason: Wheezing Stop: 05/23/18 08:18 Last Admin: 03/26/18 03:00 Dose: 3 ml Amiodarone HCl (Cordarone) 200 mg PO DAILY [facility] Stop: 05/23/18 08:59 Last Admin: 03/28/18 08:30 Dose: 200 mg Cyanocobalamin (Vitamin B12) 1,000 mcg PO DAILY [facility] Stop: 05/23/18 08:59 Last Admin: 03/28/18 08:31 Dose: 1,000 mcg Diltiazem HCl (Cardizem) 60 mg PO DAILY [facility] Stop: 05/23/18 08:59 Last Admin: 03/28/18 08:31 Dose: 60 mg Divalproex Sodium (Depakote Dr) 500 mg PO BID [facility]; Protocol Stop: 05/23/18 08:59 Last Admin: 03/28/18 16:01 Dose: 500 mg Docusate Sodium (Colace) 100 mg PO BID PRN PRN Reason: CONSTIPATION Stop: 05/23/18 08:18 Last Admin: 03/26/18 21:22 Dose: 100 mg Gabapentin (Neurontin) 300 mg PO TID [facility] Stop: 05/23/18 08:59 Last Admin: 03/28/18 20:23 Dose: 300 mg Dextrose/Sodium Chloride (D5-0.9%Ns) 1,000 mls @ 80 mls/hr IV .[id number] AMANDA Stop: 05/24/18 00:29 Last Admin: 03/29/18 00:32 Dose: 80 mls/hr Piperacillin Sod/Tazobactam (Sod 3.375 gm/ Sodium Chloride) 50 mls @ 100 mls/ hr IV Q8HR AMANDA Stop: 05/23/18 20:59 Last Infusion: 03/29/18 05:28 Dose: Infused Lactobacillus Rhamnosus (Culturelle 15b) 1 each PO DAILY AMANDA Stop: 05/26/18 08:59 Last Admin: 03/28/18 08:30 Dose: 1 each Lorazepam (Ativan) 2 mg IVP Q6H PRN; Protocol PRN Reason: Agitation Stop: 05/23/18 08:20 Last Admin: 03/25/18 16:59 Dose: 2 mg Magnesium Hydroxide (Milk Of Magnesia) 30 ml PO DAILY PRN PRN Reason: IF COLACE INEFFECTIVE Stop: 05/24/18 09:32 Last Admin: 03/26/18 10:26 Dose: 30 ml Mirtazapine (Remeron) 15 mg PO HS AMANDA; Protocol Stop: 05/23/18 20:59 Last Admin: 03/28/18 20:23 Dose: 15 mg Miscellaneous (Probiotic Screen) 1 ea MC PRN PRN PRN Reason: PROTOCOL Stop: 05/26/18 08:29 Olanzapine (Zyprexa) 5 mg PO DAILY AMANDA; Protocol Stop: 05/23/18 08:59 Last Admin: 03/28/18 08:30 Dose: 5 mg Olanzapine (Zyprexa) 10 mg PO HS AMANDA; Protocol Stop: 05/23/18 20:59 Last Admin: 03/28/18 20:24 Dose: 10 mg Ondansetron HCl (Zofran) 4 mg IV Q4H PRN PRN Reason: Nausea / Vomiting Stop: 05/22/18 23:06 Last Admin: 03/25/18 00:34 Dose: 4 mg Oxybutynin Chloride (Ditropan) 5 mg PO HS AMANDA Stop: 05/23/18 20:59 Last Admin: 03/28/18 20:23 Dose: 5 mg Pantoprazole Sodium (Protonix) 40 mg PO BIDAC AMANDA Stop: 05/23/18 08:59 Last Admin: 03/29/18 06:46 Dose: 40 mg Sodium Chloride (Nacl Tab) 1 gm PO BID AMANDA Stop: 05/23/18 08:59 Last Admin: 03/28/18 16:01 Dose: 1 gm Sodium Phosphate (Fleet Enema) 135 ml RC DAILY PRN PRN Reason: IF MOM INEFFECTIVE Stop: 05/24/18 09:34 Last Admin: 03/26/18 03:15 Dose: 135 ml Tamsulosin HCl (Flomax) 0.4 mg PO DAILY AMANDA Stop: 05/23/18 08:59 Last Admin: 03/28/18 08:31 Dose: 0.4 mg General: No acute distress HEENT: Atraumatic Neck: Supple Cardiovascular: Regular rate Lungs: Clear to auscultation Abdomen: Bowel sounds, Soft, no Tender Assessment/Plan - Assessment Assessment: IMPRESSION: 1. Concern for coffee ground emesis - LIKELY UGIB, NOW RESOLVED. 2. Dyspepsia 3. Psychosis 4. CONSTIPATION. RECS: - PPI BID - Can hold off on EGD, not emergent; UNABLE TO GET CONSENT. - ORAL DIET REFUGIO. - MONITOR HGB. - STOOL SOFTENERS. GI TATUM STABLE.
[2018-03-29] MEDS: Multivitamin w/ Minerals Tab PO SCH (09:26)
[2018-03-29] MEDS: Lactobacillus Rhamnosus GG 15 Billion CFU CAP.SPRINK PO SCH (09:26)
[2018-03-29] MEDS: Diltiazem 30 mg Tab PO SCH (09:26)
[2018-03-30] MEDS: D5-0.9%NS 1,000 ML IV SCH ×5 (06:18→21:39)
[2018-03-30] MEDS: Pantoprazole 40 mg EC Tab PO SCH ×2 (06:31→17:29)
--- NOTE | 2018-03-30 10:34 | Internal Medicine Prog Note ---
Internal Medicine Subjective - Subjective Service Date: 03/29/18 Patient seen and examined:: without staff Patient is:: awake, verbal, eyes closed, in bed, agitated, confused Per staff patient has:: no adverse event Internal Medicine Objective - Results Result Diagrams: 03/29/18 05:00 03/29/18 05:00 Recent Labs: Laboratory Last Values WBC 7.6 Th/cmm (4.8-10.8) 03/29/18 05:00 RBC 3.41 Mil/cmm (3.80-5.80) L 03/29/18 05:00 Hgb 10.8 gm/dL (12-16) L 03/29/18 05:00 Hct 31.8 % (41.0-60) L 03/29/18 05:00 MCV 93.3 fl (80-99) 03/29/18 05:00 MCH 31.7 pg (27.0-31.0) H 03/29/18 05:00 MCHC Differential 33.9 pg (28.0-36.0) 03/29/18 05:00 RDW 14.7 % (11.5-20.0) 03/29/18 05:00 Plt Count 265 Th/cmm (150-400) D 03/29/18 05:00 MPV 6.8 fl 03/29/18 05:00 Neutrophils % 68.5 % (40.0-80.0) 03/29/18 05:00 Lymphocytes % 15.5 % (20.0-50.0) L 03/29/18 05:00 Monocytes % 13.1 % (2.0-10.0) H 03/29/18 05:00 Eosinophils % 2.0 % (0.0-5.0) 03/29/18 05:00 Basophils % 0.9 % (0.0-2.0) 03/29/18 05:00 Specimen Source ARTERIAL 03/24/18 22:28 Sample Site Right Radial 03/24/18 22:28 pH 7.38 (7.35-7.45) 03/24/18 22:28 pCO2 45.0 mmHg (35.0-45.0) 03/24/18 22:28 pO2 159.0 mmHg (80.0-100.0) H 03/24/18 22:28 HCO3 25.8 mEq/L (20.0-26.0) 03/24/18 22:28 Base Excess 1.1 mEq/L (-3.0-3.0) 03/24/18 22:28 O2 Saturation 99.0 % (92.0-100.0) 03/24/18 22:28 Hayder Test Positive 03/24/18 22:28 Vent Rate N/A 03/24/18 22:28 Inspired O2 100 03/24/18 22:28 Tidal Volume N/A 03/24/18 22:28 PEEP N/A 03/24/18 22:28 Pressure (ins/psv/peep) N/A 03/24/18 22:28 Critical Value MM,INFORMATION DELIVERY ANALYST 03/24/18 22:28 Sodium 140 mEq/L (136-145) 03/29/18 05:00 Potassium 3.6 mEq/L (3.5-5.1) 03/29/18 05:00 Chloride 108 mEq/L (98-107) H 03/29/18 05:00 Carbon Dioxide 26.9 mEq/L (21.0-31.0) 03/29/18 05:00 Anion Gap 8.7 (7.0-16.0) 03/29/18 05:00 BUN 7 mg/dL (7-25) 03/29/18 05:00 Creatinine 0.6 mg/dL (0.7-1.3) L 03/29/18 05:00 Est GFR ( Amer) > 60.0 ml/min (>90) 03/29/18 05:00 Est GFR (Non-Af Amer) > 60.0 ml/min 03/29/18 05:00 BUN/Creatinine Ratio 11.7 03/29/18 05:00 Glucose 87 mg/dL (70-105) 03/29/18 05:00 POC Glucose 137 MG/DL (70 - 105) H 03/23/18 22:22 Calcium 8.6 mg/dL (8.6-10.3) 03/29/18 05:00 Total Bilirubin 0.3 mg/dL (0.3-1.0) 03/28/18 08:44 AST 14 U/L (13-39) 03/28/18 08:44 ALT 17 U/L (7-52) 03/28/18 08:44 Alkaline Phosphatase 66 U/L (34-104) 03/28/18 08:44 Total Protein 6.1 gm/dL (6.0-8.3) 03/28/18 08:44 Albumin 3.3 gm/dL (4.2-5.5) L 03/28/18 08:44 Globulin 2.8 gm/dL 03/28/18 08:44 Albumin/Globulin Ratio 1.2 (1.0-1.8) 03/28/18 08:44 - Physical Exam Vitals and I&O: Vital Signs Temp 96.7 F 03/30/18 08:09 Pulse 85 03/30/18 08:09 Resp 18 03/30/18 08:09 BP 141/82 03/30/18 08:09 Pulse Ox 93 03/30/18 08:09 Intake & Output 03/29/18 03/30/18 03/30/18 18:59 06:59 18:59 Intake Total 2750 1050 Balance 2750 1050 Weight (lbs) 64.183 kg Intake: Intake, IV Amount 1050 1050 D5-0.9%Ns 1,000 ml @ 80 1000 1000 mls/hr IV .[id number] [facility] Rx #:[id number] Piperacillin Sodium/ 50 50 Tazobact 3.375 gm In Sodium Chloride 0.9% 50 ml @ 100 mls/hr IV Q8HR [facility] Rx#:[id number] Oral 1700 Other: # Voids 4 # Bowel Movements 2 Stool Characteristics Soft Soft Liquid Brown Weight Source Bedscale Active Medications: Current Medications Albuterol/Ipratropium (Duoneb Neb) 3 ml HHN Q2H PRN PRN Reason: Wheezing Stop: 05/23/18 08:18 Last Admin: 03/26/18 03:00 Dose: 3 ml Amiodarone HCl (Cordarone) 200 mg PO DAILY [facility] Stop: 05/23/18 08:59 Last Admin: 03/29/18 09:26 Dose: 200 mg Cyanocobalamin (Vitamin B12) 1,000 mcg PO DAILY [facility] Stop: 05/23/18 08:59 Last Admin: 03/29/18 09:26 Dose: 1,000 mcg Diltiazem HCl (Cardizem) 60 mg PO DAILY [facility] Stop: 05/23/18 08:59 Last Admin: 03/29/18 09:26 Dose: 60 mg Divalproex Sodium (Depakote Dr) 500 mg PO BID [facility]; Protocol Stop: 05/23/18 08:59 Last Admin: 03/29/18 16:22 Dose: 500 mg Docusate Sodium (Colace) 100 mg PO BID PRN PRN Reason: CONSTIPATION Stop: 05/23/18 08:18 Last Admin: 03/26/18 21:22 Dose: 100 mg Gabapentin (Neurontin) 300 mg PO TID [facility] Stop: 05/23/18 08:59 Last Admin: 03/29/18 23:39 Dose: Not Given Dextrose/Sodium Chloride (D5-0.9%Ns) 1,000 mls @ 80 mls/hr IV .[id number] [facility] Stop: 05/24/18 00:29 Last Admin: 03/30/18 08:08 Dose: Not Given Piperacillin Sod/Tazobactam (Sod 3.375 gm/ Sodium Chloride) 50 mls @ 100 mls/ hr IV Q8HR [facility] Stop: 05/23/18 20:59 Last Admin: 03/30/18 04:42 Dose: 100 mls/hr Lactobacillus Rhamnosus (Culturelle 15b) 1 each PO DAILY [facility] Stop: 05/26/18 08:59 Last Admin: 03/29/18 09:26 Dose: 1 each Lorazepam (Ativan) 2 mg IVP Q6H PRN; Protocol PRN Reason: Agitation Stop: 05/23/18 08:20 Last Admin: 03/25/18 16:59 Dose: 2 mg Magnesium Hydroxide (Milk Of Magnesia) 30 ml PO DAILY PRN PRN Reason: IF COLACE INEFFECTIVE Stop: 05/24/18 09:32 Last Admin: 03/26/18 10:26 Dose: 30 ml Mirtazapine (Remeron) 15 mg PO HS [facility]; Protocol Stop: 05/23/18 20:59 Last Admin: 03/29/18 23:39 Dose: Not Given Miscellaneous (Probiotic Screen) 1 ea MC PRN PRN PRN Reason: PROTOCOL Stop: 05/26/18 08:29 Olanzapine (Zyprexa) 5 mg PO DAILY [facility]; Protocol Stop: 05/23/18 08:59 Last Admin: 03/29/18 09:27 Dose: 5 mg Olanzapine (Zyprexa) 10 mg PO HS [facility]; Protocol Stop: 05/23/18 20:59 Last Admin: 03/29/18 23:39 Dose: Not Given Ondansetron HCl (Zofran) 4 mg IV Q4H PRN PRN Reason: Nausea / Vomiting Stop: 05/22/18 23:06 Last Admin: 03/25/18 00:34 Dose: 4 mg Oxybutynin Chloride (Ditropan) 5 mg PO HS [facility] Stop: 05/23/18 20:59 Last Admin: 03/29/18 23:39 Dose: Not Given Pantoprazole Sodium (Protonix) 40 mg PO BIDAC [facility] Stop: 05/23/18 08:59 Last Admin: 03/30/18 06:31 Dose: Not Given Sodium Chloride (Nacl Tab) 1 gm PO BID [facility] Stop: 05/23/18 08:59 Last Admin: 03/29/18 16:22 Dose: 1 gm Sodium Phosphate (Fleet Enema) 135 ml RC DAILY PRN PRN Reason: IF MOM INEFFECTIVE Stop: 05/24/18 09:34 Last Admin: 03/26/18 03:15 Dose: 135 ml Tamsulosin HCl (Flomax) 0.4 mg PO DAILY [facility] Stop: 05/23/18 08:59 Last Admin: 03/29/18 09:26 Dose: 0.4 mg General: weak, lethargic, congested, thin HEENT: NC/AT, PERRLA, EOMI, anicteric sclerae, throat clear Neck: Supple, No JVD, No thyromegaly, No LAD Lungs: congested, wheezing, ronchi Cardiovascular: RRR, Normal S1, Normal S2 Abdomen: soft Extremities: clear Neurological: no change Internal Medicine Assmt/Plan - Assessment Assessment: PNA: due to aspiration? IVPB ABX ALOC: multifactorial; observe closely. Hypokalemia: supplemented. s/p UGIB? H/H stable. Psychosis: monitoring closely and adjust meds as needed. COPD: RT protocol. H/O A. Fib: rate controlled. Noncompliance: education provided. DVT prophylaxis. Nutritional Asmnt/Malnutr-PDOC - Dietary Evaluation Malnutrition Findings (Please click <Entered> for more info): Nutritional Asmnt/Malnutrition Start: 03/27/18 10: 52 Text: Status: Complete Freq: Protocol: Document 03/27/18 10:52 LCHENG (Rec: 03/27/18 11:14 [email or web address]) Nutritional Asmnt/Malnutrition Patient General Information Nutritional Screening Moderate Risk Diagnosis hematemesis Pertinent Medical Hx/Surgical Hx PNA, COPD, a fib, CAD, [place], BPH , UTI, sepsis, anxiety, depression, mild psychosis Subjective Information Pt seen sitting on bed having lunch, consumed almost 100%. Pt was not answering RD greeting. Per EMR, PO intake 100% Current Diet Order/ Nutrition Support [facility] soft chopped Pertinent Medications vit B12, D5-0.9%ns, colace, culturelle, remeron, protonix, piperacillin, nacl tab Pertinent Labs 03/26 K 3.2, Cl 111, glucose 120, Ca 8.3 Nutritional Hx/Data Height 1.75 m Height (Calculated Centimeters) 175.3 Current Weight (lbs) 61.689 kg Weight (Calculated Kilograms) 61.7 Weight (Calculated Grams) [address]37[address].6 [place] Body Weight 160 Body Mass Index (BMI) 20.0 GI Symptoms GI Symptoms None Last BM 03/27 x 2 Difficult in: None Skin Integrity/Comment: bruise reddened to right upper back Current %PO Good (75-100%) Estimated Nutritional Goals BEE in Kcals: Using Current wt Calories/Kcals/Kg 25-30 Kcals Calculated 7913-3588 Protein: Using Current wt Protein g/k Protein Calculated 62 Fluid: ml 1550-1860ml (1ml/kcal) Nutritional Problem 1. Problem Problem altered nutrition related labs Etiology electrolytes imbalance, endocrine dysfunction Signs/Symptoms: K 3.2, Cl 111, glucose 120, Ca 8.3 Malnutrition Alert Is there a minimum of two criteria No selected? Query Text:Check all the applicable criteria. A minimum of two criteria are recommended for diagnosis of either severe or non-severe malnutrition. Malnutrition Related to Morbid Obesity Malnutrition related to morbid obesity No Intervention/Recommendation Comments 1. Continue with [facility] soft chopped diet as ordered. 2. Monitor PO intake, wt, labs and skin integrity 3. F/U as low risk in 7 days, 04/03 Expected Outcomes/Goals Expected Outcomes/Goals 1. PO intake to meet at least 75% of nutritional needs. 2. Wt stability, skin to remain intact, labs to approach WNL.
--- NOTE | 2018-03-30 12:19 | GI Progress Note ---
Subjective - Review of Systems Service Date: 03/30/18 Subjective: REFUGIO ORAL DIET. NO N/V OR GI BLEEDING. NO ABD PAIN. Objective - Results Result Diagrams: 03/29/18 05:00 03/29/18 05:00 Recent Labs: Laboratory Last Values WBC 7.6 Th/cmm (4.8-10.8) 03/29/18 05:00 RBC 3.41 Mil/cmm (3.80-5.80) L 03/29/18 05:00 Hgb 10.8 gm/dL (12-16) L 03/29/18 05:00 Hct 31.8 % (41.0-60) L 03/29/18 05:00 MCV 93.3 fl (80-99) 03/29/18 05:00 MCH 31.7 pg (27.0-31.0) H 03/29/18 05:00 MCHC Differential 33.9 pg (28.0-36.0) 03/29/18 05:00 RDW 14.7 % (11.5-20.0) 03/29/18 05:00 Plt Count 265 Th/cmm (150-400) D 03/29/18 05:00 MPV 6.8 fl 03/29/18 05:00 Neutrophils % 68.5 % (40.0-80.0) 03/29/18 05:00 Lymphocytes % 15.5 % (20.0-50.0) L 03/29/18 05:00 Monocytes % 13.1 % (2.0-10.0) H 03/29/18 05:00 Eosinophils % 2.0 % (0.0-5.0) 03/29/18 05:00 Basophils % 0.9 % (0.0-2.0) 03/29/18 05:00 Specimen Source ARTERIAL 03/24/18 22:28 Sample Site Right Radial 03/24/18 22:28 pH 7.38 (7.35-7.45) 03/24/18 22:28 pCO2 45.0 mmHg (35.0-45.0) 03/24/18 22:28 pO2 159.0 mmHg (80.0-100.0) H 03/24/18 22:28 HCO3 25.8 mEq/L (20.0-26.0) 03/24/18 22:28 Base Excess 1.1 mEq/L (-3.0-3.0) 03/24/18 22:28 O2 Saturation 99.0 % (92.0-100.0) 03/24/18 22:28 Hayder Test Positive 03/24/18 22:28 Vent Rate N/A 03/24/18 22:28 Inspired O2 100 03/24/18 22:28 Tidal Volume N/A 03/24/18 22:28 PEEP N/A 03/24/18 22:28 Pressure (ins/psv/peep) N/A 03/24/18 22:28 Critical Value MM,DOWEL STICKER OPERATOR 03/24/18 22:28 Sodium 140 mEq/L (136-145) 03/29/18 05:00 Potassium 3.6 mEq/L (3.5-5.1) 03/29/18 05:00 Chloride 108 mEq/L (98-107) H 03/29/18 05:00 Carbon Dioxide 26.9 mEq/L (21.0-31.0) 03/29/18 05:00 Anion Gap 8.7 (7.0-16.0) 03/29/18 05:00 BUN 7 mg/dL (7-25) 03/29/18 05:00 Creatinine 0.6 mg/dL (0.7-1.3) L 03/29/18 05:00 Est GFR ( Amer) > 60.0 ml/min (>90) 03/29/18 05:00 Est GFR (Non-Af Amer) > 60.0 ml/min 03/29/18 05:00 BUN/Creatinine Ratio 11.7 03/29/18 05:00 Glucose 87 mg/dL (70-105) 03/29/18 05:00 POC Glucose 137 MG/DL (70 - 105) H 03/23/18 22:22 Calcium 8.6 mg/dL (8.6-10.3) 03/29/18 05:00 Total Bilirubin 0.3 mg/dL (0.3-1.0) 03/28/18 08:44 AST 14 U/L (13-39) 03/28/18 08:44 ALT 17 U/L (7-52) 03/28/18 08:44 Alkaline Phosphatase 66 U/L (34-104) 03/28/18 08:44 Total Protein 6.1 gm/dL (6.0-8.3) 03/28/18 08:44 Albumin 3.3 gm/dL (4.2-5.5) L 03/28/18 08:44 Globulin 2.8 gm/dL 03/28/18 08:44 Albumin/Globulin Ratio 1.2 (1.0-1.8) 03/28/18 08:44 - Physical Exam Vitals and I&O: Vital Signs Temp 96.9 F 03/30/18 11:50 Pulse 82 03/30/18 11:50 Resp 18 03/30/18 11:50 BP 139/85 03/30/18 11:50 Pulse Ox 95 03/30/18 11:50 Intake & Output 03/29/18 03/30/18 03/30/18 18:59 06:59 18:59 Intake Total 2750 1050 Balance 2750 1050 Weight (lbs) 64.183 kg Intake: Intake, IV Amount 1050 1050 D5-0.9%Ns 1,000 ml @ 80 1000 1000 mls/hr IV .[id number] [facility] Rx #:[id number] Piperacillin Sodium/ 50 50 Tazobact 3.375 gm In Sodium Chloride 0.9% 50 ml @ 100 mls/hr IV Q8HR [facility] Rx#:[id number] Oral 1700 Other: # Voids 4 # Bowel Movements 2 Stool Characteristics Soft Soft Liquid Brown Weight Source Bedscale Active Medications: Current Medications Albuterol/Ipratropium (Duoneb Neb) 3 ml HHN Q2H PRN PRN Reason: Wheezing Stop: 05/23/18 08:18 Last Admin: 03/26/18 03:00 Dose: 3 ml Amiodarone HCl (Cordarone) 200 mg PO DAILY [facility] Stop: 05/23/18 08:59 Last Admin: 03/29/18 09:26 Dose: 200 mg Cyanocobalamin (Vitamin B12) 1,000 mcg PO DAILY [facility] Stop: 05/23/18 08:59 Last Admin: 03/29/18 09:26 Dose: 1,000 mcg Diltiazem HCl (Cardizem) 60 mg PO DAILY [facility] Stop: 05/23/18 08:59 Last Admin: 03/29/18 09:26 Dose: 60 mg Divalproex Sodium (Depakote Dr) 500 mg PO BID [facility]; Protocol Stop: 05/23/18 08:59 Last Admin: 03/29/18 16:22 Dose: 500 mg Docusate Sodium (Colace) 100 mg PO BID PRN PRN Reason: CONSTIPATION Stop: 05/23/18 08:18 Last Admin: 03/26/18 21:22 Dose: 100 mg Gabapentin (Neurontin) 300 mg PO TID [facility] Stop: 05/23/18 08:59 Last Admin: 03/29/18 23:39 Dose: Not Given Dextrose/Sodium Chloride (D5-0.9%Ns) 1,000 mls @ 80 mls/hr IV .[id number] [facility] Stop: 05/24/18 00:29 Last Admin: 03/30/18 08:08 Dose: Not Given Piperacillin Sod/Tazobactam (Sod 3.375 gm/ Sodium Chloride) 50 mls @ 100 mls/ hr IV Q8HR [facility] Stop: 05/23/18 20:59 Last Admin: 03/30/18 04:42 Dose: 100 mls/hr Lactobacillus Rhamnosus (Culturelle 15b) 1 each PO DAILY [facility] Stop: 05/26/18 08:59 Last Admin: 03/29/18 09:26 Dose: 1 each Lorazepam (Ativan) 2 mg IVP Q6H PRN; Protocol PRN Reason: Agitation Stop: 05/23/18 08:20 Last Admin: 03/25/18 16:59 Dose: 2 mg Magnesium Hydroxide (Milk Of Magnesia) 30 ml PO DAILY PRN PRN Reason: IF COLACE INEFFECTIVE Stop: 05/24/18 09:32 Last Admin: 03/26/18 10:26 Dose: 30 ml Mirtazapine (Remeron) 15 mg PO HS [facility]; Protocol Stop: 05/23/18 20:59 Last Admin: 03/29/18 23:39 Dose: Not Given Miscellaneous (Probiotic Screen) 1 ea MC PRN PRN PRN Reason: PROTOCOL Stop: 05/26/18 08:29 Olanzapine (Zyprexa) 5 mg PO DAILY [facility]; Protocol Stop: 05/23/18 08:59 Last Admin: 03/29/18 09:27 Dose: 5 mg Olanzapine (Zyprexa) 10 mg PO HS [facility]; Protocol Stop: 05/23/18 20:59 Last Admin: 03/29/18 23:39 Dose: Not Given Ondansetron HCl (Zofran) 4 mg IV Q4H PRN PRN Reason: Nausea / Vomiting Stop: 05/22/18 23:06 Last Admin: 03/25/18 00:34 Dose: 4 mg Oxybutynin Chloride (Ditropan) 5 mg PO HS [facility] Stop: 05/23/18 20:59 Last Admin: 03/29/18 23:39 Dose: Not Given Pantoprazole Sodium (Protonix) 40 mg PO BIDAC [facility] Stop: 05/23/18 08:59 Last Admin: 03/30/18 06:31 Dose: Not Given Sodium Chloride (Nacl Tab) 1 gm PO BID [facility] Stop: 05/23/18 08:59 Last Admin: 03/29/18 16:22 Dose: 1 gm Sodium Phosphate (Fleet Enema) 135 ml RC DAILY PRN PRN Reason: IF MOM INEFFECTIVE Stop: 05/24/18 09:34 Last Admin: 03/26/18 03:15 Dose: 135 ml Tamsulosin HCl (Flomax) 0.4 mg PO DAILY [facility] Stop: 05/23/18 08:59 Last Admin: 03/29/18 09:26 Dose: 0.4 mg General: No acute distress HEENT: Atraumatic Neck: Supple Cardiovascular: Regular rate Lungs: Clear to auscultation Abdomen: Bowel sounds, Soft, no Tender Assessment/Plan - Assessment Assessment: IMPRESSION: 1. Concern for coffee ground emesis - LIKELY UGIB, NOW RESOLVED. 2. Dyspepsia 3. Psychosis 4. CONSTIPATION. RECS: - PPI BID - Can hold off on EGD, not emergent; UNABLE TO GET CONSENT. - ORAL DIET REFUGIO. - MONITOR HGB. - STOOL SOFTENERS. GI TATUM STABLE. WILL SEE PATIENT INTERMITTENTLY AND NEEDED. PLEASE CALL US IF QUESTIONS.
[2018-03-30] MEDS: Diltiazem 30 mg Tab PO SCH (12:34)
[2018-03-30] MEDS: Multivitamin w/ Minerals Tab PO SCH (12:35)
[2018-03-30] MEDS: Lactobacillus Rhamnosus GG 15 Billion CFU CAP.SPRINK PO SCH (12:35)
[2018-03-31] MEDS: Pantoprazole 40 mg EC Tab PO SCH (06:39)
[2018-03-31] MEDS: D5-0.9%NS 1,000 ML IV SCH (06:51)
[2018-03-31] MEDS: Multivitamin w/ Minerals Tab PO SCH (09:42)
[2018-03-31] MEDS: Lactobacillus Rhamnosus GG 15 Billion CFU CAP.SPRINK PO SCH (09:43)
[2018-03-31] MEDS: Diltiazem 30 mg Tab PO SCH (09:43)
--- NOTE | 2018-04-01 | Internal Medicine Prog Note ---
Internal Medicine Subjective - Subjective Service Date: 03/30/18 Patient seen and examined:: without staff Patient is:: awake, verbal, eyes closed, in bed, agitated, confused Per staff patient has:: no adverse event Internal Medicine Objective - Results Result Diagrams: 03/29/18 05:00 03/29/18 05:00 Recent Labs: Laboratory Last Values WBC 7.6 Th/cmm (4.8-10.8) 03/29/18 05:00 RBC 3.41 Mil/cmm (3.80-5.80) L 03/29/18 05:00 Hgb 10.8 gm/dL (12-16) L 03/29/18 05:00 Hct 31.8 % (41.0-60) L 03/29/18 05:00 MCV 93.3 fl (80-99) 03/29/18 05:00 MCH 31.7 pg (27.0-31.0) H 03/29/18 05:00 MCHC Differential 33.9 pg (28.0-36.0) 03/29/18 05:00 RDW 14.7 % (11.5-20.0) 03/29/18 05:00 Plt Count 265 Th/cmm (150-400) D 03/29/18 05:00 MPV 6.8 fl 03/29/18 05:00 Neutrophils % 68.5 % (40.0-80.0) 03/29/18 05:00 Lymphocytes % 15.5 % (20.0-50.0) L 03/29/18 05:00 Monocytes % 13.1 % (2.0-10.0) H 03/29/18 05:00 Eosinophils % 2.0 % (0.0-5.0) 03/29/18 05:00 Basophils % 0.9 % (0.0-2.0) 03/29/18 05:00 Specimen Source ARTERIAL 03/24/18 22:28 Sample Site Right Radial 03/24/18 22:28 pH 7.38 (7.35-7.45) 03/24/18 22:28 pCO2 45.0 mmHg (35.0-45.0) 03/24/18 22:28 pO2 159.0 mmHg (80.0-100.0) H 03/24/18 22:28 HCO3 25.8 mEq/L (20.0-26.0) 03/24/18 22:28 Base Excess 1.1 mEq/L (-3.0-3.0) 03/24/18 22:28 O2 Saturation 99.0 % (92.0-100.0) 03/24/18 22:28 Hayder Test Positive 03/24/18 22:28 Vent Rate N/A 03/24/18 22:28 Inspired O2 100 03/24/18 22:28 Tidal Volume N/A 03/24/18 22:28 PEEP N/A 03/24/18 22:28 Pressure (ins/psv/peep) N/A 03/24/18 22:28 Critical Value MM,CLOTHES WRINGER 03/24/18 22:28 Sodium 140 mEq/L (136-145) 03/29/18 05:00 Potassium 3.6 mEq/L (3.5-5.1) 03/29/18 05:00 Chloride 108 mEq/L (98-107) H 03/29/18 05:00 Carbon Dioxide 26.9 mEq/L (21.0-31.0) 03/29/18 05:00 Anion Gap 8.7 (7.0-16.0) 03/29/18 05:00 BUN 7 mg/dL (7-25) 03/29/18 05:00 Creatinine 0.6 mg/dL (0.7-1.3) L 03/29/18 05:00 Est GFR ( Amer) > 60.0 ml/min (>90) 03/29/18 05:00 Est GFR (Non-Af Amer) > 60.0 ml/min 03/29/18 05:00 BUN/Creatinine Ratio 11.7 03/29/18 05:00 Glucose 87 mg/dL (70-105) 03/29/18 05:00 POC Glucose 137 MG/DL (70 - 105) H 03/23/18 22:22 Calcium 8.6 mg/dL (8.6-10.3) 03/29/18 05:00 Total Bilirubin 0.3 mg/dL (0.3-1.0) 03/28/18 08:44 AST 14 U/L (13-39) 03/28/18 08:44 ALT 17 U/L (7-52) 03/28/18 08:44 Alkaline Phosphatase 66 U/L (34-104) 03/28/18 08:44 Total Protein 6.1 gm/dL (6.0-8.3) 03/28/18 08:44 Albumin 3.3 gm/dL (4.2-5.5) L 03/28/18 08:44 Globulin 2.8 gm/dL 03/28/18 08:44 Albumin/Globulin Ratio 1.2 (1.0-1.8) 03/28/18 08:44 - Physical Exam Vitals and I&O: Vital Signs Temp 86.8 F 03/31/18 11:53 Pulse 81 03/31/18 11:53 Resp 18 03/31/18 11:53 BP 121/76 03/31/18 11:53 Pulse Ox 98 03/31/18 11:53 Intake & Output 03/31/18 03/31/18 04/01/18 06:59 18:59 06:59 Intake Total 50 400 Balance 50 400 Weight (lbs) 64.41 kg Intake: Intake, IV Amount 50 Piperacillin Sodium/ 50 Tazobact 3.375 gm In Sodium Chloride 0.9% 50 ml @ 100 mls/hr IV Q8HR [facility] Rx#:[id number] Oral 400 Other: # Voids 3 # Bowel Movements 1 Stool Characteristics Soft Soft Weight Source Bedscale General: weak, lethargic, congested, thin HEENT: NC/AT, PERRLA, EOMI, anicteric sclerae, throat clear Neck: Supple, No JVD, No thyromegaly, No LAD Lungs: congested, wheezing, ronchi Cardiovascular: RRR, Normal S1, Normal S2 Abdomen: soft Extremities: clear Neurological: no change Internal Medicine Assmt/Plan - Assessment Assessment: ALOC: multifactorial; observe closely. PNA: improving. Hypokalemia: supplemented. s/p UGIB? H/H stable. Psychosis: monitoring closely and adjust meds as needed. COPD: RT protocol. H/O A. Fib: rate controlled. Noncompliance: education provided. DVT prophylaxis. Nutritional Asmnt/Malnutr-PDOC - Dietary Evaluation Malnutrition Findings (Please click <Entered> for more info): Nutritional Asmnt/Malnutrition Start: 03/27/18 10: 52 Text: Status: Complete Freq: Protocol: Document 03/27/18 10:52 LCHENG (Rec: 03/27/18 11:14 [email or web address]) Nutritional Asmnt/Malnutrition Patient General Information Nutritional Screening Moderate Risk Diagnosis hematemesis Pertinent Medical Hx/Surgical Hx PNA, COPD, a fib, CAD, [place], BPH , UTI, sepsis, anxiety, depression, mild psychosis Subjective Information Pt seen sitting on bed having lunch, consumed almost 100%. Pt was not answering RD greeting. Per EMR, PO intake 100% Current Diet Order/ Nutrition Support [facility] soft chopped Pertinent Medications vit B12, D5-0.9%ns, colace, culturelle, remeron, protonix, piperacillin, nacl tab Pertinent Labs 03/26 K 3.2, Cl 111, glucose 120, Ca 8.3 Nutritional Hx/Data Height 1.75 m Height (Calculated Centimeters) 175.3 Current Weight (lbs) 61.689 kg Weight (Calculated Kilograms) 61.7 Weight (Calculated Grams) 72423.6 [place] Body Weight 160 Body Mass Index (BMI) 20.0 GI Symptoms GI Symptoms None Last BM 03/27 x 2 Difficult in: None Skin Integrity/Comment: bruise reddened to right upper back Current %PO Good (75-100%) Estimated Nutritional Goals BEE in Kcals: Using Current wt Calories/Kcals/Kg 25-30 Kcals Calculated 6146-9379 Protein: Using Current wt Protein g/k Protein Calculated 62 Fluid: ml 1550-1860ml (1ml/kcal) Nutritional Problem 1. Problem Problem altered nutrition related labs Etiology electrolytes imbalance, endocrine dysfunction Signs/Symptoms: K 3.2, Cl 111, glucose 120, Ca 8.3 Malnutrition Alert Is there a minimum of two criteria No selected? Query Text:Check all the applicable criteria. A minimum of two criteria are recommended for diagnosis of either severe or non-severe malnutrition. Malnutrition Related to Morbid Obesity Malnutrition related to morbid obesity No Intervention/Recommendation Comments 1. Continue with [facility] soft chopped diet as ordered. 2. Monitor PO intake, wt, labs and skin integrity 3. F/U as low risk in 7 days, 04/03 Expected Outcomes/Goals Expected Outcomes/Goals 1. PO intake to meet at least 75% of nutritional needs. 2. Wt stability, skin to remain intact, labs to approach WNL.
--- NOTE | 2018-04-01 01:12 | Discharge Summary ---
DATE OF DISCHARGE: 03/31/2018 FINAL DIAGNOSES: 1. Questionable gastrointestinal bleeding, resolved. 2. Altered level of consciousness, improved. 3. Noncompliance, improved. 4. Psychosis, improved. 5. Seizure, controlled. 6. Pneumonia, treated. 7. Atrial fibrillation with rate control. HOSPITAL COURSE: The patient is a 68-year-old male admitted due to acute upper GI bleeding; however, his H and H was stable. GI consultation was requested. Due to patient's mental status and difficulty to obtain consent, the EGD was not done. The patient's H and H is stable. The patient is actually also very confused, agitated from time to time, and noncompliant, but education provided with some effect. He received antibiotics and the pneumonia cleared. The patient was eventually accepted back to senior living. DISCHARGE CONDITION: Stable. DISPOSITION: [facility]. DISCHARGE MEDICATION: Continue medication from the hospital. DIET: 1800 ADA cardiac, renal diet. ACTIVITY: Bed rest with physical therapy. FOLLOWUP: One week. JOB# [id number]
== END 2018-03-31 12:45 | DRG 177 ==
LOC: TELE 21:32 → MSI 03-24
PROVIDERS: ADMIT Internal Medicine; ATTEND Internal Medicine
DX: J69.0 Pneumonitis due to inhalation of food and vomit (principal); G93.41 Metabolic encephalopathy; K92.2 Gastrointestinal hemorrhage, unspecified; J44.0 Chronic obstructive pulmonary disease with (acute) lower respiratory infection; F03.90 Unspecified dementia, unspecified severity, without behavioral disturbance, psychotic disturbance, mood disturbance, and anxiety; I48.91 Unspecified atrial fibrillation; F29 Unspecified psychosis not due to a substance or known physiological condition; I25.10 Atherosclerotic heart disease of native coronary artery without angina pectoris; I25.2 Old myocardial infarction; N40.0 Benign prostatic hyperplasia without lower urinary tract symptoms; F41.9 Anxiety disorder, unspecified; F31.9 Bipolar disorder, unspecified; R10.13 Epigastric pain; D64.9 Anemia, unspecified; K59.00 Constipation, unspecified; E87.6 Hypokalemia; R56.9 Unspecified convulsions; Z91.14 Patient's other noncompliance with medication regimen
CPT/HCPCS: 36415-UA; 36600-90; 71045-TC; 80048-TC; 80053-TC; 82803-TC; 82948-90; 85025-TC; 94640; 94760; J2060; J2405; J2543; J3480; J7042; J7051; Z7610

== ENCOUNTER 2018-04-20 04:17 | Inpatient (IN) | payer MEDICARE, MEDICAID ==
--- NOTE | 2018-04-20 04:57 | ED Physician Chart ---
ED Chief Complaint/HPI - Patient Information Date Seen:: 04/20/18 Time Seen:: 04:52 Chief Complaint:: abd distention History of Present Illness:: 68 yr old male with hx of etoh abuse ascites with abd distension getting worse with vomiting abd pain denies bleeding or dark stools Allergies:: Allergies Allergy/AdvReac Type Severity Reaction Status Date / Time No Known Allergies Allergy Verified 04/20/18 04:47 Vitals:: Vital Signs - 8 hr 04/20/18 04:20 Temp 97.6 F HR 96 RR 18 BP 106/70 O2 Sat % 89 ED Review of Systems - Review of Systems General/Constitutional: No fever Skin: No skin lesions Head: No headache Eyes: No loss of vision ENT: No earache Neck: No neck pain Cardio Vascular: No chest pain Pulmonary: No SOB GI: Vomiting, Pain, Constipation Musculoskeletal: No bone or joint pain Endocrine: No polyuria Psychiatric: Prior psych history Hematopoietic: Bruising Allergic/Immuno: Urticaria Neurological: No syncope ED Past Medical History - Past Medical History Past Medical History: HTN, PUD/GERD Family History: Heart disease Social History: Smoker, Alcohol Family Medical History - Family Member Mother History Unknown: Yes Ethnicity: Unknown Living Status: Unknown ED Physical Exam - Physical Examination General/Constitutional: Alert Head: Atraumatic Other Skin comments:: skin yellow tinged Neck: Nontender Respiratory: Nl effort/Exclusion Cardio Vascular: No murmur, gallop, rubs (ascites distension abd tenderness) Other Cardio Vascular comments:: irregularly irregular ED Assessment - Assessment General Assessment: ascites ED Septic Shock - . Is Septic Shock (SBP<90, OR Lactate>4 mmol\L) present?: No - <6hrs of presentation: Vital Signs: Vital Signs - 8 hr 04/20/18 04:20 Temp 97.6 F HR 96 RR 18 BP 106/70 O2 Sat % 89 ED Reassessment (Disposition) - Diagnosis Diagnosis:: ascites vomiting ct abd pelvis - Patient Disposition Discharge/Transfer:: Acute Care w/in this hosp
[2018-04-20 05:26] LABS: % EOSINOPHILS 0.3 % (0.0-5.0); % LYMPHOCYTES 10.7 % (20.0-50.0); % MONOCYTES 11.9 % (2.0-10.0); % NEUTROPHILS 77.1 % (40.0-80.0); HEMATOCRIT 38.7 % (41.0-60); HEMOGLOBIN 13.1 gm/dL (12-16); LYMPHOCYTE ABSOLUTE 1.1 Th/cmm (1.5-3.0); MEAN CELL VOLUME 93.1 fl (80-99); MEAN CORPUSCULAR HEMOGLOBIN 31.4 pg (27.0-31.0); MEAN CORPUSCULAR HGB CONC 33.8 pg (28.0-36.0); MEAN PLATELET VOLUME 7.8 fl; MONOCYTE ABSOLUTE 1.3 Th/cmm (0.3-1.0); NEUTROPHILE ABSOLUTE 8.3 Th/cmm (1.8-8.0); PLATELET COUNT 329 Th/cmm (150-400); RED BLOOD COUNT 4.16 Mil/cmm (3.80-5.80); RED CELL DISTRIBUTION WIDTH 15.5 % (11.5-20.0); WHITE BLOOD COUNT 10.7 Th/cmm (4.8-10.8)
[2018-04-20 05:46] LABS: ALBUMIN 3.2 gm/dL (4.2-5.5); ALKALINE PHOSPHATASE 98 U/L (34-104); ANION GAP 11.1 (7.0-16.0); BILIRUBIN,TOTAL 0.6 mg/dL (0.3-1.0); BUN - UREA NITROGEN 39 mg/dL (7-25); CALCIUM SERUM 8.6 mg/dL (8.6-10.3); CARBON DIOXIDE 32.8 mEq/L (21.0-31.0); CHLORIDE 97 mEq/L (98-107); GFR AFRICAN-AMERICAN > 60.0 ml/min (>90); GFR NON AFRICAN-AMERICAN > 60.0 ml/min; GLUCOSE 112 mg/dL (70-105); SGOT 12 U/L (13-39); SGPT/ALT 15 U/L (7-52); SODIUM SERUM 138 mEq/L (136-145); TOTAL PROTEIN,SERUM 6.5 gm/dL (6.0-8.3)
[2018-04-20 06:13] LABS: POTASSIUM SERUM 2.9 mEq/L (3.5-5.1)
[2018-04-20] MEDS ORDERED: Potassium Chloride 20 mEq ER Tab PO ONE ×2 (06:58→07:07)
[2018-04-20] MEDS ORDERED: Sodium Chloride 0.9% 1,000 ML IV ONE (06:59)
[2018-04-20] MEDS ORDERED: KCL 20mEq/100mL Premix 20 MEQ/100 ML PIGGYBACK IV SCH (07:00)
[2018-04-20 07:25] LABS: TROP I < 0.01 ng/mL (0.01-0.05)
--- NOTE | 2018-04-20 07:28 | Diagnostic Imaging Report ---
Exam: CT examination of the pelvis. HISTORY: Febrile sinuses. Total DLP equals 459 CTDI equals 8.1 Findings: Multiple contiguous thin section of the abdomen pelvis obtained from lower thorax to pubic symphysis without the administration of oral or intravenous contrast material. No prior studies available comparison. The study demonstrates right basilar pneumonia with superimposed pleural thickening. There is significant distention of colon specifically in the right hemicolon with air and fecal content. Significant distention small bowel loop seen with air-fluid level throughout no focal transition point appreciated. This might represent paralytic ileus. The liver and spleen displaced posteriorly due to distended the stomach and large bowel. There is no evidence of obstructive uropathy. Mild right-sided hydronephrosis is noted. There is evidence for residual contrast material in the lower colon. The pancreas is not seen. The gallbladder is not seen. There is no evidence for free fluid collection. There is no evidence of diverticular disease. Aorta is calcified. Urinary bladder is intact. Total right hip prosthesis is noted. The visualized bony structures demonstrate no evidence for lytic or blastic lesions. IMPRESSION: Fecal impaction in the right colon with significant distention of the right hemicolon and some small bowel loops suggestive of pelvic ileus/Josh syndrome. Distention small bowel loops with bowel thickening predominantly in the left lower quadrant. Clinical correlation recommended.
[2018-04-20] MEDS ORDERED: D5-0.45NS w/20 mEq KCL 1,000 ML IV ONE (08:34)
[2018-04-20] MEDS ORDERED: Piperacillin Sodium/Tazobact 3.375 gm Vial IV ONE (08:34)
[2018-04-20] MEDS: D5-0.45NS w/20 mEq KCL 1,000 ML IV SCH ×2 (09:08→21:23)
--- NOTE | 2018-04-20 09:52 | Diagnostic Imaging Report ---
Portable chest x-ray HISTORY: Shortness of breath There is a poor inspiration. Allowing for this factor, no focal point processes are seen. The overall heart size appears normal. Atherosclerotic calcification seen in the aorta. IMPRESSION: 1. Allowing for a poor inspiration, no acute focal pulmonary processes
[2018-04-20 10:30] VITALS: BP 116/70
--- NOTE | 2018-04-20 18:17 | Consultation ---
DATE OF CONSULTATION: 04/20/2018 INPATIENT GASTROINTESTINAL CONSULTATION REFERRING PHYSICIAN: Dr. Willis. REASON FOR CONSULTATION: Abdominal distention and constipation. HISTORY OF PRESENT ILLNESS: This is a 68-year-old male who was brought into the hospital because of abdominal distention. The patient had some bowel movements. He denies having abdominal pain. Denies nausea, vomiting, hematemesis, or coffee ground emesis. PAST MEDICAL HISTORY: Hypertension, peptic ulcer disease, and GERD. PAST SURGICAL HISTORY: None to add recently. FAMILY HISTORY: Noncontributory. SOCIAL HISTORY: Smokes tobacco. Drinks alcohol. No IV drug usage. ALLERGIES: None. CURRENT MEDICATIONS: Include Zosyn and IV fluids. REVIEW OF SYSTEMS: Ten point review of system was performed and the pertinent positive was the abdominal distention. All systems were otherwise negative. PHYSICAL EXAMINATION: VITAL SIGNS: Temperature 98, breathing 16, pulse of 90, blood pressure 116/70, and satting 94%. GENERAL: In no apparent distress. EYES: Anicteric. Normal conjunctivae. HEENT: Normocephalic, atraumatic. Moist mucous membranes. NECK: Soft, supple. CHEST: Clear. No effort. CARDIOVASCULAR: Regular rate and rhythm. ABDOMEN: Soft, distended, and nontender. SKIN: Warm, dry. EXTREMITIES: Reveal no cyanosis. PSYCHOLOGICAL: Awake. LABORATORY DATA: Show white count 10.7, hemoglobin 13.1, and platelets of 329. Total bilirubin 0.6, AST 12, ALT 15, and alkaline phosphatase 98. CT abdomen and pelvis showed constipation, fecal impaction, possible ileus versus Glyndon syndrome. IMPRESSION: A 68-year-old male with abdominal distention, could have Glyndon's versus colonic ileus. Mineral could be provided to see if this would help facilitate bowel movements. I did discuss with the patient options of performing a colonoscopy, but he does not want one done. He was made aware the failure to have proper workup could result in a missed diagnosis as cancer, missed cure and treatment opportunity resulting in early and unforeseeable disability. He understands these things. PLAN: 1. A trial of mineral oil. 2. Surgical evaluation. 3. NG tube if needed. 4. The patient refusing colonoscopy. Thank you for allowing me to participate. Please call me if any questions. JOB# [id number]
--- NOTE | 2018-04-20 22:10 | History & Physical ---
ADMIT DATE: 04/20/2018 CHIEF COMPLAINT: Vomiting and abdominal distention. HISTORY OF PRESENT ILLNESS: The patient is a 68-year-old male admitted from the Emergency Room into telemetry floor of [facility] due to vomiting and abdominal pain with severe distention in the correction. In the Emergency Room, abdominal and pelvic CT scan revealed fecal impaction in the right colon with significant distention of the right hemicolon and some small bowel loops suggestive of pelvic ileus. GI consultation requested and the patient refused a colonoscopy or EGD or any procedure at this time. He is a kind of confused and noncompliant, but I did provide education. Lab mendez, the patient's potassium is 2.9, BUN 39, creatinine 1.0. Troponin less than 0.01. Blood culture and urine culture ordered. White count is normal. The patient was kept n.p.o. due to ileus. IV fluid was started. Blood culture and urine culture ordered, empiric antibiotic started, which will be adjusted accordingly. PAST MEDICAL HISTORY: COPD, pneumonia, coronary heart disease, status post ND, atrial fibrillation, status post CVA, BPH, sepsis, urinary tract infection, psychosis, bipolar disorder. PAST SURGICAL HISTORY: Denies significant past surgical history. MEDICATIONS: See medication reconciliation list. ALLERGIES: No known drug allergy. FAMILY HISTORY: Noncontributory. SOCIAL HISTORY: The patient smoked, quit years ago. No history of alcohol or IV drug use. REVIEW OF SYSTEMS: As per HPI. PHYSICAL EXAMINATION: GENERAL: Well-developed, thin male in no acute distress. SKIN: Warm and dry. VITAL SIGNS: Basically stable except blood pressure low from time to time. HEENT: Normocephalic, atraumatic. Pupils equal, round, react to light and accommodation. CHEST: Symmetrical. LUNGS: Few wheezing appreciated. CARDIAC: Normal sinus rhythm. S1, S2. ABDOMEN: Mildly distended with mild tenderness. Bowel sounds are decreased. EXTREMITIES: No clubbing, cyanosis or edema bilaterally, 2+ equally. NEUROLOGIC: Unremarkable. LABORATORY DATA: Reviewed. ASSESSMENT AND PLAN: 1. Abdominal distention due to ileus: The patient is kept n.p.o. and intravenous fluids ordered. Gastrointestinal consultation appreciated. The patient refused colonoscopy, which was recommended by Gastrointestinal consultation and I did provide everything for the patient, he said he will think about it. 2. Hypokalemia: Supplemented and IV fluid with 20 mEq KCl in there as well. This is mostly due to vomiting and that happened in the correction. 3. Dehydration: IV fluid. 4. Hypotension: Rule out sepsis: Continue IV fluids and blood culture. Urine culture ordered. Antibiotic will be adjusted accordingly. 5. Fecal impaction: Try mineral oil. 6. Noncompliance: Education provided. 7. History of bipolar and psychosis: Observe closely. We will continue medication. 8. Deep venous thrombosis prophylaxis. JOB# [id number]
[2018-04-21] MEDS: Magnesium Hydroxide (MOM) 30 mL UDC PO SCH ×2 (00:50→01:28)
[2018-04-21 08:15] LABS: URINE SOURCE CLEAN C
[2018-04-21 08:27] LABS: URINE BILIRUBIN NEGATIVE (NEGATIVE); URINE BLOOD NEGATIVE (NEGATIVE); URINE GLUCOSE (UA) NEGATIVE (NEGATIVE); URINE KETONE TRACE mg/dL (NEGATIVE); URINE LEUKOCYTE ESTERASE NEGATIVE (NEGATIVE); URINE MICROSCOPIC INDICATED? YES; URINE NITRATE NEGATIVE (NEGATIVE); URINE PROTEIN TRACE mg/dL (NEGATIVE)
[2018-04-21 08:54] LABS: URINE BACTERIA NONE SEEN /hpf (NONE SEEN); URINE CLARITY CLEAR (CLEAR); URINE COLOR YELLOW; URINE EPITHELIAL CELLS OCCASIONAL /lpf (FEW); URINE RBC 0-2 /hpf (0-5); URINE WBC 0-2 /hpf (0-5)
[2018-04-21] MEDS: D5-0.45NS w/20 mEq KCL 1,000 ML IV SCH ×2 (09:36→22:06)
[2018-04-21] MEDS: Lactobacillus Rhamnosus GG 15 Billion CFU CAP.SPRINK PO SCH (09:41)
[2018-04-21] MEDS: Pantoprazole 40 mg EC Tab PO SCH (09:42)
--- NOTE | 2018-04-21 15:27 | GI Progress Note ---
Subjective - Review of Systems Subjective: NO EVENTS DENIES ABD PAIN Objective - Results Result Diagrams: 04/20/18 05:10 04/20/18 05:10 Recent Labs: Laboratory Last Values WBC 10.7 Th/cmm (4.8-10.8) 04/20/18 05:10 RBC 4.16 Mil/cmm (3.80-5.80) 04/20/18 05:10 Hgb 13.1 gm/dL (12-16) 04/20/18 05:10 Hct 38.7 % (41.0-60) L 04/20/18 05:10 MCV 93.1 fl (80-99) 04/20/18 05:10 MCH 31.4 pg (27.0-31.0) H 04/20/18 05:10 MCHC Differential 33.8 pg (28.0-36.0) 04/20/18 05:10 RDW 15.5 % (11.5-20.0) 04/20/18 05:10 Plt Count 329 Th/cmm (150-400) 04/20/18 05:10 MPV 7.8 fl 04/20/18 05:10 Neutrophils % 77.1 % (40.0-80.0) 04/20/18 05:10 Lymphocytes % 10.7 % (20.0-50.0) L 04/20/18 05:10 Monocytes % 11.9 % (2.0-10.0) H 04/20/18 05:10 Eosinophils % 0.3 % (0.0-5.0) 04/20/18 05:10 Basophils % 0.0 % (0.0-2.0) 04/20/18 05:10 Sodium 138 mEq/L (136-145) 04/20/18 05:10 Potassium 2.9 mEq/L (3.5-5.1) L* 04/20/18 05:10 Chloride 97 mEq/L (98-107) L 04/20/18 05:10 Carbon Dioxide 32.8 mEq/L (21.0-31.0) H 04/20/18 05:10 Anion Gap 11.1 (7.0-16.0) 04/20/18 05:10 BUN 39 mg/dL (7-25) H 04/20/18 05:10 Creatinine 1.0 mg/dL (0.7-1.3) 04/20/18 05:10 Est GFR ( Amer) > 60.0 ml/min (>90) 04/20/18 05:10 Est GFR (Non-Af Amer) > 60.0 ml/min 04/20/18 05:10 BUN/Creatinine Ratio 39.0 04/20/18 05:10 Glucose 112 mg/dL (70-105) H 04/20/18 05:10 Whole Bld Lactic Acid 1.26 mmol/L (0.60-1.99) 04/20/18 05:10 Calcium 8.6 mg/dL (8.6-10.3) 04/20/18 05:10 Total Bilirubin 0.6 mg/dL (0.3-1.0) 04/20/18 05:10 AST 12 U/L (13-39) L 04/20/18 05:10 ALT 15 U/L (7-52) 04/20/18 05:10 Alkaline Phosphatase 98 U/L (34-104) 04/20/18 05:10 Ammonia 88 umol/L (16-53) H 04/20/18 05:10 Troponin I < 0.01 ng/mL (0.01-0.05) L 04/20/18 05:10 Total Protein 6.5 gm/dL (6.0-8.3) 04/20/18 05:10 Albumin 3.2 gm/dL (4.2-5.5) L 04/20/18 05:10 Globulin 3.3 gm/dL 04/20/18 05:10 Albumin/Globulin Ratio 1.0 (1.0-1.8) 04/20/18 05:10 Urine Source CLEAN C 04/21/18 06:57 Urine Color YELLOW 04/21/18 06:57 Urine Clarity CLEAR (CLEAR) 04/21/18 06:57 Urine pH 6.0 (4.6 - 8.0) 04/21/18 06:57 Ur Specific [place] 1.025 (1.005-1.030) 04/21/18 06:57 Urine Protein TRACE mg/dL (NEGATIVE) 04/21/18 06:57 Urine Glucose (UA) NEGATIVE mg/dL (NEGATIVE) 04/21/18 06:57 Urine Ketones TRACE mg/dL (NEGATIVE) 04/21/18 06:57 Urine Blood NEGATIVE (NEGATIVE) 04/21/18 06:57 Urine Nitrate NEGATIVE (NEGATIVE) 04/21/18 06:57 Urine Bilirubin NEGATIVE (NEGATIVE) 04/21/18 06:57 Urine Urobilinogen 1.0 E.U./dL (0.2 - 1.0) 04/21/18 06:57 Ur Leukocyte Esterase NEGATIVE (NEGATIVE) 04/21/18 06:57 Urine RBC 0-2 /hpf (0-5) H 04/21/18 06:57 Urine WBC 0-2 /hpf (0-5) 04/21/18 06:57 Ur Epithelial Cells OCCASIONAL /lpf (FEW) 04/21/18 06:57 Uric Acid Crystals FEW /hpf (NONE SEEN) 04/21/18 06:57 Urine Bacteria NONE SEEN /hpf (NONE SEEN) 04/21/18 06:57 - Physical Exam Vitals and I&O: Vital Signs Temp 98.6 F 04/21/18 12:00 Pulse 91 04/21/18 12:00 Resp 18 04/21/18 12:00 BP 110/69 04/21/18 12:00 Pulse Ox 95 04/21/18 12:00 Intake & Output 04/20/18 04/21/18 04/21/18 18:59 06:59 18:59 Intake Total 50 1250 1000 Balance 50 1250 1000 Weight (lbs) 58.967 kg 58.967 kg Intake: Intake, IV Amount 50 1050 1000 D5-0.45NS w/20 mEq KCL 1, 1000 1000 000 ml @ 90 mls/hr IV . Q11H7M [facility] Rx#:[id number] Piperacillin Sodium/ 50 50 Tazobact 3.375 gm In Sodium Chloride 0.9% 50 ml @ 100 mls/hr IV Q8H [facility] Rx#:[id number] Oral 0 200 Other: # Voids 3 3 Stool Characteristics Soft Weight Source Bedscale Bedscale Active Medications: Current Medications Amiodarone HCl (Cordarone) 200 mg PO DAILY [facility] Stop: 06/20/18 08:59 Last Admin: 04/21/18 09:41 Dose: Not Given Cyanocobalamin (Vitamin B12) 500 mcg PO DAILY [facility] Stop: 06/20/18 08:59 Last Admin: 04/21/18 09:41 Dose: Not Given Docusate Sodium (Colace) 250 mg PO HS [facility] Stop: 06/20/18 20:59 Gabapentin (Neurontin) 300 mg PO TID [facility] Stop: 06/20/18 08:59 Last Admin: 04/21/18 09:41 Dose: Not Given Potassium Chloride/Dextrose/Sod Cl (D5-0.45ns W/20 Meq Kcl) 1,000 mls @ 90 mls/ hr IV .Q11H7M [facility] Stop: 06/19/18 09:06 Last Admin: 04/21/18 09:36 Dose: 90 mls/hr Piperacillin Sod/Tazobactam (Sod 3.375 gm/ Sodium Chloride) 50 mls @ 100 mls/ hr IV Q8H [facility] Stop: 06/19/18 16:59 Last Admin: 04/21/18 09:36 Dose: 100 mls/hr Lactobacillus Rhamnosus (Culturelle 15b) 1 each PO DAILY [facility] Stop: 06/20/18 08:59 Last Admin: 04/21/18 09:41 Dose: Not Given Lorazepam (Ativan) 0.5 mg PO Q8HR [facility]; Protocol Stop: 06/20/18 04:59 Magnesium Hydroxide (Milk Of Magnesia) 30 ml PO Q48HR [facility] Stop: 06/19/18 21:59 Last Admin: 04/21/18 01:28 Dose: Not Given Mineral Oil (Mineral Oil 30 Ml) 30 ml PO BID [facility] Stop: 04/26/18 16:59 Last Admin: 04/21/18 09:43 Dose: 30 ml Mirtazapine (Remeron) 15 mg PO HS [facility]; Protocol Stop: 06/20/18 20:59 Olanzapine (Zyprexa) 5 mg PO DAILY [facility]; Protocol Stop: 06/20/18 08:59 Olanzapine (Zyprexa) mg PO HS [facility]; Protocol Stop: 06/20/18 20:59 Ondansetron HCl (Zofran Odt) 4 mg PO Q6HR PRN PRN Reason: Nausea / Vomiting Stop: 06/20/18 00:44 Oxybutynin Chloride (Ditropan) 5 mg PO HS [facility] Stop: 06/20/18 20:59 Pantoprazole Sodium (Protonix) 40 mg PO DAILY [facility] Stop: 06/20/18 08:59 Last Admin: 04/21/18 09:42 Dose: Not Given Sodium Chloride (Nacl Tab) 1 gm PO BID [facility] Stop: 06/20/18 08:59 Last Admin: 04/21/18 09:42 Dose: Not Given Tamsulosin HCl (Flomax) 0.4 mg PO DAILY [facility] Stop: 06/20/18 08:59 Last Admin: 04/21/18 09:42 Dose: Not Given Assessment/Plan - Assessment Assessment: 68 YO MALE WITH ABD DISTENSION LIKELY FECAL IMPACTION 1.CONT LAXATIVES 2.PT REFUSING COLO 3.WILL NEED BARIUM ENEMA ALTERNATIVE
--- NOTE | 2018-04-21 21:32 | Internal Medicine Prog Note ---
Internal Medicine Subjective - Subjective Service Date: 04/21/18 Patient seen and examined:: without staff Patient is:: asleep, non-interactive, in bed Per staff patient has:: no adverse event Internal Medicine Objective - Results Result Diagrams: 04/20/18 05:10 04/20/18 05:10 Recent Labs: Laboratory Last Values WBC 10.7 Th/cmm (4.8-10.8) 04/20/18 05:10 RBC 4.16 Mil/cmm (3.80-5.80) 04/20/18 05:10 Hgb 13.1 gm/dL (12-16) 04/20/18 05:10 Hct 38.7 % (41.0-60) L 04/20/18 05:10 MCV 93.1 fl (80-99) 04/20/18 05:10 MCH 31.4 pg (27.0-31.0) H 04/20/18 05:10 MCHC Differential 33.8 pg (28.0-36.0) 04/20/18 05:10 RDW 15.5 % (11.5-20.0) 04/20/18 05:10 Plt Count 329 Th/cmm (150-400) 04/20/18 05:10 MPV 7.8 fl 04/20/18 05:10 Neutrophils % 77.1 % (40.0-80.0) 04/20/18 05:10 Lymphocytes % 10.7 % (20.0-50.0) L 04/20/18 05:10 Monocytes % 11.9 % (2.0-10.0) H 04/20/18 05:10 Eosinophils % 0.3 % (0.0-5.0) 04/20/18 05:10 Basophils % 0.0 % (0.0-2.0) 04/20/18 05:10 Sodium 138 mEq/L (136-145) 04/20/18 05:10 Potassium 2.9 mEq/L (3.5-5.1) L* 04/20/18 05:10 Chloride 97 mEq/L (98-107) L 04/20/18 05:10 Carbon Dioxide 32.8 mEq/L (21.0-31.0) H 04/20/18 05:10 Anion Gap 11.1 (7.0-16.0) 04/20/18 05:10 BUN 39 mg/dL (7-25) H 04/20/18 05:10 Creatinine 1.0 mg/dL (0.7-1.3) 04/20/18 05:10 Est GFR ( Amer) > 60.0 ml/min (>90) 04/20/18 05:10 Est GFR (Non-Af Amer) > 60.0 ml/min 04/20/18 05:10 BUN/Creatinine Ratio 39.0 04/20/18 05:10 Glucose 112 mg/dL (70-105) H 04/20/18 05:10 Whole Bld Lactic Acid 1.26 mmol/L (0.60-1.99) 04/20/18 05:10 Calcium 8.6 mg/dL (8.6-10.3) 04/20/18 05:10 Total Bilirubin 0.6 mg/dL (0.3-1.0) 04/20/18 05:10 AST 12 U/L (13-39) L 04/20/18 05:10 ALT 15 U/L (7-52) 04/20/18 05:10 Alkaline Phosphatase 98 U/L (34-104) 04/20/18 05:10 Ammonia 88 umol/L (16-53) H 04/20/18 05:10 Troponin I < 0.01 ng/mL (0.01-0.05) L 04/20/18 05:10 Total Protein 6.5 gm/dL (6.0-8.3) 04/20/18 05:10 Albumin 3.2 gm/dL (4.2-5.5) L 04/20/18 05:10 Globulin 3.3 gm/dL 04/20/18 05:10 Albumin/Globulin Ratio 1.0 (1.0-1.8) 04/20/18 05:10 Urine Source CLEAN C 04/21/18 06:57 Urine Color YELLOW 04/21/18 06:57 Urine Clarity CLEAR (CLEAR) 04/21/18 06:57 Urine pH 6.0 (4.6 - 8.0) 04/21/18 06:57 Ur Specific [place] 1.025 (1.005-1.030) 04/21/18 06:57 Urine Protein TRACE mg/dL (NEGATIVE) 04/21/18 06:57 Urine Glucose (UA) NEGATIVE mg/dL (NEGATIVE) 04/21/18 06:57 Urine Ketones TRACE mg/dL (NEGATIVE) 04/21/18 06:57 Urine Blood NEGATIVE (NEGATIVE) 04/21/18 06:57 Urine Nitrate NEGATIVE (NEGATIVE) 04/21/18 06:57 Urine Bilirubin NEGATIVE (NEGATIVE) 04/21/18 06:57 Urine Urobilinogen 1.0 E.U./dL (0.2 - 1.0) 04/21/18 06:57 Ur Leukocyte Esterase NEGATIVE (NEGATIVE) 04/21/18 06:57 Urine RBC 0-2 /hpf (0-5) H 04/21/18 06:57 Urine WBC 0-2 /hpf (0-5) 04/21/18 06:57 Ur Epithelial Cells OCCASIONAL /lpf (FEW) 04/21/18 06:57 Uric Acid Crystals FEW /hpf (NONE SEEN) 04/21/18 06:57 Urine Bacteria NONE SEEN /hpf (NONE SEEN) 04/21/18 06:57 - Physical Exam Vitals and I&O: Vital Signs Temp 98.6 F 04/21/18 20:00 Pulse 84 04/21/18 20:00 Resp 17 04/21/18 20:00 BP 109/68 04/21/18 20:00 Pulse Ox 96 04/21/18 20:00 Intake & Output 04/21/18 04/21/18 04/22/18 06:59 18:59 06:59 Intake Total 1250 1150 Balance 1250 1150 Weight (lbs) 58.967 kg 58.967 kg 58.967 kg Intake: Intake, IV Amount 1050 1050 D5-0.45NS w/20 mEq KCL 1, 1000 1000 000 ml @ 90 mls/hr IV . Q11H7M [facility] Rx#:[id number] Piperacillin Sodium/ 50 50 Tazobact 3.375 gm In Sodium Chloride 0.9% 50 ml @ 100 mls/hr IV Q8H [facility] Rx#:[id number] Oral 200 100 Other: # Voids 3 3 # Bowel Movements 0 Stool Characteristics Soft Weight Source Bedscale Bedscale Bedscale Active Medications: Current Medications Amiodarone HCl (Cordarone) 200 mg PO DAILY [facility] Stop: 06/20/18 08:59 Last Admin: 04/21/18 09:41 Dose: Not Given Cyanocobalamin (Vitamin B12) 500 mcg PO DAILY [facility] Stop: 06/20/18 08:59 Last Admin: 04/21/18 09:41 Dose: Not Given Docusate Sodium (Colace) 250 mg PO HS [facility] Stop: 06/20/18 20:59 Last Admin: 04/21/18 20:42 Dose: Not Given Gabapentin (Neurontin) 300 mg PO TID [facility] Stop: 06/20/18 08:59 Last Admin: 04/21/18 20:42 Dose: Not Given Potassium Chloride/Dextrose/Sod Cl (D5-0.45ns W/20 Meq Kcl) 1,000 mls @ 90 mls/ hr IV .Q11H7M [facility] Stop: 06/19/18 09:06 Last Admin: 04/21/18 09:36 Dose: 90 mls/hr Piperacillin Sod/Tazobactam (Sod 3.375 gm/ Sodium Chloride) 50 mls @ 100 mls/ hr IV Q8H [facility] Stop: 06/19/18 16:59 Last Admin: 04/21/18 16:00 Dose: 100 mls/hr Lactobacillus Rhamnosus (Culturelle 15b) 1 each PO DAILY [facility] Stop: 06/20/18 08:59 Last Admin: 04/21/18 09:41 Dose: Not Given Lorazepam (Ativan) 0.5 mg PO Q8HR [facility]; Protocol Stop: 06/20/18 04:59 Magnesium Hydroxide (Milk Of Magnesia) 30 ml PO Q48HR [facility] Stop: 06/19/18 21:59 Last Admin: 04/21/18 01:28 Dose: Not Given Mineral Oil (Mineral Oil 30 Ml) 30 ml PO BID [facility] Stop: 04/26/18 16:59 Last Admin: 04/21/18 16:37 Dose: 30 ml Mirtazapine (Remeron) 15 mg PO HS [facility]; Protocol Stop: 06/20/18 20:59 Olanzapine (Zyprexa) 5 mg PO DAILY [facility]; Protocol Stop: 06/20/18 08:59 Olanzapine (Zyprexa) 10 mg PO HS [facility]; Protocol Stop: 06/20/18 20:59 Ondansetron HCl (Zofran Odt) 4 mg PO Q6HR PRN PRN Reason: Nausea / Vomiting Stop: 06/20/18 00:44 Oxybutynin Chloride (Ditropan) 5 mg PO HS [facility] Stop: 06/20/18 20:59 Last Admin: 04/21/18 20:42 Dose: Not Given Pantoprazole Sodium (Protonix) 40 mg PO DAILY [facility] Stop: 06/20/18 08:59 Last Admin: 04/21/18 09:42 Dose: Not Given Sodium Chloride (Nacl Tab) 1 gm PO BID [facility] Stop: 06/20/18 08:59 Last Admin: 04/21/18 16:37 Dose: Not Given Tamsulosin HCl (Flomax) 0.4 mg PO DAILY [facility] Stop: 06/20/18 08:59 Last Admin: 04/21/18 09:42 Dose: Not Given General: weak, congested, demented HEENT: NC/AT, PERRLA Neck: Supple, No JVD, No thyromegaly, No LAD Lungs: wheezing, ronchi Cardiovascular: RRR, Normal S1 Abdomen: non-tender, distended Extremities: clear Neurological: no change Internal Medicine Assmt/Plan - Assessment Assessment: ALOC: on and off; observe. Ileus: continue laxatives. Hypokalemia: supplement. Noncompliance: education provided. H/O A. Fib: rate controlled. Hypotension: better.
[2018-04-22 06:16] LABS: ANION GAP 10.6 (7.0-16.0); BUN - UREA NITROGEN 21 mg/dL (7-25); CALCIUM SERUM 8.4 mg/dL (8.6-10.3); CARBON DIOXIDE 26.4 mEq/L (21.0-31.0); CHLORIDE 103 mEq/L (98-107); CREATININE - SERUM 0.7 mg/dL (0.7-1.3); GFR AFRICAN-AMERICAN > 60.0 ml/min (>90); GFR NON AFRICAN-AMERICAN > 60.0 ml/min; GLUCOSE 81 mg/dL (70-105); SODIUM SERUM 137 mEq/L (136-145)
[2018-04-22 06:28] LABS: % BASOPHILS 0.2 % (0.0-2.0); % EOSINOPHILS 0.7 % (0.0-5.0); % LYMPHOCYTES 11.3 % (20.0-50.0); % MONOCYTES 13.9 % (2.0-10.0); % NEUTROPHILS 73.9 % (40.0-80.0); EOSINOPHILE ABSOLUTE 0.1 Th/cmm (0.1-0.4); HEMATOCRIT 36.1 % (41.0-60); HEMOGLOBIN 12.2 gm/dL (12-16); MEAN CELL VOLUME 93.7 fl (80-99); MEAN CORPUSCULAR HEMOGLOBIN 31.7 pg (27.0-31.0); MEAN CORPUSCULAR HGB CONC 33.8 pg (28.0-36.0); MEAN PLATELET VOLUME 8.1 fl; MONOCYTE ABSOLUTE 1.2 Th/cmm (0.3-1.0); NEUTROPHILE ABSOLUTE 6.2 Th/cmm (1.8-8.0); PLATELET COUNT 252 Th/cmm (150-400); RED BLOOD COUNT 3.85 Mil/cmm (3.80-5.80); RED CELL DISTRIBUTION WIDTH 15.6 % (11.5-20.0); WHITE BLOOD COUNT 8.5 Th/cmm (4.8-10.8)
--- NOTE | 2018-04-22 07:58 | GI Progress Note ---
Subjective - Review of Systems Subjective: NO EVENTS DENIES ABD PAIN HAD BM Objective - Results Result Diagrams: 04/22/18 05:40 04/22/18 05:40 Recent Labs: Laboratory Last Values WBC 8.5 Th/cmm (4.8-10.8) 04/22/18 05:40 RBC 3.85 Mil/cmm (3.80-5.80) 04/22/18 05:40 Hgb 12.2 gm/dL (12-16) 04/22/18 05:40 Hct 36.1 % (41.0-60) L 04/22/18 05:40 MCV 93.7 fl (80-99) 04/22/18 05:40 MCH 31.7 pg (27.0-31.0) H 04/22/18 05:40 MCHC Differential 33.8 pg (28.0-36.0) 04/22/18 05:40 RDW 15.6 % (11.5-20.0) 04/22/18 05:40 Plt Count 252 Th/cmm (150-400) 04/22/18 05:40 MPV 8.1 fl 04/22/18 05:40 Neutrophils % 73.9 % (40.0-80.0) 04/22/18 05:40 Lymphocytes % 11.3 % (20.0-50.0) L 04/22/18 05:40 Monocytes % 13.9 % (2.0-10.0) H 04/22/18 05:40 Eosinophils % 0.7 % (0.0-5.0) 04/22/18 05:40 Basophils % 0.2 % (0.0-2.0) 04/22/18 05:40 Sodium 137 mEq/L (136-145) 04/22/18 05:40 Potassium 3.0 mEq/L (3.5-5.1) L 04/22/18 05:40 Chloride 103 mEq/L (98-107) 04/22/18 05:40 Carbon Dioxide 26.4 mEq/L (21.0-31.0) 04/22/18 05:40 Anion Gap 10.6 (7.0-16.0) 04/22/18 05:40 BUN 21 mg/dL (7-25) 04/22/18 05:40 Creatinine 0.7 mg/dL (0.7-1.3) 04/22/18 05:40 Est GFR ( Amer) > 60.0 ml/min (>90) 04/22/18 05:40 Est GFR (Non-Af Amer) > 60.0 ml/min 04/22/18 05:40 BUN/Creatinine Ratio 30.0 04/22/18 05:40 Glucose 81 mg/dL (70-105) 04/22/18 05:40 Whole Bld Lactic Acid 1.26 mmol/L (0.60-1.99) 04/20/18 05:10 Calcium 8.4 mg/dL (8.6-10.3) L 04/22/18 05:40 Total Bilirubin 0.6 mg/dL (0.3-1.0) 04/20/18 05:10 AST 12 U/L (13-39) L 04/20/18 05:10 ALT 15 U/L (7-52) 04/20/18 05:10 Alkaline Phosphatase 98 U/L (34-104) 04/20/18 05:10 Ammonia 88 umol/L (16-53) H 04/20/18 05:10 Troponin I < 0.01 ng/mL (0.01-0.05) L 04/20/18 05:10 Total Protein 6.5 gm/dL (6.0-8.3) 04/20/18 05:10 Albumin 3.2 gm/dL (4.2-5.5) L 04/20/18 05:10 Globulin 3.3 gm/dL 04/20/18 05:10 Albumin/Globulin Ratio 1.0 (1.0-1.8) 04/20/18 05:10 Urine Source CLEAN C 04/21/18 06:57 Urine Color YELLOW 04/21/18 06:57 Urine Clarity CLEAR (CLEAR) 04/21/18 06:57 Urine pH 6.0 (4.6 - 8.0) 04/21/18 06:57 Ur Specific [place] 1.025 (1.005-1.030) 04/21/18 06:57 Urine Protein TRACE mg/dL (NEGATIVE) 04/21/18 06:57 Urine Glucose (UA) NEGATIVE mg/dL (NEGATIVE) 04/21/18 06:57 Urine Ketones TRACE mg/dL (NEGATIVE) 04/21/18 06:57 Urine Blood NEGATIVE (NEGATIVE) 04/21/18 06:57 Urine Nitrate NEGATIVE (NEGATIVE) 04/21/18 06:57 Urine Bilirubin NEGATIVE (NEGATIVE) 04/21/18 06:57 Urine Urobilinogen 1.0 E.U./dL (0.2 - 1.0) 04/21/18 06:57 Ur Leukocyte Esterase NEGATIVE (NEGATIVE) 04/21/18 06:57 Urine RBC 0-2 /hpf (0-5) H 04/21/18 06:57 Urine WBC 0-2 /hpf (0-5) 04/21/18 06:57 Ur Epithelial Cells OCCASIONAL /lpf (FEW) 04/21/18 06:57 Uric Acid Crystals FEW /hpf (NONE SEEN) 04/21/18 06:57 Urine Bacteria NONE SEEN /hpf (NONE SEEN) 04/21/18 06:57 - Physical Exam Vitals and I&O: Vital Signs Temp 98.7 F 04/22/18 04:00 Pulse 87 04/22/18 04:00 Resp 17 04/22/18 04:00 BP 112/68 04/22/18 04:00 Pulse Ox 97 04/22/18 04:00 Intake & Output 04/21/18 04/22/18 04/22/18 18:59 06:59 18:59 Intake Total 1150 1060 Balance 1150 1060 Weight (lbs) 58.967 kg 58.967 kg Intake: Intake, IV Amount 1050 1000 D5-0.45NS w/20 mEq KCL 1, 1000 1000 000 ml @ 90 mls/hr IV . Q11H7M [facility] Rx#:[id number] Piperacillin Sodium/ 50 Tazobact 3.375 gm In Sodium Chloride 0.9% 50 ml @ 100 mls/hr IV Q8H [facility] Rx#:[id number] Oral 100 60 Other: # Voids 3 3 # Bowel Movements 0 Stool Characteristics Soft Weight Source Bedscale Bedscale Active Medications: Current Medications Amiodarone HCl (Cordarone) 200 mg PO DAILY [facility] Stop: 06/20/18 08:59 Last Admin: 04/21/18 09:41 Dose: Not Given Cyanocobalamin (Vitamin B12) 500 mcg PO DAILY [facility] Stop: 06/20/18 08:59 Last Admin: 04/21/18 09:41 Dose: Not Given Docusate Sodium (Colace) 250 mg PO HS [facility] Stop: 06/20/18 20:59 Last Admin: 04/21/18 20:42 Dose: Not Given Gabapentin (Neurontin) 300 mg PO TID [facility] Stop: 06/20/18 08:59 Last Admin: 04/21/18 20:42 Dose: Not Given Potassium Chloride/Dextrose/Sod Cl (D5-0.45ns W/20 Meq Kcl) 1,000 mls @ 90 mls/ hr IV .Q11H7M [facility] Stop: 06/19/18 09:06 Last Admin: 04/21/18 22:06 Dose: 90 mls/hr Piperacillin Sod/Tazobactam (Sod 3.375 gm/ Sodium Chloride) 50 mls @ 100 mls/ hr IV Q8H [facility] Stop: 06/19/18 16:59 Last Admin: 04/22/18 01:06 Dose: Not Given Potassium Chloride (Potassium Chloride) 20 meq in 100 mls @ 50 mls/hr IV Q2H [facility] Stop: 04/22/18 11:14 Lactobacillus Rhamnosus (Culturelle 15b) 1 each PO DAILY [facility] Stop: 06/20/18 08:59 Last Admin: 04/21/18 09:41 Dose: Not Given Lorazepam (Ativan) 0.5 mg PO Q8HR [facility]; Protocol Stop: 06/20/18 04:59 Magnesium Hydroxide (Milk Of Magnesia) 30 ml PO Q48HR [facility] Stop: 06/19/18 21:59 Last Admin: 04/21/18 01:28 Dose: Not Given Mineral Oil (Mineral Oil 30 Ml) 30 ml PO BID [facility] Stop: 04/26/18 16:59 Last Admin: 04/21/18 16:37 Dose: 30 ml Mirtazapine (Remeron) 15 mg PO HS [facility]; Protocol Stop: 06/20/18 20:59 Olanzapine (Zyprexa) 5 mg PO DAILY [facility]; Protocol Stop: 06/20/18 08:59 Olanzapine (Zyprexa) 10 mg PO HS [facility]; Protocol Stop: 06/20/18 20:59 Ondansetron HCl (Zofran Odt) 4 mg PO Q6HR PRN PRN Reason: Nausea / Vomiting Stop: 06/20/18 00:44 Oxybutynin Chloride (Ditropan) 5 mg PO HS [facility] Stop: 06/20/18 20:59 Last Admin: 04/21/18 20:42 Dose: Not Given Pantoprazole Sodium (Protonix) 40 mg PO DAILY [facility] Stop: 06/20/18 08:59 Last Admin: 04/21/18 09:42 Dose: Not Given Sodium Chloride (Nacl Tab) 1 gm PO BID [facility] Stop: 06/20/18 08:59 Last Admin: 04/21/18 16:37 Dose: Not Given Tamsulosin HCl (Flomax) 0.4 mg PO DAILY [facility] Stop: 06/20/18 08:59 Last Admin: 04/21/18 09:42 Dose: Not Given Assessment/Plan - Assessment Assessment: 68 YO MALE WITH ABD DISTENSION LIKELY FECAL IMPACTION 1.CONT LAXATIVES 2.PT REFUSING COLO 3.WILL NEED BARIUM ENEMA ALTERNATIVE
[2018-04-22] MEDS: Lactobacillus Rhamnosus GG 15 Billion CFU CAP.SPRINK PO SCH (09:00)
--- NOTE | 2018-04-22 10:02 | Diagnostic Imaging Report ---
KUB abdominal film HISTORY: Abdominal distention The exam demonstrates a dilated stool-filled ascending colon. Mildly dilated air-filled descending and sigmoid colon also noted. Overall appearance may be associated with changes of a fecal impaction. No free and peritoneal air. IMPRESSION: 1. Stool-filled dilated large bowel. Findings may be associated with a fecal impaction. Clinical correlation and follow-up recommended.
[2018-04-22] MEDS: Pantoprazole 40 mg EC Tab PO SCH (10:10)
[2018-04-22] MEDS: KCL 20mEq/100mL Premix 20 MEQ/100 ML PIGGYBACK IV SCH ×2 (10:12→14:16)
[2018-04-22] MEDS ORDERED: KCL 20mEq/100mL Premix 20 MEQ/100 ML PIGGYBACK IV ONE (14:13)
[2018-04-22] MEDS: Magnesium Hydroxide (MOM) 30 mL UDC PO SCH (22:20)
[2018-04-22] MEDS: D5-0.45NS w/20 mEq KCL 1,000 ML IV SCH (22:26)
--- NOTE | 2018-04-23 07:55 | GI Progress Note ---
Subjective - Review of Systems Subjective: NO EVENTS DENIES ABD PAIN HAD BM Objective - Results Result Diagrams: 04/22/18 05:40 04/22/18 05:40 Recent Labs: Laboratory Last Values WBC 8.5 Th/cmm (4.8-10.8) 04/22/18 05:40 RBC 3.85 Mil/cmm (3.80-5.80) 04/22/18 05:40 Hgb 12.2 gm/dL (12-16) 04/22/18 05:40 Hct 36.1 % (41.0-60) L 04/22/18 05:40 MCV 93.7 fl (80-99) 04/22/18 05:40 MCH 31.7 pg (27.0-31.0) H 04/22/18 05:40 MCHC Differential 33.8 pg (28.0-36.0) 04/22/18 05:40 RDW 15.6 % (11.5-20.0) 04/22/18 05:40 Plt Count 252 Th/cmm (150-400) 04/22/18 05:40 MPV 8.1 fl 04/22/18 05:40 Neutrophils % 73.9 % (40.0-80.0) 04/22/18 05:40 Lymphocytes % 11.3 % (20.0-50.0) L 04/22/18 05:40 Monocytes % 13.9 % (2.0-10.0) H 04/22/18 05:40 Eosinophils % 0.7 % (0.0-5.0) 04/22/18 05:40 Basophils % 0.2 % (0.0-2.0) 04/22/18 05:40 Sodium 137 mEq/L (136-145) 04/22/18 05:40 Potassium 3.0 mEq/L (3.5-5.1) L 04/22/18 05:40 Chloride 103 mEq/L (98-107) 04/22/18 05:40 Carbon Dioxide 26.4 mEq/L (21.0-31.0) 04/22/18 05:40 Anion Gap 10.6 (7.0-16.0) 04/22/18 05:40 BUN 21 mg/dL (7-25) 04/22/18 05:40 Creatinine 0.7 mg/dL (0.7-1.3) 04/22/18 05:40 Est GFR ( Amer) > 60.0 ml/min (>90) 04/22/18 05:40 Est GFR (Non-Af Amer) > 60.0 ml/min 04/22/18 05:40 BUN/Creatinine Ratio 30.0 04/22/18 05:40 Glucose 81 mg/dL (70-105) 04/22/18 05:40 Whole Bld Lactic Acid 1.26 mmol/L (0.60-1.99) 04/20/18 05:10 Calcium 8.4 mg/dL (8.6-10.3) L 04/22/18 05:40 Total Bilirubin 0.6 mg/dL (0.3-1.0) 04/20/18 05:10 AST 12 U/L (13-39) L 04/20/18 05:10 ALT 15 U/L (7-52) 04/20/18 05:10 Alkaline Phosphatase 98 U/L (34-104) 04/20/18 05:10 Ammonia 88 umol/L (16-53) H 04/20/18 05:10 Troponin I < 0.01 ng/mL (0.01-0.05) L 04/20/18 05:10 Total Protein 6.5 gm/dL (6.0-8.3) 04/20/18 05:10 Albumin 3.2 gm/dL (4.2-5.5) L 04/20/18 05:10 Globulin 3.3 gm/dL 04/20/18 05:10 Albumin/Globulin Ratio 1.0 (1.0-1.8) 04/20/18 05:10 Urine Source CLEAN C 04/21/18 06:57 Urine Color YELLOW 04/21/18 06:57 Urine Clarity CLEAR (CLEAR) 04/21/18 06:57 Urine pH 6.0 (4.6 - 8.0) 04/21/18 06:57 Ur Specific [place] 1.025 (1.005-1.030) 04/21/18 06:57 Urine Protein TRACE mg/dL (NEGATIVE) 04/21/18 06:57 Urine Glucose (UA) NEGATIVE mg/dL (NEGATIVE) 04/21/18 06:57 Urine Ketones TRACE mg/dL (NEGATIVE) 04/21/18 06:57 Urine Blood NEGATIVE (NEGATIVE) 04/21/18 06:57 Urine Nitrate NEGATIVE (NEGATIVE) 04/21/18 06:57 Urine Bilirubin NEGATIVE (NEGATIVE) 04/21/18 06:57 Urine Urobilinogen 1.0 E.U./dL (0.2 - 1.0) 04/21/18 06:57 Ur Leukocyte Esterase NEGATIVE (NEGATIVE) 04/21/18 06:57 Urine RBC 0-2 /hpf (0-5) H 04/21/18 06:57 Urine WBC 0-2 /hpf (0-5) 04/21/18 06:57 Ur Epithelial Cells OCCASIONAL /lpf (FEW) 04/21/18 06:57 Uric Acid Crystals FEW /hpf (NONE SEEN) 04/21/18 06:57 Urine Bacteria NONE SEEN /hpf (NONE SEEN) 04/21/18 06:57 - Physical Exam Vitals and I&O: Vital Signs Temp 97.9 F 04/23/18 00:00 Pulse 85 04/23/18 07:24 Resp 18 04/23/18 07:24 BP 101/60 04/23/18 00:00 Pulse Ox 94 04/23/18 07:24 Intake & Output 04/22/18 04/23/18 04/23/18 18:59 06:59 18:59 Intake Total 1200 850 964.5 Output Total 3 Balance 1200 847 964.5 Weight (lbs) 58.967 kg 58.967 kg Intake: Intake, IV Amount 1200 844.5 D5-0.45NS w/20 mEq KCL 1, 1000 844.5 000 ml @ 90 mls/hr IV . Q11H7M [facility] Rx#:[id number] KCL 20mEq/100mL Premix 20 100 meq In 100 ml @ 50 mls/ hr IV Q2H [facility] Rx#: [id number] Piperacillin Sodium/ 100 Tazobact 3.375 gm In Sodium Chloride 0.9% 50 ml @ 100 mls/hr IV Q8H [facility] Rx#:[id number] Oral 550 120 Other 300 Output: Urine 3 Other: # Voids 2 # Bowel Movements 1 2 Stool Characteristics Soft Brown Weight Source Bedscale Bedscale Active Medications: Current Medications Amiodarone HCl (Cordarone) 200 mg PO DAILY [facility] Stop: 06/20/18 08:59 Last Admin: 04/22/18 10:07 Dose: Not Given Cyanocobalamin (Vitamin B12) 500 mcg PO DAILY [facility] Stop: 06/20/18 08:59 Last Admin: 04/22/18 10:08 Dose: 500 mcg Docusate Sodium (Colace) 250 mg PO HS [facility] Stop: 06/20/18 20:59 Last Admin: 04/22/18 22:20 Dose: 250 mg Gabapentin (Neurontin) 300 mg PO TID [facility] Stop: 06/20/18 08:59 Last Admin: 04/22/18 22:20 Dose: 300 mg Potassium Chloride/Dextrose/Sod Cl (D5-0.45ns W/20 Meq Kcl) 1,000 mls @ 90 mls/ hr IV .Q11H7M [facility] Stop: 06/19/18 09:06 Last Infusion: 04/23/18 07:49 Dose: 90 mls/hr Piperacillin Sod/Tazobactam (Sod 3.375 gm/ Sodium Chloride) 50 mls @ 100 mls/ hr IV Q8H [facility] Stop: 06/19/18 16:59 Last Admin: 04/23/18 01:27 Dose: 100 mls/hr Lactobacillus Rhamnosus (Culturelle 15b) 1 each PO DAILY [facility] Stop: 06/20/18 08:59 Last Admin: 04/22/18 09:00 Dose: 1 each Lorazepam (Ativan) 0.5 mg PO Q8HR [facility]; Protocol Stop: 06/20/18 04:59 Magnesium Hydroxide (Milk Of Magnesia) 30 ml PO Q48HR [facility] Stop: 06/19/18 21:59 Last Admin: 04/22/18 22:20 Dose: 30 ml Mineral Oil (Mineral Oil 30 Ml) 30 ml PO BID [facility] Stop: 04/26/18 16:59 Last Admin: 04/22/18 17:41 Dose: 30 ml Mirtazapine (Remeron) 15 mg PO HS [facility]; Protocol Stop: 06/20/18 20:59 Olanzapine (Zyprexa) 5 mg PO DAILY [facility]; Protocol Stop: 06/20/18 08:59 Olanzapine (Zyprexa) 10 mg PO HS [facility]; Protocol Stop: 06/20/18 20:59 Ondansetron HCl (Zofran Odt) 4 mg PO Q6HR PRN PRN Reason: Nausea / Vomiting Stop: 06/20/18 00:44 Oxybutynin Chloride (Ditropan) 5 mg PO HS [facility] Stop: 06/20/18 20:59 Last Admin: 04/22/18 22:21 Dose: 5 mg Pantoprazole Sodium (Protonix) 40 mg PO DAILY [facility] Stop: 06/20/18 08:59 Last Admin: 04/22/18 10:10 Dose: 40 mg Sodium Chloride (Nacl Tab) 1 gm PO BID [facility] Stop: 06/20/18 08:59 Last Admin: 04/22/18 17:41 Dose: 1 gm Tamsulosin HCl (Flomax) 0.4 mg PO DAILY [facility] Stop: 06/20/18 08:59 Last Admin: 04/22/18 10:08 Dose: 0.4 mg Assessment/Plan - Assessment Assessment: 68 YO MALE WITH ABD DISTENSION LIKELY FECAL IMPACTION NOW IMPROVED HAVING BM 1.CONT LAXATIVES 2.PT REFUSING COLO 3.WILL NEED BARIUM ENEMA ALTERNATIVE
[2018-04-23] MEDS: Lactobacillus Rhamnosus GG 15 Billion CFU CAP.SPRINK PO SCH (09:43)
[2018-04-23] MEDS: Pantoprazole 40 mg EC Tab PO SCH (09:44)
[2018-04-23] MEDS ORDERED: Probiotic Screen MC PRN (11:45)
[2018-04-23] MEDS: D5-0.45NS w/20 mEq KCL 1,000 ML IV SCH (15:26)
--- NOTE | 2018-04-23 23:48 | Internal Medicine Prog Note ---
Internal Medicine Subjective - Subjective Service Date: 04/23/18 Patient seen and examined:: without staff Patient is:: asleep, non-interactive, in bed Per staff patient has:: no adverse event Internal Medicine Objective - Results Result Diagrams: 04/22/18 05:40 04/22/18 05:40 Recent Labs: Laboratory Last Values WBC 8.5 Th/cmm (4.8-10.8) 04/22/18 05:40 RBC 3.85 Mil/cmm (3.80-5.80) 04/22/18 05:40 Hgb 12.2 gm/dL (12-16) 04/22/18 05:40 Hct 36.1 % (41.0-60) L 04/22/18 05:40 MCV 93.7 fl (80-99) 04/22/18 05:40 MCH 31.7 pg (27.0-31.0) H 04/22/18 05:40 MCHC Differential 33.8 pg (28.0-36.0) 04/22/18 05:40 RDW 15.6 % (11.5-20.0) 04/22/18 05:40 Plt Count 252 Th/cmm (150-400) 04/22/18 05:40 MPV 8.1 fl 04/22/18 05:40 Neutrophils % 73.9 % (40.0-80.0) 04/22/18 05:40 Lymphocytes % 11.3 % (20.0-50.0) L 04/22/18 05:40 Monocytes % 13.9 % (2.0-10.0) H 04/22/18 05:40 Eosinophils % 0.7 % (0.0-5.0) 04/22/18 05:40 Basophils % 0.2 % (0.0-2.0) 04/22/18 05:40 Sodium 137 mEq/L (136-145) 04/22/18 05:40 Potassium 3.0 mEq/L (3.5-5.1) L 04/22/18 05:40 Chloride 103 mEq/L (98-107) 04/22/18 05:40 Carbon Dioxide 26.4 mEq/L (21.0-31.0) 04/22/18 05:40 Anion Gap 10.6 (7.0-16.0) 04/22/18 05:40 BUN 21 mg/dL (7-25) 04/22/18 05:40 Creatinine 0.7 mg/dL (0.7-1.3) 04/22/18 05:40 Est GFR ( Amer) > 60.0 ml/min (>90) 04/22/18 05:40 Est GFR (Non-Af Amer) > 60.0 ml/min 04/22/18 05:40 BUN/Creatinine Ratio 30.0 04/22/18 05:40 Glucose 81 mg/dL (70-105) 04/22/18 05:40 Whole Bld Lactic Acid 1.26 mmol/L (0.60-1.99) 04/20/18 05:10 Calcium 8.4 mg/dL (8.6-10.3) L 04/22/18 05:40 Total Bilirubin 0.6 mg/dL (0.3-1.0) 04/20/18 05:10 AST 12 U/L (13-39) L 04/20/18 05:10 ALT 15 U/L (7-52) 04/20/18 05:10 Alkaline Phosphatase 98 U/L (34-104) 04/20/18 05:10 Ammonia 88 umol/L (16-53) H 04/20/18 05:10 Troponin I < 0.01 ng/mL (0.01-0.05) L 04/20/18 05:10 Total Protein 6.5 gm/dL (6.0-8.3) 04/20/18 05:10 Albumin 3.2 gm/dL (4.2-5.5) L 04/20/18 05:10 Globulin 3.3 gm/dL 04/20/18 05:10 Albumin/Globulin Ratio 1.0 (1.0-1.8) 04/20/18 05:10 Urine Source CLEAN C 04/21/18 06:57 Urine Color YELLOW 04/21/18 06:57 Urine Clarity CLEAR (CLEAR) 04/21/18 06:57 Urine pH 6.0 (4.6 - 8.0) 04/21/18 06:57 Ur Specific [place] 1.025 (1.005-1.030) 04/21/18 06:57 Urine Protein TRACE mg/dL (NEGATIVE) 04/21/18 06:57 Urine Glucose (UA) NEGATIVE mg/dL (NEGATIVE) 04/21/18 06:57 Urine Ketones TRACE mg/dL (NEGATIVE) 04/21/18 06:57 Urine Blood NEGATIVE (NEGATIVE) 04/21/18 06:57 Urine Nitrate NEGATIVE (NEGATIVE) 04/21/18 06:57 Urine Bilirubin NEGATIVE (NEGATIVE) 04/21/18 06:57 Urine Urobilinogen 1.0 E.U./dL (0.2 - 1.0) 04/21/18 06:57 Ur Leukocyte Esterase NEGATIVE (NEGATIVE) 04/21/18 06:57 Urine RBC 0-2 /hpf (0-5) H 04/21/18 06:57 Urine WBC 0-2 /hpf (0-5) 04/21/18 06:57 Ur Epithelial Cells OCCASIONAL /lpf (FEW) 04/21/18 06:57 Uric Acid Crystals FEW /hpf (NONE SEEN) 04/21/18 06:57 Urine Bacteria NONE SEEN /hpf (NONE SEEN) 04/21/18 06:57 - Physical Exam Vitals and I&O: Vital Signs Temp 97.6 F 04/23/18 15:34 Pulse 84 04/23/18 20:10 Resp 18 04/23/18 20:10 BP 198/67 04/23/18 15:34 Pulse Ox 92 04/23/18 20:10 Intake & Output 04/23/18 04/23/18 04/24/18 06:59 18:59 06:59 Intake Total 900 1170.0 Output Total 3 Balance 897 1170.0 Weight (lbs) 58.967 kg 58.876 kg Intake: Intake, IV Amount 50 1050.0 D5-0.45NS w/20 mEq KCL 1, 1000.0 000 ml @ 90 mls/hr IV . Q11H7M [facility] Rx#:[id number] Piperacillin Sodium/ 50 50 Tazobact 3.375 gm In Sodium Chloride 0.9% 50 ml @ 100 mls/hr IV Q8H [facility] Rx#:[id number] Oral 550 120 Other 300 Output: Urine 3 Other: # Voids 2 # Bowel Movements 1 2 Stool Characteristics Soft Brown Weight Source Bedscale Bedscale Active Medications: Current Medications Amiodarone HCl (Cordarone) 200 mg PO DAILY [facility] Stop: 06/20/18 08:59 Last Admin: 04/23/18 09:43 Dose: 200 mg Cyanocobalamin (Vitamin B12) 500 mcg PO DAILY [facility] Stop: 06/20/18 08:59 Last Admin: 04/23/18 09:43 Dose: 500 mcg Docusate Sodium (Colace) 250 mg PO HS [facility] Stop: 06/20/18 20:59 Last Admin: 04/23/18 21:38 Dose: 250 mg Gabapentin (Neurontin) 300 mg PO TID [facility] Stop: 06/20/18 08:59 Last Admin: 04/23/18 21:38 Dose: 300 mg Potassium Chloride/Dextrose/Sod Cl (D5-0.45ns W/20 Meq Kcl) 1,000 mls @ 90 mls/ hr IV .Q11H7M [facility] Stop: 06/19/18 09:06 Last Admin: 04/23/18 15:26 Dose: 90 mls/hr Piperacillin Sod/Tazobactam (Sod 3.375 gm/ Sodium Chloride) 50 mls @ 100 mls/ hr IV Q8H [facility] Stop: 06/19/18 16:59 Last Admin: 04/23/18 16:13 Dose: 100 mls/hr Lactobacillus Rhamnosus (Culturelle 15b) 1 each PO DAILY [facility] Stop: 06/20/18 08:59 Last Admin: 04/23/18 09:43 Dose: 1 each Lorazepam (Ativan) 0.5 mg PO Q8HR [facility]; Protocol Stop: 06/20/18 04:59 Magnesium Hydroxide (Milk Of Magnesia) 30 ml PO Q48HR [facility] Stop: 06/19/18 21:59 Last Admin: 04/22/18 22:20 Dose: 30 ml Mineral Oil (Mineral Oil 30 Ml) 30 ml PO BID [facility] Stop: 04/26/18 16:59 Last Admin: 04/23/18 16:12 Dose: 30 ml Mirtazapine (Remeron) 15 mg PO HS [facility]; Protocol Stop: 06/20/18 20:59 Miscellaneous (Probiotic Screen) 1 ea MC PRN PRN PRN Reason: PROTOCOL Stop: 06/22/18 11:44 Olanzapine (Zyprexa) 5 mg PO DAILY [facility]; Protocol Stop: 06/20/18 08:59 Olanzapine (Zyprexa) 10 mg PO HS [facility]; Protocol Stop: 06/20/18 20:59 Ondansetron HCl (Zofran Odt) 4 mg PO Q6HR PRN PRN Reason: Nausea / Vomiting Stop: 06/20/18 00:44 Oxybutynin Chloride (Ditropan) 5 mg PO HS [facility] Stop: 06/20/18 20:59 Last Admin: 04/23/18 21:38 Dose: 5 mg Pantoprazole Sodium (Protonix) 40 mg PO DAILY [facility] Stop: 06/20/18 08:59 Last Admin: 04/23/18 09:44 Dose: 40 mg Sodium Chloride (Nacl Tab) 1 gm PO BID [facility] Stop: 06/20/18 08:59 Last Admin: 04/23/18 16:12 Dose: 1 gm Tamsulosin HCl (Flomax) 0.4 mg PO DAILY [facility] Stop: 06/20/18 08:59 Last Admin: 04/23/18 09:44 Dose: 0.4 mg General: weak, congested, demented HEENT: NC/AT, PERRLA Neck: Supple, No JVD, No thyromegaly, No LAD Lungs: wheezing, ronchi Cardiovascular: RRR, Normal S1 Abdomen: non-tender, distended Extremities: clear Neurological: no change Internal Medicine Assmt/Plan - Assessment Assessment: Noncompliance: education provided. ALOC: on and off; observe. Ileus: continue laxatives. Hypokalemia: supplement. H/O A. Fib: rate controlled. Hypotension: better.
[2018-04-24] MEDS: D5-0.45NS w/20 mEq KCL 1,000 ML IV SCH ×2 (04:27→16:49)
[2018-04-24] MEDS: Pantoprazole 40 mg EC Tab PO SCH (08:28)
[2018-04-24] MEDS: Lactobacillus Rhamnosus GG 15 Billion CFU CAP.SPRINK PO SCH (08:28)
--- NOTE | 2018-04-24 08:40 | GI Progress Note ---
Subjective - Review of Systems Subjective: NO EVENTS DENIES ABD PAIN HAD BM REFUSED GOLYTELY Objective - Results Result Diagrams: 04/22/18 05:40 04/22/18 05:40 Recent Labs: Laboratory Last Values WBC 8.5 Th/cmm (4.8-10.8) 04/22/18 05:40 RBC 3.85 Mil/cmm (3.80-5.80) 04/22/18 05:40 Hgb 12.2 gm/dL (12-16) 04/22/18 05:40 Hct 36.1 % (41.0-60) L 04/22/18 05:40 MCV 93.7 fl (80-99) 04/22/18 05:40 MCH 31.7 pg (27.0-31.0) H 04/22/18 05:40 MCHC Differential 33.8 pg (28.0-36.0) 04/22/18 05:40 RDW 15.6 % (11.5-20.0) 04/22/18 05:40 Plt Count 252 Th/cmm (150-400) 04/22/18 05:40 MPV 8.1 fl 04/22/18 05:40 Neutrophils % 73.9 % (40.0-80.0) 04/22/18 05:40 Lymphocytes % 11.3 % (20.0-50.0) L 04/22/18 05:40 Monocytes % 13.9 % (2.0-10.0) H 04/22/18 05:40 Eosinophils % 0.7 % (0.0-5.0) 04/22/18 05:40 Basophils % 0.2 % (0.0-2.0) 04/22/18 05:40 Sodium 137 mEq/L (136-145) 04/22/18 05:40 Potassium 3.0 mEq/L (3.5-5.1) L 04/22/18 05:40 Chloride 103 mEq/L (98-107) 04/22/18 05:40 Carbon Dioxide 26.4 mEq/L (21.0-31.0) 04/22/18 05:40 Anion Gap 10.6 (7.0-16.0) 04/22/18 05:40 BUN 21 mg/dL (7-25) 04/22/18 05:40 Creatinine 0.7 mg/dL (0.7-1.3) 04/22/18 05:40 Est GFR ( Amer) > 60.0 ml/min (>90) 04/22/18 05:40 Est GFR (Non-Af Amer) > 60.0 ml/min 04/22/18 05:40 BUN/Creatinine Ratio 30.0 04/22/18 05:40 Glucose 81 mg/dL (70-105) 04/22/18 05:40 Whole Bld Lactic Acid 1.26 mmol/L (0.60-1.99) 04/20/18 05:10 Calcium 8.4 mg/dL (8.6-10.3) L 04/22/18 05:40 Total Bilirubin 0.6 mg/dL (0.3-1.0) 04/20/18 05:10 AST 12 U/L (13-39) L 04/20/18 05:10 ALT 15 U/L (7-52) 04/20/18 05:10 Alkaline Phosphatase 98 U/L (34-104) 04/20/18 05:10 Ammonia 88 umol/L (16-53) H 04/20/18 05:10 Troponin I < 0.01 ng/mL (0.01-0.05) L 04/20/18 05:10 Total Protein 6.5 gm/dL (6.0-8.3) 04/20/18 05:10 Albumin 3.2 gm/dL (4.2-5.5) L 04/20/18 05:10 Globulin 3.3 gm/dL 04/20/18 05:10 Albumin/Globulin Ratio 1.0 (1.0-1.8) 04/20/18 05:10 Urine Source CLEAN C 04/21/18 06:57 Urine Color YELLOW 04/21/18 06:57 Urine Clarity CLEAR (CLEAR) 04/21/18 06:57 Urine pH 6.0 (4.6 - 8.0) 04/21/18 06:57 Ur Specific [place] 1.025 (1.005-1.030) 04/21/18 06:57 Urine Protein TRACE mg/dL (NEGATIVE) 04/21/18 06:57 Urine Glucose (UA) NEGATIVE mg/dL (NEGATIVE) 04/21/18 06:57 Urine Ketones TRACE mg/dL (NEGATIVE) 04/21/18 06:57 Urine Blood NEGATIVE (NEGATIVE) 04/21/18 06:57 Urine Nitrate NEGATIVE (NEGATIVE) 04/21/18 06:57 Urine Bilirubin NEGATIVE (NEGATIVE) 04/21/18 06:57 Urine Urobilinogen 1.0 E.U./dL (0.2 - 1.0) 04/21/18 06:57 Ur Leukocyte Esterase NEGATIVE (NEGATIVE) 04/21/18 06:57 Urine RBC 0-2 /hpf (0-5) H 04/21/18 06:57 Urine WBC 0-2 /hpf (0-5) 04/21/18 06:57 Ur Epithelial Cells OCCASIONAL /lpf (FEW) 04/21/18 06:57 Uric Acid Crystals FEW /hpf (NONE SEEN) 04/21/18 06:57 Urine Bacteria NONE SEEN /hpf (NONE SEEN) 04/21/18 06:57 - Physical Exam Vitals and I&O: Vital Signs Temp 97.6 F 04/24/18 04:00 Pulse 73 04/24/18 08:27 Resp 18 04/24/18 07:18 BP 91/61 04/24/18 04:00 Pulse Ox 94 04/24/18 07:18 Intake & Output 04/23/18 04/24/18 04/24/18 18:59 06:59 18:59 Intake Total 1220.0 1050 Output Total 450 Balance 1220.0 600 Weight (lbs) 58.876 kg 58.513 kg Intake: Intake, IV Amount 1100.0 1050 D5-0.45NS w/20 mEq KCL 1, 1000.0 1000 000 ml @ 90 mls/hr IV . Q11H7M [facility] Rx#:[id number] Piperacillin Sodium/ 100 50 Tazobact 3.375 gm In Sodium Chloride 0.9% 50 ml @ 100 mls/hr IV Q8H [facility] Rx#:[id number] Oral 120 Output: Urine 450 Other: # Voids 2 # Bowel Movements 2 Weight Source Bedscale Bedscale Active Medications: Current Medications Amiodarone HCl (Cordarone) 200 mg PO DAILY [facility] Stop: 06/20/18 08:59 Last Admin: 04/24/18 08:27 Dose: 200 mg Cyanocobalamin (Vitamin B12) 500 mcg PO DAILY [facility] Stop: 06/20/18 08:59 Last Admin: 04/24/18 08:28 Dose: 500 mcg Docusate Sodium (Colace) 250 mg PO HS [facility] Stop: 06/20/18 20:59 Last Admin: 04/23/18 21:38 Dose: 250 mg Gabapentin (Neurontin) 300 mg PO TID [facility] Stop: 06/20/18 08:59 Last Admin: 04/24/18 08:27 Dose: 300 mg Potassium Chloride/Dextrose/Sod Cl (D5-0.45ns W/20 Meq Kcl) 1,000 mls @ 90 mls/ hr IV .Q11H7M [facility] Stop: 06/19/18 09:06 Last Admin: 04/24/18 04:27 Dose: 90 mls/hr Piperacillin Sod/Tazobactam (Sod 3.375 gm/ Sodium Chloride) 50 mls @ 100 mls/ hr IV Q8H [facility] Stop: 06/19/18 16:59 Last Admin: 04/24/18 08:28 Dose: 100 mls/hr Lactobacillus Rhamnosus (Culturelle 15b) 1 each PO DAILY [facility] Stop: 06/20/18 08:59 Last Admin: 04/24/18 08:28 Dose: 1 each Lorazepam (Ativan) 0.5 mg PO Q8HR PRN; Protocol PRN Reason: Anxiety Stop: 06/23/18 04:59 Magnesium Hydroxide (Milk Of Magnesia) 30 ml PO Q48HR [facility] Stop: 06/19/18 21:59 Last Admin: 04/22/18 22:20 Dose: 30 ml Mineral Oil (Mineral Oil 30 Ml) 30 ml PO BID [facility] Stop: 04/26/18 16:59 Last Admin: 04/24/18 08:28 Dose: 30 ml Mirtazapine (Remeron) 15 mg PO HS [facility]; Protocol Stop: 06/23/18 20:59 Miscellaneous (Probiotic Screen) 1 ea MC PRN PRN PRN Reason: PROTOCOL Stop: 06/22/18 11:44 Olanzapine (Zyprexa) 5 mg PO DAILY [facility]; Protocol Stop: 06/23/18 08:59 Last Admin: 04/24/18 08:28 Dose: 5 mg Olanzapine (Zyprexa) 10 mg PO HS [facility]; Protocol Stop: 06/23/18 20:59 Ondansetron HCl (Zofran Odt) 4 mg PO Q6HR PRN PRN Reason: Nausea / Vomiting Stop: 06/20/18 00:44 Last Admin: 04/24/18 01:21 Dose: 4 mg Oxybutynin Chloride (Ditropan) 5 mg PO HS [facility] Stop: 06/20/18 20:59 Last Admin: 04/23/18 21:38 Dose: 5 mg Pantoprazole Sodium (Protonix) 40 mg PO DAILY [facility] Stop: 06/20/18 08:59 Last Admin: 04/24/18 08:28 Dose: 40 mg Sodium Chloride (Nacl Tab) 1 gm PO BID [facility] Stop: 06/20/18 08:59 Last Admin: 04/24/18 08:28 Dose: 1 gm Tamsulosin HCl (Flomax) 0.4 mg PO DAILY [facility] Stop: 06/20/18 08:59 Last Admin: 04/24/18 08:27 Dose: 0.4 mg Assessment/Plan - Assessment Assessment: 68 YO MALE WITH ABD DISTENSION LIKELY FECAL IMPACTION NOW IMPROVED HAVING BM 1.CONT LAXATIVES 2.PT REFUSING COLO 3.WILL NEED BARIUM ENEMA WHEN CLEANED OUT AN ALTERNATIVE
[2018-04-24] MEDS: Magnesium Hydroxide (MOM) 30 mL UDC PO SCH (21:57)
--- NOTE | 2018-04-24 23:48 | Internal Medicine Prog Note ---
Internal Medicine Subjective - Subjective Service Date: 04/24/18 Patient seen and examined:: without staff Patient is:: asleep, non-interactive, in bed Per staff patient has:: no adverse event Internal Medicine Objective - Results Result Diagrams: 04/22/18 05:40 04/22/18 05:40 Recent Labs: Laboratory Last Values WBC 8.5 Th/cmm (4.8-10.8) 04/22/18 05:40 RBC 3.85 Mil/cmm (3.80-5.80) 04/22/18 05:40 Hgb 12.2 gm/dL (12-16) 04/22/18 05:40 Hct 36.1 % (41.0-60) L 04/22/18 05:40 MCV 93.7 fl (80-99) 04/22/18 05:40 MCH 31.7 pg (27.0-31.0) H 04/22/18 05:40 MCHC Differential 33.8 pg (28.0-36.0) 04/22/18 05:40 RDW 15.6 % (11.5-20.0) 04/22/18 05:40 Plt Count 252 Th/cmm (150-400) 04/22/18 05:40 MPV 8.1 fl 04/22/18 05:40 Neutrophils % 73.9 % (40.0-80.0) 04/22/18 05:40 Lymphocytes % 11.3 % (20.0-50.0) L 04/22/18 05:40 Monocytes % 13.9 % (2.0-10.0) H 04/22/18 05:40 Eosinophils % 0.7 % (0.0-5.0) 04/22/18 05:40 Basophils % 0.2 % (0.0-2.0) 04/22/18 05:40 Sodium 137 mEq/L (136-145) 04/22/18 05:40 Potassium 3.0 mEq/L (3.5-5.1) L 04/22/18 05:40 Chloride 103 mEq/L (98-107) 04/22/18 05:40 Carbon Dioxide 26.4 mEq/L (21.0-31.0) 04/22/18 05:40 Anion Gap 10.6 (7.0-16.0) 04/22/18 05:40 BUN 21 mg/dL (7-25) 04/22/18 05:40 Creatinine 0.7 mg/dL (0.7-1.3) 04/22/18 05:40 Est GFR ( Amer) > 60.0 ml/min (>90) 04/22/18 05:40 Est GFR (Non-Af Amer) > 60.0 ml/min 04/22/18 05:40 BUN/Creatinine Ratio 30.0 04/22/18 05:40 Glucose 81 mg/dL (70-105) 04/22/18 05:40 Whole Bld Lactic Acid 1.26 mmol/L (0.60-1.99) 04/20/18 05:10 Calcium 8.4 mg/dL (8.6-10.3) L 04/22/18 05:40 Total Bilirubin 0.6 mg/dL (0.3-1.0) 04/20/18 05:10 AST 12 U/L (13-39) L 04/20/18 05:10 ALT 15 U/L (7-52) 04/20/18 05:10 Alkaline Phosphatase 98 U/L (34-104) 04/20/18 05:10 Ammonia 88 umol/L (16-53) H 04/20/18 05:10 Troponin I < 0.01 ng/mL (0.01-0.05) L 04/20/18 05:10 Total Protein 6.5 gm/dL (6.0-8.3) 04/20/18 05:10 Albumin 3.2 gm/dL (4.2-5.5) L 04/20/18 05:10 Globulin 3.3 gm/dL 04/20/18 05:10 Albumin/Globulin Ratio 1.0 (1.0-1.8) 04/20/18 05:10 Urine Source CLEAN C 04/21/18 06:57 Urine Color YELLOW 04/21/18 06:57 Urine Clarity CLEAR (CLEAR) 04/21/18 06:57 Urine pH 6.0 (4.6 - 8.0) 04/21/18 06:57 Ur Specific [place] 1.025 (1.005-1.030) 04/21/18 06:57 Urine Protein TRACE mg/dL (NEGATIVE) 04/21/18 06:57 Urine Glucose (UA) NEGATIVE mg/dL (NEGATIVE) 04/21/18 06:57 Urine Ketones TRACE mg/dL (NEGATIVE) 04/21/18 06:57 Urine Blood NEGATIVE (NEGATIVE) 04/21/18 06:57 Urine Nitrate NEGATIVE (NEGATIVE) 04/21/18 06:57 Urine Bilirubin NEGATIVE (NEGATIVE) 04/21/18 06:57 Urine Urobilinogen 1.0 E.U./dL (0.2 - 1.0) 04/21/18 06:57 Ur Leukocyte Esterase NEGATIVE (NEGATIVE) 04/21/18 06:57 Urine RBC 0-2 /hpf (0-5) H 04/21/18 06:57 Urine WBC 0-2 /hpf (0-5) 04/21/18 06:57 Ur Epithelial Cells OCCASIONAL /lpf (FEW) 04/21/18 06:57 Uric Acid Crystals FEW /hpf (NONE SEEN) 04/21/18 06:57 Urine Bacteria NONE SEEN /hpf (NONE SEEN) 04/21/18 06:57 - Physical Exam Vitals and I&O: Vital Signs Temp 98.4 F 04/24/18 15:49 Pulse 72 04/24/18 15:49 Resp 18 04/24/18 20:00 BP 110/72 04/24/18 15:49 Pulse Ox 94 04/24/18 15:49 Intake & Output 04/24/18 04/24/18 04/25/18 06:59 18:59 06:59 Intake Total 1050 1550 Output Total 450 Balance 600 1550 Weight (lbs) 58.513 kg 61.19 kg Intake: Intake, IV Amount 1050 1050 D5-0.45NS w/20 mEq KCL 1, 1000 1000 000 ml @ 90 mls/hr IV . Q11H7M [facility] Rx#:[id number] Piperacillin Sodium/ 50 50 Tazobact 3.375 gm In Sodium Chloride 0.9% 50 ml @ 100 mls/hr IV Q8H [facility] Rx#:[id number] Oral 500 Output: Urine 450 Other: # Voids 3 # Bowel Movements 1 Stool Characteristics Soft Soft Brown Brown Weight Source Bedscale Bedscale Active Medications: Current Medications Amiodarone HCl (Cordarone) 200 mg PO DAILY [facility] Stop: 06/20/18 08:59 Last Admin: 04/24/18 08:27 Dose: 200 mg Cyanocobalamin (Vitamin B12) 500 mcg PO DAILY [facility] Stop: 06/20/18 08:59 Last Admin: 04/24/18 08:28 Dose: 500 mcg Docusate Sodium (Colace) 250 mg PO HS [facility] Stop: 06/20/18 20:59 Last Admin: 04/24/18 21:56 Dose: Not Given Gabapentin (Neurontin) 300 mg PO TID [facility] Stop: 06/20/18 08:59 Last Admin: 04/24/18 21:56 Dose: Not Given Potassium Chloride/Dextrose/Sod Cl (D5-0.45ns W/20 Meq Kcl) 1,000 mls @ 90 mls/ hr IV .Q11H7M [facility] Stop: 06/19/18 09:06 Last Admin: 04/24/18 16:49 Dose: 90 mls/hr Piperacillin Sod/Tazobactam (Sod 3.375 gm/ Sodium Chloride) 50 mls @ 100 mls/ hr IV Q8H [facility] Stop: 06/19/18 16:59 Last Admin: 04/24/18 16:50 Dose: 100 mls/hr Lactobacillus Rhamnosus (Culturelle 15b) 1 each PO DAILY [facility] Stop: 06/20/18 08:59 Last Admin: 04/24/18 08:28 Dose: 1 each Lorazepam (Ativan) 0.5 mg PO Q8HR PRN; Protocol PRN Reason: Anxiety Stop: 06/23/18 04:59 Magnesium Hydroxide (Milk Of Magnesia) 30 ml PO Q48HR [facility] Stop: 06/19/18 21:59 Last Admin: 04/24/18 21:57 Dose: Not Given Mineral Oil (Mineral Oil 30 Ml) 30 ml PO BID [facility] Stop: 04/26/18 16:59 Last Admin: 04/24/18 16:53 Dose: 30 ml Mirtazapine (Remeron) 15 mg PO HS [facility]; Protocol Stop: 06/23/18 20:59 Last Admin: 04/24/18 21:56 Dose: Not Given Miscellaneous (Probiotic Screen) 1 ea MC PRN PRN PRN Reason: PROTOCOL Stop: 06/22/18 11:44 Olanzapine (Zyprexa) 5 mg PO DAILY [facility]; Protocol Stop: 06/23/18 08:59 Last Admin: 04/24/18 08:28 Dose: 5 mg Olanzapine (Zyprexa) 10 mg PO HS [facility]; Protocol Stop: 06/23/18 20:59 Last Admin: 04/24/18 21:56 Dose: Not Given Ondansetron HCl (Zofran Odt) 4 mg PO Q6HR PRN PRN Reason: Nausea / Vomiting Stop: 06/20/18 00:44 Last Admin: 04/24/18 01:21 Dose: 4 mg Oxybutynin Chloride (Ditropan) 5 mg PO HS [facility] Stop: 06/20/18 20:59 Last Admin: 04/24/18 21:56 Dose: Not Given Pantoprazole Sodium (Protonix) 40 mg PO DAILY [facility] Stop: 06/20/18 08:59 Last Admin: 04/24/18 08:28 Dose: 40 mg Sodium Chloride (Nacl Tab) 1 gm PO BID [facility] Stop: 06/20/18 08:59 Last Admin: 04/24/18 16:52 Dose: 1 gm Tamsulosin HCl (Flomax) 0.4 mg PO DAILY [facility] Stop: 06/20/18 08:59 Last Admin: 04/24/18 08:27 Dose: 0.4 mg General: weak, congested, demented HEENT: NC/AT, PERRLA Neck: Supple, No JVD, No thyromegaly, No LAD Lungs: wheezing, ronchi Cardiovascular: RRR, Normal S1 Abdomen: non-tender, distended Extremities: clear Neurological: no change Internal Medicine Assmt/Plan - Assessment Assessment: ALOC: on and off; observe. Noncompliance: education provided. Ileus: continue laxatives. Hypokalemia: supplement. H/O A. Fib: rate controlled. Hypotension: better. Nutritional Asmnt/Malnutr-PDOC - Dietary Evaluation Malnutrition Findings (Please click <Entered> for more info): Nutritional Asmnt/Malnutrition Start: 04/24/18 17: 41 Text: Status: Complete Freq: Protocol: Document 04/24/18 17:41 [email or web address] (Rec: 04/24/18 17:57 [email or web address]) Nutritional Asmnt/Malnutrition Patient General Information Nutritional Screening Moderate Risk Diagnosis ileus Pertinent Medical Hx/Surgical Hx COPD, PNA, CAD, s/p [place], afib, CVA, BPH, sepsis, UTI, psychosis bipolar Subjective Information Pt seen lying in bed, awake and alert. Pt requested solid food. Explained clear liquid diet for pt. Pt was not verbalized understanding. Per MD note 04/24, pt has no abd pain, had BM, refused golytely Current Diet Order/ Nutrition Support clear liquid Pertinent Medications vit B12, colcae, culturelle, mineral oil, remeron, protonix , piperacillin, D5-0.45ns w/ 20meq kcl, nacl tab Pertinent Labs 04/22 K 3.0, Ca 8.4 Nutritional Hx/Data Height 1.8 m Height (Calculated Centimeters) 180.3 Current Weight (lbs) 58.513 kg Weight (Calculated Kilograms) 58.5 Weight (Calculated Grams) 29489.4 [place] Body Weight 172 Body Mass Index (BMI) 17.9 Weight Status Underweight GI Symptoms GI Symptoms None Last BM 04/23 x2 Difficult in: None Skin Integrity/Comment: intact Estimated Nutritional Goals BEE in Kcals: Using Current wt Calories/Kcals/Kg 30-35 Kcals Calculated 0079-2527 Protein: Using Current wt Protein g/k.2 Protein Calculated 71 Fluid: ml 1770-2065ml (1ml/kcal) Nutritional Problem 1. Problem Problem altered nutrition related labs Etiology electrolytes imbalance Signs/Symptoms: K 2.9-3.0 Intervention/Recommendation Comments 1. Advance diet as tolerated. 2. Monitor PO intake, wt, labs and skin integrity 3. F/U as moderate risk in 3-5 days, 04/27-04/29 Expected Outcomes/Goals Expected Outcomes/Goals 1. PO intake to meet at least 75% of nutritional needs. 2. Wt stability, skin to remain intact, labs to approach WNL.
[2018-04-25] MEDS: D5-0.45NS w/20 mEq KCL 1,000 ML IV SCH (06:06)
[2018-04-25 07:00] LABS: EOSINOPHILE ABSOLUTE 0.1 Th/cmm (0.1-0.4); HEMATOCRIT 35.2 % (41.0-60); HEMOGLOBIN 11.7 gm/dL (12-16); LYMPHOCYTE ABSOLUTE 1.9 Th/cmm (1.5-3.0); MEAN CELL VOLUME 93.5 fl (80-99); MEAN CORPUSCULAR HGB CONC 33.2 pg (28.0-36.0); MEAN PLATELET VOLUME 8.1 fl; MONOCYTE ABSOLUTE 1.6 Th/cmm (0.3-1.0); NEUTROPHILE ABSOLUTE 4.6 Th/cmm (1.8-8.0); PLATELET COUNT 205 Th/cmm (150-400); RED BLOOD COUNT 3.77 Mil/cmm (3.80-5.80); RED CELL DISTRIBUTION WIDTH 14.6 % (11.5-20.0); WHITE BLOOD COUNT 8.2 Th/cmm (4.8-10.8)
[2018-04-25 07:14] LABS: ALB/GLOB RATIO 0.8 (1.0-1.8); ALBUMIN 2.5 gm/dL (4.2-5.5); ALKALINE PHOSPHATASE 67 U/L (34-104); ANION GAP 7.7 (7.0-16.0); BILIRUBIN,TOTAL 0.4 mg/dL (0.3-1.0); BUN - UREA NITROGEN 7 mg/dL (7-25); CALCIUM SERUM 8.1 mg/dL (8.6-10.3); CARBON DIOXIDE 23.9 mEq/L (21.0-31.0); CHLORIDE 104 mEq/L (98-107); CREATININE - SERUM 0.6 mg/dL (0.7-1.3); GFR AFRICAN-AMERICAN > 60.0 ml/min (>90); GFR NON AFRICAN-AMERICAN > 60.0 ml/min; GLUCOSE 116 mg/dL (70-105); POTASSIUM SERUM 3.6 mEq/L (3.5-5.1); SGOT 10 U/L (13-39); SGPT/ALT 10 U/L (7-52); SODIUM SERUM 132 mEq/L (136-145); TOTAL PROTEIN,SERUM 5.5 gm/dL (6.0-8.3)
[2018-04-25 07:57] LABS: BAND NEUTROPHILE 3 % (0-10); LYMPHOCYTE 20 % (20-50); MONOCYTE 20 % (2-10); NEUTROPHILS 57 % (40-80); PLATELET ESTIMATE ADEQUATE (NORMAL)
[2018-04-25] MEDS: Pantoprazole 40 mg EC Tab PO SCH (09:35)
[2018-04-25] MEDS: Lactobacillus Rhamnosus GG 15 Billion CFU CAP.SPRINK PO SCH (09:35)
--- NOTE | 2018-04-25 22:21 | Internal Medicine Prog Note ---
Internal Medicine Subjective - Subjective Service Date: 04/25/18 Patient seen and examined:: without staff Patient is:: asleep, non-interactive, in bed Per staff patient has:: no adverse event Internal Medicine Objective - Results Result Diagrams: 04/25/18 06:43 04/25/18 06:43 Recent Labs: Laboratory Last Values WBC 8.2 Th/cmm (4.8-10.8) 04/25/18 06:43 RBC 3.77 Mil/cmm (3.80-5.80) L 04/25/18 06:43 Hgb 11.7 gm/dL (12-16) L 04/25/18 06:43 Hct 35.2 % (41.0-60) L 04/25/18 06:43 MCV 93.5 fl (80-99) 04/25/18 06:43 MCH 31.0 pg (27.0-31.0) 04/25/18 06:43 MCHC Differential 33.2 pg (28.0-36.0) 04/25/18 06:43 RDW 14.6 % (11.5-20.0) 04/25/18 06:43 Plt Count 205 Th/cmm (150-400) 04/25/18 06:43 MPV 8.1 fl 04/25/18 06:43 Add Manual Diff YES 04/25/18 06:43 Neutrophils % 73.9 % (40.0-80.0) 04/22/18 05:40 Band Neutrophils % 3 % (0-10) 04/25/18 06:43 Lymphocytes % 11.3 % (20.0-50.0) L 04/22/18 05:40 Monocytes % 13.9 % (2.0-10.0) H 04/22/18 05:40 Eosinophils % 0.7 % (0.0-5.0) 04/22/18 05:40 Basophils % 0.2 % (0.0-2.0) 04/22/18 05:40 Neutrophils (Manual) 57 % (40-80) 04/25/18 06:43 Lymphocytes 20 % (20-50) 04/25/18 06:43 Monocytes 20 % (2-10) H 04/25/18 06:43 Platelet Estimate ADEQUATE (NORMAL) 04/25/18 06:43 Sodium 132 mEq/L (136-145) L 04/25/18 06:43 Potassium 3.6 mEq/L (3.5-5.1) 04/25/18 06:43 Chloride 104 mEq/L (98-107) 04/25/18 06:43 Carbon Dioxide 23.9 mEq/L (21.0-31.0) 04/25/18 06:43 Anion Gap 7.7 (7.0-16.0) 04/25/18 06:43 BUN 7 mg/dL (7-25) 04/25/18 06:43 Creatinine 0.6 mg/dL (0.7-1.3) L 04/25/18 06:43 Est GFR ( Amer) > 60.0 ml/min (>90) 04/25/18 06:43 Est GFR (Non-Af Amer) > 60.0 ml/min 04/25/18 06:43 BUN/Creatinine Ratio 11.7 04/25/18 06:43 Glucose 116 mg/dL (70-105) H 04/25/18 06:43 Whole Bld Lactic Acid 1.26 mmol/L (0.60-1.99) 04/20/18 05:10 Calcium 8.1 mg/dL (8.6-10.3) L 04/25/18 06:43 Total Bilirubin 0.4 mg/dL (0.3-1.0) 04/25/18 06:43 AST 10 U/L (13-39) L 04/25/18 06:43 ALT 10 U/L (7-52) 04/25/18 06:43 Alkaline Phosphatase 67 U/L (34-104) 04/25/18 06:43 Ammonia 88 umol/L (16-53) H 04/20/18 05:10 Troponin I < 0.01 ng/mL (0.01-0.05) L 04/20/18 05:10 Total Protein 5.5 gm/dL (6.0-8.3) L 04/25/18 06:43 Albumin 2.5 gm/dL (4.2-5.5) L 04/25/18 06:43 Globulin 3.0 gm/dL 04/25/18 06:43 Albumin/Globulin Ratio 0.8 (1.0-1.8) L 04/25/18 06:43 Urine Source CLEAN C 04/21/18 06:57 Urine Color YELLOW 04/21/18 06:57 Urine Clarity CLEAR (CLEAR) 04/21/18 06:57 Urine pH 6.0 (4.6 - 8.0) 04/21/18 06:57 Ur Specific [place] 1.025 (1.005-1.030) 04/21/18 06:57 Urine Protein TRACE mg/dL (NEGATIVE) 04/21/18 06:57 Urine Glucose (UA) NEGATIVE mg/dL (NEGATIVE) 04/21/18 06:57 Urine Ketones TRACE mg/dL (NEGATIVE) 04/21/18 06:57 Urine Blood NEGATIVE (NEGATIVE) 04/21/18 06:57 Urine Nitrate NEGATIVE (NEGATIVE) 04/21/18 06:57 Urine Bilirubin NEGATIVE (NEGATIVE) 04/21/18 06:57 Urine Urobilinogen 1.0 E.U./dL (0.2 - 1.0) 04/21/18 06:57 Ur Leukocyte Esterase NEGATIVE (NEGATIVE) 04/21/18 06:57 Urine RBC 0-2 /hpf (0-5) H 04/21/18 06:57 Urine WBC 0-2 /hpf (0-5) 04/21/18 06:57 Ur Epithelial Cells OCCASIONAL /lpf (FEW) 04/21/18 06:57 Uric Acid Crystals FEW /hpf (NONE SEEN) 04/21/18 06:57 Urine Bacteria NONE SEEN /hpf (NONE SEEN) 04/21/18 06:57 - Physical Exam Vitals and I&O: Vital Signs Temp 99.2 F 04/25/18 16:00 Pulse 85 04/25/18 16:00 Resp 18 04/25/18 16:00 BP 96/66 04/25/18 16:00 Pulse Ox 94 04/25/18 16:00 Intake & Output 04/25/18 04/25/18 04/26/18 06:59 18:59 06:59 Intake Total 1050 1700 Balance 1050 1700 Weight (lbs) 61.235 kg 61.745 kg Intake: Intake, IV Amount 1050 100 D5-0.45NS w/20 mEq KCL 1, 1000 000 ml @ 90 mls/hr IV . Q11H7M [facility] Rx#:[id number] Piperacillin Sodium/ 50 100 Tazobact 3.375 gm In Sodium Chloride 0.9% 50 ml @ 100 mls/hr IV Q8H [facility] Rx#:[id number] Oral 1600 Other: # Voids 3 # Bowel Movements 1 Stool Characteristics Soft Soft Brown Brown Weight Source Bedscale Bedscale Active Medications: Current Medications Amiodarone HCl (Cordarone) 200 mg PO DAILY [facility] Stop: 06/20/18 08:59 Last Admin: 04/25/18 10:10 Dose: 200 mg Cyanocobalamin (Vitamin B12) 500 mcg PO DAILY [facility] Stop: 06/20/18 08:59 Last Admin: 04/25/18 10:10 Dose: 500 mcg Docusate Sodium (Colace) 250 mg PO HS [facility] Stop: 06/20/18 20:59 Last Admin: 04/25/18 20:53 Dose: 250 mg Gabapentin (Neurontin) 300 mg PO TID [facility] Stop: 06/20/18 08:59 Last Admin: 04/25/18 20:53 Dose: 300 mg Potassium Chloride/Dextrose/Sod Cl (D5-0.45ns W/20 Meq Kcl) 1,000 mls @ 90 mls/ hr IV .Q11H7M [facility] Stop: 06/19/18 09:06 Last Admin: 04/25/18 06:06 Dose: 90 mls/hr Piperacillin Sod/Tazobactam (Sod 3.375 gm/ Sodium Chloride) 50 mls @ 100 mls/ hr IV Q8H [facility] Stop: 06/19/18 16:59 Last Infusion: 04/25/18 17:10 Dose: Infused Lactobacillus Rhamnosus (Culturelle 15b) 1 each PO DAILY [facility] Stop: 06/20/18 08:59 Last Admin: 04/25/18 09:35 Dose: 1 each Lorazepam (Ativan) 0.5 mg PO Q8HR PRN; Protocol PRN Reason: Anxiety Stop: 06/23/18 04:59 Last Admin: 04/25/18 09:30 Dose: 0.5 mg Magnesium Hydroxide (Milk Of Magnesia) 30 ml PO Q48HR [facility] Stop: 06/19/18 21:59 Last Admin: 04/24/18 21:57 Dose: Not Given Mineral Oil (Mineral Oil 30 Ml) 30 ml PO BID [facility]ANDA Stop: 04/26/18 16:59 Last Admin: 04/25/18 16:37 Dose: 30 ml Mirtazapine (Remeron) 15 mg PO HS [facility]; Protocol Stop: 06/23/18 20:59 Last Admin: 04/25/18 20:54 Dose: 15 mg Miscellaneous (Probiotic Screen) 1 ea MC PRN PRN PRN Reason: PROTOCOL Stop: 06/22/18 11:44 Olanzapine (Zyprexa) 5 mg PO DAILY [facility]; Protocol Stop: 06/23/18 08:59 Last Admin: 04/25/18 10:09 Dose: 5 mg Olanzapine (Zyprexa) 10 mg PO HS [facility]AN[facility]; Protocol Stop: 06/23/18 20:59 Last Admin: 04/25/18 20:54 Dose: 10 mg Ondansetron HCl (Zofran Odt) 4 mg PO Q6HR PRN PRN Reason: Nausea / Vomiting Stop: 06/20/18 00:44 Last Admin: 04/24/18 01:21 Dose: 4 mg Oxybutynin Chloride (Ditropan) 5 mg PO HS [facility] Stop: 06/20/18 20:59 Last Admin: 04/25/18 20:54 Dose: 5 mg Pantoprazole Sodium (Protonix) 40 mg PO DAILY [facility] Stop: 06/20/18 08:59 Last Admin: 04/25/18 09:35 Dose: 40 mg Sodium Chloride (Nacl Tab) 1 gm PO BID [facility] Stop: 06/20/18 08:59 Last Admin: 04/25/18 16:37 Dose: 1 gm Tamsulosin HCl (Flomax) 0.4 mg PO DAILY [facility] Stop: 06/20/18 08:59 Last Admin: 04/25/18 10:09 Dose: 0.4 mg General: weak, congested, demented HEENT: NC/AT, PERRLA Neck: Supple, No JVD, No thyromegaly, No LAD Lungs: wheezing, ronchi Cardiovascular: RRR, Normal S1 Abdomen: non-tender, distended Extremities: clear Neurological: no change Internal Medicine Assmt/Plan - Assessment Assessment: Noncompliance: education provided. ALOC: on and off; observe. Ileus: continue laxatives. Hypokalemia: supplement. H/O A. Fib: rate controlled. Hypotension: better. Nutritional Asmnt/Malnutr-PDOC - Dietary Evaluation Malnutrition Findings (Please click <Entered> for more info): Nutritional Asmnt/Malnutrition Start: 04/24/18 17: 41 Text: Status: Complete Freq: Protocol: Document 04/24/18 17:41 LAUREN (Rec: 04/24/18 17:57 LAUREN [email or web address]) Nutritional Asmnt/Malnutrition Patient General Information Nutritional Screening Moderate Risk Diagnosis ileus Pertinent Medical Hx/Surgical Hx COPD, PNA, CAD, s/p OK, afib, CVA, BPH, sepsis, UTI, psychosis bipolar Subjective Information Pt seen lying in bed, awake and alert. Pt requested solid food. Explained clear liquid diet for pt. Pt was not verbalized understanding. Per MD note 04/24, pt has no abd pain, had BM, refused golytely Current Diet Order/ Nutrition Support clear liquid Pertinent Medications vit B12, colcae, culturelle, mineral oil, remeron, protonix , piperacillin, D5-0.45ns w/ 20meq kcl, nacl tab Pertinent Labs 04/22 K 3.0, Ca 8.4 Nutritional Hx/Data Height 1.8 m Height (Calculated Centimeters) 180.3 Current Weight (lbs) 58.513 kg Weight (Calculated Kilograms) 58.5 Weight (Calculated Grams) 53550.4 [place] Body Weight 172 Body Mass Index (BMI) 17.9 Weight Status Underweight GI Symptoms GI Symptoms None Last BM 04/23 x2 Difficult in: None Skin Integrity/Comment: intact Estimated Nutritional Goals BEE in Kcals: Using Current wt Calories/Kcals/Kg 30-35 Kcals Calculated 7836-7107 Protein: Using Current wt Protein g/k.2 Protein Calculated 71 Fluid: ml 1770-2065ml (1ml/kcal) Nutritional Problem 1. Problem Problem altered nutrition related labs Etiology electrolytes imbalance Signs/Symptoms: K 2.9-3.0 Intervention/Recommendation Comments 1. Advance diet as tolerated. 2. Monitor PO intake, wt, labs and skin integrity 3. F/U as moderate risk in 3-5 days, 04/27-04/29 Expected Outcomes/Goals Expected Outcomes/Goals 1. PO intake to meet at least 75% of nutritional needs. 2. Wt stability, skin to remain intact, labs to approach WNL.
[2018-04-26] MEDS: Lactobacillus Rhamnosus GG 15 Billion CFU CAP.SPRINK PO SCH (09:10)
[2018-04-26] MEDS: Pantoprazole 40 mg EC Tab PO SCH (09:11)
[2018-04-26] MEDS: Lactulose 10 Gm/15 mL 30mL UDC PO SCH (18:29)
[2018-04-26] MEDS: D5-0.45NS w/20 mEq KCL 1,000 ML IV SCH (18:33)
--- NOTE | 2018-04-26 23:40 | Internal Medicine Prog Note ---
Internal Medicine Subjective - Subjective Service Date: 04/26/18 Patient seen and examined:: without staff Patient is:: asleep, non-interactive, in bed Per staff patient has:: no adverse event Internal Medicine Objective - Results Result Diagrams: 04/25/18 06:43 04/25/18 06:43 Recent Labs: Laboratory Last Values WBC 8.2 Th/cmm (4.8-10.8) 04/25/18 06:43 RBC 3.77 Mil/cmm (3.80-5.80) L 04/25/18 06:43 Hgb 11.7 gm/dL (12-16) L 04/25/18 06:43 Hct 35.2 % (41.0-60) L 04/25/18 06:43 MCV 93.5 fl (80-99) 04/25/18 06:43 MCH 31.0 pg (27.0-31.0) 04/25/18 06:43 MCHC Differential 33.2 pg (28.0-36.0) 04/25/18 06:43 RDW 14.6 % (11.5-20.0) 04/25/18 06:43 Plt Count 205 Th/cmm (150-400) 04/25/18 06:43 MPV 8.1 fl 04/25/18 06:43 Add Manual Diff YES 04/25/18 06:43 Neutrophils % 73.9 % (40.0-80.0) 04/22/18 05:40 Band Neutrophils % 3 % (0-10) 04/25/18 06:43 Lymphocytes % 11.3 % (20.0-50.0) L 04/22/18 05:40 Monocytes % 13.9 % (2.0-10.0) H 04/22/18 05:40 Eosinophils % 0.7 % (0.0-5.0) 04/22/18 05:40 Basophils % 0.2 % (0.0-2.0) 04/22/18 05:40 Neutrophils (Manual) 57 % (40-80) 04/25/18 06:43 Lymphocytes 20 % (20-50) 04/25/18 06:43 Monocytes 20 % (2-10) H 04/25/18 06:43 Platelet Estimate ADEQUATE (NORMAL) 04/25/18 06:43 Sodium 132 mEq/L (136-145) L 04/25/18 06:43 Potassium 3.6 mEq/L (3.5-5.1) 04/25/18 06:43 Chloride 104 mEq/L (98-107) 04/25/18 06:43 Carbon Dioxide 23.9 mEq/L (21.0-31.0) 04/25/18 06:43 Anion Gap 7.7 (7.0-16.0) 04/25/18 06:43 BUN 7 mg/dL (7-25) 04/25/18 06:43 Creatinine 0.6 mg/dL (0.7-1.3) L 04/25/18 06:43 Est GFR ( Amer) > 60.0 ml/min (>90) 04/25/18 06:43 Est GFR (Non-Af Amer) > 60.0 ml/min 04/25/18 06:43 BUN/Creatinine Ratio 11.7 04/25/18 06:43 Glucose 116 mg/dL (70-105) H 04/25/18 06:43 Whole Bld Lactic Acid 1.26 mmol/L (0.60-1.99) 04/20/18 05:10 Calcium 8.1 mg/dL (8.6-10.3) L 04/25/18 06:43 Total Bilirubin 0.4 mg/dL (0.3-1.0) 04/25/18 06:43 AST 10 U/L (13-39) L 04/25/18 06:43 ALT 10 U/L (7-52) 04/25/18 06:43 Alkaline Phosphatase 67 U/L (34-104) 04/25/18 06:43 Ammonia 88 umol/L (16-53) H 04/20/18 05:10 Troponin I < 0.01 ng/mL (0.01-0.05) L 04/20/18 05:10 Total Protein 5.5 gm/dL (6.0-8.3) L 04/25/18 06:43 Albumin 2.5 gm/dL (4.2-5.5) L 04/25/18 06:43 Globulin 3.0 gm/dL 04/25/18 06:43 Albumin/Globulin Ratio 0.8 (1.0-1.8) L 04/25/18 06:43 Urine Source CLEAN C 04/21/18 06:57 Urine Color YELLOW 04/21/18 06:57 Urine Clarity CLEAR (CLEAR) 04/21/18 06:57 Urine pH 6.0 (4.6 - 8.0) 04/21/18 06:57 Ur Specific [place] 1.025 (1.005-1.030) 04/21/18 06:57 Urine Protein TRACE mg/dL (NEGATIVE) 04/21/18 06:57 Urine Glucose (UA) NEGATIVE mg/dL (NEGATIVE) 04/21/18 06:57 Urine Ketones TRACE mg/dL (NEGATIVE) 04/21/18 06:57 Urine Blood NEGATIVE (NEGATIVE) 04/21/18 06:57 Urine Nitrate NEGATIVE (NEGATIVE) 04/21/18 06:57 Urine Bilirubin NEGATIVE (NEGATIVE) 04/21/18 06:57 Urine Urobilinogen 1.0 E.U./dL (0.2 - 1.0) 04/21/18 06:57 Ur Leukocyte Esterase NEGATIVE (NEGATIVE) 04/21/18 06:57 Urine RBC 0-2 /hpf (0-5) H 04/21/18 06:57 Urine WBC 0-2 /hpf (0-5) 04/21/18 06:57 Ur Epithelial Cells OCCASIONAL /lpf (FEW) 04/21/18 06:57 Uric Acid Crystals FEW /hpf (NONE SEEN) 04/21/18 06:57 Urine Bacteria NONE SEEN /hpf (NONE SEEN) 04/21/18 06:57 - Physical Exam Vitals and I&O: Vital Signs Temp 98.5 F 04/26/18 20:00 Pulse 87 04/26/18 20:00 Resp 19 04/26/18 20:00 BP 98/56 04/26/18 20:00 Pulse Ox 97 04/26/18 20:00 Intake & Output 04/26/18 04/26/18 04/27/18 06:59 18:59 06:59 Intake Total 250 50 50 Balance 250 50 50 Weight (lbs) 59.534 kg 59.421 kg Intake: Intake, IV Amount 50 50 50 Piperacillin Sodium/ 50 50 50 Tazobact 3.375 gm In Sodium Chloride 0.9% 50 ml @ 100 mls/hr IV Q8H [facility] Rx#:[id number] Oral 200 Other: # Voids 2 # Bowel Movements 0 Stool Characteristics Soft Liquid Brown Weight Source Bedscale Bedscale Active Medications: Current Medications Amiodarone HCl (Cordarone) 200 mg PO DAILY AMANDA Stop: 06/20/18 08:59 Last Admin: 04/26/18 09:12 Dose: 200 mg Bisacodyl (Dulcolax 5 Mg Ec Tab) 20 mg PO BID AMANDA Stop: 06/25/18 16:59 Last Admin: 04/26/18 18:29 Dose: 20 mg Cyanocobalamin (Vitamin B12) 500 mcg PO DAILY AMANDA Stop: 06/20/18 08:59 Last Admin: 04/26/18 09:12 Dose: 500 mcg Docusate Sodium (Colace) 250 mg PO HS AMANDA Stop: 06/20/18 20:59 Last Admin: 04/26/18 21:29 Dose: 250 mg Gabapentin (Neurontin) 300 mg PO TID AMANDA Stop: 06/20/18 08:59 Last Admin: 04/26/18 21:29 Dose: 300 mg Potassium Chloride/Dextrose/Sod Cl (D5-0.45ns W/20 Meq Kcl) 1,000 mls @ 90 mls/ hr IV .Q11H7M AMANDA Stop: 06/19/18 09:06 Last Admin: 04/26/18 18:33 Dose: 90 mls/hr Piperacillin Sod/Tazobactam (Sod 3.375 gm/ Sodium Chloride) 50 mls @ 100 mls/ hr IV Q8H [facility]ANDA Stop: 06/19/18 16:59 Last Infusion: 04/26/18 19:02 Dose: Infused Lactobacillus Rhamnosus (Culturelle 15b) 1 each PO DAILY AMANDA Stop: 06/20/18 08:59 Last Admin: 04/26/18 09:10 Dose: 1 each Lactulose (Cephulac) 15 gm PO DAILY AMANAD Stop: 06/25/18 15:59 Last Admin: 04/26/18 18:29 Dose: 15 gm Lorazepam (Ativan) 0.5 mg PO Q8HR PRN; Protocol PRN Reason: Anxiety Stop: 06/23/18 04:59 Last Admin: 04/25/18 09:30 Dose: 0.5 mg Magnesium Hydroxide (Milk Of Magnesia) 30 ml PO Q48HR AMANDA Stop: 06/19/18 21:59 Last Admin: 04/24/18 21:57 Dose: Not Given Mirtazapine (Remeron) 15 mg PO HS AMANDA; Protocol Stop: 06/23/18 20:59 Last Admin: 04/26/18 21:29 Dose: 15 mg Miscellaneous (Probiotic Screen) 1 ea MC PRN PRN PRN Reason: PROTOCOL Stop: 06/22/18 11:44 Olanzapine (Zyprexa) 5 mg PO DAILY [facility]; Protocol Stop: 06/23/18 08:59 Last Admin: 04/26/18 09:11 Dose: 5 mg Olanzapine (Zyprexa) 10 mg PO HS AMANDA; Protocol Stop: 06/23/18 20:59 Last Admin: 04/26/18 21:29 Dose: 10 mg Ondansetron HCl (Zofran Odt) 4 mg PO Q6HR PRN PRN Reason: Nausea / Vomiting Stop: 06/20/18 00:44 Last Admin: 04/24/18 01:21 Dose: 4 mg Oxybutynin Chloride (Ditropan) 5 mg PO HS [facility] Stop: 06/20/18 20:59 Last Admin: 04/26/18 21:29 Dose: 5 mg Pantoprazole Sodium (Protonix) 40 mg PO DAILY AMANDA Stop: 06/20/18 08:59 Last Admin: 04/26/18 09:11 Dose: 40 mg Sodium Chloride (Nacl Tab) 1 gm PO BID AMANDA Stop: 06/20/18 08:59 Last Admin: 04/26/18 18:30 Dose: 1 gm Tamsulosin HCl (Flomax) 0.4 mg PO DAILY AMANDA Stop: 06/20/18 08:59 Last Admin: 04/26/18 09:10 Dose: 0.4 mg General: weak, congested, demented HEENT: NC/AT, PERRLA Neck: Supple, No JVD, No thyromegaly, No LAD Lungs: wheezing, ronchi Cardiovascular: RRR, Normal S1 Abdomen: non-tender, distended Extremities: clear Neurological: no change Internal Medicine Assmt/Plan - Assessment Assessment: Hypotension: observe closely and may need to adjust BP med. Noncompliance: education provided. ALOC: on and off; observe. Ileus: continue laxatives. Hypokalemia: supplement. H/O A. Fib: rate controlled. Hypotension: better. Nutritional Asmnt/Malnutr-PDOC - Dietary Evaluation Malnutrition Findings (Please click <Entered> for more info): Nutritional Asmnt/Malnutrition Start: 04/24/18 17: 41 Text: Status: Complete Freq: Protocol: Document 04/24/18 17:41 CALEBBRANNON (Rec: 04/24/18 17:57 CALEBBRANNON [email or web address]) Nutritional Asmnt/Malnutrition Patient General Information Nutritional Screening Moderate Risk Diagnosis ileus Pertinent Medical Hx/Surgical Hx COPD, PNA, CAD, s/p AR, afib, CVA, BPH, sepsis, UTI, psychosis bipolar Subjective Information Pt seen lying in bed, awake and alert. Pt requested solid food. Explained clear liquid diet for pt. Pt was not verbalized understanding. Per MD note 04/24, pt has no abd pain, had BM, refused golytely Current Diet Order/ Nutrition Support clear liquid Pertinent Medications vit B12, colcae, culturelle, mineral oil, remeron, protonix , piperacillin, D5-0.45ns w/ 20meq kcl, nacl tab Pertinent Labs 04/22 K 3.0, Ca 8.4 Nutritional Hx/Data Height 1.8 m Height (Calculated Centimeters) 180.3 Current Weight (lbs) 58.513 kg Weight (Calculated Kilograms) 58.5 Weight (Calculated Grams) 00472.4 [place] Body Weight 172 Body Mass Index (BMI) 17.9 Weight Status Underweight GI Symptoms GI Symptoms None Last BM 04/23 x2 Difficult in: None Skin Integrity/Comment: intact Estimated Nutritional Goals BEE in Kcals: Using Current wt Calories/Kcals/Kg 30-35 Kcals Calculated 6807-1780 Protein: Using Current wt Protein g/k.2 Protein Calculated 71 Fluid: ml 1770-2065ml (1ml/kcal) Nutritional Problem 1. Problem Problem altered nutrition related labs Etiology electrolytes imbalance Signs/Symptoms: K 2.9-3.0 Intervention/Recommendation Comments 1. Advance diet as tolerated. 2. Monitor PO intake, wt, labs and skin integrity 3. F/U as moderate risk in 3-5 days, 04/27-04/29 Expected Outcomes/Goals Expected Outcomes/Goals 1. PO intake to meet at least 75% of nutritional needs. 2. Wt stability, skin to remain intact, labs to approach WNL.
[2018-04-27] MEDS: Magnesium Hydroxide (MOM) 30 mL UDC PO SCH (00:19)
[2018-04-27] MEDS: D5-0.45NS w/20 mEq KCL 1,000 ML IV SCH ×2 (05:36→22:34)
[2018-04-27] MEDS: Pantoprazole 40 mg EC Tab PO SCH (10:01)
[2018-04-27] MEDS: Lactobacillus Rhamnosus GG 15 Billion CFU CAP.SPRINK PO SCH (10:01)
[2018-04-27] MEDS: Lactulose 10 Gm/15 mL 30mL UDC PO SCH (10:01)
--- NOTE | 2018-04-27 21:18 | GI Progress Note ---
Subjective - Review of Systems Service Date: 04/27/18 Events since last encounter: No major events Objective - Results Result Diagrams: 04/25/18 06:43 04/25/18 06:43 Recent Labs: Laboratory Last Values WBC 8.2 Th/cmm (4.8-10.8) 04/25/18 06:43 RBC 3.77 Mil/cmm (3.80-5.80) L 04/25/18 06:43 Hgb 11.7 gm/dL (12-16) L 04/25/18 06:43 Hct 35.2 % (41.0-60) L 04/25/18 06:43 MCV 93.5 fl (80-99) 04/25/18 06:43 MCH 31.0 pg (27.0-31.0) 04/25/18 06:43 MCHC Differential 33.2 pg (28.0-36.0) 04/25/18 06:43 RDW 14.6 % (11.5-20.0) 04/25/18 06:43 Plt Count 205 Th/cmm (150-400) 04/25/18 06:43 MPV 8.1 fl 04/25/18 06:43 Add Manual Diff YES 04/25/18 06:43 Neutrophils % 73.9 % (40.0-80.0) 04/22/18 05:40 Band Neutrophils % 3 % (0-10) 04/25/18 06:43 Lymphocytes % 11.3 % (20.0-50.0) L 04/22/18 05:40 Monocytes % 13.9 % (2.0-10.0) H 04/22/18 05:40 Eosinophils % 0.7 % (0.0-5.0) 04/22/18 05:40 Basophils % 0.2 % (0.0-2.0) 04/22/18 05:40 Neutrophils (Manual) 57 % (40-80) 04/25/18 06:43 Lymphocytes 20 % (20-50) 04/25/18 06:43 Monocytes 20 % (2-10) H 04/25/18 06:43 Platelet Estimate ADEQUATE (NORMAL) 04/25/18 06:43 Sodium 132 mEq/L (136-145) L 04/25/18 06:43 Potassium 3.6 mEq/L (3.5-5.1) 04/25/18 06:43 Chloride 104 mEq/L (98-107) 04/25/18 06:43 Carbon Dioxide 23.9 mEq/L (21.0-31.0) 04/25/18 06:43 Anion Gap 7.7 (7.0-16.0) 04/25/18 06:43 BUN 7 mg/dL (7-25) 04/25/18 06:43 Creatinine 0.6 mg/dL (0.7-1.3) L 04/25/18 06:43 Est GFR ( Amer) > 60.0 ml/min (>90) 04/25/18 06:43 Est GFR (Non-Af Amer) > 60.0 ml/min 04/25/18 06:43 BUN/Creatinine Ratio 11.7 04/25/18 06:43 Glucose 116 mg/dL (70-105) H 04/25/18 06:43 Whole Bld Lactic Acid 1.26 mmol/L (0.60-1.99) 04/20/18 05:10 Calcium 8.1 mg/dL (8.6-10.3) L 04/25/18 06:43 Total Bilirubin 0.4 mg/dL (0.3-1.0) 04/25/18 06:43 AST 10 U/L (13-39) L 04/25/18 06:43 ALT 10 U/L (7-52) 04/25/18 06:43 Alkaline Phosphatase 67 U/L (34-104) 04/25/18 06:43 Ammonia 88 umol/L (16-53) H 04/20/18 05:10 Troponin I < 0.01 ng/mL (0.01-0.05) L 04/20/18 05:10 Total Protein 5.5 gm/dL (6.0-8.3) L 04/25/18 06:43 Albumin 2.5 gm/dL (4.2-5.5) L 04/25/18 06:43 Globulin 3.0 gm/dL 04/25/18 06:43 Albumin/Globulin Ratio 0.8 (1.0-1.8) L 04/25/18 06:43 Urine Source CLEAN C 04/21/18 06:57 Urine Color YELLOW 04/21/18 06:57 Urine Clarity CLEAR (CLEAR) 04/21/18 06:57 Urine pH 6.0 (4.6 - 8.0) 04/21/18 06:57 Ur Specific [place] 1.025 (1.005-1.030) 04/21/18 06:57 Urine Protein TRACE mg/dL (NEGATIVE) 04/21/18 06:57 Urine Glucose (UA) NEGATIVE mg/dL (NEGATIVE) 04/21/18 06:57 Urine Ketones TRACE mg/dL (NEGATIVE) 04/21/18 06:57 Urine Blood NEGATIVE (NEGATIVE) 04/21/18 06:57 Urine Nitrate NEGATIVE (NEGATIVE) 04/21/18 06:57 Urine Bilirubin NEGATIVE (NEGATIVE) 04/21/18 06:57 Urine Urobilinogen 1.0 E.U./dL (0.2 - 1.0) 04/21/18 06:57 Ur Leukocyte Esterase NEGATIVE (NEGATIVE) 04/21/18 06:57 Urine RBC 0-2 /hpf (0-5) H 04/21/18 06:57 Urine WBC 0-2 /hpf (0-5) 04/21/18 06:57 Ur Epithelial Cells OCCASIONAL /lpf (FEW) 04/21/18 06:57 Uric Acid Crystals FEW /hpf (NONE SEEN) 04/21/18 06:57 Urine Bacteria NONE SEEN /hpf (NONE SEEN) 04/21/18 06:57 - Physical Exam Vitals and I&O: Vital Signs Temp 100.1 F 04/27/18 20:00 Pulse 99 04/27/18 20:00 Resp 20 04/27/18 20:00 BP 101/72 04/27/18 20:00 Pulse Ox 94 04/27/18 20:00 Intake & Output 04/27/18 04/27/18 04/28/18 06:59 18:59 06:59 Intake Total 1694.5 1000 Balance 1694.5 1000 Weight (lbs) 59.421 kg 59.421 kg Intake: Intake, IV Amount 1094.5 50 D5-0.45NS w/20 mEq KCL 1, 994.5 000 ml @ 90 mls/hr IV . Q11H7M COUNT INCLUDES THE [facility] Rx#:[id number] Piperacillin Sodium/ 100 50 Tazobact 3.375 gm In Sodium Chloride 0.9% 50 ml @ 100 mls/hr IV Q8H COUNT INCLUDES THE [facility] Rx#:[id number] Oral 600 950 Other: # Voids 3 3 # Bowel Movements 1 Weight Source Bedscale Bedscale Active Medications: Current Medications Amiodarone HCl (Cordarone) 200 mg PO DAILY AMANDA Stop: 06/20/18 08:59 Last Admin: 04/27/18 10:00 Dose: Not Given Bisacodyl (Dulcolax 5 Mg Ec Tab) 20 mg PO BID AMANDA Stop: 06/25/18 16:59 Last Admin: 04/27/18 16:38 Dose: 20 mg Cyanocobalamin (Vitamin B12) 500 mcg PO DAILY [facility]AN[facility] Stop: 06/20/18 08:59 Last Admin: 04/27/18 10:01 Dose: Not Given Docusate Sodium (Colace) 250 mg PO HS [facility] Stop: 06/20/18 20:59 Last Admin: 04/27/18 00:21 Dose: Not Given Gabapentin (Neurontin) 300 mg PO TID [facility]ANDA Stop: 06/20/18 08:59 Last Admin: 04/27/18 14:56 Dose: Not Given Potassium Chloride/Dextrose/Sod Cl (D5-0.45ns W/20 Meq Kcl) 1,000 mls @ 90 mls/ hr IV .Q11H7M [facility] Stop: 06/19/18 09:06 Last Admin: 04/27/18 05:36 Dose: 90 mls/hr Piperacillin Sod/Tazobactam (Sod 3.375 gm/ Sodium Chloride) 50 mls @ 100 mls/ hr IV Q8H [facility] Stop: 06/19/18 16:59 Last Infusion: 04/27/18 17:08 Dose: Infused Lactobacillus Rhamnosus (Culturelle 15b) 1 each PO DAILY AMANDA Stop: 06/20/18 08:59 Last Admin: 04/27/18 10:01 Dose: Not Given Lactulose (Cephulac) 15 gm PO DAILY AMANDA Stop: 06/25/18 15:59 Last Admin: 04/27/18 10:01 Dose: Not Given Lorazepam (Ativan) 0.5 mg PO Q8HR PRN; Protocol PRN Reason: Anxiety Stop: 06/23/18 04:59 Last Admin: 04/25/18 09:30 Dose: 0.5 mg Magnesium Hydroxide (Milk Of Magnesia) 30 ml PO Q48HR [facility] Stop: 06/19/18 21:59 Last Admin: 04/27/18 00:19 Dose: Not Given Mirtazapine (Remeron) 15 mg PO HS [facility]ANDA; Protocol Stop: 06/23/18 20:59 Last Admin: 04/27/18 00:21 Dose: Not Given Miscellaneous (Probiotic Screen) 1 ea MC PRN PRN PRN Reason: PROTOCOL Stop: 06/22/18 11:44 Olanzapine (Zyprexa) 5 mg PO DAILY [facility]; Protocol Stop: 06/23/18 08:59 Last Admin: 04/27/18 10:01 Dose: Not Given Olanzapine (Zyprexa) 10 mg PO HS [facility]ANDA; Protocol Stop: 06/23/18 20:59 Last Admin: 04/27/18 00:21 Dose: Not Given Ondansetron HCl (Zofran Odt) 4 mg PO Q6HR PRN PRN Reason: Nausea / Vomiting Stop: 06/20/18 00:44 Last Admin: 04/24/18 01:21 Dose: 4 mg Oxybutynin Chloride (Ditropan) 5 mg PO HS AMANDA Stop: 06/20/18 20:59 Last Admin: 04/26/18 21:29 Dose: 5 mg Pantoprazole Sodium (Protonix) 40 mg PO DAILY [facility]ANDA Stop: 06/20/18 08:59 Last Admin: 04/27/18 10:01 Dose: Not Given Sodium Chloride (Nacl Tab) 1 gm PO BID AMANDA Stop: 06/20/18 08:59 Last Admin: 04/27/18 16:38 Dose: 1 gm Tamsulosin HCl (Flomax) 0.4 mg PO DAILY [facility]ANDA Stop: 06/20/18 08:59 Last Admin: 04/27/18 10:02 Dose: Not Given General: Alert HEENT: Atraumatic Neck: Supple Cardiovascular: Regular rate, Normal S1, Normal S2, Gallops Lungs: Clear to auscultation, Normal air movement Abdomen: Bowel sounds Assessment/Plan - Assessment Assessment: 68 YO MALE WITH ABD DISTENSION LIKELY FECAL IMPACTION NOW IMPROVED HAVING BM 1.CONT LAXATIVES 2.PT REFUSING COLOnoscopy 3.WILL NEED BARIUM ENEMA WHEN CLEANED OUT AN ALTERNATIVE - he was refusing this today as well Overall, noncompliant gentleman and does not want any intervention. Please call GI if patient does change his mind, or wants more aggressive workup Thank you for allowing us to participate in the care
[2018-04-28] MEDS: D5-0.45NS w/20 mEq KCL 1,000 ML IV SCH (06:36)
[2018-04-28] MEDS: Lactulose 10 Gm/15 mL 30mL UDC PO SCH (09:03)
[2018-04-28] MEDS: Lactobacillus Rhamnosus GG 15 Billion CFU CAP.SPRINK PO SCH (09:04)
[2018-04-28] MEDS: Pantoprazole 40 mg EC Tab PO SCH (09:14)
--- NOTE | 2018-04-28 12:48 | Internal Medicine Prog Note ---
Internal Medicine Subjective - Subjective Service Date: 04/28/18 Patient seen and examined:: without staff Patient is:: asleep, non-interactive, in bed Per staff patient has:: no adverse event Internal Medicine Objective - Results Result Diagrams: 04/25/18 06:43 04/25/18 06:43 Recent Labs: Laboratory Last Values WBC 8.2 Th/cmm (4.8-10.8) 04/25/18 06:43 RBC 3.77 Mil/cmm (3.80-5.80) L 04/25/18 06:43 Hgb 11.7 gm/dL (12-16) L 04/25/18 06:43 Hct 35.2 % (41.0-60) L 04/25/18 06:43 MCV 93.5 fl (80-99) 04/25/18 06:43 MCH 31.0 pg (27.0-31.0) 04/25/18 06:43 MCHC Differential 33.2 pg (28.0-36.0) 04/25/18 06:43 RDW 14.6 % (11.5-20.0) 04/25/18 06:43 Plt Count 205 Th/cmm (150-400) 04/25/18 06:43 MPV 8.1 fl 04/25/18 06:43 Add Manual Diff YES 04/25/18 06:43 Neutrophils % 73.9 % (40.0-80.0) 04/22/18 05:40 Band Neutrophils % 3 % (0-10) 04/25/18 06:43 Lymphocytes % 11.3 % (20.0-50.0) L 04/22/18 05:40 Monocytes % 13.9 % (2.0-10.0) H 04/22/18 05:40 Eosinophils % 0.7 % (0.0-5.0) 04/22/18 05:40 Basophils % 0.2 % (0.0-2.0) 04/22/18 05:40 Neutrophils (Manual) 57 % (40-80) 04/25/18 06:43 Lymphocytes 20 % (20-50) 04/25/18 06:43 Monocytes 20 % (2-10) H 04/25/18 06:43 Platelet Estimate ADEQUATE (NORMAL) 04/25/18 06:43 Sodium 132 mEq/L (136-145) L 04/25/18 06:43 Potassium 3.6 mEq/L (3.5-5.1) 04/25/18 06:43 Chloride 104 mEq/L (98-107) 04/25/18 06:43 Carbon Dioxide 23.9 mEq/L (21.0-31.0) 04/25/18 06:43 Anion Gap 7.7 (7.0-16.0) 04/25/18 06:43 BUN 7 mg/dL (7-25) 04/25/18 06:43 Creatinine 0.6 mg/dL (0.7-1.3) L 04/25/18 06:43 Est GFR ( Amer) > 60.0 ml/min (>90) 04/25/18 06:43 Est GFR (Non-Af Amer) > 60.0 ml/min 04/25/18 06:43 BUN/Creatinine Ratio 11.7 04/25/18 06:43 Glucose 116 mg/dL (70-105) H 04/25/18 06:43 Whole Bld Lactic Acid 1.26 mmol/L (0.60-1.99) 04/20/18 05:10 Calcium 8.1 mg/dL (8.6-10.3) L 04/25/18 06:43 Total Bilirubin 0.4 mg/dL (0.3-1.0) 04/25/18 06:43 AST 10 U/L (13-39) L 04/25/18 06:43 ALT 10 U/L (7-52) 04/25/18 06:43 Alkaline Phosphatase 67 U/L (34-104) 04/25/18 06:43 Ammonia 88 umol/L (16-53) H 04/20/18 05:10 Troponin I < 0.01 ng/mL (0.01-0.05) L 04/20/18 05:10 Total Protein 5.5 gm/dL (6.0-8.3) L 04/25/18 06:43 Albumin 2.5 gm/dL (4.2-5.5) L 04/25/18 06:43 Globulin 3.0 gm/dL 04/25/18 06:43 Albumin/Globulin Ratio 0.8 (1.0-1.8) L 04/25/18 06:43 Urine Source CLEAN C 04/21/18 06:57 Urine Color YELLOW 04/21/18 06:57 Urine Clarity CLEAR (CLEAR) 04/21/18 06:57 Urine pH 6.0 (4.6 - 8.0) 04/21/18 06:57 Ur Specific [place] 1.025 (1.005-1.030) 04/21/18 06:57 Urine Protein TRACE mg/dL (NEGATIVE) 04/21/18 06:57 Urine Glucose (UA) NEGATIVE mg/dL (NEGATIVE) 04/21/18 06:57 Urine Ketones TRACE mg/dL (NEGATIVE) 04/21/18 06:57 Urine Blood NEGATIVE (NEGATIVE) 04/21/18 06:57 Urine Nitrate NEGATIVE (NEGATIVE) 04/21/18 06:57 Urine Bilirubin NEGATIVE (NEGATIVE) 04/21/18 06:57 Urine Urobilinogen 1.0 E.U./dL (0.2 - 1.0) 04/21/18 06:57 Ur Leukocyte Esterase NEGATIVE (NEGATIVE) 04/21/18 06:57 Urine RBC 0-2 /hpf (0-5) H 04/21/18 06:57 Urine WBC 0-2 /hpf (0-5) 04/21/18 06:57 Ur Epithelial Cells OCCASIONAL /lpf (FEW) 04/21/18 06:57 Uric Acid Crystals FEW /hpf (NONE SEEN) 04/21/18 06:57 Urine Bacteria NONE SEEN /hpf (NONE SEEN) 04/21/18 06:57 - Physical Exam Vitals and I&O: Vital Signs Temp 98.9 F 04/28/18 12:00 Pulse 78 04/28/18 12:00 Resp 19 04/28/18 12:00 BP 104/69 04/28/18 12:00 Pulse Ox 98 04/28/18 12:00 Intake & Output 04/27/18 04/28/18 04/28/18 18:59 06:59 18:59 Intake Total 1999 773 50 Balance 1999 773 50 Weight (lbs) 59.421 kg Intake: Intake, IV Amount 1050 773 50 D5-0.45NS w/20 mEq KCL 1, 1000 723 000 ml @ 90 mls/hr IV . Q11H7M [facility] Rx#:[id number] Piperacillin Sodium/ 50 50 50 Tazobact 3.375 gm In Sodium Chloride 0.9% 50 ml @ 100 mls/hr IV Q8H [facility] Rx#:[id number] Oral 950 Other: # Voids 3 # Bowel Movements 1 Weight Source Bedscale Active Medications: Current Medications Amiodarone HCl (Cordarone) 200 mg PO DAILY AMANDA Stop: 06/20/18 08:59 Last Admin: 04/28/18 09:04 Dose: 200 mg Bisacodyl (Dulcolax 5 Mg Ec Tab) 20 mg PO BID AMANDA Stop: 06/25/18 16:59 Last Admin: 04/28/18 09:03 Dose: 20 mg Cyanocobalamin (Vitamin B12) 500 mcg PO DAILY AMANDA Stop: 06/20/18 08:59 Last Admin: 04/28/18 09:03 Dose: 500 mcg Docusate Sodium (Colace) 250 mg PO HS AMANDA Stop: 06/20/18 20:59 Last Admin: 04/27/18 21:23 Dose: 250 mg Gabapentin (Neurontin) 300 mg PO TID AMANDA Stop: 06/20/18 08:59 Last Admin: 04/28/18 09:04 Dose: 300 mg Potassium Chloride/Dextrose/Sod Cl (D5-0.45ns W/20 Meq Kcl) 1,000 mls @ 90 mls/ hr IV .Q11H7M [facility]AN[facility] Stop: 06/19/18 09:06 Last Admin: 04/28/18 06:36 Dose: 90 mls/hr Piperacillin Sod/Tazobactam (Sod 3.375 gm/ Sodium Chloride) 50 mls @ 100 mls/ hr IV Q8H [facility] Stop: 06/19/18 16:59 Last Infusion: 04/28/18 09:34 Dose: Infused Lactobacillus Rhamnosus (Culturelle 15b) 1 each PO DAILY AMANDA Stop: 06/20/18 08:59 Last Admin: 04/28/18 09:04 Dose: 1 each Lactulose (Cephulac) 15 gm PO DAILY AMANDA Stop: 06/25/18 15:59 Last Admin: 04/28/18 09:03 Dose: 15 gm Lorazepam (Ativan) 0.5 mg PO Q8HR PRN; Protocol PRN Reason: Anxiety Stop: 06/23/18 04:59 Last Admin: 04/27/18 21:21 Dose: 0.5 mg Magnesium Hydroxide (Milk Of Magnesia) 30 ml PO Q48HR [facility] Stop: 06/19/18 21:59 Last Admin: 04/27/18 00:19 Dose: Not Given Mirtazapine (Remeron) 15 mg PO HS AMANDA; Protocol Stop: 06/23/18 20:59 Last Admin: 04/27/18 21:21 Dose: 15 mg Miscellaneous (Probiotic Screen) 1 ea MC PRN PRN PRN Reason: PROTOCOL Stop: 06/22/18 11:44 Olanzapine (Zyprexa) 5 mg PO DAILY [facility]; Protocol Stop: 06/23/18 08:59 Last Admin: 04/28/18 09:03 Dose: 5 mg Olanzapine (Zyprexa) 10 mg PO HS [facility]; Protocol Stop: 06/23/18 20:59 Last Admin: 04/27/18 21:23 Dose: 10 mg Ondansetron HCl (Zofran Odt) 4 mg PO Q6HR PRN PRN Reason: Nausea / Vomiting Stop: 06/20/18 00:44 Last Admin: 04/24/18 01:21 Dose: 4 mg Oxybutynin Chloride (Ditropan) 5 mg PO HS [facility] Stop: 06/20/18 20:59 Last Admin: 04/27/18 21:23 Dose: 5 mg Pantoprazole Sodium (Protonix) 40 mg PO DAILY [facility] Stop: 06/20/18 08:59 Last Admin: 04/28/18 09:14 Dose: 40 mg Sodium Chloride (Nacl Tab) 1 gm PO BID [facility] Stop: 06/20/18 08:59 Last Admin: 04/28/18 09:04 Dose: 1 gm Tamsulosin HCl (Flomax) 0.4 mg PO DAILY [facility] Stop: 06/20/18 08:59 Last Admin: 04/28/18 09:04 Dose: 0.4 mg General: weak, congested, demented HEENT: NC/AT, PERRLA Neck: Supple, No JVD, No thyromegaly, No LAD Lungs: wheezing, ronchi Cardiovascular: RRR, Normal S1 Abdomen: non-tender, distended Extremities: clear Neurological: no change Internal Medicine Assmt/Plan - Assessment Assessment: Noncompliance: education provided. Hypotension: observe closely and may need to adjust BP med. ALOC: on and off; observe. Ileus: continue laxatives. Hypokalemia: supplement. H/O A. Fib: rate controlled. Hypotension: better. Nutritional Asmnt/Malnutr-PDOC - Dietary Evaluation Malnutrition Findings (Please click <Entered> for more info): Nutritional Asmnt/Malnutrition Start: 04/24/18 17: 41 Text: Status: Complete Freq: Protocol: Document 04/24/18 17:41 [email or web address] (Rec: 04/24/18 17:57 [email or web address]) Nutritional Asmnt/Malnutrition Patient General Information Nutritional Screening Moderate Risk Diagnosis ileus Pertinent Medical Hx/Surgical Hx COPD, PNA, CAD, s/p TX, afib, CVA, BPH, sepsis, UTI, psychosis bipolar Subjective Information Pt seen lying in bed, awake and alert. Pt requested solid food. Explained clear liquid diet for pt. Pt was not verbalized understanding. Per MD note 04/24, pt has no abd pain, had BM, refused golytely Current Diet Order/ Nutrition Support clear liquid Pertinent Medications vit B12, colcae, culturelle, mineral oil, remeron, protonix , piperacillin, D5-0.45ns w/ 20meq kcl, nacl tab Pertinent Labs 04/22 K 3.0, Ca 8.4 Nutritional Hx/Data Height 1.8 m Height (Calculated Centimeters) 180.3 Current Weight (lbs) 58.513 kg Weight (Calculated Kilograms) 58.5 Weight (Calculated Grams) 22745.4 [place] Body Weight 172 Body Mass Index (BMI) 17.9 Weight Status Underweight GI Symptoms GI Symptoms None Last BM 04/23 x2 Difficult in: None Skin Integrity/Comment: intact Estimated Nutritional Goals BEE in Kcals: Using Current wt Calories/Kcals/Kg 30-35 Kcals Calculated 4959-0604 Protein: Using Current wt Protein g/k.2 Protein Calculated 71 Fluid: ml 1770-2065ml (1ml/kcal) Nutritional Problem 1. Problem Problem altered nutrition related labs Etiology electrolytes imbalance Signs/Symptoms: K 2.9-3.0 Intervention/Recommendation Comments 1. Advance diet as tolerated. 2. Monitor PO intake, wt, labs and skin integrity 3. F/U as moderate risk in 3-5 days, 04/27-04/29 Expected Outcomes/Goals Expected Outcomes/Goals 1. PO intake to meet at least 75% of nutritional needs. 2. Wt stability, skin to remain intact, labs to approach WNL.
--- NOTE | 2018-05-04 12:20 | Discharge Summary ---
DATE OF DISCHARGE: 04/28/2018 FINAL DIAGNOSES: 1. Abdominal pain and vomiting significantly improved and basically resolved. 2. Ileus, improved. 3. Noncompliance with education provided. 4. Hypokalemia, supplemented. 5. Hypotension, resolved. 6. Dehydration, received IV fluid. HISTORY AND HOSPITAL COURSE: The patient is a 68-year-old -[place] male admitted due to nausea, vomiting, and abdominal pain. The KUB revealed stool filled dilated large bowel and the findings may be associated with fecal impaction. Abdominal and pelvic CT scan done in the Emergency Room revealed possible ileus. GI consultation was requested and the patient was kept n.p.o., but the patient refused any GI procedures. Laxative was provided to the patient. IV fluid was of course provided and empiric antibiotics were started as well. The patient's condition improved significantly clinically by conservative management. He was eventually accepted back to correction. DISCHARGE CONDITION: Stable. DISPOSITION: [facility]. DISCHARGE MEDICATIONS: Continue medication from here. DIET: Cardiac, soft diet. ACTIVITY: As tolerated with physical therapy. FOLLOWUP: In 1 week. JOB# [id number]
== END 2018-04-28 18:05 | DRG 388 ==
LOC: ER 04:17 → TELE 08:08 → MSI 04-25 21:30 → TELE 04-25 23:40 → MSI 04-26 05:17
PROVIDERS: ADMIT Internal Medicine; ATTEND Internal Medicine
DX: K56.7 Ileus, unspecified (principal); G92 Toxic encephalopathy; R18.8 Other ascites; E44.0 Moderate protein-calorie malnutrition; I95.9 Hypotension, unspecified; E87.6 Hypokalemia; E86.0 Dehydration; K56.41 Fecal impaction; Z91.14 Patient's other noncompliance with medication regimen; F31.9 Bipolar disorder, unspecified; I10 Essential (primary) hypertension; K21.9 Gastro-esophageal reflux disease without esophagitis; F17.210 Nicotine dependence, cigarettes, uncomplicated; K27.9 Peptic ulcer, site unspecified, unspecified as acute or chronic, without hemorrhage or perforation; J44.9 Chronic obstructive pulmonary disease, unspecified; I25.10 Atherosclerotic heart disease of native coronary artery without angina pectoris; I25.2 Old myocardial infarction; I48.91 Unspecified atrial fibrillation; N40.0 Benign prostatic hyperplasia without lower urinary tract symptoms; Z86.73 Personal history of transient ischemic attack (TIA), and cerebral infarction without residual deficits
CPT/HCPCS: 36415-UA; 71045-TC; 74000-TC; 80048-TC; 80053-TC; 81001-TC; 82140-TC; 83605; 84484-TC; 85007-TC; 85025-TC; 87086-90; 90784; 93005; 94760; 96374; J2543; J3480; J7051; Q0162; Z7610